=== PATIENT | female | born 1985 | race Hispanic/Latino ===

== ENCOUNTER 2018-07-10 11:08 | Emergency (ER) | payer OTHER, SELFPAY ==
--- OUTSIDE RECORDS SUMMARY | 2018-07-10 11:10 | XMS REPORT | Clinical Summary ---
:1985 Author Organization [facility] Address [address] [place] [address] Care Team Providers Name Role Phone Unavailable Primary Care Provider Unavailable Allergies No Known Allergies Medications Medication Sig Dispensed Refills Start Date End Date Status aspirin 81 MG chewable Take 1 tablet 30 tablet 3 07/25/2016 07/25/2017 tablet (81 mg total) by mouth daily. atorvastatin (LIPITOR) Take 1 tablet 30 tablet 3 07/25/2016 07/25/2017 40 MG tablet (40 mg total) by mouth nightly. ferrous sulfate 325 Take 1 tablet 90 tablet 1 07/25/2016 07/25/2017 (65 FE) MG tablet (325 mg total) by mouth 3 (three) times daily. Active Problems Problem Noted Date Patent foramen ovale 07/25/2016 Received intravenous tissue plasminogen activator (tPA) in emergency 2016 department Essential hypertension 07/21/2016 Acute CVA (cerebrovascular accident) 07/20/2016 Acute right MCA stroke 07/20/2016 Social History Tobacco Use Types Packs/Day Years Used Date Never Smoker Alcohol Use Drinks/Week oz/Week Comments Yes Sex Assigned at Date Recorded Not on file Job Start Date Occupation Industry Not on file Not on file Not on file Travel History Travel Start Travel End No recent travel history available. Last Filed Vital Signs Not on file Plan of Treatment Not on file Results Not on fileafter 07/09/2017 Insurance Payer Benefit Plan / Group Subscriber ID Type Phone Address [place] xxxxxxxxx Medicaid Advance Directives For more information, please contact:[place] [address] [address] [place], [place] [phone] Code Status Date Activated Date Inactivated Comments Full Code 07/24/2016 12:03 PM 07/24/2016 12:51 PM This code status was determined by: Patient Full Code 07/20/2016 11:48 PM 07/24/2016 12:03 PM This code status was determined by: Patient
--- OUTSIDE RECORDS SUMMARY | 2018-07-10 11:10 | XMS REPORT | Clinical Summary ---
:1985 Author Organization [facility] Address [address] [place] [address] Care Team Providers Name Role Phone Bandar Monge MD Primary Care Provider Allergies Not on File Medications Not on file Active Problems Not on file Social History Tobacco Use Types Packs/Day Years Used Date Never Assessed Sex Assigned at Date Recorded Not on file Job Start Date Occupation Industry Not on file Not on file Not on file Travel History Travel Start Travel End No recent travel history available. Last Filed Vital Signs Not on file Plan of Treatment Health Maintenance Due Date Last Done Comments CERVICAL CANCER SCREENING 08/09/2008 INFLUENZA VACCINE 11/21/2017 Results Not on fileafter 07/09/2017 Insurance Payer Benefit Plan / Group Subscriber ID Type Phone Address [employer] [facility] xxxxxxxxx O Advance Directives Patient has advance care planning documents on file. For more information, please contact:[address] [address]
--- OUTSIDE RECORDS SUMMARY | 2018-07-10 11:11 | XMS REPORT ---
:1985 Author Organization [facility] Address [address] [place] [address] [address] [place] [address] Care Team Providers Name Role Phone LANRE NAVARRO Unavailable Unavailable Problems This patient has no known problems. Allergies, Adverse Reactions, Alerts This patient has no known allergies or adverse reactions. Medications This patient has no known medications. Results Test Description Test Time Test Comments Text Results Atomic Results Result Comments [facility]IL[facility] (DRVV) 2016-07-25 15:34:00 Test Item Value Reference Range Comments PROTIME (BEAKER) (test uzwy=682) 13.9 seconds 11.7-14.7 INR (BEAKER) (test xuda=931) 1.1 <=5.9 PARTIAL THROMBOPLASTIN TIME (BEAKER) 56.1 seconds 22.5-36.0 (test dkqt=985) DRVV INTERPRETATION (BEAKER) (test Normal DRVV Results pwpq=8082) ABBA-CDUYWWBZSTC-718 (BEAKER) (test Alvarez Moe MD (electronic bczc=7337) signature) DRVV SCREEN RATIO (BEAKER) (test 0.84 <1.20 ljju=5194) Effective 08/26/2013: Test Method ChangeDRVV Screen Ratio, DRVV 1/1 Screen Ratio, DRVV Confirm Ratio,DRVV Normalized Ratio Reference Range: <1.2Protime Reference Range ChangeNew: 11.7-14.7 Previous: 9.8-12.0PTT Reference Range ChangeNew: 22.5-36.0 Previous: 25.8-34.5CBC W/PLT COUNT & AUTO [id number] 07:26:00 Test Item Value Reference Range Comments WHITE BLOOD CELL COUNT (BEAKER) (test xosc=676) 6.6 K/ L 4.0-10.0 RED BLOOD CELL COUNT (BEAKER) (test abrh=235) 3.31 M/ L 4.00-5.00 HEMOGLOBIN (BEAKER) (test odzn=407) 8.4 GM/DL 12.0-15.0 HEMATOCRIT (BEAKER) (test fuef=693) 26.4 % 36.0-45.0 MEAN CORPUSCULAR VOLUME (BEAKER) (test ukqh=190) 79.8 fL 82.0-99.0 MEAN CORPUSCULAR HEMOGLOBIN (BEAKER) (test 25.4 pg 27.0-33.0 pmzm=221) MEAN CORPUSCULAR HEMOGLOBIN CONC (BEAKER) (test 31.9 GM/DL 32.0-36.0 rnrj=793) RED CELL DISTRIBUTION WIDTH (BEAKER) (test 15.2 % 10.3-14.2 hozh=975) PLATELET COUNT (BEAKER) (test mjyf=623) 254 K/CU MM 150-430 MEAN PLATELET VOLUME (BEAKER) (test rgga=429) 8.1 fL 6.5-10.5 NUCLEATED RED BLOOD CELLS (BEAKER) (test 0 /100 WBC 0-0 rxcx=789) NEUTROPHILS RELATIVE PERCENT (BEAKER) (test 60 % gojr=660) LYMPHOCYTES RELATIVE PERCENT (BEAKER) (test 29 % vgsh=259) MONOCYTES RELATIVE PERCENT (BEAKER) (test 10 % mlzx=530) EOSINOPHILS RELATIVE PERCENT (BEAKER) (test 1 % zjnr=450) BASOPHILS RELATIVE PERCENT (BEAKER) (test 1 % vlvp=352) NEUTROPHILS ABSOLUTE COUNT (BEAKER) (test 3.90 K/ L 1.80-8.00 jlfp=283) LYMPHOCYTES ABSOLUTE COUNT (BEAKER) (test 1.90 K/ L 1.48-4.50 qdnt=364) MONOCYTES ABSOLUTE COUNT (BEAKER) (test 0.65 K/ L 0.00-1.30 ktaz=891) EOSINOPHILS ABSOLUTE COUNT (BEAKER) (test 0.05 K/ L 0.00-0.50 lnmi=381) BASOPHILS ABSOLUTE COUNT (BEAKER) (test 0.05 K/ L 0.00-0.20 htnt=536) 0.00BASIC METABOLIC [id number] 07:05:00 Test Item Value Reference Range Comments SODIUM (BEAKER) (test 135 meq/L 136-145 syjb=670) POTASSIUM (BEAKER) (test 3.7 meq/L 3.5-5.1 ovsy=735) CHLORIDE (BEAKER) (test 107 meq/L 98-107 wbet=374) CO2 (BEAKER) (test 19 meq/L 22-29 ypcg=136) BLOOD UREA NITROGEN 12 mg/dL 7-21 (BEAKER) (test hged=834) CREATININE (BEAKER) (test 0.59 mg/dL 0.57-1.25 ztlx=878) GLUCOSE RANDOM (BEAKER) 93 mg/dL 70-105 (test dajl=688) CALCIUM (BEAKER) (test 8.5 mg/dL 8.4-10.2 pcmh=106) EGFR (BEAKER) (test mL/min/1.73 sq m INSUFFICIENT CLINICAL DATA acru=6894) TO CALCULATE ESTIMATED GFR. CARDIOLIPIN ANTIBODIES, IGG AND [id number] 14:31:00 Test Item Value Reference Range Comments ANTICARDIOLIPIN IGG ANTIBODY (BEAKER) (test jysa=776) < GPL ANTICARDIOLIPIN IGM ANTIBODY (BEAKER) (test lyij=054) < MPL Anticardiolipin IgG Result Interpretation:NEG: <20 GPL; U/mlPOS: >/=20 GPL; U/mlAnticardiolipin IgM Result Interpretation:NEG: <20 MPL; U/mlPOS: >/=20 MPL; U/mlTHROMBIN [id number] 14:25:00 Test Item Value Reference Range Comments THROMBIN TIME (BEAKER) (test tsea=887) 193.3 secs 13.8-20.0 EQUAL MIX, NORMAL [id number] 14:16:00 Test Item Value Reference Range Comments PROTIME (BEAKER) (test 13.9 seconds 11.7-14.7 fuut=831) PARTIAL THROMBOPLASTIN TIME 56.1 seconds 22.5-36.0 (BEAKER) (test lihv=286) PT 1/1 MIX (BEAKER) (test SECS 11.7-14.7 Not applicable. Test not dnmm=7532) performed PTT 1/1 MIX (BEAKER) (test 42.4 SECS 22.5-36.0 objy=0258) ANTI-NUCLEAR ANTIBODY (CALLI)2016-07-24 12:37:00 Test Item Value Reference Range Comments ANTI-NUCLEAR ANTIBODY (CALLI) (BEAKER) (test Negative Negative xemf=791) CBC W/PLT COUNT & AUTO [id number] 08:32:00 Test Item Value Reference Range Comments WHITE BLOOD CELL COUNT (BEAKER) (test jero=094) 15.8 K/ L 4.0-10.0 RED BLOOD CELL COUNT (BEAKER) (test ekyl=239) 3.93 M/ L 4.00-5.00 HEMOGLOBIN (BEAKER) (test nclo=458) 9.3 GM/DL 12.0-15.0 HEMATOCRIT (BEAKER) (test rvgx=451) 30.6 % 36.0-45.0 MEAN CORPUSCULAR VOLUME (BEAKER) (test bjtd=801) 77.7 fL 82.0-99.0 MEAN CORPUSCULAR HEMOGLOBIN (BEAKER) (test 23.6 pg 27.0-33.0 ansk=134) MEAN CORPUSCULAR HEMOGLOBIN CONC (BEAKER) (test 30.4 GM/DL 32.0-36.0 smzo=734) RED CELL DISTRIBUTION WIDTH (BEAKER) (test 14.6 % 10.3-14.2 ybxb=697) PLATELET COUNT (BEAKER) (test ctrd=187) 311 K/CU MM 150-430 MEAN PLATELET VOLUME (BEAKER) (test enol=356) 8.1 fL 6.5-10.5 NUCLEATED RED BLOOD CELLS (BEAKER) (test 0 /100 WBC 0-0 vtab=674) NEUTROPHILS RELATIVE PERCENT (BEAKER) (test 91 % zxth=346) LYMPHOCYTES RELATIVE PERCENT (BEAKER) (test 5 % ahhn=748) MONOCYTES RELATIVE PERCENT (BEAKER) (test 4 % uuur=146) EOSINOPHILS RELATIVE PERCENT (BEAKER) (test 0 % cwpf=010) BASOPHILS RELATIVE PERCENT (BEAKER) (test 0 % qgbr=324) NEUTROPHILS ABSOLUTE COUNT (BEAKER) (test 14.40 K/ L 1.80-8.00 kufo=724) LYMPHOCYTES ABSOLUTE COUNT (BEAKER) (test 0.86 K/ L 1.48-4.50 jnkv=533) MONOCYTES ABSOLUTE COUNT (BEAKER) (test 0.57 K/ L 0.00-1.30 hbti=435) EOSINOPHILS ABSOLUTE COUNT (BEAKER) (test 0.02 K/ L 0.00-0.50 exly=218) BASOPHILS ABSOLUTE COUNT (BEAKER) (test 0.01 K/ L 0.00-0.20 axxr=901) 0.00(MANUAL DIFFERENTIAL)2016-07-24 08:32:00 Test Item Value Reference Range Comments TOTAL COUNTED (BEAKER) (test xpop=8143) BASIC METABOLIC [id number] 06:54:00 Test Item Value Reference Range Comments SODIUM (BEAKER) (test 138 meq/L 136-145 yuad=461) POTASSIUM (BEAKER) (test 4.1 meq/L 3.5-5.1 wtpa=932) CHLORIDE (BEAKER) (test 107 meq/L 98-107 zulv=437) CO2 (BEAKER) (test 21 meq/L 22-29 npok=976) BLOOD UREA NITROGEN 15 mg/dL 7-21 (BEAKER) (test kter=704) CREATININE (BEAKER) (test 0.71 mg/dL 0.57-1.25 mdmu=273) GLUCOSE RANDOM (BEAKER) 104 mg/dL 70-105 (test jswz=293) CALCIUM (BEAKER) (test 9.3 mg/dL 8.4-10.2 kifu=381) EGFR (BEAKER) (test mL/min/1.73 sq m INSUFFICIENT CLINICAL DATA bdoa=6293) TO CALCULATE ESTIMATED GFR. BASIC METABOLIC [id number] 07:19:00 Test Item Value Reference Range Comments SODIUM (BEAKER) (test 140 meq/L 136-145 dcxq=799) POTASSIUM (BEAKER) (test 4.0 meq/L 3.5-5.1 mjfa=604) CHLORIDE (BEAKER) (test 111 meq/L 98-107 rbau=111) CO2 (BEAKER) (test 21 meq/L 22-29 moki=321) BLOOD UREA NITROGEN 10 mg/dL 7-21 (BEAKER) (test ykpn=894) CREATININE (BEAKER) (test 0.69 mg/dL 0.57-1.25 zkib=864) GLUCOSE RANDOM (BEAKER) 90 mg/dL 70-105 (test vowb=531) CALCIUM (BEAKER) (test 8.8 mg/dL 8.4-10.2 wdak=571) EGFR (BEAKER) (test mL/min/1.73 sq m INSUFFICIENT CLINICAL DATA swkv=9475) TO CALCULATE ESTIMATED GFR. CBC W/PLT COUNT & AUTO [id number] 07:07:00 Test Item Value Reference Range Comments WHITE BLOOD CELL COUNT (BEAKER) (test fcay=200) 8.3 K/ L 4.0-10.0 RED BLOOD CELL COUNT (BEAKER) (test rwfv=396) 3.56 M/ L 4.00-5.00 HEMOGLOBIN (BEAKER) (test utnb=750) 9.2 GM/DL 12.0-15.0 HEMATOCRIT (BEAKER) (test cvnq=500) 28.5 % 36.0-45.0 MEAN CORPUSCULAR VOLUME (BEAKER) (test yfqp=770) 80.1 fL 82.0-99.0 MEAN CORPUSCULAR HEMOGLOBIN (BEAKER) (test 25.9 pg 27.0-33.0 cdny=553) MEAN CORPUSCULAR HEMOGLOBIN CONC (BEAKER) (test 32.4 GM/DL 32.0-36.0 monf=399) RED CELL DISTRIBUTION WIDTH (BEAKER) (test 14.3 % 10.3-14.2 pqhj=367) PLATELET COUNT (BEAKER) (test litq=981) 310 K/CU MM 150-430 MEAN PLATELET VOLUME (BEAKER) (test dauc=586) 7.7 fL 6.5-10.5 NUCLEATED RED BLOOD CELLS (BEAKER) (test 0 /100 WBC 0-0 orat=734) NEUTROPHILS RELATIVE PERCENT (BEAKER) (test 66 % obar=530) LYMPHOCYTES RELATIVE PERCENT (BEAKER) (test 23 % aqwc=874) MONOCYTES RELATIVE PERCENT (BEAKER) (test 10 % dxwl=362) EOSINOPHILS RELATIVE PERCENT (BEAKER) (test 1 % pxyt=793) BASOPHILS RELATIVE PERCENT (BEAKER) (test 1 % haoe=948) NEUTROPHILS ABSOLUTE COUNT (BEAKER) (test 5.50 K/ L 1.80-8.00 wgwt=759) LYMPHOCYTES ABSOLUTE COUNT (BEAKER) (test 1.93 K/ L 1.48-4.50 kwvq=906) MONOCYTES ABSOLUTE COUNT (BEAKER) (test 0.79 K/ L 0.00-1.30 nlon=402) EOSINOPHILS ABSOLUTE COUNT (BEAKER) (test 0.06 K/ L 0.00-0.50 kyos=295) BASOPHILS ABSOLUTE COUNT (BEAKER) (test 0.05 K/ L 0.00-0.20 jmjo=514) [id number] 11:08:00 Test Item Value Reference Range Comments POTASSIUM (BEAKER) (test zekr=772) 3.8 meq/L 3.5-5.1 [id number] 11:08:00 Test Item Value Reference Range Comments MAGNESIUM (BEAKER) (test mqmy=299) 2.3 mg/dL 1.6-2.6 BASIC METABOLIC [id number] 05:29:00 Test Item Value Reference Range Comments SODIUM (BEAKER) (test 139 meq/L 136-145 qnys=405) POTASSIUM (BEAKER) (test 3.6 meq/L 3.5-5.1 iuin=196) CHLORIDE (BEAKER) (test 111 meq/L 98-107 ptun=002) CO2 (BEAKER) (test 21 meq/L 22-29 uqmf=756) BLOOD UREA NITROGEN 8 mg/dL 7-21 (BEAKER) (test nrue=083) CREATININE (BEAKER) (test 0.59 mg/dL 0.57-1.25 cysm=550) GLUCOSE RANDOM (BEAKER) 93 mg/dL 70-105 (test kein=664) CALCIUM (BEAKER) (test 7.9 mg/dL 8.4-10.2 vbtx=687) EGFR (BEAKER) (test mL/min/1.73 sq m INSUFFICIENT CLINICAL DATA ossy=6934) TO CALCULATE ESTIMATED GFR. [id number] 05:27:00 Test Item Value Reference Range Comments PHOSPHORUS (BEAKER) (test ecjd=097) 2.7 mg/dL 2.3-4.7 [id number] 05:27:00 Test Item Value Reference Range Comments MAGNESIUM (BEAKER) (test exjv=629) 1.8 mg/dL 1.6-2.6 CBC W/PLT COUNT & AUTO [id number] 05:04:00 Test Item Value Reference Range Comments WHITE BLOOD CELL COUNT (BEAKER) (test sflo=881) 7.6 K/ L 4.0-10.0 RED BLOOD CELL COUNT (BEAKER) (test djke=754) 3.11 M/ L 4.00-5.00 HEMOGLOBIN (BEAKER) (test mtnc=629) 8.0 GM/DL 12.0-15.0 HEMATOCRIT (BEAKER) (test etvp=806) 24.8 % 36.0-45.0 MEAN CORPUSCULAR VOLUME (BEAKER) (test lyiq=703) 79.6 fL 82.0-99.0 MEAN CORPUSCULAR HEMOGLOBIN (BEAKER) (test 25.8 pg 27.0-33.0 qtpp=125) MEAN CORPUSCULAR HEMOGLOBIN CONC (BEAKER) (test 32.4 GM/DL 32.0-36.0 dkul=067) RED CELL DISTRIBUTION WIDTH (BEAKER) (test 14.0 % 10.3-14.2 tkab=083) PLATELET COUNT (BEAKER) (test qhkk=579) 268 K/CU MM 150-430 MEAN PLATELET VOLUME (BEAKER) (test xfij=771) 7.5 fL 6.5-10.5 NUCLEATED RED BLOOD CELLS (BEAKER) (test 0 /100 WBC 0-0 hpmx=888) NEUTROPHILS RELATIVE PERCENT (BEAKER) (test 62 % hqcc=798) LYMPHOCYTES RELATIVE PERCENT (BEAKER) (test 29 % oike=568) MONOCYTES RELATIVE PERCENT (BEAKER) (test 8 % nria=342) EOSINOPHILS RELATIVE PERCENT (BEAKER) (test 0 % rszp=193) BASOPHILS RELATIVE PERCENT (BEAKER) (test 1 % rran=372) NEUTROPHILS ABSOLUTE COUNT (BEAKER) (test 4.72 K/ L 1.80-8.00 makr=204) LYMPHOCYTES ABSOLUTE COUNT (BEAKER) (test 2.20 K/ L 1.48-4.50 lzyu=333) MONOCYTES ABSOLUTE COUNT (BEAKER) (test 0.62 K/ L 0.00-1.30 vwgl=992) EOSINOPHILS ABSOLUTE COUNT (BEAKER) (test 0.03 K/ L 0.00-0.50 zfhw=214) BASOPHILS ABSOLUTE COUNT (BEAKER) (test 0.04 K/ L 0.00-0.20 pznw=604) [id number] 17:27:00 Test Item Value Reference Range Comments FERRITIN (BEAKER) (test mijo=482) 9 ng/mL 5-275 Effective 03/10/2014: Reference Range ChangeNew: Male 5-275 Previous: Male 22-322 Female 5-275 Female 10-291TSH/FREE T4 IF [id number] 17:27:00 Test Item Value Reference Range Comments THYROID STIMULATING HORMONE (BEAKER) (test 1.75 uIU/mL 0.35-4.94 oadh=583) IRON, TIBC, % SAT. (WITHOUT FERRITIN)2016-07-21 17:06:00 Test Item Value Reference Range Comments IRON (BEAKER) (test vkzd=034) 25 ug/dL 40-160 TOTAL IRON BINDING CAPACITY (BEAKER) (test 435 ug/dL 250-450 brke=147) IRON % SATURATION (2) (BEAKER) (test dxxs=2765) 6 % 20-55 BASIC METABOLIC [id number] 15:01:00 Test Item Value Reference Range Comments SODIUM (BEAKER) (test 137 meq/L 136-145 rebz=954) POTASSIUM (BEAKER) (test 3.9 meq/L 3.5-5.1 bdks=028) CHLORIDE (BEAKER) (test 109 meq/L 98-107 mouk=269) CO2 (BEAKER) (test 21 meq/L 22-29 ujpx=885) BLOOD UREA NITROGEN 7 mg/dL 7-21 (BEAKER) (test tjve=239) CREATININE (BEAKER) (test 0.63 mg/dL 0.57-1.25 uvri=793) GLUCOSE RANDOM (BEAKER) 85 mg/dL 70-105 (test qfqf=412) CALCIUM (BEAKER) (test 8.0 mg/dL 8.4-10.2 qetz=989) EGFR (BEAKER) (test mL/min/1.73 sq m INSUFFICIENT CLINICAL DATA lmco=7679) TO CALCULATE ESTIMATED GFR. [id number] 14:50:00 Test Item Value Reference Range Comments PHOSPHORUS (BEAKER) (test mtvr=722) 3.5 mg/dL 2.3-4.7 [id number] 14:50:00 Test Item Value Reference Range Comments MAGNESIUM (BEAKER) (test okdk=139) 1.9 mg/dL 1.6-2.6 LIPID [id number] 14:50:00 Test Item Value Reference Range Comments TRIGLYCERIDES (BEAKER) (test avsa=479) 41 mg/dL CHOLESTEROL (BEAKER) (test plnq=797) 109 mg/dL HDL CHOLESTEROL (BEAKER) (test cxxo=469) 44 mg/dL LDL CHOLESTEROL CALCULATED (BEAKER) (test 57 mg/dL uvkf=924) Triglyceride Reference Range: Low Risk <150 Borderline 150- 199 High Risk 200-499 Very High Risk >=500Cholesterol Reference Range: Low Risk <200 Borderline 200-239 High Risk > 240HDL Cholesterol Reference Range: Low Risk >=60 High Risk <40LDL Cholesterol Reference Range: Optimal <100 Near Optimal 100-129 Borderline 130-159 High 160-189 Very High >=190C-REACTIVE [id number] 14:50:00 Test Item Value Reference Range Comments C-REACTIVE PROTEIN (BEAKER) (test gsym=723) 0.02 mg/dL 0.00-0.50 COMPLEMENT COMPONENT [id number] 14:48:00 Test Item Value Reference Range Comments C4 COMPLEMENT (BEAKER) (test eenv=125) 19 mg/dL 15-57 Effective 03/10/2014: Reference Range ChangeNew: 15-57 Previous: 16- 38COMPLEMENT COMPONENT [id number] 14:48:00 Test Item Value Reference Range Comments C3 COMPLEMENT (BEAKER) (test aeyv=374) 105 mg/dL 82-193 Effective 03/10/2014: Reference Range ChangeNew: 82-193 Previous: 79- 152HEMOGLOBIN [id number] 14:38:00 Test Item Value Reference Range Comments HEMOGLOBIN A1C (BEAKER) (test wvll=004) 5.1 % 4.3-6.1 SEDIMENTATION [id number] 08:29:00 Test Item Value Reference Range Comments SEDIMENTATION RATE, ERYTHROCYTE (BEAKER) (test 10 mm/HR 0-20 dzmz=822) CBC W/PLT COUNT & AUTO [id number] 06:06:00 Test Item Value Reference Range Comments WHITE BLOOD CELL COUNT (BEAKER) (test iwnj=375) 10.2 K/ L 4.0-10.0 RED BLOOD CELL COUNT (BEAKER) (test tjrw=342) 3.44 M/ L 4.00-5.00 HEMOGLOBIN (BEAKER) (test jhzb=291) 8.6 GM/DL 12.0-15.0 HEMATOCRIT (BEAKER) (test xyqa=286) 27.5 % 36.0-45.0 MEAN CORPUSCULAR VOLUME (BEAKER) (test vbnb=836) 79.9 fL 82.0-99.0 MEAN CORPUSCULAR HEMOGLOBIN (BEAKER) (test 25.0 pg 27.0-33.0 xefa=193) MEAN CORPUSCULAR HEMOGLOBIN CONC (BEAKER) (test 31.2 GM/DL 32.0-36.0 zdov=275) RED CELL DISTRIBUTION WIDTH (BEAKER) (test 14.6 % 10.3-14.2 tjae=247) PLATELET COUNT (BEAKER) (test zykt=019) 282 K/CU MM 150-430 MEAN PLATELET VOLUME (BEAKER) (test bwdi=370) 8.0 fL 6.5-10.5 NUCLEATED RED BLOOD CELLS (BEAKER) (test 0 /100 WBC 0-0 lbqd=981) NEUTROPHILS RELATIVE PERCENT (BEAKER) (test 75 % pvoh=617) LYMPHOCYTES RELATIVE PERCENT (BEAKER) (test 20 % ceym=868) MONOCYTES RELATIVE PERCENT (BEAKER) (test 6 % guth=901) EOSINOPHILS RELATIVE PERCENT (BEAKER) (test 0 % evhz=478) BASOPHILS RELATIVE PERCENT (BEAKER) (test 0 % rcay=506) NEUTROPHILS ABSOLUTE COUNT (BEAKER) (test 7.63 K/ L 1.80-8.00 ovxt=274) LYMPHOCYTES ABSOLUTE COUNT (BEAKER) (test 1.99 K/ L 1.48-4.50 xutp=654) MONOCYTES ABSOLUTE COUNT (BEAKER) (test 0.56 K/ L 0.00-1.30 rkmx=478) EOSINOPHILS ABSOLUTE COUNT (BEAKER) (test 0.01 K/ L 0.00-0.50 pdgm=367) BASOPHILS ABSOLUTE COUNT (BEAKER) (test 0.04 K/ L 0.00-0.20 svqr=960) 0.00RAPID DRUG SCREEN, [id number] 01:59:00 Test Item Value Reference Range Comments BARBITURATE URINE (BEAKER) (test bkwh=798) Negative Negative BENZODIAZEPINE SCREEN URINE (BEAKER) (test Negative Negative uwnv=154) COCAINE (METAB.) SCREEN (BEAKER) (test sdsn=5559) Negative Negative METHADONE SCREEN (BEAKER) (test dmww=9093) Negative Negative OPIATE SCREEN URINE (BEAKER) (test ohuc=566) Negative Negative CANNABINOID SCREEN URINE (BEAKER) (test csdu=905) Positive Negative AMPH/METHAMPH SCREEN (BEAKER) (test ziwq=2914) Negative Negative PHENCYCLIDINE SCREEN URINE (BEAKER) (test zwoo=590) Negative Negative OXYCODONE SCREEN URINE (BEAKER) (test ivld=6099) Negative Negative DRUG CUTOFF CONC.Cocaine 300 ng/mL Cannabinoid 50 ng/mL Benzodiazepine 200 ng/mLBarbiturate 200 ng/ mLPhencyclidine 25 ng/mLOpiate 300 ng/mLMethadone 300 ng/mLAmphetamine/ 1000 ng/mL MethamphetamineOxycodone 300 ng/mLPREGNANCY SCREEN, [id number] 01:47:00 Test Item Value Reference Range Comments TEST URINE (BEAKER) (test ajsi=752) Negative URINALYSIS W/ [id number] 01:46:00 Test Item Value Reference Range Comments COLOR (BEAKER) (test muuh=023) Light Yellow CLARITY (BEAKER) (test mdqm=805) Clear SPECIFIC GRAVITY UA (BEAKER) (test hatc=418) > 1.001-1.035 PH UA (BEAKER) (test xwjq=835) 6.5 5.0-8.0 PROTEIN UA (BEAKER) (test vtzk=422) Negative Negative GLUCOSE UA (BEAKER) (test nxer=498) Negative Negative KETONES UA (BEAKER) (test mqcg=631) 40 mg/dL Negative BILIRUBIN UA (BEAKER) (test dkyu=479) Negative Negative BLOOD UA (BEAKER) (test olun=770) Negative Negative NITRITE UA (BEAKER) (test bhxx=982) Negative Negative LEUKOCYTE ESTERASE UA (BEAKER) (test nswb=065) Negative Negative UROBILINOGEN UA (BEAKER) (test iwsw=909) 0.2 mg/dL 0.2-1.0 RBC UA (BEAKER) (test rxfe=959) 0 /HPF WBC UA (BEAKER) (test ciof=788) < /HPF SQUAMOUS EPITHELIAL (BEAKER) (test beqx=290) 1 /HPF SOURCE(BEAKER) (test bcqr=7855) BASIC METABOLIC [id number] 22:37:00 Test Item Value Reference Range Comments SODIUM (BEAKER) (test 140 meq/L 136-145 fbrv=739) POTASSIUM (BEAKER) (test 3.7 meq/L 3.5-5.1 lepk=664) CHLORIDE (BEAKER) (test 108 meq/L 98-107 yrur=574) CO2 (BEAKER) (test 19 meq/L 22-29 kvse=624) BLOOD UREA NITROGEN 7 mg/dL 7-21 (BEAKER) (test mwxt=914) CREATININE (BEAKER) (test 0.61 mg/dL 0.57-1.25 jzye=689) GLUCOSE RANDOM (BEAKER) 99 mg/dL 70-105 (test zprs=929) CALCIUM (BEAKER) (test 9.4 mg/dL 8.4-10.2 quko=213) EGFR (BEAKER) (test mL/min/1.73 sq m INSUFFICIENT CLINICAL DATA jqrj=5561) TO CALCULATE ESTIMATED GFR. CREATINE KINASE (CK), TOTAL AND [id number] 22:33:00 Test Item Value Reference Range Comments CREATINE KINASE TOTAL (BEAKER) (test ufza=447) 119 U/L 29-200 CREATINE KINASE-MB (BEAKER) (test znue=564) 1.5 ng/mL 0.0-6.6 CREATINE KINASE-MB INDEX (BEAKER) (test kztj=190) 1.3 % Effective 03/10/2014: CK-MB Reference Range ChangeNew: 0.0-6.6 Previous: 0.0- 4.9CK-MB Reference Range:<6.7 Normal6.7-10.0 Borderline>10.0 AbnormalTROPONIN [id number] 22:33:00 Test Item Value Reference Range Comments TROPONIN I (BEAKER) (test lukd=085) < ng/mL 0.00-0.03 Effective 03/10/2014: Reference Range ChangeNew: 0.00-0.03 Previous 0.00- 0.15Troponin I (TnI) levels must be interpreted in the context of the presenting symptoms and the clinical findings. Elevated TnI levels indicate myocardial damage, but are not specific for ischemic heart disease. Elevated TnI levels are seen in patients with other cardiac conditions (including myocarditis and congestive heartfailure), and slight TnI elevations occur in patients with other conditions, including sepsis, renalfailure, acidosis, acute neurological disease, and persistent tachyarrhythmia.B-TYPE NATRIURETIC FACTOR ( BNP)2016-07-20 22:33:00 Test Item Value Reference Range Comments B-TYPE NATRIURETIC PEPTIDE (BEAKER) (test sosz=152) 33 pg/mL 0-100 [id number] 22:27:00 Test Item Value Reference Range Comments MAGNESIUM (BEAKER) (test pvia=378) 1.9 mg/dL 1.6-2.6 [id number] 22:10:00 Test Item Value Reference Range Comments PROTIME (BEAKER) (test owxs=314) 13.6 seconds 11.7-14.7 INR (BEAKER) (test xljp=271) 1.1 <=5.9 PARTIAL THROMBOPLASTIN TIME (BEAKER) (test 26.9 seconds 22.5-36.0 xauw=390) RECOMMENDED COUMADIN/WARFARIN INR THERAPY RANGESSTANDARD DOSE: 2.0 - 3.0 Includes: PROPHYLAXIS forvenous thrombosis, systemic embolization; TREATMENT for venous thrombosis and/or pulmonary embolus.HIGH RISK: Target INR is 2.5-3.5 for patients with mechanical heart valves.POCT-GLUCOSE [id number] 22:02:00 Test Item Value Reference Range Comments POC-GLUCOSE METER (BEAKER) 86 mg/dL 70-110 TESTED AT [facility] [address] [facility] (test rrcu=7965) [facility] [address] CBC W/PLT COUNT & AUTO [id number] 22:01:00 Test Item Value Reference Range Comments WHITE BLOOD CELL COUNT (BEAKER) (test cvmp=096) 15.3 K/ L 4.0-10.0 RED BLOOD CELL COUNT (BEAKER) (test ywzl=173) 4.11 M/ L 4.00-5.00 HEMOGLOBIN (BEAKER) (test aafe=559) 10.4 GM/DL 12.0-15.0 HEMATOCRIT (BEAKER) (test mgvp=385) 33.3 % 36.0-45.0 MEAN CORPUSCULAR VOLUME (BEAKER) (test advc=511) 81.0 fL 82.0-99.0 MEAN CORPUSCULAR HEMOGLOBIN (BEAKER) (test 25.3 pg 27.0-33.0 zsvs=082) MEAN CORPUSCULAR HEMOGLOBIN CONC (BEAKER) (test 31.3 GM/DL 32.0-36.0 eumk=894) RED CELL DISTRIBUTION WIDTH (BEAKER) (test 15.3 % 10.3-14.2 szui=027) PLATELET COUNT (BEAKER) (test fgoq=559) 424 K/CU MM 150-430 MEAN PLATELET VOLUME (BEAKER) (test rwlp=158) 7.3 fL 6.5-10.5 NUCLEATED RED BLOOD CELLS (BEAKER) (test 0 /100 WBC 0-0 obog=501) NEUTROPHILS RELATIVE PERCENT (BEAKER) (test 79 % iaox=447) LYMPHOCYTES RELATIVE PERCENT (BEAKER) (test 14 % cbsa=312) MONOCYTES RELATIVE PERCENT (BEAKER) (test 6 % yzzo=232) EOSINOPHILS RELATIVE PERCENT (BEAKER) (test 0 % vnyr=172) BASOPHILS RELATIVE PERCENT (BEAKER) (test 0 % ppeq=925) NEUTROPHILS ABSOLUTE COUNT (BEAKER) (test 12.00 K/ L 1.80-8.00 hchf=512) LYMPHOCYTES ABSOLUTE COUNT (BEAKER) (test 2.14 K/ L 1.48-4.50 pkcl=325) MONOCYTES ABSOLUTE COUNT (BEAKER) (test 0.97 K/ L 0.00-1.30 wpwj=708) EOSINOPHILS ABSOLUTE COUNT (BEAKER) (test 0.03 K/ L 0.00-0.50 qits=803) BASOPHILS ABSOLUTE COUNT (BEAKER) (test 0.07 K/ L 0.00-0.20 ifua=959) 0.00
[2018-07-10 12:04] LABS: Absolute Lymphocytes (CBC) 1.2 K/uL (0.7-4.9); Absolute Monocytes 0.3 K/uL (0.1-1.3); Absolute Neutrophil 3.2 K/uL (1.8-8.0); Basophils % 1.2 % (0-1.3); Eosinophils % 1.9 % (0-4.4); Hematocrit 37.2 % (36.0-45.0); Lymphocytes % 25.5 % (15.3-44.8); MPV 9.4 fL (7.6-11.3); Monocytes % 6.1 % (3.3-12.3); RBC Red Blood Cell Count 4.11 M/uL (3.86-4.86)
[2018-07-10 12:15] LABS: Protime INR 1.04
--- NOTE | 2018-07-10 12:18 | EKG ---
Test Date: 2018-07-10 Test Time: 11:30:55 Plastic Surgery Assistant: SAGAR MEASUREMENT RESULTS: Intervals: Rate: 93 NH: 150 QRSD: 84 QT: 360 QTc: 447 [place]: P: 66 NH: 150 QRS: 38 T: 28 INTERPRETIVE STATEMENTS: Normal sinus rhythm Normal ECG No previous ECG available for comparison Electronically Signed On 07-10-18 12:17:43 CDT by Mumtaz Dick
[2018-07-10 12:21] LABS: ALT/SGPT 27 U/L (12-78); AST/SGOT 15 U/L (15-37); Albumin 3.9 g/dL (3.4-5.0); Alkaline Phosphatase 83 U/L (45-117); BUN Blood Urea Nitrogen 13 mg/dL (7-18); Bicarbonate 29 mmol/L (21-32); Bilirubin Direct < 0.1 mg/dL (0-0.2); Bilirubin Total 0.3 mg/dL (0.2-1.0); Glucose Level 84 mg/dL (74-106); Magnesium 2.2 mg/dL (1.8-2.4); NT PRO-BNP 11 pg/mL (<125); Potassium 4.2 mmol/L (3.5-5.1); Sodium Level 140 mmol/L (136-145); Troponin (Emerg Dept Use Only) < 0.02 ng/mL (0.0-0.045)
--- NOTE | 2018-07-10 12:36 | RAD REPORT ---
EXAM DESCRIPTION: [place] Single View07/10/2018 12:30 pm CLINICAL HISTORY: Chest pain COMPARISON: 2016 FINDINGS: The lungs appear clear of acute infiltrate. The heart is normal size IMPRESSION: No acute abnormalities displayed
--- NOTE | 2018-07-10 13:23 | EDPHYS ---
Physician Documentation [facility] Name: Italia Allen Age: 32 yrs Sex: Female : 1985 Arrival Date: 07/10/2018 Time: 11:19 Bed 14 Private MD: ED Physician Serjio Hitchcock HPI: 07/10 12:05 This 32 yrs old Female presents to ER via EMS with complaints of Chest Pain. pm1 12:05 The patient or guardian reports chest pain that is located primarily in the anterior pm1 aspect of right upper chest. The pain does not radiate. Associated signs and symptoms: Pertinent negatives: abdominal pain, cough, nausea, shortness of breath, vomiting. The chest pain is described as sharp. Duration: The patient or guardian reports multiple episodes. Modifying factors: the symptoms are aggravated by deep breath, palpation of area. The patient has not recently seen a physician. onset 3 months ago. 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 - Social history:: Smoking status: Patient/guardian denies using tobacco. - Ebola Screening: : Patient negative for fever greater than or equal to 101.5 degrees Fahrenheit, and additional compatible Ebola Virus Disease symptoms Patient denies exposure to infectious person Patient denies travel to an Ebola-affected area in the 21 days before illness onset No symptoms or risks identified at this time. ROS: 12:05 Constitutional: Negative for fever, chills, and weight loss, Eyes: Negative for injury, pm1 pain, redness, and discharge, ENT: Negative for injury, pain, and discharge, Neck: Negative for injury, pain, and swelling. 12:05 Respiratory: Negative for shortness of breath, cough, wheezing, and pleuritic chest pain, Abdomen/GI: Negative for abdominal pain, nausea, vomiting, diarrhea, and constipation, Back: Negative for injury and pain, : Negative for injury, bleeding, discharge, and swelling, MS/Extremity: Negative for injury and deformity, Skin: Negative for injury, rash, and discoloration, Neuro: Negative for headache, weakness, numbness, tingling, and seizure. 12:05 Cardiovascular: Positive for chest pain, Negative for edema, palpitations. Exam: 12:05 Constitutional: This is a well developed, well nourished patient who is awake, alert, pm1 and in no acute distress. Head/Face: Normocephalic, atraumatic. Eyes: Pupils equal round and reactive to light, extra-ocular motions intact. Lids and lashes normal. Conjunctiva and sclera are non-icteric and not injected. Cornea within normal limits. Periorbital areas with no swelling, redness, or edema. ENT: Nares patent. No nasal discharge, no septal abnormalities noted. Tympanic membranes are normal and external auditory canals are clear. Oropharynx with no redness, swelling, or masses, exudates, or evidence of obstruction, uvula midline. Mucous membranes moist. Neck: Trachea midline, no thyromegaly or masses palpated, and no cervical lymphadenopathy. Supple, full range of motion without nuchal rigidity, or vertebral point tenderness. No Meningismus. 12:05 Cardiovascular: Regular rate and rhythm with a normal S1 and S2. No gallops, murmurs, or rubs. Normal PMI, no JVD. No pulse deficits. Respiratory: Lungs have equal breath sounds bilaterally, clear to auscultation and percussion. No rales, rhonchi or wheezes noted. No increased work of breathing, no retractions or nasal flaring. Abdomen/GI: Soft, non-tender, with normal bowel sounds. No distension or tympany. No guarding or rebound. No evidence of tenderness throughout. Back: No spinal tenderness. No costovertebral tenderness. Full range of motion. Skin: Warm, dry with normal turgor. Normal color with no rashes, no lesions, and no evidence of cellulitis. MS/ Extremity: Pulses equal, no cyanosis. Neurovascular intact. Full, normal range of motion. 12:05 Chest/axilla: Inspection: normal, Palpation: crepitus, is not appreciated, tenderness, of the anterior aspect of right upper chest, that totally reproduces the patient's complaints. 12:05 Neuro: Orientation: is normal, Motor: is normal, moves all fours. Vital Signs: 11:22 BP 123 / 74; Pulse 85; Resp 20; Temp 98; Pulse Ox 100% ; Weight 58.97 kg; bp 12:37 BP 112 / 77; Pulse 60; Resp 12; Pulse Ox 100% ; bp 13:44 BP 100 / 61; Pulse 68; Resp 15; Pulse Ox 100% on R/A; mh5 MDM: 11:22 Patient medically screened. nils 13:21 Data reviewed: vital signs. Data interpreted: Pulse oximetry: on room air is 100 %. pm1 Interpretation: normal. Counseling: I had a detailed discussion with the patient and/or guardian regarding: the historical points, exam findings, and any diagnostic results supporting the discharge/admit diagnosis, lab results, radiology results, the need for outpatient follow up, to return to the emergency department if symptoms worsen or persist or if there are any questions or concerns that arise at home. 07/10 11:30 Order name: Basic Metabolic Panel; Complete Time: 12:35 pm07/10 11:30 Order name: CBC with Diff; Complete Time: 12:35 pm07/10 11:30 Order name: LFT's; Complete Time: 12:35 pm07/10 11:30 Order name: Magnesium; Complete Time: 12:35 pm07/10 11:30 Order name: NT PRO-BNP; Complete Time: 12:35 pm07/10 11:30 Order name: PT-INR; Complete Time: 12:35 pm07/10 11:30 Order name: Troponin (emerg Dept Use Only); Complete Time: 12:35 pm07/10 11:30 Order name: XRAY Chest (1 view); Complete Time: 12:41 pm07/10 11:30 Order name: EKG; Complete Time: 11:31 pm07/10 11:30 Order name: Cardiac monitoring; Complete Time: 11:50 pm07/10 11:30 Order name: EKG - Nurse/Tech; Complete Time: 11:50 pm07/10 11:30 Order name: D-Dimer; Complete Time: 12:35 pm07/10 12:34 Order name: Urine Dipstick--Ancillary (enter results) 07/10 12:37 Order name: Urine --Ancillary (enter results) 07/10 11:30 Order name: IV Saline Lock; Complete Time: 11:50 pm1 07/10 11:30 Order name: Labs collected and sent; Complete Time: 11:50 pm1 07/10 11:30 Order name: O2 Per Protocol; Complete Time: 11:50 pm1 07/10 11:30 Order name: O2 Sat Monitoring; Complete Time: 11:50 pm1 07/10 11:30 Order name: Urine Dipstick-Ancillary (obtain specimen); Complete Time: 12:32 pm1 07/10 11:30 Order name: Urine Test (obtain specimen); Complete Time: 12:32 pm1 Administered Medications: No medications were administered Disposition: 07/11 08:04 Co-signature as Attending Physician, Serjio Hitchcock MD I agree with the assessment and nils plan of care. Disposition: 07/10/18 13:22 Discharged to Home. Impression: Chest pain, unspecified. - Condition is Stable. - Discharge Instructions: Nonspecific Chest Pain. - Medication Reconciliation Form, Thank You Letter, Antibiotic Education, Prescription Opioid Use, SBAR form form. - Follow up: Emergency Department; When: As needed; Reason: Worsening of condition. Follow up: Private Physician; When: 2 - 3 days; Reason: Recheck today's complaints, Continuance of care, Re-evaluation by your physician. - Problem is new. - Symptoms have improved. Signatures: Dispatcher [employer] EDSerjio Pascal MD MD cha Marinas, Patrick, AIRFRAME AND POWERPLANT MECHANIC AIRFRAME AND POWERPLANT MECHANIC pm1 Kar Cisneros RN RN bp Corrections: (The following items were deleted from the chart) 07/10 14:08 13:22 07/10/2018 13:22 Discharged to Home. Impression: Chest pain, unspecified. bp Condition is Stable. Forms are Medication Reconciliation Form, Thank You Letter, Antibiotic Education, Prescription Opioid Use. Follow up: Emergency Department; When: As needed; Reason: Worsening of condition. Follow up: Private Physician; When: 2 - 3 days; Reason: Recheck today's complaints, Continuance of care, Re-evaluation by your physician. Problem is new. Symptoms have improved. pm1
--- NOTE | 2018-07-10 13:23 | ER ---
Nurse's Notes [facility] Emergency Department Name: Italia Allen Age: 32 yrs Sex: Female : 1985 Arrival Date: 07/10/2018 Time: 11:19 Bed 14 Private MD: Diagnosis: Chest pain, unspecified Presentation: 07/10 11:19 Presenting complaint: EMS states: CHEST PAIN AT [facility] x3 MONTHS. Transition of bp care: patient was not received from another setting of care. Onset of symptoms is unknown. Risk Assessment: Do you want to hurt yourself or someone else? Patient reports no desire to harm self or others. Initial Sepsis Screen: Does the patient meet any 2 criteria? No. Patient's initial sepsis screen is negative. Does the patient have a suspected source of infection? No. Patient's initial sepsis screen is negative. Care prior to arrival: Medication(s) given: ASA, 81 mg, x 4, Nitroglycerin, 0.4 mg SL x 2, zofran 4 mg, FENTANYL 75MCG IV initiated. 20 GA, in the right antecubital area. 11:19 Method Of Arrival: EMS: [facility] bp 11:19 Acuity: BUDDY 2 bp Triage Assessment: 11:22 General: Appears in no apparent distress. comfortable, slender, Behavior is bp cooperative, appropriate for age, anxious. Pain: Complains of pain in chest. EENT: No deficits noted. Neuro: Level of Consciousness is awake, alert, obeys commands, Oriented to person, place, time, situation, Appropriate for age. Cardiovascular: Rhythm is sinus rhythm. Respiratory: Airway is patent Respiratory effort is even, unlabored, Respiratory pattern is regular, symmetrical. GI: No signs and/or symptoms were reported involving the gastrointestinal system. : No signs and/or symptoms were reported regarding the genitourinary system. Derm: No deficits noted. Musculoskeletal: Circulation, motion, and sensation intact. Range of motion: intact in all extremities. 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 - Social history:: Smoking status: Patient/guardian denies using tobacco. - Ebola Screening: : Patient negative for fever greater than or equal to 101.5 degrees Fahrenheit, and additional compatible Ebola Virus Disease symptoms Patient denies exposure to infectious person Patient denies travel to an Ebola-affected area in the 21 days before illness onset No symptoms or risks identified at this time. Screenin:25 Abuse screen: Denies threats or abuse. Denies injuries from another. Nutritional bp screening: No deficits noted. Tuberculosis screening: No symptoms or risk factors identified. Fall Risk None identified. Assessment: 11:26 General: SEE TRIAGE NOTE. bp 11:30 Pain: Pain does not radiate. Pain began 3 MONTHS AGO. bp 12:37 Reassessment: ALL CURRENT ORDERS COMPLETED, DISPO PENDING, VS STABLE ON MONITOR. bp 14:07 Reassessment: PT D/C HOME AMBULATORY WITH FAMILY, DX WITH NONSPECIFIC CHEST PAIN. bp Vital Signs: 11:22 BP 123 / 74; Pulse 85; Resp 20; Temp 98; Pulse Ox 100% ; Weight 58.97 kg; bp 12:37 BP 112 / 77; Pulse 60; Resp 12; Pulse Ox 100% ; bp 13:44 BP 100 / 61; Pulse 68; Resp 15; Pulse Ox 100% on R/A; mh5 ED Course: 11:19 Patient arrived in ED. bp 11:19 Alexis Montoya NP is PHCP. pm1 11:19 Serjio Hitchcock MD is Attending Physician. pm1 11:21 Triage completed. bp 11:22 Arm band placed on. bp 11:25 Patient has correct armband on for positive identification. Placed in gown. Bed in low bp position. Call light in reach. Side rails up X2. radiation monitor on. Pulse ox on. NIBP on. 11:25 Maintain EMS IV. Dressing intact. Good blood return noted. Site clean \T\ dry. Gauge \T\ bp site: 20 GAUGE R AC. Patient maintains SpO2 saturation greater than 95% on room air. 11:38 EKG done, by forest ranger technician. reviewed by Serjio Hitchcock MD. at1 11:42 Kar Cisneros, DIXIE is Primary Nurse. bp 12:29 X-ray completed. Portable x-ray completed in exam room. Patient tolerated procedure jb2 well. 12:31 XRAY Chest (1 view) In Process Unspecified. EDMS 12:31 Urine collected: clean catch specimen, clear. [facility] 12:32 Warm blanket given. [facility] 14:07 No provider procedures requiring assistance completed. IV discontinued, intact, bp bleeding controlled, No redness/swelling at site. Pressure dressing applied. Administered Medications: No medications were administered Outcome: 13:22 Discharge ordered by MD. pm1 14:07 Discharged to home ambulatory. bp 14:07 Condition: stable 14:07 Discharge instructions given to patient, Instructed on discharge instructions, follow up and referral plans. Demonstrated understanding of instructions, follow-up care. 14:08 Patient left the ED. bp Signatures: Dispatcher [employer] EDMS Kang Chirinos jb2 Lucina Hung, senior mechanical project manager EKG Tat1 Alexis Montoya, MANUFACTURING CHIEF ENGINEER MANUFACTURING CHIEF ENGINEER pm1 Radha Rivera 5 Kar Cisneros, RN RN bp
[2018-07-10 14:14] LABS: Urine Blood 2+ (NEG); Urine Glucose NEGATIVE (NEG); Urine Protein NEGATIVE (NEG); Urine pH 5.5 (5.0-7.0)
[2018-07-10 14:22] VITALS: TEMP 98; O2SAT 100
[2018-07-10 14:25] VITALS: BP 100/61
== END 2018-07-10 14:08 | disposition home or self-care (01) ==
LOC: ER 11:08
DX: R07.9 Chest pain, unspecified (principal); Z86.73 Personal history of transient ischemic attack (TIA), and cerebral infarction without residual deficits
CPT/HCPCS: 36415; 71045; 80048; 80076; 81003; 81025; 83735; 83880; 84484; 85025; 85379; 85610; 93005; 99285

== ENCOUNTER 2019-04-16 06:47 | Emergency (ER) | payer SELFPAY ==
--- OUTSIDE RECORDS SUMMARY | 2019-04-16 06:50 | XMS REPORT ---
:1985 [facility] [address] [place] [address] Care Team Providers Name Role Phone LANRE [...] Value Reference Range Comments PROTIME (BEAKER) (test elay=043) 13.9 seconds 11.7-14.7 INR (BEAKER) (test lidw=020) 1.1 <=5.9 PARTIAL THROMBOPLASTIN TIME (BEAKER) 56.1 seconds 22.5-36.0 (test rhjs=852) DRVV INTERPRETATION (BEAKER) (test Normal DRVV Results drlx=8047) SCHE-[id number]-165 (BEAKER) (test Alvarez Moe MD (electronic wwnr=6115) signature) DRVV SCREEN RATIO (BEAKER) (test 0.84 <1.20 mvgp=3463) Effective 08/26/2013: Test Method ChangeDRVV Screen Ratio, DRVV 1/1 Screen Ratio, DRVV Confirm Ratio,DRVV Normalized Ratio Reference Range: <1.2Protime Reference Range ChangeNew: 11.7-14.7 Previous: 9.8-12.0PTT Reference Range ChangeNew: 22.5-36.0 Previous: 25.8-34.5CBC W/PLT COUNT & AUTO [id number] 07:26:00 Test Item Value Reference Range Comments WHITE BLOOD CELL COUNT (BEAKER) (test ptuj=240) 6.6 K/ L 4.0-10.0 RED BLOOD CELL COUNT (BEAKER) (test ngzz=741) 3.31 M/ L 4.00-5.00 HEMOGLOBIN (BEAKER) (test hwhz=436) 8.4 GM/DL 12.0-15.0 HEMATOCRIT (BEAKER) (test trwv=617) 26.4 % 36.0-45.0 MEAN CORPUSCULAR VOLUME (BEAKER) (test hucr=484) 79.8 fL 82.0-99.0 MEAN CORPUSCULAR HEMOGLOBIN (BEAKER) (test 25.4 pg 27.0-33.0 drpe=659) MEAN CORPUSCULAR HEMOGLOBIN CONC (BEAKER) (test 31.9 GM/DL 32.0-36.0 izoc=750) RED CELL DISTRIBUTION WIDTH (BEAKER) (test 15.2 % 10.3-14.2 pjje=779) PLATELET COUNT (BEAKER) (test jdvu=683) 254 K/CU MM 150-430 MEAN PLATELET VOLUME (BEAKER) (test tzzt=907) 8.1 fL 6.5-10.5 NUCLEATED RED BLOOD CELLS (BEAKER) (test 0 /100 WBC 0-0 nsve=783) NEUTROPHILS RELATIVE PERCENT (BEAKER) (test 60 % rkde=439) LYMPHOCYTES RELATIVE PERCENT (BEAKER) (test 29 % szjh=851) MONOCYTES RELATIVE PERCENT (BEAKER) (test 10 % qfiq=139) EOSINOPHILS RELATIVE PERCENT (BEAKER) (test 1 % qezv=674) BASOPHILS RELATIVE PERCENT (BEAKER) (test 1 % rmro=752) NEUTROPHILS ABSOLUTE COUNT (BEAKER) (test 3.90 K/ L 1.80-8.00 yhzu=363) LYMPHOCYTES ABSOLUTE COUNT (BEAKER) (test 1.90 K/ L 1.48-4.50 txyf=071) MONOCYTES ABSOLUTE COUNT (BEAKER) (test 0.65 K/ L 0.00-1.30 adrc=905) EOSINOPHILS ABSOLUTE COUNT (BEAKER) (test 0.05 K/ L 0.00-0.50 tmyo=019) BASOPHILS ABSOLUTE COUNT (BEAKER) (test 0.05 K/ L 0.00-0.20 goua=962) 0.00BASIC METABOLIC [id number] 07:05:00 Test Item Value Reference Range Comments SODIUM (BEAKER) (test 135 meq/L 136-145 pxqy=952) POTASSIUM (BEAKER) (test 3.7 meq/L 3.5-5.1 nbrj=407) CHLORIDE (BEAKER) (test 107 meq/L 98-107 fhjp=458) CO2 (BEAKER) (test 19 meq/L 22-29 tjqv=987) BLOOD UREA NITROGEN 12 mg/dL 7-21 (BEAKER) (test fksc=076) CREATININE (BEAKER) (test 0.59 mg/dL 0.57-1.25 ussl=076) GLUCOSE RANDOM (BEAKER) 93 mg/dL 70-105 (test aoud=110) CALCIUM (BEAKER) (test 8.5 mg/dL 8.4-10.2 bjld=729) EGFR (BEAKER) (test mL/min/1.73 sq m INSUFFICIENT CLINICAL DATA uvoq=8719) TO CALCULATE ESTIMATED GFR. CARDIOLIPIN ANTIBODIES, IGG AND [id number] 14:31:00 Test Item Value Reference Range Comments ANTICARDIOLIPIN IGG ANTIBODY (BEAKER) (test undj=826) < GPL ANTICARDIOLIPIN IGM ANTIBODY (BEAKER) (test nzlq=599) < MPL Anticardiolipin IgG Result Interpretation:NEG: <20 GPL; U/mlPOS: >/=20 GPL; U/mlAnticardiolipin IgM Result Interpretation:NEG: <20 MPL; U/mlPOS: >/=20 MPL; U/mlTHROMBIN [id number] 14:25:00 Test Item Value Reference Range Comments THROMBIN TIME (BEAKER) (test zdqg=118) 193.3 secs 13.8-20.0 EQUAL MIX, NORMAL [id number] 14:16:00 Test Item Value Reference Range Comments PROTIME (BEAKER) (test 13.9 seconds 11.7-14.7 sscs=906) PARTIAL THROMBOPLASTIN TIME 56.1 seconds 22.5-36.0 (BEAKER) (test ojka=334) PT 1/1 MIX (BEAKER) (test SECS 11.7-14.7 Not applicable. Test not mujm=6234) performed PTT 1/1 MIX (BEAKER) (test 42.4 SECS 22.5-36.0 abmc=9619) ANTI-NUCLEAR ANTIBODY (CALLI)2016-07-24 12:37:00 Test Item Value Reference Range Comments ANTI-NUCLEAR ANTIBODY (CALLI) (BEAKER) (test Negative Negative mtja=430) CBC W/PLT COUNT & AUTO [id number] 08:32:00 Test Item Value Reference Range Comments WHITE BLOOD CELL COUNT (BEAKER) (test mdvr=885) 15.8 K/ L 4.0-10.0 RED BLOOD CELL COUNT (BEAKER) (test sryw=616) 3.93 M/ L 4.00-5.00 HEMOGLOBIN (BEAKER) (test rsdv=557) 9.3 GM/DL 12.0-15.0 HEMATOCRIT (BEAKER) (test oasx=233) 30.6 % 36.0-45.0 MEAN CORPUSCULAR VOLUME (BEAKER) (test qupt=578) 77.7 fL 82.0-99.0 MEAN CORPUSCULAR HEMOGLOBIN (BEAKER) (test 23.6 pg 27.0-33.0 ykqm=636) MEAN CORPUSCULAR HEMOGLOBIN CONC (BEAKER) (test 30.4 GM/DL 32.0-36.0 zbxi=949) RED CELL DISTRIBUTION WIDTH (BEAKER) (test 14.6 % 10.3-14.2 lals=092) PLATELET COUNT (BEAKER) (test uspv=382) 311 K/CU MM 150-430 MEAN PLATELET VOLUME (BEAKER) (test antx=161) 8.1 fL 6.5-10.5 NUCLEATED RED BLOOD CELLS (BEAKER) (test 0 /100 WBC 0-0 jpjm=319) NEUTROPHILS RELATIVE PERCENT (BEAKER) (test 91 % ydzs=581) LYMPHOCYTES RELATIVE PERCENT (BEAKER) (test 5 % plpx=085) MONOCYTES RELATIVE PERCENT (BEAKER) (test 4 % ccwu=323) EOSINOPHILS RELATIVE PERCENT (BEAKER) (test 0 % okzi=530) BASOPHILS RELATIVE PERCENT (BEAKER) (test 0 % dkde=639) NEUTROPHILS ABSOLUTE COUNT (BEAKER) (test 14.40 K/ L 1.80-8.00 gmwe=349) LYMPHOCYTES ABSOLUTE COUNT (BEAKER) (test 0.86 K/ L 1.48-4.50 csok=861) MONOCYTES ABSOLUTE COUNT (BEAKER) (test 0.57 K/ L 0.00-1.30 zyor=693) EOSINOPHILS ABSOLUTE COUNT (BEAKER) (test 0.02 K/ L 0.00-0.50 whwp=710) BASOPHILS ABSOLUTE COUNT (BEAKER) (test 0.01 K/ L 0.00-0.20 fagh=920) 0.00(MANUAL DIFFERENTIAL)2016-07-24 08:32:00 Test Item Value Reference Range Comments TOTAL COUNTED (BEAKER) (test xnft=4613) BASIC METABOLIC [id number] 06:54:00 Test Item Value Reference Range Comments SODIUM (BEAKER) (test 138 meq/L 136-145 pvuy=191) POTASSIUM (BEAKER) (test 4.1 meq/L 3.5-5.1 dfkk=453) CHLORIDE (BEAKER) (test 107 meq/L 98-107 dqpb=959) CO2 (BEAKER) (test 21 meq/L 22-29 cubj=567) BLOOD UREA NITROGEN 15 mg/dL 7-21 (BEAKER) (test hzyp=272) CREATININE (BEAKER) (test 0.71 mg/dL 0.57-1.25 zswp=215) GLUCOSE RANDOM (BEAKER) 104 mg/dL 70-105 (test ymjw=773) CALCIUM (BEAKER) (test 9.3 mg/dL 8.4-10.2 pqih=365) EGFR (BEAKER) (test mL/min/1.73 sq m INSUFFICIENT CLINICAL DATA neyv=0841) TO CALCULATE ESTIMATED GFR. BASIC METABOLIC [id number] 07:19:00 Test Item Value Reference Range Comments SODIUM (BEAKER) (test 140 meq/L 136-145 neyl=760) POTASSIUM (BEAKER) (test 4.0 meq/L 3.5-5.1 mjlp=619) CHLORIDE (BEAKER) (test 111 meq/L 98-107 hjlm=813) CO2 (BEAKER) (test 21 meq/L 22-29 iyjc=602) BLOOD UREA NITROGEN 10 mg/dL 7-21 (BEAKER) (test kuet=624) CREATININE (BEAKER) (test 0.69 mg/dL 0.57-1.25 vklb=718) GLUCOSE RANDOM (BEAKER) 90 mg/dL 70-105 (test fiur=415) CALCIUM (BEAKER) (test 8.8 mg/dL 8.4-10.2 cyxm=011) EGFR (BEAKER) (test mL/min/1.73 sq m INSUFFICIENT CLINICAL DATA yrwd=6863) TO CALCULATE ESTIMATED GFR. CBC W/PLT COUNT & AUTO [id number] 07:07:00 Test Item Value Reference Range Comments WHITE BLOOD CELL COUNT (BEAKER) (test xugx=209) 8.3 K/ L 4.0-10.0 RED BLOOD CELL COUNT (BEAKER) (test imvi=028) 3.56 M/ L 4.00-5.00 HEMOGLOBIN (BEAKER) (test ztrn=308) 9.2 GM/DL 12.0-15.0 HEMATOCRIT (BEAKER) (test yady=831) 28.5 % 36.0-45.0 MEAN CORPUSCULAR VOLUME (BEAKER) (test jvzv=303) 80.1 fL 82.0-99.0 MEAN CORPUSCULAR HEMOGLOBIN (BEAKER) (test 25.9 pg 27.0-33.0 hual=563) MEAN CORPUSCULAR HEMOGLOBIN CONC (BEAKER) (test 32.4 GM/DL 32.0-36.0 cipy=846) RED CELL DISTRIBUTION WIDTH (BEAKER) (test 14.3 % 10.3-14.2 wziu=780) PLATELET COUNT (BEAKER) (test mfog=376) 310 K/CU MM 150-430 MEAN PLATELET VOLUME (BEAKER) (test cqej=502) 7.7 fL 6.5-10.5 NUCLEATED RED BLOOD CELLS (BEAKER) (test 0 /100 WBC 0-0 moen=787) NEUTROPHILS RELATIVE PERCENT (BEAKER) (test 66 % pwmr=152) LYMPHOCYTES RELATIVE PERCENT (BEAKER) (test 23 % iybb=582) MONOCYTES RELATIVE PERCENT (BEAKER) (test 10 % ulnz=720) EOSINOPHILS RELATIVE PERCENT (BEAKER) (test 1 % klab=800) BASOPHILS RELATIVE PERCENT (BEAKER) (test 1 % ruak=880) NEUTROPHILS ABSOLUTE COUNT (BEAKER) (test 5.50 K/ L 1.80-8.00 sjng=075) LYMPHOCYTES ABSOLUTE COUNT (BEAKER) (test 1.93 K/ L 1.48-4.50 jdzr=859) MONOCYTES ABSOLUTE COUNT (BEAKER) (test 0.79 K/ L 0.00-1.30 ihfo=242) EOSINOPHILS ABSOLUTE COUNT (BEAKER) (test 0.06 K/ L 0.00-0.50 uojr=804) BASOPHILS ABSOLUTE COUNT (BEAKER) (test 0.05 K/ L 0.00-0.20 qidt=778) [id number] 11:08:00 Test Item Value Reference Range Comments POTASSIUM (BEAKER) (test zqcv=132) 3.8 meq/L 3.5-5.1 [id number] 11:08:00 Test Item Value Reference Range Comments MAGNESIUM (BEAKER) (test epxn=957) 2.3 mg/dL 1.6-2.6 BASIC METABOLIC [id number] 05:29:00 Test Item Value Reference Range Comments SODIUM (BEAKER) (test 139 meq/L 136-145 xdex=829) POTASSIUM (BEAKER) (test 3.6 meq/L 3.5-5.1 lbhy=570) CHLORIDE (BEAKER) (test 111 meq/L 98-107 bbhu=038) CO2 (BEAKER) (test 21 meq/L 22-29 qfaa=307) BLOOD UREA NITROGEN 8 mg/dL 7-21 (BEAKER) (test hkvb=730) CREATININE (BEAKER) (test 0.59 mg/dL 0.57-1.25 wdqu=753) GLUCOSE RANDOM (BEAKER) 93 mg/dL 70-105 (test fldd=332) CALCIUM (BEAKER) (test 7.9 mg/dL 8.4-10.2 hwup=350) EGFR (BEAKER) (test mL/min/1.73 sq m INSUFFICIENT CLINICAL DATA ycip=1681) TO CALCULATE ESTIMATED GFR. [id number] 05:27:00 Test Item Value Reference Range Comments PHOSPHORUS (BEAKER) (test apbs=735) 2.7 mg/dL 2.3-4.7 [id number] 05:27:00 Test Item Value Reference Range Comments MAGNESIUM (BEAKER) (test vpbo=384) 1.8 mg/dL 1.6-2.6 CBC W/PLT COUNT & AUTO [id number] 05:04:00 Test Item Value Reference Range Comments WHITE BLOOD CELL COUNT (BEAKER) (test fbla=043) 7.6 K/ L 4.0-10.0 RED BLOOD CELL COUNT (BEAKER) (test jrnv=416) 3.11 M/ L 4.00-5.00 HEMOGLOBIN (BEAKER) (test ecqs=737) 8.0 GM/DL 12.0-15.0 HEMATOCRIT (BEAKER) (test rxxj=280) 24.8 % 36.0-45.0 MEAN CORPUSCULAR VOLUME (BEAKER) (test ndqr=167) 79.6 fL 82.0-99.0 MEAN CORPUSCULAR HEMOGLOBIN (BEAKER) (test 25.8 pg 27.0-33.0 msyp=208) MEAN CORPUSCULAR HEMOGLOBIN CONC (BEAKER) (test 32.4 GM/DL 32.0-36.0 lkiz=846) RED CELL DISTRIBUTION WIDTH (BEAKER) (test 14.0 % 10.3-14.2 xuqh=766) PLATELET COUNT (BEAKER) (test bnzb=670) 268 K/CU MM 150-430 MEAN PLATELET VOLUME (BEAKER) (test jcgu=889) 7.5 fL 6.5-10.5 NUCLEATED RED BLOOD CELLS (BEAKER) (test 0 /100 WBC 0-0 ageq=680) NEUTROPHILS RELATIVE PERCENT (BEAKER) (test 62 % dkcg=305) LYMPHOCYTES RELATIVE PERCENT (BEAKER) (test 29 % ozxe=694) MONOCYTES RELATIVE PERCENT (BEAKER) (test 8 % jgpv=813) EOSINOPHILS RELATIVE PERCENT (BEAKER) (test 0 % gyna=273) BASOPHILS RELATIVE PERCENT (BEAKER) (test 1 % zfiv=933) NEUTROPHILS ABSOLUTE COUNT (BEAKER) (test 4.72 K/ L 1.80-8.00 sdpg=105) LYMPHOCYTES ABSOLUTE COUNT (BEAKER) (test 2.20 K/ L 1.48-4.50 fygn=926) MONOCYTES ABSOLUTE COUNT (BEAKER) (test 0.62 K/ L 0.00-1.30 ytke=628) EOSINOPHILS ABSOLUTE COUNT (BEAKER) (test 0.03 K/ L 0.00-0.50 qufv=956) BASOPHILS ABSOLUTE COUNT (BEAKER) (test 0.04 K/ L 0.00-0.20 jjgx=974) [id number] 17:27:00 Test Item Value Reference Range Comments FERRITIN (BEAKER) (test tebb=261) 9 ng/mL 5-275 Effective 03/10/2014: Reference Range ChangeNew: Male 5-275 Previous: Male 22-322 Female 5-275 Female 10-291TSH/FREE T4 IF [id number] 17:27:00 Test Item Value Reference Range Comments THYROID STIMULATING HORMONE (BEAKER) (test 1.75 uIU/mL 0.35-4.94 itjm=735) IRON, TIBC, % SAT. (WITHOUT FERRITIN)2016-07-21 17:06:00 Test Item Value Reference Range Comments IRON (BEAKER) (test idpp=355) 25 ug/dL 40-160 TOTAL IRON BINDING CAPACITY (BEAKER) (test 435 ug/dL 250-450 jsfo=292) IRON % SATURATION (2) (BEAKER) (test qrzc=5795) 6 % 20-55 BASIC METABOLIC [id number] 15:01:00 Test Item Value Reference Range Comments SODIUM (BEAKER) (test 137 meq/L 136-145 lrtd=791) POTASSIUM (BEAKER) (test 3.9 meq/L 3.5-5.1 ecgu=362) CHLORIDE (BEAKER) (test 109 meq/L 98-107 slju=558) CO2 (BEAKER) (test 21 meq/L 22-29 avnr=489) BLOOD UREA NITROGEN 7 mg/dL 7-21 (BEAKER) (test dzcr=945) CREATININE (BEAKER) (test 0.63 mg/dL 0.57-1.25 qqvc=791) GLUCOSE RANDOM (BEAKER) 85 mg/dL 70-105 (test dqgc=507) CALCIUM (BEAKER) (test 8.0 mg/dL 8.4-10.2 mwpz=275) EGFR (BEAKER) (test mL/min/1.73 sq m INSUFFICIENT CLINICAL DATA eiup=0417) TO CALCULATE ESTIMATED GFR. [id number] 14:50:00 Test Item Value Reference Range Comments PHOSPHORUS (BEAKER) (test ukgw=295) 3.5 mg/dL 2.3-4.7 [id number] 14:50:00 Test Item Value Reference Range Comments MAGNESIUM (BEAKER) (test gaes=364) 1.9 mg/dL 1.6-2.6 LIPID [id number] 14:50:00 Test Item Value Reference Range Comments TRIGLYCERIDES (BEAKER) (test ajgt=549) 41 mg/dL CHOLESTEROL (BEAKER) (test kgsd=252) 109 mg/dL HDL CHOLESTEROL (BEAKER) (test twwn=371) 44 mg/dL LDL CHOLESTEROL CALCULATED (BEAKER) (test 57 mg/dL albi=799) Triglyceride Reference Range: Low Risk <150 Borderline 150- 199 High Risk 200-499 Very High Risk >=500Cholesterol Reference Range: Low Risk <200 Borderline 200-239 High Risk > 240HDL Cholesterol Reference Range: Low Risk >=60 High Risk <40LDL Cholesterol Reference Range: Optimal <100 Near Optimal 100-129 Borderline 130-159 High 160-189 Very High >=190C-REACTIVE [id number] 14:50:00 Test Item Value Reference Range Comments C-REACTIVE PROTEIN (BEAKER) (test rfui=138) 0.02 mg/dL 0.00-0.50 COMPLEMENT COMPONENT [id number] 14:48:00 Test Item Value Reference Range Comments C4 COMPLEMENT (BEAKER) (test tqja=671) 19 mg/dL 15-57 Effective 03/10/2014: Reference Range ChangeNew: 15-57 Previous: 16- 38COMPLEMENT COMPONENT [id number] 14:48:00 Test Item Value Reference Range Comments C3 COMPLEMENT (BEAKER) (test boyx=115) 105 mg/dL 82-193 Effective 03/10/2014: Reference Range ChangeNew: 82-193 Previous: 79- 152HEMOGLOBIN [id number] 14:38:00 Test Item Value Reference Range Comments HEMOGLOBIN A1C (BEAKER) (test ssvk=520) 5.1 % 4.3-6.1 SEDIMENTATION [id number] 08:29:00 Test Item Value Reference Range Comments SEDIMENTATION RATE, ERYTHROCYTE (BEAKER) (test 10 mm/HR 0-20 eceo=962) CBC W/PLT COUNT & AUTO [id number] 06:06:00 Test Item Value Reference Range Comments WHITE BLOOD CELL COUNT (BEAKER) (test xswk=650) 10.2 K/ L 4.0-10.0 RED BLOOD CELL COUNT (BEAKER) (test srfj=825) 3.44 M/ L 4.00-5.00 HEMOGLOBIN (BEAKER) (test kvcv=867) 8.6 GM/DL 12.0-15.0 HEMATOCRIT (BEAKER) (test hgzp=949) 27.5 % 36.0-45.0 MEAN CORPUSCULAR VOLUME (BEAKER) (test eudl=610) 79.9 fL 82.0-99.0 MEAN CORPUSCULAR HEMOGLOBIN (BEAKER) (test 25.0 pg 27.0-33.0 yvbl=240) MEAN CORPUSCULAR HEMOGLOBIN CONC (BEAKER) (test 31.2 GM/DL 32.0-36.0 gtha=888) RED CELL DISTRIBUTION WIDTH (BEAKER) (test 14.6 % 10.3-14.2 gija=712) PLATELET COUNT (BEAKER) (test yxfw=272) 282 K/CU MM 150-430 MEAN PLATELET VOLUME (BEAKER) (test twzc=886) 8.0 fL 6.5-10.5 NUCLEATED RED BLOOD CELLS (BEAKER) (test 0 /100 WBC 0-0 nzqx=227) NEUTROPHILS RELATIVE PERCENT (BEAKER) (test 75 % pndw=877) LYMPHOCYTES RELATIVE PERCENT (BEAKER) (test 20 % xflb=456) MONOCYTES RELATIVE PERCENT (BEAKER) (test 6 % uxty=820) EOSINOPHILS RELATIVE PERCENT (BEAKER) (test 0 % ugwo=095) BASOPHILS RELATIVE PERCENT (BEAKER) (test 0 % uoin=166) NEUTROPHILS ABSOLUTE COUNT (BEAKER) (test 7.63 K/ L 1.80-8.00 mmvy=494) LYMPHOCYTES ABSOLUTE COUNT (BEAKER) (test 1.99 K/ L 1.48-4.50 zklq=708) MONOCYTES ABSOLUTE COUNT (BEAKER) (test 0.56 K/ L 0.00-1.30 xaxi=056) EOSINOPHILS ABSOLUTE COUNT (BEAKER) (test 0.01 K/ L 0.00-0.50 jrer=851) BASOPHILS ABSOLUTE COUNT (BEAKER) (test 0.04 K/ L 0.00-0.20 olmx=869) 0.00RAPID DRUG SCREEN, [id number] 01:59:00 Test Item Value Reference Range Comments BARBITURATE URINE (BEAKER) (test vnvd=753) Negative Negative BENZODIAZEPINE SCREEN URINE (BEAKER) (test Negative Negative kwrh=381) COCAINE (METAB.) SCREEN (BEAKER) (test myzh=7736) Negative Negative METHADONE SCREEN (BEAKER) (test vill=9035) Negative Negative OPIATE SCREEN URINE (BEAKER) (test ultd=733) Negative Negative CANNABINOID SCREEN URINE (BEAKER) (test jtvh=050) Positive Negative AMPH/METHAMPH SCREEN (BEAKER) (test llsh=5817) Negative Negative PHENCYCLIDINE SCREEN URINE (BEAKER) (test uxxw=172) Negative Negative OXYCODONE SCREEN URINE (BEAKER) (test tchf=1147) Negative Negative DRUG CUTOFF CONC.Cocaine 300 ng/mL Cannabinoid 50 ng/mL Benzodiazepine 200 ng/mLBarbiturate 200 ng/ mLPhencyclidine 25 ng/mLOpiate 300 ng/mLMethadone 300 ng/mLAmphetamine/ 1000 ng/mL MethamphetamineOxycodone 300 ng/mLPREGNANCY SCREEN, [id number] 01:47:00 Test Item Value Reference Range Comments TEST URINE (BEAKER) (test iwut=871) Negative URINALYSIS W/ [id number] 01:46:00 Test Item Value Reference Range Comments COLOR (BEAKER) (test wgac=719) Light Yellow CLARITY (BEAKER) (test cpad=113) Clear SPECIFIC GRAVITY UA (BEAKER) (test bcym=857) > 1.001-1.035 PH UA (BEAKER) (test ypgc=987) 6.5 5.0-8.0 PROTEIN UA (BEAKER) (test ugnt=287) Negative Negative GLUCOSE UA (BEAKER) (test ucpj=599) Negative Negative KETONES UA (BEAKER) (test lstn=218) 40 mg/dL Negative BILIRUBIN UA (BEAKER) (test aezf=286) Negative Negative BLOOD UA (BEAKER) (test cifc=082) Negative Negative NITRITE UA (BEAKER) (test zlir=999) Negative Negative LEUKOCYTE ESTERASE UA (BEAKER) (test frge=101) Negative Negative UROBILINOGEN UA (BEAKER) (test eqqa=874) 0.2 mg/dL 0.2-1.0 RBC UA (BEAKER) (test vrel=603) 0 /HPF WBC UA (BEAKER) (test sbdj=227) < /HPF SQUAMOUS EPITHELIAL (BEAKER) (test ksjv=026) 1 /HPF SOURCE(BEAKER) (test zysr=4719) BASIC METABOLIC [id number] 22:37:00 Test Item Value Reference Range Comments SODIUM (BEAKER) (test 140 meq/L 136-145 qcbw=570) POTASSIUM (BEAKER) (test 3.7 meq/L 3.5-5.1 nvsj=878) CHLORIDE (BEAKER) (test 108 meq/L 98-107 llkx=602) CO2 (BEAKER) (test 19 meq/L 22-29 uqei=186) BLOOD UREA NITROGEN 7 mg/dL 7-21 (BEAKER) (test mcbp=367) CREATININE (BEAKER) (test 0.61 mg/dL 0.57-1.25 rrqe=385) GLUCOSE RANDOM (BEAKER) 99 mg/dL 70-105 (test jrkf=841) CALCIUM (BEAKER) (test 9.4 mg/dL 8.4-10.2 kxfr=661) EGFR (BEAKER) (test mL/min/1.73 sq m INSUFFICIENT CLINICAL DATA gpmg=1780) TO CALCULATE ESTIMATED GFR. CREATINE KINASE (CK), TOTAL AND [id number] 22:33:00 Test Item Value Reference Range Comments CREATINE KINASE TOTAL (BEAKER) (test vmrn=037) 119 U/L 29-200 CREATINE KINASE-MB (BEAKER) (test kqkf=966) 1.5 ng/mL 0.0-6.6 CREATINE KINASE-MB INDEX (BEAKER) (test qtsn=928) 1.3 % Effective 03/10/2014: CK-MB Reference Range ChangeNew: 0.0-6.6 Previous: 0.0- 4.9CK-MB Reference Range:<6.7 Normal6.7-10.0 Borderline>10.0 AbnormalTROPONIN [id number] 22:33:00 Test Item Value Reference Range Comments TROPONIN I (BEAKER) (test okky=139) < ng/mL 0.00-0.03 Effective 03/10/2014: Reference Range [...] Range Comments B-TYPE NATRIURETIC PEPTIDE (BEAKER) (test sxhd=249) 33 pg/mL 0-100 [id number] 22:27:00 Test Item Value Reference Range Comments MAGNESIUM (BEAKER) (test wlli=612) 1.9 mg/dL 1.6-2.6 [id number] 22:10:00 Test Item Value Reference Range Comments PROTIME (BEAKER) (test afpn=038) 13.6 seconds 11.7-14.7 INR (BEAKER) (test ziju=996) 1.1 <=5.9 PARTIAL THROMBOPLASTIN TIME (BEAKER) (test 26.9 seconds 22.5-36.0 qxbq=476) RECOMMENDED COUMADIN/WARFARIN INR THERAPY RANGESSTANDARD DOSE: 2.0 - 3.0 Includes: PROPHYLAXIS forvenous thrombosis, systemic embolization; TREATMENT for venous thrombosis and/or pulmonary embolus.HIGH RISK: Target INR is 2.5-3.5 for patients with mechanical heart valves.POCT-GLUCOSE [id number] 22:02:00 Test Item Value Reference Range Comments POC-GLUCOSE METER (BEAKER) 86 mg/dL 70-110 TESTED AT [facility] [address] [facility] (test txpb=1555) [facility] [id number] CBC W/PLT COUNT & AUTO [id number] 22:01:00 Test Item Value Reference Range Comments WHITE BLOOD CELL COUNT (BEAKER) (test daah=449) 15.3 K/ L 4.0-10.0 RED BLOOD CELL COUNT (BEAKER) (test nylz=032) 4.11 M/ L 4.00-5.00 HEMOGLOBIN (BEAKER) (test lzbb=912) 10.4 GM/DL 12.0-15.0 HEMATOCRIT (BEAKER) (test klcd=354) 33.3 % 36.0-45.0 MEAN CORPUSCULAR VOLUME (BEAKER) (test rjcb=768) 81.0 fL 82.0-99.0 MEAN CORPUSCULAR HEMOGLOBIN (BEAKER) (test 25.3 pg 27.0-33.0 bavb=115) MEAN CORPUSCULAR HEMOGLOBIN CONC (BEAKER) (test 31.3 GM/DL 32.0-36.0 aevi=338) RED CELL DISTRIBUTION WIDTH (BEAKER) (test 15.3 % 10.3-14.2 kysc=602) PLATELET COUNT (BEAKER) (test pmpg=142) 424 K/CU MM 150-430 MEAN PLATELET VOLUME (BEAKER) (test iyna=421) 7.3 fL 6.5-10.5 NUCLEATED RED BLOOD CELLS (BEAKER) (test 0 /100 WBC 0-0 hkyr=132) NEUTROPHILS RELATIVE PERCENT (BEAKER) (test 79 % zgrz=054) LYMPHOCYTES RELATIVE PERCENT (BEAKER) (test 14 % vqwv=205) MONOCYTES RELATIVE PERCENT (BEAKER) (test 6 % fqig=013) EOSINOPHILS RELATIVE PERCENT (BEAKER) (test 0 % mpyh=427) BASOPHILS RELATIVE PERCENT (BEAKER) (test 0 % atva=687) NEUTROPHILS ABSOLUTE COUNT (BEAKER) (test 12.00 K/ L 1.80-8.00 etgy=951) LYMPHOCYTES ABSOLUTE COUNT (BEAKER) (test 2.14 K/ L 1.48-4.50 ggaf=056) MONOCYTES ABSOLUTE COUNT (BEAKER) (test 0.97 K/ L 0.00-1.30 ewin=624) EOSINOPHILS ABSOLUTE COUNT (BEAKER) (test 0.03 K/ L 0.00-0.50 hisg=054) BASOPHILS ABSOLUTE COUNT (BEAKER) (test 0.07 K/ L 0.00-0.20 eskz=365) 0.00
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
[2019-04-16] MEDS ORDERED: IBUPROFEN 400 MG TAB ONE (08:32)
[2019-04-16] MEDS ORDERED: IBUPROFEN 200 MG TAB PO ONE (08:32)
[2019-04-16 08:59] VITALS: TEMP 99.5
[2019-04-16 09:01] VITALS: BP 136/96; O2SAT 96
--- NOTE | 2019-04-16 10:37 | RAD REPORT ---
EXAM DESCRIPTION: RAD - Knee Right 3 View - 04/16/2019 7:47 am CLINICAL HISTORY: PAIN COMPARISON: No comparisons FINDINGS: No fracture, dislocation or joint effusion.
== END 2019-04-16 08:49 | disposition home or self-care (01) ==
LOC: ER 06:47
DX: M25.561 Pain in right knee (principal); Y04.8XXA Assault by other bodily force, initial encounter; Y92.9 Unspecified place or not applicable
CPT/HCPCS: 99284

== ENCOUNTER 2019-07-17 15:29 | Emergency (ER) | payer OTHER, SELFPAY ==
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
--- OUTSIDE RECORDS SUMMARY | 2019-07-17 15:32 | XMS REPORT ---
:1985 [facility] Address [address] [place] [address] [address] [place] [address] Care Team Providers Name Role Phone LANRE [...] Value Reference Range Comments PROTIME (BEAKER) (test tbhg=402) 13.9 seconds 11.7-14.7 INR (BEAKER) (test yhkt=222) 1.1 <=5.9 PARTIAL THROMBOPLASTIN TIME (BEAKER) 56.1 seconds 22.5-36.0 (test dmtv=628) DRVV INTERPRETATION (BEAKER) (test Normal DRVV Results mvil=9641) [id number]-HLBONXIIHJE-111 (BEAKER) (test Alvarez Moe MD (electronic ubhz=6233) signature) DRVV SCREEN RATIO (BEAKER) (test 0.84 <1.20 kymj=8665) Effective 08/26/2013: Test Method ChangeDRVV Screen Ratio, DRVV 1/1 Screen Ratio, DRVV Confirm Ratio,DRVV Normalized Ratio Reference Range: <1.2Protime Reference Range ChangeNew: 11.7-14.7 Previous: 9.8-12.0PTT Reference Range ChangeNew: 22.5-36.0 Previous: 25.8-34.5CBC W/PLT COUNT & AUTO [id number] 07:26:00 Test Item Value Reference Range Comments WHITE BLOOD CELL COUNT (BEAKER) (test zqyn=279) 6.6 K/ L 4.0-10.0 RED BLOOD CELL COUNT (BEAKER) (test aumt=083) 3.31 M/ L 4.00-5.00 HEMOGLOBIN (BEAKER) (test tfps=105) 8.4 GM/DL 12.0-15.0 HEMATOCRIT (BEAKER) (test ejjd=165) 26.4 % 36.0-45.0 MEAN CORPUSCULAR VOLUME (BEAKER) (test didr=118) 79.8 fL 82.0-99.0 MEAN CORPUSCULAR HEMOGLOBIN (BEAKER) (test 25.4 pg 27.0-33.0 zrrn=453) MEAN CORPUSCULAR HEMOGLOBIN CONC (BEAKER) (test 31.9 GM/DL 32.0-36.0 qrtv=629) RED CELL DISTRIBUTION WIDTH (BEAKER) (test 15.2 % 10.3-14.2 xvrr=236) PLATELET COUNT (BEAKER) (test lbsp=897) 254 K/CU MM 150-430 MEAN PLATELET VOLUME (BEAKER) (test cdlr=874) 8.1 fL 6.5-10.5 NUCLEATED RED BLOOD CELLS (BEAKER) (test 0 /100 WBC 0-0 otjp=831) NEUTROPHILS RELATIVE PERCENT (BEAKER) (test 60 % oyqs=349) LYMPHOCYTES RELATIVE PERCENT (BEAKER) (test 29 % oxxi=694) MONOCYTES RELATIVE PERCENT (BEAKER) (test 10 % sxpg=475) EOSINOPHILS RELATIVE PERCENT (BEAKER) (test 1 % xisk=823) BASOPHILS RELATIVE PERCENT (BEAKER) (test 1 % aqtz=971) NEUTROPHILS ABSOLUTE COUNT (BEAKER) (test 3.90 K/ L 1.80-8.00 bpky=735) LYMPHOCYTES ABSOLUTE COUNT (BEAKER) (test 1.90 K/ L 1.48-4.50 pnsy=119) MONOCYTES ABSOLUTE COUNT (BEAKER) (test 0.65 K/ L 0.00-1.30 lhqd=754) EOSINOPHILS ABSOLUTE COUNT (BEAKER) (test 0.05 K/ L 0.00-0.50 ivdn=993) BASOPHILS ABSOLUTE COUNT (BEAKER) (test 0.05 K/ L 0.00-0.20 jwch=442) 0.00BASIC METABOLIC [id number] 07:05:00 Test Item Value Reference Range Comments SODIUM (BEAKER) (test 135 meq/L 136-145 dfhj=364) POTASSIUM (BEAKER) (test 3.7 meq/L 3.5-5.1 myet=122) CHLORIDE (BEAKER) (test 107 meq/L 98-107 jomm=959) CO2 (BEAKER) (test 19 meq/L 22-29 oxqi=943) BLOOD UREA NITROGEN 12 mg/dL 7-21 (BEAKER) (test csta=673) CREATININE (BEAKER) (test 0.59 mg/dL 0.57-1.25 qzlm=907) GLUCOSE RANDOM (BEAKER) 93 mg/dL 70-105 (test xqsu=728) CALCIUM (BEAKER) (test 8.5 mg/dL 8.4-10.2 yxbt=541) EGFR (BEAKER) (test mL/min/1.73 sq m INSUFFICIENT CLINICAL DATA ezyy=7884) TO CALCULATE ESTIMATED GFR. CARDIOLIPIN ANTIBODIES, IGG AND [id number] 14:31:00 Test Item Value Reference Range Comments ANTICARDIOLIPIN IGG ANTIBODY (BEAKER) (test nmmv=722) < GPL ANTICARDIOLIPIN IGM ANTIBODY (BEAKER) (test xitt=144) < MPL Anticardiolipin IgG Result Interpretation:NEG: <20 GPL; U/mlPOS: >/=20 GPL; U/mlAnticardiolipin IgM Result Interpretation:NEG: <20 MPL; U/mlPOS: >/=20 MPL; U/mlTHROMBIN [id number] 14:25:00 Test Item Value Reference Range Comments THROMBIN TIME (BEAKER) (test sosb=493) 193.3 secs 13.8-20.0 EQUAL MIX, NORMAL [id number] 14:16:00 Test Item Value Reference Range Comments PROTIME (BEAKER) (test 13.9 seconds 11.7-14.7 ljbw=598) PARTIAL THROMBOPLASTIN TIME 56.1 seconds 22.5-36.0 (BEAKER) (test nwvt=012) PT 1/1 MIX (BEAKER) (test SECS 11.7-14.7 Not applicable. Test not gnhl=6042) performed PTT 1/1 MIX (BEAKER) (test 42.4 SECS 22.5-36.0 exhh=0536) ANTI-NUCLEAR ANTIBODY (CLALI)2016-07-24 12:37:00 Test Item Value Reference Range Comments ANTI-NUCLEAR ANTIBODY (CALLI) (BEAKER) (test Negative Negative jgzh=267) CBC W/PLT COUNT & AUTO [id number] 08:32:00 Test Item Value Reference Range Comments WHITE BLOOD CELL COUNT (BEAKER) (test tpeq=514) 15.8 K/ L 4.0-10.0 RED BLOOD CELL COUNT (BEAKER) (test xgvk=254) 3.93 M/ L 4.00-5.00 HEMOGLOBIN (BEAKER) (test zaww=925) 9.3 GM/DL 12.0-15.0 HEMATOCRIT (BEAKER) (test awya=453) 30.6 % 36.0-45.0 MEAN CORPUSCULAR VOLUME (BEAKER) (test hgmi=446) 77.7 fL 82.0-99.0 MEAN CORPUSCULAR HEMOGLOBIN (BEAKER) (test 23.6 pg 27.0-33.0 nube=814) MEAN CORPUSCULAR HEMOGLOBIN CONC (BEAKER) (test 30.4 GM/DL 32.0-36.0 mvra=059) RED CELL DISTRIBUTION WIDTH (BEAKER) (test 14.6 % 10.3-14.2 ungm=657) PLATELET COUNT (BEAKER) (test ufbq=665) 311 K/CU MM 150-430 MEAN PLATELET VOLUME (BEAKER) (test ekyl=497) 8.1 fL 6.5-10.5 NUCLEATED RED BLOOD CELLS (BEAKER) (test 0 /100 WBC 0-0 pips=206) NEUTROPHILS RELATIVE PERCENT (BEAKER) (test 91 % oiir=889) LYMPHOCYTES RELATIVE PERCENT (BEAKER) (test 5 % edjf=860) MONOCYTES RELATIVE PERCENT (BEAKER) (test 4 % gvhb=191) EOSINOPHILS RELATIVE PERCENT (BEAKER) (test 0 % fotg=015) BASOPHILS RELATIVE PERCENT (BEAKER) (test 0 % dxcp=757) NEUTROPHILS ABSOLUTE COUNT (BEAKER) (test 14.40 K/ L 1.80-8.00 hnmu=154) LYMPHOCYTES ABSOLUTE COUNT (BEAKER) (test 0.86 K/ L 1.48-4.50 ards=518) MONOCYTES ABSOLUTE COUNT (BEAKER) (test 0.57 K/ L 0.00-1.30 kxme=675) EOSINOPHILS ABSOLUTE COUNT (BEAKER) (test 0.02 K/ L 0.00-0.50 jawm=054) BASOPHILS ABSOLUTE COUNT (BEAKER) (test 0.01 K/ L 0.00-0.20 fqnw=097) 0.00(MANUAL DIFFERENTIAL)2016-07-24 08:32:00 Test Item Value Reference Range Comments TOTAL COUNTED (BEAKER) (test vmjv=9961) BASIC METABOLIC [id number] 06:54:00 Test Item Value Reference Range Comments SODIUM (BEAKER) (test 138 meq/L 136-145 zswy=212) POTASSIUM (BEAKER) (test 4.1 meq/L 3.5-5.1 szuy=907) CHLORIDE (BEAKER) (test 107 meq/L 98-107 qeyt=680) CO2 (BEAKER) (test 21 meq/L 22-29 tpbf=197) BLOOD UREA NITROGEN 15 mg/dL 7-21 (BEAKER) (test ihkw=159) CREATININE (BEAKER) (test 0.71 mg/dL 0.57-1.25 ceml=082) GLUCOSE RANDOM (BEAKER) 104 mg/dL 70-105 (test pvtr=215) CALCIUM (BEAKER) (test 9.3 mg/dL 8.4-10.2 lvgg=893) EGFR (BEAKER) (test mL/min/1.73 sq m INSUFFICIENT CLINICAL DATA oain=4601) TO CALCULATE ESTIMATED GFR. BASIC METABOLIC [id number] 07:19:00 Test Item Value Reference Range Comments SODIUM (BEAKER) (test 140 meq/L 136-145 ifwr=036) POTASSIUM (BEAKER) (test 4.0 meq/L 3.5-5.1 ewbl=841) CHLORIDE (BEAKER) (test 111 meq/L 98-107 pfqn=121) CO2 (BEAKER) (test 21 meq/L 22-29 omwo=061) BLOOD UREA NITROGEN 10 mg/dL 7-21 (BEAKER) (test nfvf=454) CREATININE (BEAKER) (test 0.69 mg/dL 0.57-1.25 xcbd=536) GLUCOSE RANDOM (BEAKER) 90 mg/dL 70-105 (test mrgx=437) CALCIUM (BEAKER) (test 8.8 mg/dL 8.4-10.2 tmht=872) EGFR (BEAKER) (test mL/min/1.73 sq m INSUFFICIENT CLINICAL DATA jcwr=0133) TO CALCULATE ESTIMATED GFR. CBC W/PLT COUNT & AUTO [id number] 07:07:00 Test Item Value Reference Range Comments WHITE BLOOD CELL COUNT (BEAKER) (test hpch=955) 8.3 K/ L 4.0-10.0 RED BLOOD CELL COUNT (BEAKER) (test toat=257) 3.56 M/ L 4.00-5.00 HEMOGLOBIN (BEAKER) (test nnkf=312) 9.2 GM/DL 12.0-15.0 HEMATOCRIT (BEAKER) (test ntup=027) 28.5 % 36.0-45.0 MEAN CORPUSCULAR VOLUME (BEAKER) (test opwa=538) 80.1 fL 82.0-99.0 MEAN CORPUSCULAR HEMOGLOBIN (BEAKER) (test 25.9 pg 27.0-33.0 tduq=977) MEAN CORPUSCULAR HEMOGLOBIN CONC (BEAKER) (test 32.4 GM/DL 32.0-36.0 sxdo=425) RED CELL DISTRIBUTION WIDTH (BEAKER) (test 14.3 % 10.3-14.2 heyy=045) PLATELET COUNT (BEAKER) (test nycs=237) 310 K/CU MM 150-430 MEAN PLATELET VOLUME (BEAKER) (test bytx=138) 7.7 fL 6.5-10.5 NUCLEATED RED BLOOD CELLS (BEAKER) (test 0 /100 WBC 0-0 jpkw=805) NEUTROPHILS RELATIVE PERCENT (BEAKER) (test 66 % rvxk=278) LYMPHOCYTES RELATIVE PERCENT (BEAKER) (test 23 % iwph=488) MONOCYTES RELATIVE PERCENT (BEAKER) (test 10 % zvdm=553) EOSINOPHILS RELATIVE PERCENT (BEAKER) (test 1 % abjg=091) BASOPHILS RELATIVE PERCENT (BEAKER) (test 1 % kltr=187) NEUTROPHILS ABSOLUTE COUNT (BEAKER) (test 5.50 K/ L 1.80-8.00 bcix=697) LYMPHOCYTES ABSOLUTE COUNT (BEAKER) (test 1.93 K/ L 1.48-4.50 zbuw=849) MONOCYTES ABSOLUTE COUNT (BEAKER) (test 0.79 K/ L 0.00-1.30 bfdz=524) EOSINOPHILS ABSOLUTE COUNT (BEAKER) (test 0.06 K/ L 0.00-0.50 yobn=856) BASOPHILS ABSOLUTE COUNT (BEAKER) (test 0.05 K/ L 0.00-0.20 ykvo=268) [id number] 11:08:00 Test Item Value Reference Range Comments POTASSIUM (BEAKER) (test pggm=823) 3.8 meq/L 3.5-5.1 [id number] 11:08:00 Test Item Value Reference Range Comments MAGNESIUM (BEAKER) (test blcp=700) 2.3 mg/dL 1.6-2.6 BASIC METABOLIC [id number] 05:29:00 Test Item Value Reference Range Comments SODIUM (BEAKER) (test 139 meq/L 136-145 jraj=554) POTASSIUM (BEAKER) (test 3.6 meq/L 3.5-5.1 tmcl=748) CHLORIDE (BEAKER) (test 111 meq/L 98-107 iium=829) CO2 (BEAKER) (test 21 meq/L 22-29 ypdg=313) BLOOD UREA NITROGEN 8 mg/dL 7-21 (BEAKER) (test fshu=823) CREATININE (BEAKER) (test 0.59 mg/dL 0.57-1.25 lgdt=307) GLUCOSE RANDOM (BEAKER) 93 mg/dL 70-105 (test mygs=340) CALCIUM (BEAKER) (test 7.9 mg/dL 8.4-10.2 kvjs=984) EGFR (BEAKER) (test mL/min/1.73 sq m INSUFFICIENT CLINICAL DATA xolx=9786) TO CALCULATE ESTIMATED GFR. [id number] 05:27:00 Test Item Value Reference Range Comments PHOSPHORUS (BEAKER) (test uasc=658) 2.7 mg/dL 2.3-4.7 [id number] 05:27:00 Test Item Value Reference Range Comments MAGNESIUM (BEAKER) (test haoc=441) 1.8 mg/dL 1.6-2.6 CBC W/PLT COUNT & AUTO [id number] 05:04:00 Test Item Value Reference Range Comments WHITE BLOOD CELL COUNT (BEAKER) (test prny=450) 7.6 K/ L 4.0-10.0 RED BLOOD CELL COUNT (BEAKER) (test yxak=209) 3.11 M/ L 4.00-5.00 HEMOGLOBIN (BEAKER) (test oiff=776) 8.0 GM/DL 12.0-15.0 HEMATOCRIT (BEAKER) (test laub=802) 24.8 % 36.0-45.0 MEAN CORPUSCULAR VOLUME (BEAKER) (test owvp=237) 79.6 fL 82.0-99.0 MEAN CORPUSCULAR HEMOGLOBIN (BEAKER) (test 25.8 pg 27.0-33.0 jibh=763) MEAN CORPUSCULAR HEMOGLOBIN CONC (BEAKER) (test 32.4 GM/DL 32.0-36.0 stka=335) RED CELL DISTRIBUTION WIDTH (BEAKER) (test 14.0 % 10.3-14.2 irxj=487) PLATELET COUNT (BEAKER) (test xofz=727) 268 K/CU MM 150-430 MEAN PLATELET VOLUME (BEAKER) (test niit=612) 7.5 fL 6.5-10.5 NUCLEATED RED BLOOD CELLS (BEAKER) (test 0 /100 WBC 0-0 azyp=743) NEUTROPHILS RELATIVE PERCENT (BEAKER) (test 62 % xdsb=673) LYMPHOCYTES RELATIVE PERCENT (BEAKER) (test 29 % arns=029) MONOCYTES RELATIVE PERCENT (BEAKER) (test 8 % qcfp=209) EOSINOPHILS RELATIVE PERCENT (BEAKER) (test 0 % toee=415) BASOPHILS RELATIVE PERCENT (BEAKER) (test 1 % tnmb=618) NEUTROPHILS ABSOLUTE COUNT (BEAKER) (test 4.72 K/ L 1.80-8.00 ilaf=486) LYMPHOCYTES ABSOLUTE COUNT (BEAKER) (test 2.20 K/ L 1.48-4.50 ceiq=571) MONOCYTES ABSOLUTE COUNT (BEAKER) (test 0.62 K/ L 0.00-1.30 uuem=042) EOSINOPHILS ABSOLUTE COUNT (BEAKER) (test 0.03 K/ L 0.00-0.50 nqcq=188) BASOPHILS ABSOLUTE COUNT (BEAKER) (test 0.04 K/ L 0.00-0.20 jzbr=531) [id number] 17:27:00 Test Item Value Reference Range Comments FERRITIN (BEAKER) (test glfp=258) 9 ng/mL 5-275 Effective 03/10/2014: Reference Range ChangeNew: Male 5-275 Previous: Male 22-322 Female 5-275 Female 10-291TSH/FREE T4 IF [id number] 17:27:00 Test Item Value Reference Range Comments THYROID STIMULATING HORMONE (BEAKER) (test 1.75 uIU/mL 0.35-4.94 waya=672) IRON, TIBC, % SAT. (WITHOUT FERRITIN)2016-07-21 17:06:00 Test Item Value Reference Range Comments IRON (BEAKER) (test bbxw=513) 25 ug/dL 40-160 TOTAL IRON BINDING CAPACITY (BEAKER) (test 435 ug/dL 250-450 yqpu=701) IRON % SATURATION (2) (BEAKER) (test amij=3050) 6 % 20-55 BASIC METABOLIC [id number] 15:01:00 Test Item Value Reference Range Comments SODIUM (BEAKER) (test 137 meq/L 136-145 eohq=610) POTASSIUM (BEAKER) (test 3.9 meq/L 3.5-5.1 syng=148) CHLORIDE (BEAKER) (test 109 meq/L 98-107 vaim=862) CO2 (BEAKER) (test 21 meq/L 22-29 cscn=423) BLOOD UREA NITROGEN 7 mg/dL 7-21 (BEAKER) (test ltnv=490) CREATININE (BEAKER) (test 0.63 mg/dL 0.57-1.25 iqqi=211) GLUCOSE RANDOM (BEAKER) 85 mg/dL 70-105 (test oqet=363) CALCIUM (BEAKER) (test 8.0 mg/dL 8.4-10.2 hbox=070) EGFR (BEAKER) (test mL/min/1.73 sq m INSUFFICIENT CLINICAL DATA tczb=4636) TO CALCULATE ESTIMATED GFR. [id number] 14:50:00 Test Item Value Reference Range Comments PHOSPHORUS (BEAKER) (test crun=127) 3.5 mg/dL 2.3-4.7 [id number] 14:50:00 Test Item Value Reference Range Comments MAGNESIUM (BEAKER) (test fmin=599) 1.9 mg/dL 1.6-2.6 LIPID [id number] 14:50:00 Test Item Value Reference Range Comments TRIGLYCERIDES (BEAKER) (test wqvb=877) 41 mg/dL CHOLESTEROL (BEAKER) (test lgbs=081) 109 mg/dL HDL CHOLESTEROL (BEAKER) (test vqtf=889) 44 mg/dL LDL CHOLESTEROL CALCULATED (BEAKER) (test 57 mg/dL omal=885) Triglyceride Reference Range: Low Risk <150 Borderline 150- 199 High Risk 200-499 Very High Risk >=500Cholesterol Reference Range: Low Risk <200 Borderline 200-239 High Risk > 240HDL Cholesterol Reference Range: Low Risk >=60 High Risk <40LDL Cholesterol Reference Range: Optimal <100 Near Optimal 100-129 Borderline 130-159 High 160-189 Very High >=190C-REACTIVE [id number] 14:50:00 Test Item Value Reference Range Comments C-REACTIVE PROTEIN (BEAKER) (test ouqo=300) 0.02 mg/dL 0.00-0.50 COMPLEMENT COMPONENT [id number] 14:48:00 Test Item Value Reference Range Comments C4 COMPLEMENT (BEAKER) (test mpzi=056) 19 mg/dL 15-57 Effective 03/10/2014: Reference Range ChangeNew: 15-57 Previous: 16- 38COMPLEMENT COMPONENT [id number] 14:48:00 Test Item Value Reference Range Comments C3 COMPLEMENT (BEAKER) (test qklm=150) 105 mg/dL 82-193 Effective 03/10/2014: Reference Range ChangeNew: 82-193 Previous: 79- 152HEMOGLOBIN [id number] 14:38:00 Test Item Value Reference Range Comments HEMOGLOBIN A1C (BEAKER) (test lpsx=281) 5.1 % 4.3-6.1 SEDIMENTATION [id number] 08:29:00 Test Item Value Reference Range Comments SEDIMENTATION RATE, ERYTHROCYTE (BEAKER) (test 10 mm/HR 0-20 uppb=735) CBC W/PLT COUNT & AUTO [id number] 06:06:00 Test Item Value Reference Range Comments WHITE BLOOD CELL COUNT (BEAKER) (test dppf=964) 10.2 K/ L 4.0-10.0 RED BLOOD CELL COUNT (BEAKER) (test wnja=723) 3.44 M/ L 4.00-5.00 HEMOGLOBIN (BEAKER) (test niyc=156) 8.6 GM/DL 12.0-15.0 HEMATOCRIT (BEAKER) (test hcmf=664) 27.5 % 36.0-45.0 MEAN CORPUSCULAR VOLUME (BEAKER) (test kljc=616) 79.9 fL 82.0-99.0 MEAN CORPUSCULAR HEMOGLOBIN (BEAKER) (test 25.0 pg 27.0-33.0 tmoo=418) MEAN CORPUSCULAR HEMOGLOBIN CONC (BEAKER) (test 31.2 GM/DL 32.0-36.0 ctjy=918) RED CELL DISTRIBUTION WIDTH (BEAKER) (test 14.6 % 10.3-14.2 jkau=493) PLATELET COUNT (BEAKER) (test dagx=148) 282 K/CU MM 150-430 MEAN PLATELET VOLUME (BEAKER) (test hoiy=979) 8.0 fL 6.5-10.5 NUCLEATED RED BLOOD CELLS (BEAKER) (test 0 /100 WBC 0-0 txau=717) NEUTROPHILS RELATIVE PERCENT (BEAKER) (test 75 % tmuy=495) LYMPHOCYTES RELATIVE PERCENT (BEAKER) (test 20 % tuda=232) MONOCYTES RELATIVE PERCENT (BEAKER) (test 6 % eoys=076) EOSINOPHILS RELATIVE PERCENT (BEAKER) (test 0 % zzep=677) BASOPHILS RELATIVE PERCENT (BEAKER) (test 0 % qsqi=836) NEUTROPHILS ABSOLUTE COUNT (BEAKER) (test 7.63 K/ L 1.80-8.00 pcig=173) LYMPHOCYTES ABSOLUTE COUNT (BEAKER) (test 1.99 K/ L 1.48-4.50 oyvo=699) MONOCYTES ABSOLUTE COUNT (BEAKER) (test 0.56 K/ L 0.00-1.30 buyo=577) EOSINOPHILS ABSOLUTE COUNT (BEAKER) (test 0.01 K/ L 0.00-0.50 cvjd=130) BASOPHILS ABSOLUTE COUNT (BEAKER) (test 0.04 K/ L 0.00-0.20 tnid=449) 0.00RAPID DRUG SCREEN, [id number] 01:59:00 Test Item Value Reference Range Comments BARBITURATE URINE (BEAKER) (test zgfa=818) Negative Negative BENZODIAZEPINE SCREEN URINE (BEAKER) (test Negative Negative xgyb=528) COCAINE (METAB.) SCREEN (BEAKER) (test qehi=0379) Negative Negative METHADONE SCREEN (BEAKER) (test lvro=8870) Negative Negative OPIATE SCREEN URINE (BEAKER) (test wjsc=490) Negative Negative CANNABINOID SCREEN URINE (BEAKER) (test lrvs=113) Positive Negative AMPH/METHAMPH SCREEN (BEAKER) (test bllw=7553) Negative Negative PHENCYCLIDINE SCREEN URINE (BEAKER) (test uvqf=143) Negative Negative OXYCODONE SCREEN URINE (BEAKER) (test csns=1875) Negative Negative DRUG CUTOFF CONC.Cocaine 300 ng/mL Cannabinoid 50 ng/mL Benzodiazepine 200 ng/mLBarbiturate 200 ng/ mLPhencyclidine 25 ng/mLOpiate 300 ng/mLMethadone 300 ng/mLAmphetamine/ 1000 ng/mL MethamphetamineOxycodone 300 ng/mLPREGNANCY SCREEN, [id number] 01:47:00 Test Item Value Reference Range Comments TEST URINE (BEAKER) (test qokp=131) Negative URINALYSIS W/ [id number] 01:46:00 Test Item Value Reference Range Comments COLOR (BEAKER) (test djpk=650) Light Yellow CLARITY (BEAKER) (test usai=816) Clear SPECIFIC GRAVITY UA (BEAKER) (test urdq=765) > 1.001-1.035 PH UA (BEAKER) (test wfgj=396) 6.5 5.0-8.0 PROTEIN UA (BEAKER) (test devp=970) Negative Negative GLUCOSE UA (BEAKER) (test blyc=004) Negative Negative KETONES UA (BEAKER) (test uxxr=661) 40 mg/dL Negative BILIRUBIN UA (BEAKER) (test widh=337) Negative Negative BLOOD UA (BEAKER) (test rujn=854) Negative Negative NITRITE UA (BEAKER) (test qatv=848) Negative Negative LEUKOCYTE ESTERASE UA (BEAKER) (test evct=695) Negative Negative UROBILINOGEN UA (BEAKER) (test cyik=722) 0.2 mg/dL 0.2-1.0 RBC UA (BEAKER) (test hzjx=503) 0 /HPF WBC UA (BEAKER) (test nccn=584) < /HPF SQUAMOUS EPITHELIAL (BEAKER) (test ptkm=671) 1 /HPF SOURCE(BEAKER) (test zjng=7026) BASIC METABOLIC [id number] 22:37:00 Test Item Value Reference Range Comments SODIUM (BEAKER) (test 140 meq/L 136-145 uolv=686) POTASSIUM (BEAKER) (test 3.7 meq/L 3.5-5.1 qbih=374) CHLORIDE (BEAKER) (test 108 meq/L 98-107 thhy=135) CO2 (BEAKER) (test 19 meq/L 22-29 jeuv=163) BLOOD UREA NITROGEN 7 mg/dL 7-21 (BEAKER) (test kdzt=124) CREATININE (BEAKER) (test 0.61 mg/dL 0.57-1.25 gvcd=257) GLUCOSE RANDOM (BEAKER) 99 mg/dL 70-105 (test dpqt=323) CALCIUM (BEAKER) (test 9.4 mg/dL 8.4-10.2 lrsd=370) EGFR (BEAKER) (test mL/min/1.73 sq m INSUFFICIENT CLINICAL DATA dtuz=3361) TO CALCULATE ESTIMATED GFR. CREATINE KINASE (CK), TOTAL AND [id number] 22:33:00 Test Item Value Reference Range Comments CREATINE KINASE TOTAL (BEAKER) (test agzs=105) 119 U/L 29-200 CREATINE KINASE-MB (BEAKER) (test hfuo=154) 1.5 ng/mL 0.0-6.6 CREATINE KINASE-MB INDEX (BEAKER) (test vuph=215) 1.3 % Effective 03/10/2014: CK-MB Reference Range ChangeNew: 0.0-6.6 Previous: 0.0- 4.9CK-MB Reference Range:<6.7 Normal6.7-10.0 Borderline>10.0 AbnormalTROPONIN [id number] 22:33:00 Test Item Value Reference Range Comments TROPONIN I (BEAKER) (test bsen=477) < ng/mL 0.00-0.03 Effective 03/10/2014: Reference Range [...] Range Comments B-TYPE NATRIURETIC PEPTIDE (BEAKER) (test hpll=031) 33 pg/mL 0-100 [id number] 22:27:00 Test Item Value Reference Range Comments MAGNESIUM (BEAKER) (test hdsu=061) 1.9 mg/dL 1.6-2.6 [id number] 22:10:00 Test Item Value Reference Range Comments PROTIME (BEAKER) (test ciwk=970) 13.6 seconds 11.7-14.7 INR (BEAKER) (test ujfp=022) 1.1 <=5.9 PARTIAL THROMBOPLASTIN TIME (BEAKER) (test 26.9 seconds 22.5-36.0 nhto=969) RECOMMENDED COUMADIN/WARFARIN INR THERAPY RANGESSTANDARD DOSE: 2.0 - 3.0 Includes: PROPHYLAXIS forvenous thrombosis, systemic embolization; TREATMENT for venous thrombosis and/or pulmonary embolus.HIGH RISK: Target INR is 2.5-3.5 for patients with mechanical heart valves.POCT-GLUCOSE [id number] 22:02:00 Test Item Value Reference Range Comments POC-GLUCOSE METER (BEAKER) 86 mg/dL 70-110 TESTED AT [facility] [address] [facility] (test elui=6088) [facility] [address] CBC W/PLT COUNT & AUTO [id number] 22:01:00 Test Item Value Reference Range Comments WHITE BLOOD CELL COUNT (BEAKER) (test jbqh=011) 15.3 K/ L 4.0-10.0 RED BLOOD CELL COUNT (BEAKER) (test aldh=985) 4.11 M/ L 4.00-5.00 HEMOGLOBIN (BEAKER) (test jgxd=091) 10.4 GM/DL 12.0-15.0 HEMATOCRIT (BEAKER) (test hiyy=562) 33.3 % 36.0-45.0 MEAN CORPUSCULAR VOLUME (BEAKER) (test qqzs=930) 81.0 fL 82.0-99.0 MEAN CORPUSCULAR HEMOGLOBIN (BEAKER) (test 25.3 pg 27.0-33.0 ttvw=394) MEAN CORPUSCULAR HEMOGLOBIN CONC (BEAKER) (test 31.3 GM/DL 32.0-36.0 piis=578) RED CELL DISTRIBUTION WIDTH (BEAKER) (test 15.3 % 10.3-14.2 nqsm=873) PLATELET COUNT (BEAKER) (test fudr=203) 424 K/CU MM 150-430 MEAN PLATELET VOLUME (BEAKER) (test qvqo=378) 7.3 fL 6.5-10.5 NUCLEATED RED BLOOD CELLS (BEAKER) (test 0 /100 WBC 0-0 ajqx=362) NEUTROPHILS RELATIVE PERCENT (BEAKER) (test 79 % zymk=176) LYMPHOCYTES RELATIVE PERCENT (BEAKER) (test 14 % opod=435) MONOCYTES RELATIVE PERCENT (BEAKER) (test 6 % ncnq=866) EOSINOPHILS RELATIVE PERCENT (BEAKER) (test 0 % pzye=697) BASOPHILS RELATIVE PERCENT (BEAKER) (test 0 % lnbx=807) NEUTROPHILS ABSOLUTE COUNT (BEAKER) (test 12.00 K/ L 1.80-8.00 qste=141) LYMPHOCYTES ABSOLUTE COUNT (BEAKER) (test 2.14 K/ L 1.48-4.50 zhgb=852) MONOCYTES ABSOLUTE COUNT (BEAKER) (test 0.97 K/ L 0.00-1.30 uvqa=809) EOSINOPHILS ABSOLUTE COUNT (BEAKER) (test 0.03 K/ L 0.00-0.50 thin=090) BASOPHILS ABSOLUTE COUNT (BEAKER) (test 0.07 K/ L 0.00-0.20 cupa=306) 0.00
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
[2019-07-17] MEDS ORDERED: ONDANSETRON 4 MG/2 ML VIAL ONE (16:05)
[2019-07-17] MEDS ORDERED: ACETAMINOPHEN 325 MG TABLET ONE (16:12)
[2019-07-17 16:26] LABS: Absolute Lymphocytes (CBC) 0.4 K/uL (0.7-4.9); Basophils % 0.4 % (0-1.3); Hematocrit 38.4 % (36.0-45.0); Lymphocytes % 3.4 % (15.3-44.8); MPV 9.4 fL (7.6-11.3); RBC Red Blood Cell Count 4.56 M/uL (3.86-4.86)
[2019-07-17] MEDS ORDERED: MORPHINE 2 MG/ML SYR ONE (16:29)
[2019-07-17 16:31] LABS: Protime INR 0.95
[2019-07-17 16:47] LABS: ALT/SGPT 30 U/L (12-78); AST/SGOT 22 U/L (15-37); Albumin 4.3 g/dL (3.4-5.0); Alkaline Phosphatase 77 U/L (45-117); BUN Blood Urea Nitrogen 11 mg/dL (7-18); Bicarbonate 25 mmol/L (21-32); Bilirubin Direct 0.1 mg/dL (0-0.2); Bilirubin Total 0.6 mg/dL (0.2-1.0); Glucose Level 101 mg/dL (74-106); Lipase 89 U/L (73-393); Potassium 3.7 mmol/L (3.5-5.1); Protein, Total 8.2 g/dL (6.4-8.2); Sodium Level 138 mmol/L (136-145)
[2019-07-17 16:48] LABS: Urine White Blood Cell Casts OK
[2019-07-17 16:49] LABS: Blood Morphology Comment NOT SEEN (NOT SEEN); Platelet Estimate ADEQ
[2019-07-17 16:54] LABS: Urine Blood TRACE (NEG); Urine Glucose NEGATIVE (NEG); Urine Protein NEGATIVE (NEG); Urine Specific Gravity 1.025 (1.005-1.030)
[2019-07-17 17:04] LABS: Urine Amorphous Sediment 1+ /HPF (NONE SEEN); Urine Bacteria 20-50 /HPF (<20); Urine Culture Reflex Order NOT NEEDED; Urine Mucus 4+ /HPF (NONE SEEN); Urine RBC <5 /HPF (NONE SEEN)
--- NOTE | 2019-07-17 17:31 | RAD REPORT ---
EXAM DESCRIPTION: CTAbdomen Pelvis W Contrast - 07/17/2019 5:14 pm CLINICAL HISTORY: Abdominal pain. lower abdomen pain COMPARISON: Abdomen Pelvis W Contrast dated 08/19/2016 TECHNIQUE: Biphasic CT imaging of the abdomen and pelvis was performed with 100 ml non-ionic IV cont rast. All CT scans are performed using dose optimization technique as appropriate and may include automated exposure control or mA/KV adjustment according to patient size. FINDINGS: The lung bases are clear. The liver, spleen, pancreas, adrenal glands and kidneys are within normal limits. No bowel obstruction, free air or abscess. Mild inflammatory thickening of the terminal ileum seen. T he appendix is normal. No evidence of significant lymphadenopathy. No suspicious bony findings. Trace pelvic free fluid. IMPRESSION: Mild inflammation involving the terminal ileum identified, may represent terminal ileiti s or inflammatory bowel disease.
--- NOTE | 2019-07-17 17:34 | RAD REPORT ---
EXAM DESCRIPTION: RAD - Chest Single View - 07/17/2019 5:09 pm CLINICAL HISTORY: Cough;Fever Chest pain. COMPARISON: Chest Single View dated 07/10/2018; Chest Single View dated 01/05/2016 FINDINGS: Portable technique limits examination quality. The lungs are grossly clear. The heart is normal in size. No displaced fractures. IMPRESSION: No acute intrathoracic process suspected.
[2019-07-17] MEDS ORDERED: NA CHLORIDE 0.9% 1,000 ML ONE (18:02)
[2019-07-17] MEDS ORDERED: CIPROFLOXACIN HCL 500 MG TAB ONE (18:48)
[2019-07-17] MEDS ORDERED: METRONIDAZOLE 500mg IVPB 500 MG/100 ML BAG IV ONE (18:48)
[2019-07-17] MEDS ORDERED: CODEINE 30MG/APAP 300MG TAB ONE (18:48)
--- NOTE | 2019-07-17 18:59 | RAD REPORT ---
EXAM DESCRIPTION: US - Transvaginal Study Probe - 07/17/2019 6:47 pm CLINICAL HISTORY: right lower abdomen pain Pelvic pain. COMPARISON: Transvaginal Study Probe dated 08/18/2016 FINDINGS: The uterus is normal in size, shape and echotexture. The uterus measures 9.6 x 6.0 x 4.5 c m. The endometrial stripe measures 5-6 mm. Both ovaries are normal in size, shape and echotexture. The right ovary measures 3.4 x 2.1 x 2.0 cm. The left ovary measures 2.9 x 2.2 x 1.7 cm. No ovarian or parovarian lesions. No adnexal masses. Normal Doppler blood flow was demonstrated to both ovaries. No significant pelvic ascites. IMPRESSION: Unremarkable study.
--- NOTE | 2019-07-17 19:24 | ER ---
Nurse's Notes [facility] Name: Italia Allen Age: 33 yrs Sex: Female : 1985 Arrival Date: 07/17/2019 Time: 15:31 Bed 13 Private MD: Diagnosis: Generalized abdominal pain-inflammatory bowel disease Presentation: 07/16 15:36 Chief complaint: Patient states: RLQ pain since this morning. Reports nausea and ca1 vomiting, diarrhea. Noticed limping while walking on the right side and reports pain on R side of abdomen when walking. Reports cough and congestion x 1 week. 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 Tylenol taken 1hr TAIL EDGER. Coronavirus screen: Surgical mask placed on patient. Patient moved to private room, placed in contact and droplet isolation with eye protection until further assessment. Patient reports a cough. Patient denies shortness of breath or difficulty breathing. Patient reports a measured and/or subjective temperature greater than 100.4F. Patient denies travel on a cruise ship or to a country the [facility] currently lists as an affected area. Patient denies contact with known and/or suspected case of COVID-19. Infection Prevention Nurse has been notified of patient in isolation for probable COVID-19. Ebola Screen: Patient negative for fever greater than or equal to 101.5 degrees Fahrenheit, and additional compatible Ebola Virus Disease symptoms Patient denies exposure to infectious person. Patient denies travel to an Ebola-affected area in the 21 days before illness onset. No symptoms or risks identified at this time. Initial Sepsis Screen: Does the patient meet any 2 criteria? Temp <36.0*C (96.8*F)) or > 38.3*C (100.9*F). HR > 90 bpm. Yes Does the patient have a suspected source of infection? Yes: Acute abdominal pain. Risk Assessment: Do you want to hurt yourself or someone else? Patient reports no desire to harm self or others. Onset of symptoms was July 17, 2019. 15:36 Method Of Arrival: Ambulatory ca1 15:36 Acuity: BUDDY 2 ca1 Triage Assessment: 15:40 General: Appears distressed, uncomfortable, Behavior is anxious, crying, fussy. ls4 15:40 Pain: Complains of pain in suprapubic area and right lower quadrant Pain currently is ls4 10 out of 10 on a pain scale. Respiratory: Reports cough that is non-productive, dry, since 1 week. GI: Abdomen is non-distended, Bowel sounds present X 4 quads. Abd is soft X 4 quads Abdomen is tender to palpation in right lower quadrant. : Reports cramping, in right lower quadrant(s) urinary frequency. Derm: No deficits noted. 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 - Social history:: Smoking status: Patient denies any tobacco usage or history of. Screenin:12 Abuse screen: Denies threats or abuse. Denies injuries from another. Nutritional ls4 screening: No deficits noted. Tuberculosis screening: No symptoms or risk factors identified. Fall Risk None identified. Assessment: 17:00 Reassessment: Patient and/or family updated on plan of care and expected duration. Pain ls4 level reassessed. Patient is alert, oriented x 3, equal unlabored respirations, skin warm/dry/pink. 18:00 Reassessment: Patient and/or family updated on plan of care and expected duration. Pain ls4 level reassessed. Patient is alert, oriented x 3, equal unlabored respirations, skin warm/dry/pink. Patient states symptoms have improved. 19:01 Reassessment: Patient appears in no apparent distress at this time. Patient and/or ls4 family updated on plan of care and expected duration. Pain level reassessed. Patient is alert, oriented x 3, equal unlabored respirations, skin warm/dry/pink. Vital Signs: 15:36 BP 130 / 92; Pulse 124; Resp 20; Temp 100.6(TE); Pulse Ox 98% on R/A; Weight 56.7 kg ca1 (R); Height 5 ft. 2 in. (157.48 cm) (R); Pain 9/10; 17:00 BP 121 / 64; Pulse 92; Resp 16; Pulse Ox 99% on R/A; Pain 10/10; ls4 18:27 BP 101 / 80; Pulse 88; Resp 14; Temp 100.4(O); Pulse Ox 99% on R/A; Pain 6/10; ls4 19:10 BP 114 / 70; Pulse 82; Resp 16; Temp 99.8(O); Pulse Ox 99% on R/A; Pain 3/10; ls4 15:36 Body Mass Index 22.86 (56.70 kg, 157.48 cm) ca1 ED Course: 15:31 Patient arrived in ED. ag5 15:40 Triage completed. ca1 15:40 Arm band placed on right wrist. ca1 15:40 Patient has correct armband on for positive identification. Bed in low position. Call ls4 light in reach. Side rails up X 1. athletic monitor on. Pulse ox on. NIBP on. 15:41 Laverne Heck PA is PHCP. cp 15:41 Chirs Cabrera MD is Attending Physician. cp 15:43 Cha Herring RN is Primary Nurse. ls4 16:30 Inserted saline lock: 18 gauge in right antecubital area, using aseptic technique. ls4 Blood collected. 16:30 Patient maintains SpO2 saturation greater than 95% on room air. ls4 16:40 Assist provider with pelvic exam: Set up pelvic tray. Performed by Laverne DURANT ls4 Specimens sent to lab. Patient tolerated well. 17:09 Chest Single View XRAY In Process Unspecified. EDMS 17:21 CT Abd/Pelvis - IV Contrast Only In Process Unspecified. EDMS 18:23 PHCP role handed off by Laverne Heck PA kb 18:23 Radha Lynn FNP-C is PHCP. kb 18:47 US Transvaginal Study (Probe) In Process Unspecified. EDMS 19:58 IV discontinued, intact, bleeding controlled, No redness/swelling at site. Pressure ls4 dressing applied. 22:14 Basic Metabolic Panel Sent. ls4 22:14 Blood Culture Adult (2) Sent. ls4 22:14 CBC with Diff Sent. ls4 22:14 Lactate Sent. ls4 22:16 Urine Culture Sent. ls4 Administered Medications: 16:30 Drug: Acetaminophen 325 mg {Note: PT TOOK 650 AT HOME. LAVERNE DURANT NOTIFIED. .} ls4 Route: PO; 17:00 Follow up: Response: No adverse reaction ls4 16:30 Drug: NS 0.9% (30 ml/kg) 1700 ml Route: IV; Rate: bolus; Site: right antecubital; ls4 17:56 Follow up: IV Status: Completed infusion; IV Intake: 1700ml ls4 17:10 Drug: morphine 2 mg Route: IVP; Site: right antecubital; ls4 17:31 Drug: morphine 2 mg Route: IVP; Site: right antecubital; ls4 18:00 Follow up: Response: No adverse reaction; Marked relief of symptoms ls4 18:40 Drug: metroNIDAZOLE 500 mg Volume: 100 ml; Route: IVPB; Infused Over: 30 mins; Site: ls4 right antecubital; 19:10 Follow up: Response: No adverse reaction; IV Status: Completed infusion ls4 18:51 Drug: Cipro 500 mg Route: PO; ls4 19:10 Follow up: Response: No adverse reaction ls4 18:51 Drug: Tylenol #3 (300 mg-30 mg) 2 tablet Route: PO; ls4 19:10 Follow up: Response: No adverse reaction; Marked relief of symptoms ls4 Intake: 17:56 IV: 1700ml; Total: 1700ml. ls4 Outcome: 19:22 Discharge ordered by . kb 19:58 Patient left the ED. ls4 19:58 Discharged to home ambulatory. ls4 19:58 Discharged to [facility]. 19:58 Condition: stable 19:58 Discharge instructions given to patient, family, Instructed on discharge instructions, follow up and referral plans. medication usage, safety practices, Demonstrated understanding of instructions, follow-up care, medications, Prescriptions given X 4. Signatures: Dispatcher [employer] EDND Radha Lynn, TUBE MAN-C TUBE MAN-Ckb Laverne Heck PA PA cp Stewart, Lisa RN RN ls4 Opal Gilmore RN RN ca1 Gaskin, Ajare ag5 Li Cardoza RN RN vc Corrections: (The following items were deleted from the chart) 19:03 19:02 Assist provider with pelvic exam: Set up pelvic tray. Performed by Laverne DURANT ls4 Specimens sent to lab. Patient tolerated well. ls4 22:08 20:56 Patient left the ED. vc ls4 07/17 01:08 01:07 IV Intake: 1700ml ls4 ls4
--- NOTE | 2019-07-17 19:25 | EDPHYS ---
Physician Documentation [facility] Name: Italia Allen Age: 33 yrs Sex: Female : 1985 Arrival Date: 07/17/2019 Time: 15:31 Bed 13 Private MD: ED Physician Chris Cabrera HPI: 07/16 16:32 This 33 yrs old Female presents to ER via Ambulatory with complaints of cp Abdominal Pain, Vomiting. 16:32 The patient presents with abdominal pain right lower quadrant. Onset: The cp symptoms/episode began/occurred this morning. The symptoms do not radiate. Associated signs and symptoms: Pertinent positives: diarrhea, fever, headache, nausea, vomiting, cough times 1 week, Pertinent negatives: vaginal discharge, vaginal bleeding. 16:32 Severity of pain: in the emergency department the pain is actually worse markedly. cp 16:32 Modifying factors: the symptoms are aggravated by pressure, walking. 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 - Social history:: Smoking status: Patient denies any tobacco usage or history of. ROS: 16:33 Constitutional: Positive for fever, poor PO intake. cp 16:33 Eyes: Negative for injury, pain, redness, and discharge. cp 16:33 ENT: Negative for drainage from ear(s), ear pain, sore throat, difficulty swallowing, difficulty handling secretions. 16:33 Cardiovascular: Negative for chest pain, palpitations. 16:33 Respiratory: Positive for cough, Negative for shortness of breath, wheezing. 16:33 Abdomen/GI: Positive for abdominal pain, nausea and vomiting, diarrhea, Negative for constipation, black/tarry stool, rectal bleeding. 16:33 Back: Negative for radiated pain. 16:33 : Negative for urinary symptoms, flank pain, vaginal bleeding, vaginal discharge. 16:33 Skin: Negative for cellulitis, rash. 16:33 Neuro: Negative for altered mental status, weakness. 16:33 All other systems are negative. Exam: 16:35 Head/Face: Normocephalic, atraumatic. cp 16:35 Constitutional: The patient appears in no acute distress, alert, awake, well developed, well nourished, obviously ill, in obvious pain, uncomfortable. 16:35 Eyes: Periorbital structures: appear normal, Conjunctiva: normal, no exudate, no injection, Sclera: no appreciated abnormality, Lids and lashes: appear normal, bilaterally. 16:35 ENT: External ear(s): are unremarkable, Nose: is normal, Mouth: Lips: moist, Oral mucosa: pink and intact, moist, Posterior pharynx: is normal, airway is patent, no erythema, no exudate. 16:35 Neck: ROM/movement: is normal, is supple, without pain, no range of motions limitations, no meningismus, no nuchal rigidity. 16:35 Chest/axilla: Inspection: normal, Palpation: is normal, no crepitus, no tenderness. 16:35 Cardiovascular: Rate: tachycardic, Rhythm: regular. 16:35 Respiratory: the patient does not display signs of respiratory distress, Respirations: normal, no use of accessory muscles, no retractions, labored breathing, is not present, Breath sounds: are clear throughout, no decreased breath sounds, no stridor, no wheezing. 16:35 Abdomen/GI: Inspection: abdomen appears normal, Bowel sounds: active, all quadrants, Palpation: soft, in all quadrants, severe abdominal tenderness, in the right adnexal area, voluntary guarding, is elicited in the right adnexal area. 16:35 Back: CVA tenderness, is absent. 16:35 : Pelvic Exam: External exam: is normal, Speculum exam: no bleeding is noted, no cervicitis, os that is closed, no tissue in cervix is seen, no tissue in vagina is seen, bimanual exam reveals no cervical motion tenderness, no uterine tenderness, right adnexal tenderness, no adnexal mass on right, no adnexal mass on left, discharge, white, the nurse was present for the exam, Sexual behavior: the patient is sexually active, method of control is none. Vital Signs: 15:36 BP 130 / 92; Pulse 124; Resp 20; Temp 100.6(TE); Pulse Ox 98% on R/A; Weight 56.7 kg ca1 (R); Height 5 ft. 2 in. (157.48 cm) (R); Pain 9/10; 17:00 BP 121 / 64; Pulse 92; Resp 16; Pulse Ox 99% on R/A; Pain 10/10; ls4 18:27 BP 101 / 80; Pulse 88; Resp 14; Temp 100.4(O); Pulse Ox 99% on R/A; Pain 6/10; ls4 19:10 BP 114 / 70; Pulse 82; Resp 16; Temp 99.8(O); Pulse Ox 99% on R/A; Pain 3/10; ls4 15:36 Body Mass Index 22.86 (56.70 kg, 157.48 cm) ca1 MDM: 15:49 Patient medically screened. cp 16:00 Differential diagnosis: appendicitis, gastritis, Ovarian Torsion, Pelvic Inflammatory cp Disease, Pyelonephritis, Tubal Ovarian Abcess, Ureterolithiasis, urinary tract infection, colitis. 19:21 Data reviewed: vital signs, nurses notes, lab test result(s), radiologic studies. kb Counseling: I had a detailed discussion with the patient and/or guardian regarding: the historical points, exam findings, and any diagnostic results supporting the discharge/admit diagnosis, lab results, radiology results, the need for outpatient follow up, a family practitioner, to return to the emergency department if symptoms worsen or persist or if there are any questions or concerns that arise at home. 07/16 15:48 Order name: Urine Microscopic Only cp 07/16 15:48 Order name: Urine Culture cp 07/16 15:48 Order name: Basic Metabolic Panel cp 07/16 15:48 Order name: Blood Culture Adult (2) cp 07/16 15:48 Order name: CBC with Diff cp 07/16 15:48 Order name: Lactate cp 07/16 15:48 Order name: LFT's; Complete Time: 17:20 cp 07/16 18:03 Interpretation: Normal except: GLOB 3.9. cp 07/16 15:48 Order name: Lipase; Complete Time: 17:20 cp 07/16 15:48 Order name: Procalcitonin; Complete Time: 17:20 cp 07/16 15:48 Order name: Protime (+inr); Complete Time: 16:39 cp 07/16 15:48 Order name: Ptt, Activated; Complete Time: 16:39 07/16 15:49 Order name: Urine Microscopic Only; Complete Time: 17:20 [facility] 07/16 15:49 Order name: Urine Culture [facility] 07/16 15:49 Order name: Basic Metabolic Panel; Complete Time: 17:20 [facility] 07/16 15:48 Order name: Chest Single View XRAY; Complete Time: 17:45 07/16 17:45 Interpretation: Report review. 07/16 15:49 Order name: Blood Culture [facility] 07/16 15:49 Order name: CBC with Automated Diff; Complete Time: 17:20 [facility] 07/16 17:21 Interpretation: Normal except: WBC 11.7; MCV 84.3; RDW 16.0; MAULIK% 92.3; LYM% 3.4; NEUT cp A 10.8; LYMA 0.4. 07/16 15:49 Order name: Lactate; Complete Time: 17:20 [facility] 07/16 16:02 Order name: Urine Dipstick--Ancillary (enter results); Complete Time: 17:20 07/16 18:03 Interpretation: Normal except: UKET 1+; UBLD TRACE. 07/16 16:02 Order name: Urine --Ancillary (enter results); Complete Time: 17:20 07/16 16:19 Order name: CT Abd/Pelvis - IV Contrast Only; Complete Time: 17:45 07/16 18:04 Interpretation: Report reviewed. 07/16 16:29 Order name: Flu; Complete Time: 18:03 07/16 16:29 Order name: Strep; Complete Time: 17:45 07/16 16:49 Order name: CBC Smear Scan; Complete Time: 17:20 [facility] 07/16 17:20 Order name: GC (GONORR/CHLAMYDIA) Probe 07/16 17:20 Order name: Wet Prep; Complete Time: 19:21 07/16 17:35 Order name: Throat Culture [facility] 07/16 17:47 Order name: US Transvaginal Study (Probe); Complete Time: 19:40 07/16 15:48 Order name: Urine Test (obtain specimen); Complete Time: 16:16 07/16 15:48 Order name: Urine Dipstick-Ancillary (obtain specimen); Complete Time: 16:16 cp 07/16 15:48 Order name: Cardiac monitoring; Complete Time: 22:13 cp 07/16 15:48 Order name: EKG - Nurse/Tech; Complete Time: 22:13 cp 07/16 15:48 Order name: IV Saline Lock - Large Bore; Complete Time: 22:13 cp 07/16 15:48 Order name: Labs collected and sent; Complete Time: 22:14 cp 07/16 15:48 Order name: O2 Per Protocol; Complete Time: 22:14 cp 07/16 15:48 Order name: O2 Sat Monitoring; Complete Time: 22:14 cp 07/16 18:11 Order name: Vital Signs: please update to include temp; Complete Time: 18:26 cp 07/16 18:11 Order name: PO challenge; Complete Time: 18:51 cp Administered Medications: 16:30 Drug: Acetaminophen 325 mg {Note: PT TOOK 650 AT HOME. LAVERNE MAC DURANT NOTIFIED. .} ls4 Route: PO; 17:00 Follow up: Response: No adverse reaction ls4 16:30 Drug: NS 0.9% (30 ml/kg) 1700 ml Route: IV; Rate: bolus; Site: right antecubital; ls4 17:56 Follow up: IV Status: Completed infusion; IV Intake: 1700ml ls4 17:10 Drug: morphine 2 mg Route: IVP; Site: right antecubital; ls4 17:31 Drug: morphine 2 mg Route: IVP; Site: right antecubital; ls4 18:00 Follow up: Response: No adverse reaction; Marked relief of symptoms ls4 18:40 Drug: metroNIDAZOLE 500 mg Volume: 100 ml; Route: IVPB; Infused Over: 30 mins; Site: ls4 right antecubital; 19:10 Follow up: Response: No adverse reaction; IV Status: Completed infusion ls4 18:51 Drug: Cipro 500 mg Route: PO; ls4 19:10 Follow up: Response: No adverse reaction ls4 18:51 Drug: Tylenol #3 (300 mg-30 mg) 2 tablet Route: PO; ls4 19:10 Follow up: Response: No adverse reaction; Marked relief of symptoms ls4 Disposition: 07/17 07:10 Co-signature as Attending Physician, Chris Cabrera MD I agree with the assessment and kdr plan of care. Disposition: 07/17/19 19:22 Discharged to Home. Impression: Generalized abdominal pain - inflammatory bowel disease. - Condition is Stable. - Discharge Instructions: Abdominal Pain, Adult, [id number]. - Prescriptions for Cipro 500 mg Oral Tablet - take 1 tablet by ORAL route every 12 hours for 10 days; 20 tablet. Flagyl 500 mg Oral Tablet - take 1 tablet by ORAL route every 8 hours for 10 days; 30 tablet. Zofran 4 mg Oral Tablet - take 1 tablet by ORAL route every 6 hours As needed; 20 tablet. Diclofenac Sodium 75 mg Oral Tablet, Delayed Release (E.C.) - take 1 tablet by ORAL route 2 times per day As needed; 30 tablet. - Medication Reconciliation Form, Thank You Letter, Antibiotic Education, Prescription Opioid Use form. - Follow up: Emergency Department; When: As needed; Reason: Worsening of condition. Follow up: Private Physician; When: 2 - 3 days; Reason: Recheck today's complaints, Continuance of care, Re-evaluation by your physician. Signatures: Dispatcher [employer] EDMS Radha Lynn, SYDNEY ERWIN-Chris Espinosa MD MD kdr Laverne Heck PA PA cp Stewart, Lisa, RN RN ls4 Opal Gilmore RN RN ca1 Li Cardoza RN RN vc Corrections: (The following items were deleted from the chart) 07/16 20:56 19:22 07/17/2019 19:22 Discharged to Home. Impression: Generalized abdominal pain - vc inflammatory bowel disease. Condition is Stable. Forms are Medication Reconciliation Form, Thank You Letter, Antibiotic Education, Prescription Opioid Use. Follow up: Emergency Department; When: As needed; Reason: Worsening of condition. Follow up: Private Physician; When: 2 - 3 days; Reason: Recheck today's complaints, Continuance of care, Re-evaluation by your physician. kb
[2019-07-17 21:08] VITALS: O2SAT 99
[2019-07-17 21:10] VITALS: BP 101/80; TEMP 100.4
--- NOTE | 2019-07-18 11:23 | EKG ---
Test Date: 2019-07-17 Test Time: 16:33:06 Binder Sorter: MEASUREMENT RESULTS: Intervals: Rate: 85 ND: 140 QRSD: 88 QT: 356 QTc: 423 [place]: P: 69 ND: 140 QRS: 43 T: 26 INTERPRETIVE STATEMENTS: Normal sinus rhythm Possible Left atrial enlargement Borderline ECG Compared to ECG 07/10/2018 11:30:55 No significant changes Electronically Signed On 07-18-19 11:20:24 CDT by Chris Egan
[2019-07-20 09:45] LABS: C.trachomatis RNA,TMA Not Detected (Not Detected)
== END 2019-07-17 20:56 | disposition home or self-care (01) ==
LOC: ER 15:29
DX: K63.89 Other specified diseases of intestine (principal)
CPT/HCPCS: 36415; 71045; 74177; 76830; 80048; 80076; 81003; 81015; 81025; 83605; 83690; 84145; 85025; 85610; 85730; 87040; 87070; 87081; 87086; 87088; 87210; 87490; 87590; 87804; 93005; 96365; 96367; 96375; 99285; J2270; J2405; J7030; Q9967

== ENCOUNTER 2019-08-07 20:45 | Emergency (ER) | payer OTHER ==
--- OUTSIDE RECORDS SUMMARY | 2019-08-07 20:48 | XMS REPORT ---
:1985 Author Organization [facility] t Address [address] [place] [address] [address] [place] [address] Care Team Providers Name Role Phone JOANA NAVARRO Unavailable Unavailable Problems This patient has no known problems. Allergies, Adverse Reactions, Alerts This patient has no known allergies or adverse reactions. Medications This patient has no known medications. Results Test Description Test Time Test Comments Text Results Atomic Results Result Comments DILUTE NINI VIPER [facility]ENOM (DRVV) 2016-07-25 15:34:00 Test Item Value Reference Range Comments PROTIME (BEAKER) (test code = 759) 13.9 seconds 11.7-14.7 INR (BEAKER) (test code = 370) 1.1 <=5.9 PARTIAL THROMBOPLASTIN TIME (BEAKER) 56.1 seconds 22.5-36.0 (test code = 760) DRVV INTERPRETATION (BEAKER) (test code Normal DRVV Results = 2406) [id number] (BEAKER) (test code Alvarez Moe MD (electron ic = 2610) signature) DRVV SCREEN RATIO (BEAKER) (test code = 0.84 <1.20 2707) Effective 08/26/2013: Test Method ChangeDRVV Screen Ratio, DRVV 1/1 Screen Ratio, DRVV Confirm Ratio,DRVV Normalized Ratio Reference Range: <1.2Protime Reference Range ChangeNew: 11.7-14.7 Previous: 9.8-12.0PTT Reference Range ChangeNew: 22.5-36.0 Previous: 25.8-34.5CBC W/PLT COUNT & AUTO DIFFERENTIAL 2016-07-25 07:26:00 Test Item Value Reference Range Comments WHITE BLOOD CELL COUNT (BEAKER) (test code = 6.6 K/ L 4.0 -10.0 775) RED BLOOD CELL COUNT (BEAKER) (test code = 761) 3.31 M/ L 4.00-5.00 HEMOGLOBIN (BEAKER) (test code = 410) 8.4 GM/DL 12.0-15.0 HEMATOCRIT (BEAKER) (test code = 411) 26.4 % 36.0-45.0 MEAN CORPUSCULAR VOLUME (BEAKER) (test code = 79.8 fL 82 .0-99.0 753) MEAN CORPUSCULAR HEMOGLOBIN (BEAKER) (test code 25.4 pg 27.0-33.0 = 751) MEAN CORPUSCULAR HEMOGLOBIN CONC (BEAKER) (test 31.9 GM/DL 32.0-36.0 code = 752) RED CELL DISTRIBUTION WIDTH (BEAKER) (test code 15.2 % 10.3-14.2 = 412) PLATELET COUNT (BEAKER) (test code = 756) 254 K/CU MM 150-43 0 MEAN PLATELET VOLUME (BEAKER) (test code = 754) 8.1 fL 6.5-10.5 NUCLEATED RED BLOOD CELLS (BEAKER) (test code = 0 /100 WBC 0-0 413) NEUTROPHILS RELATIVE PERCENT (BEAKER) (test code 60 % = 429) LYMPHOCYTES RELATIVE PERCENT (BEAKER) (test code 29 % = 430) MONOCYTES RELATIVE PERCENT (BEAKER) (test code = 10 % 431) EOSINOPHILS RELATIVE PERCENT (BEAKER) (test code 1 % = 432) BASOPHILS RELATIVE PERCENT (BEAKER) (test code = 1 % 437) NEUTROPHILS ABSOLUTE COUNT (BEAKER) (test code = 3.90 K/ L 1.80-8.00 670) LYMPHOCYTES ABSOLUTE COUNT (BEAKER) (test code = 1.90 K/ L 1.48-4.50 414) MONOCYTES ABSOLUTE COUNT (BEAKER) (test code = 0.65 K/ L 0 .00-1.30 415) EOSINOPHILS ABSOLUTE COUNT (BEAKER) (test code = 0.05 K/ L 0.00-0.50 416) BASOPHILS ABSOLUTE COUNT (BEAKER) (test code = 0.05 K/ L 0 .00-0.20 417) 0.00BASIC METABOLIC [id number] 07:05:00 Test Item Value Reference Range Comments SODIUM (BEAKER) (test 135 meq/L 136-145 code = 381) POTASSIUM (BEAKER) (test 3.7 meq/L 3.5-5.1 code = 379) CHLORIDE (BEAKER) (test 107 meq/L 98-107 code = 382) CO2 (BEAKER) (test code = 19 meq/L 22-29 355) BLOOD UREA NITROGEN 12 mg/dL 7-21 (BEAKER) (test code = 354) CREATININE (BEAKER) (test 0.59 mg/dL 0.57-1.25 code = 358) GLUCOSE RANDOM (BEAKER) 93 mg/dL 70-105 (test code = 652) CALCIUM (BEAKER) (test 8.5 mg/dL 8.4-10.2 code = 697) EGFR (BEAKER) (test code mL/min/1.73 sq m INSUF FICIENT CLINICAL DATA = 1092) TO CALCULATE EST IMATED GFR. CARDIOLIPIN ANTIBODIES, IGG AND [id number] 14:31:00 Test Item Value Reference Range Comments ANTICARDIOLIPIN IGG ANTIBODY (BEAKER) (test code = < GPL 712) ANTICARDIOLIPIN IGM ANTIBODY (BEAKER) (test code = < MPL 713) Anticardiolipin IgG Result Interpretation:NEG: <20 GPL; U/mlPOS: >/=20 GPL; U/mlAnticardiolipin IgM Result Interpretation:NEG: <20 MPL; U/mlPOS: >/=20 MPL; U/mlTHROMBIN [id number] 14:25:00 Test Item Value Reference Range Comments THROMBIN TIME (BEAKER) (test code = 550) 193.3 secs 13.8-20 .0 EQUAL MIX, NORMAL [id number] 14:16:00 Test Item Value Reference Range Comments PROTIME (BEAKER) (test code = 13.9 seconds 11.7-14.7 759) PARTIAL THROMBOPLASTIN TIME 56.1 seconds 22.5-36.0 (BEAKER) (test code = 760) PT 1/1 MIX (BEAKER) (test code SECS 11.7-14.7 N ot applicable. Test not = 1595) performed PTT 1/1 MIX (BEAKER) (test code 42.4 SECS 22.5-36.0 = 1596) ANTI-NUCLEAR ANTIBODY (CALLI)2016-07-24 12:37:00 Test Item Value Reference Range Comments ANTI-NUCLEAR ANTIBODY (CALLI) (BEAKER) (test code = Negative Negative 418) CBC W/PLT COUNT & AUTO [id number] 08:32:00 Test Item Value Reference Range Comments WHITE BLOOD CELL COUNT (BEAKER) (test code = 15.8 K/ L 4.0 -10.0 775) RED BLOOD CELL COUNT (BEAKER) (test code = 761) 3.93 M/ L 4.00-5.00 HEMOGLOBIN (BEAKER) (test code = 410) 9.3 GM/DL 12.0-15.0 HEMATOCRIT (BEAKER) (test code = 411) 30.6 % 36.0-45.0 MEAN CORPUSCULAR VOLUME (BEAKER) (test code = 77.7 fL 82 .0-99.0 753) MEAN CORPUSCULAR HEMOGLOBIN (BEAKER) (test code 23.6 pg 27.0-33.0 = 751) MEAN CORPUSCULAR HEMOGLOBIN CONC (BEAKER) (test 30.4 GM/DL 32.0-36.0 code = 752) RED CELL DISTRIBUTION WIDTH (BEAKER) (test code 14.6 % 10.3-14.2 = 412) PLATELET COUNT (BEAKER) (test code = 756) 311 K/CU MM 150-43 0 MEAN PLATELET VOLUME (BEAKER) (test code = 754) 8.1 fL 6.5-10.5 NUCLEATED RED BLOOD CELLS (BEAKER) (test code = 0 /100 WBC 0-0 413) NEUTROPHILS RELATIVE PERCENT (BEAKER) (test code 91 % = 429) LYMPHOCYTES RELATIVE PERCENT (BEAKER) (test code 5 % = 430) MONOCYTES RELATIVE PERCENT (BEAKER) (test code = 4 % 431) EOSINOPHILS RELATIVE PERCENT (BEAKER) (test code 0 % = 432) BASOPHILS RELATIVE PERCENT (BEAKER) (test code = 0 % 437) NEUTROPHILS ABSOLUTE COUNT (BEAKER) (test code = 14.40 K/ L 1.80-8.00 670) LYMPHOCYTES ABSOLUTE COUNT (BEAKER) (test code = 0.86 K/ L 1.48-4.50 414) MONOCYTES ABSOLUTE COUNT (BEAKER) (test code = 0.57 K/ L 0 .00-1.30 415) EOSINOPHILS ABSOLUTE COUNT (BEAKER) (test code = 0.02 K/ L 0.00-0.50 416) BASOPHILS ABSOLUTE COUNT (BEAKER) (test code = 0.01 K/ L 0 .00-0.20 417) 0.00(MANUAL DIFFERENTIAL)2016-07-24 08:32:00 Test Item Value Reference Range Comments TOTAL COUNTED (BEAKER) (test code = 1351) BASIC METABOLIC [id number] 06:54:00 Test Item Value Reference Range Comments SODIUM (BEAKER) (test 138 meq/L 136-145 code = 381) POTASSIUM (BEAKER) (test 4.1 meq/L 3.5-5.1 code = 379) CHLORIDE (BEAKER) (test 107 meq/L 98-107 code = 382) CO2 (BEAKER) (test code = 21 meq/L 22-29 355) BLOOD UREA NITROGEN 15 mg/dL 7-21 (BEAKER) (test code = 354) CREATININE (BEAKER) (test 0.71 mg/dL 0.57-1.25 code = 358) GLUCOSE RANDOM (BEAKER) 104 mg/dL 70-105 (test code = 652) CALCIUM (BEAKER) (test 9.3 mg/dL 8.4-10.2 code = 697) EGFR (BEAKER) (test code mL/min/1.73 sq m INSUF FICIENT CLINICAL DATA = 1092) TO CALCULATE EST IMATED GFR. BASIC METABOLIC [id number] 07:19:00 Test Item Value Reference Range Comments SODIUM (BEAKER) (test 140 meq/L 136-145 code = 381) POTASSIUM (BEAKER) (test 4.0 meq/L 3.5-5.1 code = 379) CHLORIDE (BEAKER) (test 111 meq/L 98-107 code = 382) CO2 (BEAKER) (test code = 21 meq/L 22-29 355) BLOOD UREA NITROGEN 10 mg/dL 7-21 (BEAKER) (test code = 354) CREATININE (BEAKER) (test 0.69 mg/dL 0.57-1.25 code = 358) GLUCOSE RANDOM (BEAKER) 90 mg/dL 70-105 (test code = 652) CALCIUM (BEAKER) (test 8.8 mg/dL 8.4-10.2 code = 697) EGFR (BEAKER) (test code mL/min/1.73 sq m INSUF FICIENT CLINICAL DATA = 1092) TO CALCULATE EST IMATED GFR. CBC W/PLT COUNT & AUTO [id number] 07:07:00 Test Item Value Reference Range Comments WHITE BLOOD CELL COUNT (BEAKER) (test code = 8.3 K/ L 4.0 -10.0 775) RED BLOOD CELL COUNT (BEAKER) (test code = 761) 3.56 M/ L 4.00-5.00 HEMOGLOBIN (BEAKER) (test code = 410) 9.2 GM/DL 12.0-15.0 HEMATOCRIT (BEAKER) (test code = 411) 28.5 % 36.0-45.0 MEAN CORPUSCULAR VOLUME (BEAKER) (test code = 80.1 fL 82 .0-99.0 753) MEAN CORPUSCULAR HEMOGLOBIN (BEAKER) (test code 25.9 pg 27.0-33.0 = 751) MEAN CORPUSCULAR HEMOGLOBIN CONC (BEAKER) (test 32.4 GM/DL 32.0-36.0 code = 752) RED CELL DISTRIBUTION WIDTH (BEAKER) (test code 14.3 % 10.3-14.2 = 412) PLATELET COUNT (BEAKER) (test code = 756) 310 K/CU MM 150-43 0 MEAN PLATELET VOLUME (BEAKER) (test code = 754) 7.7 fL 6.5-10.5 NUCLEATED RED BLOOD CELLS (BEAKER) (test code = 0 /100 WBC 0-0 413) NEUTROPHILS RELATIVE PERCENT (BEAKER) (test code 66 % = 429) LYMPHOCYTES RELATIVE PERCENT (BEAKER) (test code 23 % = 430) MONOCYTES RELATIVE PERCENT (BEAKER) (test code = 10 % 431) EOSINOPHILS RELATIVE PERCENT (BEAKER) (test code 1 % = 432) BASOPHILS RELATIVE PERCENT (BEAKER) (test code = 1 % 437) NEUTROPHILS ABSOLUTE COUNT (BEAKER) (test code = 5.50 K/ L 1.80-8.00 670) LYMPHOCYTES ABSOLUTE COUNT (BEAKER) (test code = 1.93 K/ L 1.48-4.50 414) MONOCYTES ABSOLUTE COUNT (BEAKER) (test code = 0.79 K/ L 0 .00-1.30 415) EOSINOPHILS ABSOLUTE COUNT (BEAKER) (test code = 0.06 K/ L 0.00-0.50 416) BASOPHILS ABSOLUTE COUNT (BEAKER) (test code = 0.05 K/ L 0 .00-0.20 417) [id number] 11:08:00 Test Item Value Reference Range Comments POTASSIUM (BEAKER) (test code = 379) 3.8 meq/L 3.5-5.1 [id number] 11:08:00 Test Item Value Reference Range Comments MAGNESIUM (BEAKER) (test code = 627) 2.3 mg/dL 1.6-2.6 BASIC METABOLIC [id number] 05:29:00 Test Item Value Reference Range Comments SODIUM (BEAKER) (test 139 meq/L 136-145 code = 381) POTASSIUM (BEAKER) (test 3.6 meq/L 3.5-5.1 code = 379) CHLORIDE (BEAKER) (test 111 meq/L 98-107 code = 382) CO2 (BEAKER) (test code = 21 meq/L 22-29 355) BLOOD UREA NITROGEN 8 mg/dL 7-21 (BEAKER) (test code = 354) CREATININE (BEAKER) (test 0.59 mg/dL 0.57-1.25 code = 358) GLUCOSE RANDOM (BEAKER) 93 mg/dL 70-105 (test code = 652) CALCIUM (BEAKER) (test 7.9 mg/dL 8.4-10.2 code = 697) EGFR (BEAKER) (test code mL/min/1.73 sq m INSUF FICIENT CLINICAL DATA = 1092) TO CALCULATE EST IMATED GFR. [id number] 05:27:00 Test Item Value Reference Range Comments PHOSPHORUS (BEAKER) (test code = 604) 2.7 mg/dL 2.3-4.7 [id number] 05:27:00 Test Item Value Reference Range Comments MAGNESIUM (BEAKER) (test code = 627) 1.8 mg/dL 1.6-2.6 CBC W/PLT COUNT & AUTO [id number] 05:04:00 Test Item Value Reference Range Comments WHITE BLOOD CELL COUNT (BEAKER) (test code = 7.6 K/ L 4.0 -10.0 775) RED BLOOD CELL COUNT (BEAKER) (test code = 761) 3.11 M/ L 4.00-5.00 HEMOGLOBIN (BEAKER) (test code = 410) 8.0 GM/DL 12.0-15.0 HEMATOCRIT (BEAKER) (test code = 411) 24.8 % 36.0-45.0 MEAN CORPUSCULAR VOLUME (BEAKER) (test code = 79.6 fL 82 .0-99.0 753) MEAN CORPUSCULAR HEMOGLOBIN (BEAKER) (test code 25.8 pg 27.0-33.0 = 751) MEAN CORPUSCULAR HEMOGLOBIN CONC (BEAKER) (test 32.4 GM/DL 32.0-36.0 code = 752) RED CELL DISTRIBUTION WIDTH (BEAKER) (test code 14.0 % 10.3-14.2 = 412) PLATELET COUNT (BEAKER) (test code = 756) 268 K/CU MM 150-43 0 MEAN PLATELET VOLUME (BEAKER) (test code = 754) 7.5 fL 6.5-10.5 NUCLEATED RED BLOOD CELLS (BEAKER) (test code = 0 /100 WBC 0-0 413) NEUTROPHILS RELATIVE PERCENT (BEAKER) (test code 62 % = 429) LYMPHOCYTES RELATIVE PERCENT (BEAKER) (test code 29 % = 430) MONOCYTES RELATIVE PERCENT (BEAKER) (test code = 8 % 431) EOSINOPHILS RELATIVE PERCENT (BEAKER) (test code 0 % = 432) BASOPHILS RELATIVE PERCENT (BEAKER) (test code = 1 % 437) NEUTROPHILS ABSOLUTE COUNT (BEAKER) (test code = 4.72 K/ L 1.80-8.00 670) LYMPHOCYTES ABSOLUTE COUNT (BEAKER) (test code = 2.20 K/ L 1.48-4.50 414) MONOCYTES ABSOLUTE COUNT (BEAKER) (test code = 0.62 K/ L 0 .00-1.30 415) EOSINOPHILS ABSOLUTE COUNT (BEAKER) (test code = 0.03 K/ L 0.00-0.50 416) BASOPHILS ABSOLUTE COUNT (BEAKER) (test code = 0.04 K/ L 0 .00-0.20 417) [id number] 17:27:00 Test Item Value Reference Range Comments FERRITIN (BEAKER) (test code = 361) 9 ng/mL 5-275 Effective 03/10/2014: Reference Range ChangeNew: Male 5-275 Previous: Male 22-322 Female 5-275 Female 10-291TSH/FREE T4 IF INDICATED 2016-07-21 17:27:00 Test Item Value Reference Range Comments THYROID STIMULATING HORMONE (BEAKER) (test code 1.75 uIU/mL 0.35-4.94 = 772) IRON, TIBC, % SAT. (WITHOUT FERRITIN)2016-07-21 17:06:00 Test Item Value Reference Range Comments IRON (BEAKER) (test code = 547) 25 ug/dL 40-160 TOTAL IRON BINDING CAPACITY (BEAKER) (test code = 435 ug/dL 250-450 769) IRON % SATURATION (2) (BEAKER) (test code = 2590) 6 % 20-55 BASIC METABOLIC [id number] 15:01:00 Test Item Value Reference Range Comments SODIUM (BEAKER) (test 137 meq/L 136-145 code = 381) POTASSIUM (BEAKER) (test 3.9 meq/L 3.5-5.1 code = 379) CHLORIDE (BEAKER) (test 109 meq/L 98-107 code = 382) CO2 (BEAKER) (test code = 21 meq/L 22-29 355) BLOOD UREA NITROGEN 7 mg/dL 7-21 (BEAKER) (test code = 354) CREATININE (BEAKER) (test 0.63 mg/dL 0.57-1.25 code = 358) GLUCOSE RANDOM (BEAKER) 85 mg/dL 70-105 (test code = 652) CALCIUM (BEAKER) (test 8.0 mg/dL 8.4-10.2 code = 697) EGFR (BEAKER) (test code mL/min/1.73 sq m INSUF FICIENT CLINICAL DATA = 1092) TO CALCULATE EST IMATED GFR. [id number] 14:50:00 Test Item Value Reference Range Comments PHOSPHORUS (BEAKER) (test code = 604) 3.5 mg/dL 2.3-4.7 [id number] 14:50:00 Test Item Value Reference Range Comments MAGNESIUM (BEAKER) (test code = 627) 1.9 mg/dL 1.6-2.6 LIPID [id number] 14:50:00 Test Item Value Reference Range Comments TRIGLYCERIDES (BEAKER) (test code = 540) 41 mg/dL CHOLESTEROL (BEAKER) (test code = 631) 109 mg/dL HDL CHOLESTEROL (BEAKER) (test code = 976) 44 mg/dL LDL CHOLESTEROL CALCULATED (BEAKER) (test code = 57 mg/dL 633) Triglyceride Reference Range: Low Risk <150 Borderline 150-199 High Risk 200-499 Very High Risk >=500Cholesterol Reference Range: Low Risk <200 Borderline 200-239 High Risk >240HDL Cholesterol Reference Range: Low Risk >=60 High Risk <40LDL Cholesterol Reference Range: Optimal <100 Near Optimal 100-129 Borderline 130-159 High 160-189 Very High >=190C-REACTIVE [id number] 14:50:00 Test Item Value Reference Range Comments C-REACTIVE PROTEIN (BEAKER) (test code = 676) 0.02 mg/dL 0. 00-0.50 COMPLEMENT COMPONENT [id number] 14:48:00 Test Item Value Reference Range Comments C4 COMPLEMENT (BEAKER) (test code = 394) 19 mg/dL 15-57 Effective 03/10/2014: Reference Range ChangeNew: 15-57 Previous: 16-38 COMPLEMENT COMPONENT [id number] 14:48:00 Test Item Value Reference Range Comments C3 COMPLEMENT (BEAKER) (test code = 393) 105 mg/dL 82-193 Effective 03/10/2014: Reference Range ChangeNew: 82-193 Previous: 79-152 HEMOGLOBIN [id number] 14:38:00 Test Item Value Reference Range Comments HEMOGLOBIN A1C (BEAKER) (test code = 368) 5.1 % 4.3-6. 1 SEDIMENTATION [id number] 08:29:00 Test Item Value Reference Range Comments SEDIMENTATION RATE, ERYTHROCYTE (BEAKER) (test code 10 mm/HR 0-20 = 766) CBC W/PLT COUNT & AUTO [id number] 06:06:00 Test Item Value Reference Range Comments WHITE BLOOD CELL COUNT (BEAKER) (test code = 10.2 K/ L 4.0 -10.0 775) RED BLOOD CELL COUNT (BEAKER) (test code = 761) 3.44 M/ L 4.00-5.00 HEMOGLOBIN (BEAKER) (test code = 410) 8.6 GM/DL 12.0-15.0 HEMATOCRIT (BEAKER) (test code = 411) 27.5 % 36.0-45.0 MEAN CORPUSCULAR VOLUME (BEAKER) (test code = 79.9 fL 82 .0-99.0 753) MEAN CORPUSCULAR HEMOGLOBIN (BEAKER) (test code 25.0 pg 27.0-33.0 = 751) MEAN CORPUSCULAR HEMOGLOBIN CONC (BEAKER) (test 31.2 GM/DL 32.0-36.0 code = 752) RED CELL DISTRIBUTION WIDTH (BEAKER) (test code 14.6 % 10.3-14.2 = 412) PLATELET COUNT (BEAKER) (test code = 756) 282 K/CU MM 150-43 0 MEAN PLATELET VOLUME (BEAKER) (test code = 754) 8.0 fL 6.5-10.5 NUCLEATED RED BLOOD CELLS (BEAKER) (test code = 0 /100 WBC 0-0 413) NEUTROPHILS RELATIVE PERCENT (BEAKER) (test code 75 % = 429) LYMPHOCYTES RELATIVE PERCENT (BEAKER) (test code 20 % = 430) MONOCYTES RELATIVE PERCENT (BEAKER) (test code = 6 % 431) EOSINOPHILS RELATIVE PERCENT (BEAKER) (test code 0 % = 432) BASOPHILS RELATIVE PERCENT (BEAKER) (test code = 0 % 437) NEUTROPHILS ABSOLUTE COUNT (BEAKER) (test code = 7.63 K/ L 1.80-8.00 670) LYMPHOCYTES ABSOLUTE COUNT (BEAKER) (test code = 1.99 K/ L 1.48-4.50 414) MONOCYTES ABSOLUTE COUNT (BEAKER) (test code = 0.56 K/ L 0 .00-1.30 415) EOSINOPHILS ABSOLUTE COUNT (BEAKER) (test code = 0.01 K/ L 0.00-0.50 416) BASOPHILS ABSOLUTE COUNT (BEAKER) (test code = 0.04 K/ L 0 .00-0.20 417) 0.00RAPID DRUG SCREEN, [id number] 01:59:00 Test Item Value Reference Range Comments BARBITURATE URINE (BEAKER) (test code = 725) Negative Neg ative BENZODIAZEPINE SCREEN URINE (BEAKER) (test code = Negative Negative 726) COCAINE (METAB.) SCREEN (BEAKER) (test code = 1164) Negative Negative METHADONE SCREEN (BEAKER) (test code = 1436) Negative Neg ative OPIATE SCREEN URINE (BEAKER) (test code = 734) Negative N egative CANNABINOID SCREEN URINE (BEAKER) (test code = 727) Positive Negative AMPH/METHAMPH SCREEN (BEAKER) (test code = 1438) Negative Negative PHENCYCLIDINE SCREEN URINE (BEAKER) (test code = Negative Negative 608) OXYCODONE SCREEN URINE (BEAKER) (test code = 2761) Negative Negative DRUG CUTOFF CONC.Cocaine 300 ng/mL Cannabinoid 50 ng/mL Benzodiazepine 200 ng/mLBarbiturate 200 ng/mLPhencyclidine 25 ng/mLOpiate 300 ng/mLMethadone 300 ng/mLAmphetamine/ 1000 ng/mL MethamphetamineOxycodone 300 ng/mLPREGNANCY SCREEN, [id number] 01:47:00 Test Item Value Reference Range Comments TEST URINE (BEAKER) (test code = 583) Negative URINALYSIS W/ [id number] 01:46:00 Test Item Value Reference Range Comments COLOR (BEAKER) (test code = 470) Light Yellow CLARITY (BEAKER) (test code = 469) Clear SPECIFIC GRAVITY UA (BEAKER) (test code = 468) > 1 .001-1.035 PH UA (BEAKER) (test code = 467) 6.5 5.0-8.0 PROTEIN UA (BEAKER) (test code = 464) Negative Negative GLUCOSE UA (BEAKER) (test code = 365) Negative Negative KETONES UA (BEAKER) (test code = 371) 40 mg/dL Negative BILIRUBIN UA (BEAKER) (test code = 462) Negative Negative BLOOD UA (BEAKER) (test code = 461) Negative Negative NITRITE UA (BEAKER) (test code = 465) Negative Negative LEUKOCYTE ESTERASE UA (BEAKER) (test code = Negative Nega tive 466) UROBILINOGEN UA (BEAKER) (test code = 463) 0.2 mg/dL 0.2-1 .0 RBC UA (BEAKER) (test code = 519) 0 /HPF WBC UA (BEAKER) (test code = 520) < /HPF SQUAMOUS EPITHELIAL (BEAKER) (test code = 516) 1 /HPF SOURCE(BEAKER) (test code = 2795) BASIC METABOLIC [id number] 22:37:00 Test Item Value Reference Range Comments SODIUM (BEAKER) (test 140 meq/L 136-145 code = 381) POTASSIUM (BEAKER) (test 3.7 meq/L 3.5-5.1 code = 379) CHLORIDE (BEAKER) (test 108 meq/L 98-107 code = 382) CO2 (BEAKER) (test code = 19 meq/L 22-29 355) BLOOD UREA NITROGEN 7 mg/dL 7-21 (BEAKER) (test code = 354) CREATININE (BEAKER) (test 0.61 mg/dL 0.57-1.25 code = 358) GLUCOSE RANDOM (BEAKER) 99 mg/dL 70-105 (test code = 652) CALCIUM (BEAKER) (test 9.4 mg/dL 8.4-10.2 code = 697) EGFR (BEAKER) (test code mL/min/1.73 sq m INSUF FICIENT CLINICAL DATA = 1092) TO CALCULATE EST IMATED GFR. CREATINE KINASE (CK), TOTAL AND [id number] 22:33:00 Test Item Value Reference Range Comments CREATINE KINASE TOTAL (BEAKER) (test code = 380) 119 U/L 29-200 CREATINE KINASE-MB (BEAKER) (test code = 750) 1.5 ng/mL 0. 0-6.6 CREATINE KINASE-MB INDEX (BEAKER) (test code = 1.3 % 395) Effective 03/10/2014: CK-MB Reference Range ChangeNew: 0.0-6.6 Previous: 0.0-4.9CK-MB Reference Range:<6.7 Normal6.7-10.0 Borderline>10.0 AbnormalTROPONIN [id number] 22:33:00 Test Item Value Reference Range Comments TROPONIN I (BEAKER) (test code = 397) < ng/mL 0.00-0.03 Effective 03/10/2014: Reference Range [...] neurological disease, and persistent tachyarrhythmia.B-TYPE NATRIURETIC FACTOR (BNP) 2016-07-20 22:33:00 Test Item Value Reference Range Comments B-TYPE NATRIURETIC PEPTIDE (BEAKER) (test code = 33 pg/mL 0-100 700) [id number] 22:27:00 Test Item Value Reference Range Comments MAGNESIUM (BEAKER) (test code = 627) 1.9 mg/dL 1.6-2.6 [id number] 22:10:00 Test Item Value Reference Range Comments PROTIME (BEAKER) (test code = 759) 13.6 seconds 11.7-14.7 INR (BEAKER) (test code = 370) 1.1 <=5.9 PARTIAL THROMBOPLASTIN TIME (BEAKER) (test code 26.9 seconds 22.5-36.0 = 760) RECOMMENDED COUMADIN/WARFARIN INR THERAPY RANGESSTANDARD DOSE: 2.0 - 3.0 Includes: PROPHYLAXIS forvenous thrombosis, systemic embolization; TREATMENT for venous thrombosis and/or pulmonary embolus.HIGH RISK: Target INR is 2.5-3.5 for patients with mechanical heart valves.POCT-GLUCOSE [id number] 22:02:00 Test Item Value Reference Range Comments POC-GLUCOSE METER (BEAKER) 86 mg/dL 70-110 TESTE D AT [facility] [address] (test code = 1538) [place] [address] CBC W/PLT COUNT & AUTO [id number] 22:01:00 Test Item Value Reference Range Comments WHITE BLOOD CELL COUNT (BEAKER) (test code = 15.3 K/ L 4.0 -10.0 775) RED BLOOD CELL COUNT (BEAKER) (test code = 761) 4.11 M/ L 4.00-5.00 HEMOGLOBIN (BEAKER) (test code = 410) 10.4 GM/DL 12.0-15.0 HEMATOCRIT (BEAKER) (test code = 411) 33.3 % 36.0-45.0 MEAN CORPUSCULAR VOLUME (BEAKER) (test code = 81.0 fL 82 .0-99.0 753) MEAN CORPUSCULAR HEMOGLOBIN (BEAKER) (test code 25.3 pg 27.0-33.0 = 751) MEAN CORPUSCULAR HEMOGLOBIN CONC (BEAKER) (test 31.3 GM/DL 32.0-36.0 code = 752) RED CELL DISTRIBUTION WIDTH (BEAKER) (test code 15.3 % 10.3-14.2 = 412) PLATELET COUNT (BEAKER) (test code = 756) 424 K/CU MM 150-43 0 MEAN PLATELET VOLUME (BEAKER) (test code = 754) 7.3 fL 6.5-10.5 NUCLEATED RED BLOOD CELLS (BEAKER) (test code = 0 /100 WBC 0-0 413) NEUTROPHILS RELATIVE PERCENT (BEAKER) (test code 79 % = 429) LYMPHOCYTES RELATIVE PERCENT (BEAKER) (test code 14 % = 430) MONOCYTES RELATIVE PERCENT (BEAKER) (test code = 6 % 431) EOSINOPHILS RELATIVE PERCENT (BEAKER) (test code 0 % = 432) BASOPHILS RELATIVE PERCENT (BEAKER) (test code = 0 % 437) NEUTROPHILS ABSOLUTE COUNT (BEAKER) (test code = 12.00 K/ L 1.80-8.00 670) LYMPHOCYTES ABSOLUTE COUNT (BEAKER) (test code = 2.14 K/ L 1.48-4.50 414) MONOCYTES ABSOLUTE COUNT (BEAKER) (test code = 0.97 K/ L 0 .00-1.30 415) EOSINOPHILS ABSOLUTE COUNT (BEAKER) (test code = 0.03 K/ L 0.00-0.50 416) BASOPHILS ABSOLUTE COUNT (BEAKER) (test code = 0.07 K/ L 0 .00-0.20 417) 0.00
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
--- OUTSIDE RECORDS SUMMARY | 2019-08-07 20:49 | XMS REPORT | Summary of Care ---
:1985 Author Organization [facility] Address [address] [place] [address] Care Team Providers Name Role Phone Diaz Primary Care Provider Reason for Visit Reason Comments Assessment Outbreak Rx Concern/Question Encounter Details Date Type Department Care Team Description 07/22/2019 Telephone [facility]- Whit Navarrete Ass sail[place] (Outbreak); [place] , [facility] Rx Concern/Question [address] [facility] [address] [facility] [phone] [place], [place] [id number] Allergies No Known Allergiesdocumented as of this [...] months Sina Escalante MD, FACC, FACP, ARMIDAE Tailor Apprentice, Division of Card[facility] [...] filedocumented in this encounter Plan of Treatment Date Type Specialty Care Team Description 07/23/2019 Telemedicine Visit [facility] Angel Navarrete, WHCNP [address], [place] [address] [phone] Health Maintenance Due Date Last Done Comments PNEUMOCOCCAL 0-64 YEARS COMBINED SERIES (1 08/09/1993 of 1 - PPSV23) PAP SMEAR 02/16/2018 02/16/2015 INFLUENZA VACCINE (#1) 2018 DTaP,Tdap,and Td Vaccines (2 - Td) 04/30/2027 04/30/2017, 0 12/22/2013 documented as of this encounter Results Not on filedocumented in this encounter Advance Directives Name Relationship Healthcare Agent Communication Relationship Waylon Brennan Other Primary healthcare agent [email or web address]
[2019-08-07] MEDS ORDERED: MORPHINE 2 MG/ML SYR ONE (21:17)
[2019-08-07] MEDS ORDERED: NA CHLORIDE 0.9% 1,000 ML ONE (21:18)
[2019-08-07] MEDS ORDERED: ONDANSETRON 4 MG/2 ML VIAL ONE ×2 (21:18→23:12)
[2019-08-07 21:19] LABS: Absolute Lymphocytes (CBC) 2.3 K/uL (0.7-4.9); Basophils % 1.2 % (0-1.3); Hematocrit 32.3 % (36.0-45.0)
[2019-08-07 22:07] LABS: Urine Bacteria <20 /HPF (<20)
[2019-08-07 22:08] LABS: Urine Culture Reflex Order NOT NEEDED; Urine Mucus 1+ /HPF (NONE SEEN)
[2019-08-07 22:13] LABS: ALT/SGPT 37 U/L (12-78); AST/SGOT 20 U/L (15-37); Albumin 3.7 g/dL (3.4-5.0); Alkaline Phosphatase 79 U/L (45-117); BUN Blood Urea Nitrogen 11 mg/dL (7-18); Bicarbonate 27 mmol/L (21-32); Bilirubin Direct < 0.1 mg/dL (0-0.2); Bilirubin Total 0.1 mg/dL (0.2-1.0); Glucose Level 77 mg/dL (74-106); Lipase 123 U/L (73-393); Potassium 3.7 mmol/L (3.5-5.1); Protein, Total 7.2 g/dL (6.4-8.2); Sodium Level 141 mmol/L (136-145)
[2019-08-07 22:16] LABS: Urine Blood TRACE (NEG); Urine Glucose NEGATIVE (NEG); Urine Protein NEGATIVE (NEG); Urine Specific Gravity >1.030 (1.005-1.030); Urine pH 6.5 (5.0-7.0)
[2019-08-08] MEDS ORDERED: PROMETHAZINE INJ 25 MG/ML AMP ONE (00:30)
--- NOTE | 2019-08-08 01:15 | ER ---
Nurse's Notes [facility] Name: Italia Allen Age: 33 yrs Sex: Female : 1985 Arrival Date: 08/07/2019 Time: 20:48 Bed 8 Private MD: Diagnosis: Nausea and vomiting;Unspecified abdominal pain-possible choledocholithiasis Presentation: 08/06 20:55 Chief complaint: Patient states: Lower abdominal pain continues from her visit here 3 ll1 weeks ago. States she has missed a few doses of her antibiotics. Coronavirus screen: Proceed with normal triage. Patient denies a cough. Patient denies shortness of breath or difficulty breathing. Patient denies measured and/or subjective temperature greater than 100.4F prior to today's visit. Patient denies travel on a cruise ship or to a country the [facility] currently lists as an affected area. Patient denies contact with known and/or suspected case of COVID-19. Ebola Screen: Patient denies travel to an Ebola-affected area in the 21 days before illness onset. Initial Sepsis Screen: Does the patient meet any 2 criteria? No. Patient's initial sepsis screen is negative. Risk Assessment: Do you want to hurt yourself or someone else? Patient reports no desire to harm self or others. Onset of symptoms was July 16, 2019. 20:55 Method Of Arrival: Ambulatory ll1 20:55 Acuity: BUDDY 3 ll1 20:55 Initial Sepsis Screen: Does the patient have a suspected source of infection? No. ea Patient's initial sepsis screen is negative. Historical: - Allergies: 20:57 No Known Drug Allergies; ll1 - PMHx: 20:57 CVA - july 20 no deficits; ectopic ; High Cholesterol; Anxiety; ll1 - PSHx: 20:57 Heart Surgery; ll1 - Immunization history:: Adult Immunizations up to date. - Social history:: Smoking status: Patient denies any tobacco usage or history of. Patient uses alcohol, only on a social basis. Patient/guardian denies using street drugs, tobacco products. Screenin:12 Abuse screen: Denies threats or abuse. Nutritional screening: No deficits noted. ea Tuberculosis screening: No symptoms or risk factors identified. Fall Risk IV access (20 points). Assessment: 21:13 General: Appears in no apparent distress. Behavior is appropriate for age. Pain: ea Complains of pain in posterior aspect of right lateral abdomen, posterior aspect of left lateral abdomen, right lower quadrant and left lower quadrant. Neuro: Level of Consciousness is awake, alert, obeys commands, Oriented to person, place, time, situation. Respiratory: Airway is patent Respiratory effort is even, unlabored, Respiratory pattern is regular, symmetrical. GI: Bowel sounds present X 4 quads. Abd is soft and non tender X 4 quads. GI: Reports diarrhea. Derm: Skin is pink, warm \T\ dry. 22:56 Reassessment: Patient and/or family updated on plan of care and expected duration. Pain ea level reassessed. Patient is alert, oriented x 3, equal unlabored respirations, skin warm/dry/pink. Awaiting on CT results. 23:11 Reassessment: Patient and/or family updated on plan of care and expected duration. Pain ea level reassessed. Patient is alert, oriented x 3, equal unlabored respirations, skin warm/dry/pink. Reports nausea, provider notified, medication administered, pt tolerating well. 23:35 Reassessment: Provider at bedside updating pt on plan of care. ea 08/07 00:05 Reassessment: pt vomiting at this time, requesting water to drink. pt given a sg washcloth, no water at this time until medication has taken affect at this time. 01:04 Reassessment: Patient and/or family updated on plan of care and expected duration. Pain ea level reassessed. Patient is alert, oriented x 3, equal unlabored respirations, skin warm/dry/pink. 01:58 Reassessment: Report called to Maryellen COLIN at [facility]. ea 02:32 Reassessment: Patient and/or family updated on plan of care and expected duration. Pain ea level reassessed. Patient is alert, oriented x 3, equal unlabored respirations, skin warm/dry/pink. [facility] at facility for transfer, report given to EMS. Pt left ED via stretcher per EMS, pt tolerating well. Vital Signs: 08/06 20:55 BP 129 / 94; Pulse 75; Resp 18; Temp 97.2; Pulse Ox 97% ; Pain 8/10; ll1 21:40 BP 113 / 67; Pulse 61; Resp 16; Pulse Ox 98% on R/A; lp1 22:56 BP 115 / 71; Pulse 68; Resp 18; Pulse Ox 98% ; ea 08/07 00:30 BP 110 / 68; Pulse 70; Resp 18; Pulse Ox 98% on R/A; ea 01:30 BP 108 / 70; Pulse 68; Resp 16; Pulse Ox 99% ; ea 02:00 BP 118 / 60; Pulse 70; Resp 18; Temp 97.6; Pulse Ox 98% ; ea ED Course: 08/06 20:48 Patient arrived in ED. cl3 20:56 Triage completed. ll1 20:57 Serjio Heck PA is PHCP. cp 20:57 Serjio Hitchcock MD is Attending Physician. cp 20:57 Arm band placed on Patient placed in an exam room, on a stretcher. ll1 21:09 Lois Arreguin, RN is Primary Nurse. ea 21:13 Patient has correct armband on for positive identification. Bed in low position. Call ea light in reach. Side rails up X2. 21:13 Inserted saline lock: 20 gauge in right antecubital area, using aseptic technique. ea Blood collected. 22:38 CT Abd/Pelvis - IV Contrast Only In Process Unspecified. EDMS 08/07 02:32 No provider procedures requiring assistance completed. Patient transferred, IV remains ea in place. Administered Medications: 08/06 21:15 Drug: NS 0.9% 1000 ml Route: IV; Rate: 1 bolus; Site: right antecubital; lp1 22:15 Follow up: Response: No adverse reaction; IV Status: Completed infusion; IV Intake: ea 1000ml 21:15 Drug: Zofran (Ondansetron) 4 mg Route: IVP; Site: right antecubital; lp1 22:50 Follow up: Response: No adverse reaction ea 21:17 Drug: morphine 2 mg {Note: RASS 0.} Route: IVP; Site: right antecubital; lp1 22:50 Follow up: Response: No adverse reaction ea 23:10 Drug: Zofran (Ondansetron) 4 mg Route: IVP; Site: right antecubital; ea 08/07 00:30 Follow up: Response: Nausea unchanged ea 00:30 Drug: Phenergan 12.5 mg Route: IVP; Site: right antecubital; ea Intake: 04/16 22:15 IV: 1000ml; Total: 1000ml. ea Outcome: 08/07 01:14 ER care complete, transfer ordered by . cp 01:30 Instructed on the need for transfer, Demonstrated understanding of instructions. ea 02:33 Transferred by ground EMS to [facility], [facility], Transfer form completed. ea 02:33 Condition: stable 02:34 Patient left the ED. ea Signatures: Dispatcher [employer] EDMS Contreras Snow, RN RN Jocelin Workman, RN RN lp1 Serjio Heck PA PA Lois Bowers RN RN ea Lewis, Charde cl3 Rachelle Moreira RN RN ll1
--- NOTE | 2019-08-08 01:15 | EDPHYS ---
Physician Documentation [facility] Name: Italia Allen Age: 33 yrs Sex: Female : 1985 Arrival Date: 08/07/2019 Time: 20:48 Bed 8 Private MD: ED Physician Serjio Hitchcock HPI: 08/06 21:11 This 33 yrs old Female presents to ER via Ambulatory with complaints of cp Abdominal Pain. 21:11 The patient presents with abdominal pain in the lower abdomen. cp 21:11 Onset: The symptoms/episode began/occurred last month. cp 21:11 The symptoms radiate to right back. Associated signs and symptoms: Pertinent positives: cp diarrhea, Pertinent negatives: blood in stools, constipation, dysuria, fever, headache, vomiting. 21:11 The patient has been recently seen at the [facility] Emergency cp Department, a couple of weeks ago, for similar complaints labs were performed, CT scan was performed, was given a prescription for antibiotics. Historical: - Allergies: 20:57 No Known Drug Allergies; ll1 - PMHx: 20:57 CVA - july 20 no deficits; ectopic ; High Cholesterol; Anxiety; ll1 - PSHx: 20:57 Heart Surgery; ll1 - Immunization history:: Adult Immunizations up to date. - Social history:: Smoking status: Patient denies any tobacco usage or history of. Patient uses alcohol, only on a social basis. Patient/guardian denies using street drugs, tobacco products. ROS: 21:15 Constitutional: Negative for body aches, chills, fever, poor PO intake. cp 21:15 Eyes: Negative for injury, pain, redness, and discharge. cp 21:15 Abdomen/GI: Positive for abdominal pain, nausea, vomiting, diarrhea, Negative for cp black/tarry stool, rectal bleeding. 21:15 Cardiovascular: Negative for chest pain. cp 21:15 Respiratory: Negative for cough, shortness of breath, wheezing. 21:15 Skin: Negative for rash. 21:15 Neuro: Negative for headache, weakness. 21:15 All other systems are negative. Exam: 21:20 Constitutional: The patient appears in no acute distress, alert, awake, non-toxic, well cp developed, well nourished, uncomfortable. 21:20 Head/Face: Normocephalic, atraumatic. cp 21:20 Eyes: Periorbital structures: appear normal, Conjunctiva: normal, no exudate, no injection, Sclera: no appreciated abnormality, Lids and lashes: appear normal, bilaterally. 21:20 ENT: External ear(s): are unremarkable, Nose: is normal, Mouth: Lips: moist, Oral mucosa: pink and intact, moist, Posterior pharynx: is normal, airway is patent, no erythema, no exudate. 21:20 Chest/axilla: Inspection: normal, Palpation: is normal, no crepitus, no tenderness. 21:20 Cardiovascular: Rate: normal, Rhythm: regular. 21:20 Respiratory: the patient does not display signs of respiratory distress, Respirations: normal, no use of accessory muscles, no retractions, labored breathing, is not present, Breath sounds: are clear throughout, no decreased breath sounds, no stridor, no wheezing. 21:20 Abdomen/GI: Inspection: abdomen appears normal, Bowel sounds: active, all quadrants, Palpation: soft, in all quadrants, moderate abdominal tenderness, in the right upper quadrant and right lower quadrant, rebound tenderness, is not appreciated, involuntary guarding, is elicited in the right upper quadrant and right lower quadrant. 21:20 Back: pain, that is moderate, of the right low back, ROM is normal. Vital Signs: 20:55 BP 129 / 94; Pulse 75; Resp 18; Temp 97.2; Pulse Ox 97% ; Pain 8/10; ll1 21:40 BP 113 / 67; Pulse 61; Resp 16; Pulse Ox 98% on R/A; lp1 22:56 BP 115 / 71; Pulse 68; Resp 18; Pulse Ox 98% ; ea 08/07 00:30 BP 110 / 68; Pulse 70; Resp 18; Pulse Ox 98% on R/A; ea 01:30 BP 108 / 70; Pulse 68; Resp 16; Pulse Ox 99% ; ea 02:00 BP 118 / 60; Pulse 70; Resp 18; Temp 97.6; Pulse Ox 98% ; ea MDM: 08/06 20:58 Patient medically screened. nils 21:00 Differential diagnosis: appendicitis, cholecystitis, Cholelithiasis, gastritis, Ovarian cp Torsion, Ureterolithiasis, urinary tract infection, colitis. 23:45 Data reviewed: vital signs, nurses notes, lab test result(s), radiologic studies, CT cp scan, I have discussed the patient's presentation/case with the attending Emergency Department Physician;. 23:46 Physician consultation: Juanpablo Ron MD was called at 23:46, was contacted at 23:46, cp regarding patient's condition, after a discussion of the case, a recommendation for transfer for higher level of care is made, recommends ERCP. 08/07 00:43 Physician consultation: was contacted at 00:35, regarding consult, patient's condition, cp DR Santillan, GI \T\[facility], recommends transfer to hospital services and will consult on patient. 01:15 Physician consultation: was contacted at 01:13, regarding regarding transfer, to [facility]. patient's condition, DR Cote, hospitalist, will accept patient for continued care. 08/06 20:56 Order name: Basic Metabolic Panel; Complete Time: 22:31 08/06 22:32 Interpretation: Normal except: CL 108; GFR 73; CA 8.4. 08/06 20:56 Order name: CBC with Diff; Complete Time: 22:31 08/06 22:32 Interpretation: Normal except: RBC 3.80; HGB 10.7; HCT 32.3; RDW 16.2. 08/06 20:56 Order name: Creatinine for Radiology; Complete Time: 22:31 08/06 20:56 Order name: Hepatic Function; Complete Time: 22:31 08/06 22:32 Interpretation: Normal except: BILIT 0.1. 08/06 20:56 Order name: Lipase; Complete Time: 22:31 ea 08/06 21:08 Order name: Urine Microscopic Only 08/06 21:08 Order name: Urine Microscopic Only; Complete Time: 22:31 EDMS 08/06 21:12 Order name: CT Abd/Pelvis - IV Contrast Only 08/06 21:13 Order name: Urine Dipstick--Ancillary (enter results); Complete Time: 22:31 2 08/06 21:13 Order name: Urine --Ancillary (enter results); Complete Time: 22:31 [facility] 08/06 20:56 Order name: IV Saline Lock; Complete Time: 21:12 08/06 20:56 Order name: Labs collected and sent; Complete Time: 21:12 ea 08/06 20:56 Order name: Urine Dipstick-Ancillary (obtain specimen); Complete Time: 21:12 ea 08/06 21:08 Order name: Urine Test (obtain specimen); Complete Time: 21:12 cp Administered Medications: 08/06 21:15 Drug: NS 0.9% 1000 ml Route: IV; Rate: 1 bolus; Site: right antecubital; lp1 22:15 Follow up: Response: No adverse reaction; IV Status: Completed infusion; IV Intake: ea 1000ml 21:15 Drug: Zofran (Ondansetron) 4 mg Route: IVP; Site: right antecubital; lp1 22:50 Follow up: Response: No adverse reaction ea 21:17 Drug: morphine 2 mg {Note: RASS 0.} Route: IVP; Site: right antecubital; lp1 22:50 Follow up: Response: No adverse reaction ea 23:10 Drug: Zofran (Ondansetron) 4 mg Route: IVP; Site: right antecubital; ea 08/07 00:30 Follow up: Response: Nausea unchanged ea 00:30 Drug: Phenergan 12.5 mg Route: IVP; Site: right antecubital; ea Disposition: 11:12 Co-signature as Attending Physician, Serjio Hitchcock MD I agree with the assessment and nils plan of care. Disposition: 08/08/19 01:14 Transfer ordered to [facility]. Diagnosis are Nausea and vomiting, Unspecified abdominal pain - possible choledocholithiasis. - Reason for transfer: Higher level of care. - Accepting physician is DR Cote. - Condition is Stable. - Problem is new. - Symptoms have improved. Signatures: Dispatcher [employer] EDDE Serjio Hitchcock MD MD cha Pena, Laura RN RN lp1 Serjio Heck PA PA cp Lois Arreguin RN RN ea Lewis, Lynsay, RN RN ll1 Corrections: (The following items were deleted from the chart) 08/06 22:32 22:32 Normal except: CL 108; GFR 73. cp cp 08/07 01:34 01:14 08/08/2019 01:14 Transfer ordered to [facility]. cp Diagnosis is Nausea and vomiting; Unspecified abdominal pain - possible choledocholithiasis. Reason for transfer: Higher level of care. Accepting physician is Doctor. Condition is Stable. Problem is new. Symptoms have improved. cp 02:34 01:34 08/08/2019 01:14 Transfer ordered to [facility]. ea Diagnosis is Nausea and vomiting; Unspecified abdominal pain - possible choledocholithiasis. Reason for transfer: Higher level of care. Accepting physician is DR Cote. Condition is Stable. Problem is new. Symptoms have improved. cp
[2019-08-08 02:49] VITALS: BP 118/60; TEMP 97.6; O2SAT 98
--- NOTE | 2019-08-08 09:17 | RAD REPORT ---
EXAM DESCRIPTION: CT Abdomen and Pelvis With Intravenous Contrast CLINICAL HISTORY: The patient is 33 years old and is Female; ABD PAIN TECHNIQUE: Axial computed tomography images of the abdomen and pelvis with intravenous contrast. S agittal and coronal reformatted images were created and reviewed. This CT exam was performed using one or more of the following dose reduction techniques: automated exposure control, adjustment of t he mA and/or kV according to patient size, and/or use of iterative reconstruction technique. COMPARISON: CT abdomen and pelvis with contrast dated July 17, 2019. FINDINGS: LUNG BASES: Lung bases are clear. ABDOMEN: LIVER: Visualized liver is normal. GALLBLADDER AND BILE DUCTS: Contracted gallbladder with minimal amount of pericholecystic fluid. D iffuse intrahepatic biliary ductal dilatation. PANCREAS: Unremarkable. No mass. No ductal dilation. SPLEEN: Unremarkable. No splenomegaly. ADRENALS: Unremarkable. No mass. KIDNEYS AND URETERS: Unremarkable. No solid mass. No hydronephrosis. STOMACH AND BOWEL: Moderate stool burden. No obstruction. No mucosal thickening. PELVIS: APPENDIX: No findings to suggest acute appendicitis. BLADDER: Bladder is decompressed. REPRODUCTIVE: New left ovarian cyst measuring up to 4.7 cm. Small amount of endometrial fluid. ABDOMEN and PELVIS: INTRAPERITONEAL SPACE: Small amount of free pelvic fluid. No free air. BONES/JOINTS: No acute fracture. No dislocation. SOFT TISSUES: Unremarkable. VASCULATURE: Unremarkable. No abdominal aortic aneurysm. LYMPH NODES: Unremarkable. No enlarged lymph nodes. IMPRESSION: 1. Small amount of pericholecystic fluid and intrahepatic ductal dilatation. No radiopaque gallstone s. Right upper quadrant ultrasound is recommended. 2. Physiologic pelvic changes with new left ovarian cyst measuring up to 4.7 cm. No follow-up imagi ng is recommended. Reference: US recommendations based on Radiology 2010 Dec;256(3):943-54; CT/MR rec ommendations based on J Am Emma Radiol 2013;10:675-681. Electronically signed by: Matt Nice DO 08/07/2019 11:19 PM CDT Due to temporary technical issues with the PACS/Fluency reporting system, reports are being signed by the in house radiologist as a courtesy to ensure prompt reporting. The interpreting radiologist is f ully responsible for the content of the report.
== END 2019-08-08 02:34 | disposition short-term general hospital (02) ==
LOC: ER 20:45
DX: R10.30 Lower abdominal pain, unspecified (principal)
CPT/HCPCS: 96361; 85025; 80048; 36415; 81025; 80076; 83690; 74177; 96375; 96374; 99285; Q9967; J2550; J2270; J7030; J2405 ×2; 81003; 81015

== ENCOUNTER 2019-10-03 16:18 | Emergency (ER) | payer OTHER ==
--- OUTSIDE RECORDS SUMMARY | 2019-10-03 16:20 | XMS REPORT | Clinical Summary ---
:1985 Author Organization [facility] Address [address] [place] [id number] Care Team Providers Name Role Phone MD [place] Primary Care Provider Allergies No Known Allergies Medications Medication Sig Dispensed Refills Start Date End Date Status acetaminophen Take 500 mg by 0 A ctive (TYLENOL) 500 MG mouth every 6 tablet (six) hours as needed for mild pain. acetaminophen-codeine Take 1 tablet by 20 tablet 0 04/21/2019 04/26/2019 (TYLENOL WITH CODEINE mouth every 4 #4) 300-60 mg per (four) hours as tabletIndications: needed for acute pain moderate pain for up to 5 days .acute pain. keTOROlac (TORadol) Take 1 tablet 20 tablet 0 04/21/201904/26 10 mg tablet (10 mg total) by mouth every 6 (six) hours as needed for moderate pain for up to 5 days. Active Problems Not on file Encounters Date Type Specialty Care Team Description 04/21/2019 Emergency Emergency Medicine Edwardo Hernandez Comp lete tear of right Kevin, DO ACL, initial en counter (Primary Dx) after 10/02/2018 Social History Tobacco Use Types Packs/Day Years Used Date Former Smoker 0.5 Alcohol Use Drinks/Week oz/Week Comments Yes Sex Assigned at Date Recorded Not on file Job Start Date Occupation Industry Not on file Not on file Not on file Travel History Travel Start Travel End No recent travel history available. Last Filed Vital Signs Vital Sign Reading Time Taken Comments Blood Pressure 117/74 04/21/2019 8:15 AM [employer] Pulse 64 04/21/2019 8:15 AM [employer] Temperature 36.6 C (97.9 F) 04/21/2019 8:15 AM [employer] Respiratory Rate 12 04/21/2019 8:15 AM [employer] Oxygen Saturation 98% 04/21/2019 8:15 AM [employer] Inhaled Oxygen Concentration - - Weight - - Height - - Body Mass Index - - Plan of Treatment Health Maintenance Due Date Last Done Comments CERVICAL CANCER SCREENING 08/09/2008 INFLUENZA VACCINE 11/22/2019 Procedures Procedure Name Priority Date/Time Associated Comments Diagnosis MRI KNEE WO CONTRAST STAT 04/21/2019 5:40 AM Results for this RIGHT [employer] procedure are i n the results section. POC , URINE STAT 04/21/2019 4:02 AM Results for this [employer] procedure are i n the results section. HCG QUALITATIVE, STAT 04/21/2019 3:44 AM Resu lts for this URINE SCREEN [employer] procedure are i n the results section. URINALYSIS SCREEN STAT 04/21/2019 3:44 AM Res ults for this AND MICROSCOPY, WITH [employer] procedu re are in REFLEX TO CULTURE the result s section. URINE CULTURE STAT 04/21/2019 3:44 AM Results for this [employer] procedure are i n the results section. XR KNEE 1 OR 2 VW STAT 04/21/2019 2:10 AM Res ults for this RIGHT [employer] procedure are i n the results section. after 10/02/2018 Results MRI Knee Right Wo Contrast (04/21/2019 5:40 AM [employer]) Specimen Narrative Performed At This result has an attachment that is no t available. EXAMINATION: MRI KNEE WO CONTRAST RIGHT [facility] CLINICAL HISTORY: Knee pain neg xray or effusion o nly TECHNIQUE: Multiplanar multisequence M R imaging of the knee was performed without contrast. COMPARISON: Knee radiographs dated 04/21/2019 FINDINGS: 1. Cruciate ligaments: Grade 3 complete tear of the mid substance of the anterior cruciate ligament. The posterior cruciate ligament is intact. 2. Collateral ligaments: Medial collater al ligament, lateral collateral ligament, and biceps femoris tendon are intact. There is evidence of a low-grade posterolateral corner injury with a low-grade pos terolateral capsular sprain and a small amount of edema along the arcuate ligament. No def inite tear of the popliteal fibular ligament or the meniscal fascicles. No evidence of high-grade posteromedial corner injury. 3. Medial Meniscus: Medial meniscus intact. 4. Medial Compartment Cartilage: Osseous contusion of the anteromedial and posteromedial tibial plateau without evidence of chondral shear. Cartilage of the medial femoral condyle appears intact. 5. Lateral Meniscus: No evidence of a tear of the late ral meniscus. 6. Lateral Compartment Cartilage: Osseou s contusion of the posterolateral tibial plateau without evidence of chondral shear. 7. Patellofemoral Compartment:Articular cartilage inta ct. 8. Extensor mechanism: Quadriceps and pa tellar tendons are intact. Minimal focal edema in the superolateral aspect Hoffa's fat pad which can be seen with maltracking and fat pad impingement. No lateralization of the tibial tubercle. 9. Effusion: Small to moderate knee joint effusion. 10. Bone marrow: Osseous contusions as a jesenia. No fracture. Patchy red marrow in the distal femur. 11. Soft tissues: Neurovascular bundle appears unremar kable. IMPRESSION: 1.Grade 3 complete tear of the anterior cruciate ligam ent. 2.Low-grade posterolateral corner injury. 3.Osseous contusion of the medial and la teral tibial plateau without evidence of chondral shear. 4.Intact posterior cruciate ligament, collateral ligam ents, and menisci. 5.Additional findings and details as above. [facility]-[id number] Procedure Note Interface, Radiology Results Incoming - 04/21/2019 6:35 AM [employer] EXAMINATION: MRI KNEE WO CONTRAST RIGHT CLINICAL HISTORY: Knee pain neg xray o r effusion only TECHNIQUE: Multiplanar multisequence MR imaging of the knee was performed without contrast. COMPARISON: Knee radiographs dated 03/25 FINDINGS: 1. Cruciate ligaments: Grade 3 complete tear of the mid substance of the anterior cruciate ligament. The posterior cruciate ligament is intact. 2. Collateral ligaments: Medial collater al ligament, lateral collateral ligament, and biceps femoris tendon are intact. There is evidence of a low-grade posterolateral corner injury with a low-grade posterolateral capsular sprain and a small amount of edema along the arcuate ligament. No def inite tear of the popliteal fibular ligament or the meniscal fascicles. No evidence of high-grade posteromedial corner injury. 3. Medial Meniscus: Medial meniscus inta ct. 4. Medial Compartment Cartilage: Osseous contusion of the anteromedial and posteromedial tibial plateau without evidence of chondral shear. Cartilage of the medial femoral condyle appears intact. 5. Lateral Meniscus: No evidence of a te ar of the lateral meniscus. 6. Lateral Compartment Cartilage: Osseou s contusion of the posterolateral tibial plateau without evidence of chondral shear. 7. Patellofemoral Compartment:Articular cartilage intact. 8. Extensor mechanism: Quadriceps and pa tellar tendons are intact. Minimal focal edema in the superolateral aspect Hoffa's fat pad which can be seen with maltracking and fat pad impingement. No lateralization of the tibial tubercle. 9. Effusion: Small to moderate knee join t effusion. 10. Bone marrow: Osseous contusions as a jesenia. No fracture. Patchy red marrow in the distal femur. 11. Soft tissues: Neurovascular bundle a ppears unremarkable. IMPRESSION: 1.Grade 3 complete tear of the anterior cruciate ligament. 2.Low-grade posterolateral corner injury . 3.Osseous contusion of the medial and la teral tibial plateau without evidence of chondral shear. 4.Intact posterior cruciate ligament, co llateral ligaments, and menisci. 5.Additional findings and details as abo ve. [id number] Performing Organization Address City/State/[facility] Phone Number [employer] [address] [place] [address] POC , urine (04/21/2019 4:02 AM [employer]) Pathologist Sig nature test urine, POC Negative QC done Yes Specimen Urine Urinalysis screen and microscopy, with reflex to culture (04/21/2019 3:44 AM [employer]) Specimen site Clean catch [facility] Color, UA Yellow [facility] Appearance, UA Cloudy [facility] Specific gravity, UA 1.014 1.001 - 1.035 [facility] pH, UA 7.0 5.0 - 8.5 [facility] Protein, UA Negative Negative [facility] Glucose, UA Negative Negative [facility] Ketones, UA Negative Negative [facility] Bilirubin, UA Negative Negative [facility] Blood, UA Negative Negative [facility] Nitrite, UA Negative Negative [facility] Urobilinogen, UA 2.0 (A) <2.0 [facility] Leukocyte esterase, Negative Negative [facility] Epithelial cells, UA 1 /HPF [facility] WBC, UA 2 0 - 4 /HPF [facility] RBC, UA 5 0 - 5 /HPF [facility] Bacteria, UA Few None seen [facility] Yeast, UA None seen [facility] Yeast with None seen [facility] pseudohyphae, HOSPITAL Specimen Urine Performing Organization Address City/State/Zipcode Phone Number [facility] DEPARTMENT OF PATHOLOGY AND [address] [place] [phone] [facility] [address] [place] [address] hCG qualitative, urine screen (04/21/2019 3:44 AM [employer]RE[employer]) hCG qualitative, NegativeComment: [facility] urine Sensitivity of [facility] test: 25 mIU/mL Specimen Urine Performing Organization Address City/[facility]/Zipcode Phone Number [facility] DEPARTMENT OF PATHOLOGY AND [address] [place] [phone] [facility] [address] [place] [phone] Urine culture (04/21/2019 3:44 AM [employer]RE[employer]) Pathologist Sig nature Urine culture SEE COMMENTComment: [facility] Bacteriuria screen HOSPITAL negative. Specimen Performing Organization Address City/[facility] Phone Number [facility] DEPARTMENT OF PATHOLOGY AND [address] [place] [phone] [facility] [address] [place] [phone] XR Knee 1 Or 2 Vw Right (04/21/2019 2:10 AM [employer]) Specimen Narrative Performed At EXAMINATION: XR KNEE 1 OR 2 VW RIGHT [facility] CLINICAL HISTORY: Knee pain initial exam COMPARISON: None. IMPRESSION: There is no evidence of right knee fracture, dislocati on, or joint effusion. [facility]-[id number] Procedure Note Hm Interface, Radiology Results Incoming - 04/21/2019 2:19 AM [employer] EXAMINATION: XR KNEE 1 OR 2 VW RIGHT CLINICAL HISTORY: Knee pain initial ex am COMPARISON: None. IMPRESSION: There is no evidence of right knee fract ure, dislocation, or joint effusion. [facility]-[id number] Performing Organization Address City/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
--- OUTSIDE RECORDS SUMMARY | 2019-10-03 16:21 | XMS REPORT | Clinical Summary ---
:1985 Author Organization [facility] Address [address] [place] [address] Care Team Providers Name Role Phone Unavailable Primary Care Provider Unavailable Allergies No Known Allergies Medications Medication Sig Dispensed Refills Start Date End Date Status aspirin 81 MG EC Take 81 mg by 0 Active tablet mouth daily. dicyclomine (BENTYL) Take 1 capsule 30 capsule 0 08/11/2019 Active 10 MG capsule (10 mg total) by mouth 3 (three) times daily before meals For abdominal pain/cramping. methocarbamoL Take 1 tablet 30 tablet 0 08/11/2019 08/21/2019 (ROBAXIN) 500 MG (500 mg total) tablet by mouth 3 (three) times daily as needed for up to 10 days. Active Problems Problem Noted Date Right upper quadrant pain 2019 Pancreatitis 08/09/2019 Severe protein-calorie malnutrition 08/09/2019 Choledocholithiasis 08/08/2019 Right lower quadrant abdominal pain 08/08/2019 H/O: CVA (cerebrovascular accident) 08/08/2019 H/O: substance abuse 02/24/2017 Generalized anxiety disorder 11/23/2016 Patent foramen ovale 07/25/2016 Received intravenous tissue plasminogen activator (tPA ) in emergency 07/21/2016 department Essential hypertension 07/21/2016 Resolved Problems Problem Noted Date Resolved Date Acute CVA (cerebrovascular accident) 07/20/2016 Acute right MCA stroke 07/20/2016 08/08/2019 Encounters Date Type Specialty Care Team Description 08/15/2019 Video - Cardiology Cheryl Curry, Right lower qu adrant Telemedicine [facility] RO[facility] abdominal pain (Primary Dx) 08/14/2019 Telephone Cardiology Kathy Nava, Appointment RN 08/08/2019 Hospital Encounter General Internal Reena Cote docholithiasis (Primary Dx); - Medicine MD Rupa H/O: CVA (cerebrovascular accident); 08/11/2019 Don, Right lower quadrant abdominal pain; MD Shane Right upper quadrant pain; Beverley Hardinjmudin Essential hy pertension; MD Melissa RUQ pain; Faustino, Nausea and vomi ting, intractability of vomiting not specified, unspecified vomiting type; Renae Acute pancreati tis, unspecified complication status, unspecified pancreatitis type; MD Leticia Patent foramen ovale 08/08/2019 Hospital Encounter after 10/02/2018 Social History Tobacco Use Types Packs/Day Years Used Date Never Smoker Smokeless Tobacco: Never Used Tobacco Cessation: Counseling Given: Yes Alcohol Use Drinks/Week oz/Week Comments Yes Sex Assigned at Date Recorded Not on file Job Start Date Occupation Industry Not on file Not on file Not on file Travel History Travel Start Travel End No recent travel history available. Last Filed Vital Signs Vital Sign Reading Time Taken Blood Pressure 132/82 08/11/2019 12:10 PM CDT Pulse 76 08/11/2019 12:10 PM CDT Temperature 36.8 C (98.3 F) 08/11/2019 12:10 PM CDT Respiratory Rate 17 08/11/2019 12:10 PM CDT Oxygen Saturation 99% 08/11/2019 12:10 PM CDT Inhaled Oxygen Concentration - - Weight - - Height 157.5 cm (5' 2") 08/08/2019 5:06 AM CDT Body Mass Index - - Plan of Treatment Health Maintenance Due Date Last Done Comments CERVICAL CANCER SCREENING PAP ONLY (Age 21-65) 08/09/2008 INFLUENZA VACCINE (Season Ended) 2019 Procedures Procedure Name Priority Date/Time Associated Comments Diagnosis XR ABDOMEN / KUB 1 RAVEN 08/11/2019 7:15 Resul ts for this VIEW AM CDT procedure are i n the results section. XR CHEST 1 VIEW Routine 08/11/2019 5:18 Results for this PORTABLE/BEDSIDE AM CDT procedure a re in the results section. HEPATIC FUNCTION PANEL Routine 08/11/2019 4:04 R esults for this AM CDT procedure are i n the results section. MAGNESIUM Routine 08/11/2019 4:04 Results for this AM CDT procedure are i n the results section. PHOSPHORUS Routine 08/11/2019 4:04 Results for this AM CDT procedure are i n the results section. BASIC METABOLIC PANEL Routine 08/11/2019 4:04 Re sults for this (7) AM CDT procedure are i n the results section. CBC (HEMOGRAM ONLY) Routine 08/11/2019 4:04 Resu lts for this AM CDT procedure are i n the results section. NM HEPATOBILIARY Routine 2019 4:44 Results for this (HIDA) SCAN WITH PM CDT procedure a re in EJECTION FRACTION the result s section. XR ABDOMEN / KUB 1 STAT 2019 4:29 Resul ts for this VIEW PM CDT procedure are i n the results section. TRIGLYCERIDES Routine 2019 5:19 Results fo r this AM CDT procedure are i n the results section. IGG SUBCLASS-4 ONLY Routine 2019 5:19 Resu lts for this AM CDT procedure are i n the results section. C-REACTIVE PROTEIN Routine 2019 5:19 Resul ts for this AM CDT procedure are i n the results section. BASIC METABOLIC PANEL Routine 2019 5:19 Re sults for this (7) AM CDT procedure are i n the results section. HEPATIC FUNCTION PANEL Routine 2019 5:19 R esults for this AM CDT procedure are i n the results section. CBC W/PLT COUNT & AUTO Routine 2019 5:18 R esults for this DIFFERENTIAL AM CDT procedure are i n the results section. CBC W/PLT COUNT & AUTO Routine 2019 5:18 R esults for this DIFFERENTIAL AM CDT procedure are i n the results section. BASIC METABOLIC PANEL Routine 08/09/2019 4:59 Re sults for this (7) AM CDT procedure are i n the results section. HEPATIC FUNCTION PANEL Routine 08/09/2019 4:59 R esults for this AM CDT procedure are i n the results section. US ABDOMEN LIMITED RAVEN 08/08/2019 1:40 Resul ts for this PM CDT procedure are i n the results section. MR ABDOMEN WO CONTRAST RAVEN 08/08/2019 7:16 R esults for this MRCP AM CDT procedure are i n the results section. CBC W/PLT COUNT & AUTO Routine 08/08/2019 5:00 R esults for this DIFFERENTIAL AM CDT procedure are i n the results section. LIPASE Routine 08/08/2019 5:00 Results for this AM CDT procedure are i n the results section. MAGNESIUM Routine 08/08/2019 5:00 Results for this AM CDT procedure are i n the results section. PT/APTT Routine 08/08/2019 5:00 Results for this AM CDT procedure are i n the results section. BASIC METABOLIC PANEL Routine 08/08/2019 5:00 Re sults for this (7) AM CDT procedure are i n the results section. HEPATIC FUNCTION PANEL Routine 08/08/2019 5:00 R esults for this AM CDT procedure are i n the results section. CBC W/PLT COUNT & AUTO Routine 08/08/2019 5:00 R esults for this DIFFERENTIAL AM CDT procedure are i n the results section. after 10/02/2018 Results XR abdomen / KUB 1 view (08/11/2019 7:15 AM CDT)Only the most recent of2 resultswithin the time period is included. Specimen Narrative Performed At FINAL REPORT GE [facility] CLINICAL HISTORY: eval position of repor tedly swallowed tongue ring TECHNIQUE: Supine abdomen COMPARISON: 2019 IMPRESSION: The tongue ring has moved and now projec ts in the right lower quadrant. The navel ring is unchanged in the expected midline location. The bowel gas pattern is nonspecific wit h moderate stool in the colon. Free air and air-fluid levels are not definitively seen, but also cannot be excluded on the supine vi ew. Signed: Jarrett Tavares MD Report Verified Date/Time:08/11/2019 07:30:51 Reading Location: [facility] Reading Room Procedure Note Interface, External Ris In - 08/11/2019 7:34 AM CDT FINAL REPORT CLINICAL HISTORY: eval position of repor tedly swallowed tongue ring TECHNIQUE: Supine abdomen COMPARISON: 2019 IMPRESSION: The tongue ring has moved and now projec ts in the right lower quadrant. The navel ring is unchanged in the expected midline location. The bowel gas pattern is nonspecific wit h moderate stool in the colon. Free air and air-fluid levels are not definitively seen, but also cannot be excluded on the supine vi ew. Signed: Jarrett Tavares MD Report Verified Date/Time: 08/11/2019 0 7:30:51 Reading Location: [facility] Reading Room Performing Organization Address City/[facility] Phone Number GE [facility]IS XR chest 1 view portable / bedside (08/11/2019 5:18 AM CDT) Specimen Narrative Performed At FINAL REPORT GE RIS RAD, CHEST, 1 VIEW, NON DEPT INDICATION: nausea, eval for aspiration COMPARISON: Radiograph the chest dated . FINDINGS: Portable frontal view of the c hest. IMPRESSION: Lungs and pleura: Lungs are clear. No pl eural effusion. No pneumothorax. No pneumothorax. Heart and mediastinum: Stable contours. Metallic device over the right heart may possibly external to the patient however may represent PFO closure device, correlate clinically. Additional findings: Osseous structures are unremarkable. Signed: Renae Luna MD Report Verified Date/Time:08/11/2019 05:29:24 Procedure Note Interface, External Ris In - 08/11/2019 5:31 AM CDT FINAL REPORT RAD, CHEST, 1 VIEW, NON DEPT INDICATION: nausea, eval for aspiration COMPARISON: Radiograph the chest dated . FINDINGS: Portable frontal view of the c hest. IMPRESSION: Lungs and pleura: Lungs are clear. No pl eural effusion. No pneumothorax. No pneumothorax. Heart and mediastinum: Stable contours. Metallic device over the right heart may possibly external to the patient however may represent PFO closure device, correlate clinically. Additional findings: Osseous structures are unremarkable. Signed: Renae Luna MD Report Verified Date/Time: 08/11/2019 0 5:29:24 Performing Organization Address City/State/[employer] Phone Number GE RIS CBC (Hemogram only) (08/11/2019 4:04 AM CDT) WBC 4.1 3.5 - 10.5 K/L [facility] RBC 3.89 (L) 3.93 - 5.22 M/L [facility] Hemoglobin 10.9 (L) 11.2 - 15.7 GM/DL [facility] Hematocrit 33.4 (L) 34.1 - 44.9 % [facility] MCV 85.9 79.4 - 94.8 fL [facility] ALTH [facility] MCH 28.0 25.6 - 32.2 pg [facility] MCHC 32.6 32.2 - 35.5 GM/DL [facility] RDW 15.0 (H) 11.7 - 14.4 % [facility] Platelets 194 150 - 450 K/CU MM [facility] MPV 10.2 9.4 - 12.3 fL [facility] nRBC 0 0 - 0 /100 WBC [facility] Specimen Blood Performing Organization Address City/State/Zipcode Phone Number [facility] [address] [place] [address] CENTER Phosphorus (08/11/2019 4:04 AM CDT) Phosphorus 3.4 2.3 - 4.7 mg/dL [facility] Specimen Blood Narrative Performed At Knitter Operator ID - JENNIFER L [facility] Performing Organization Address City/State/Zipcode Phone Number [facility] [address] [place] [address] CENTER Magnesium (08/11/2019 4:04 AM CDT)Only the most recent of2 resultswithin the time period is included. Magnesium 1.7 1.6 - 2.6 mg/dL [facility] Specimen Blood Narrative Performed At Knitter Operator GERALD Sethi [facility] Performing Organization Address City/[facility]/Zipcode Phone Number [facility] [address] [place] [address] CENTER Hepatic function panel (08/11/2019 4:04 AM CDT)Only the most recent of4 results within the time period is included. Protein, Total 6.4 6.0 - 8.3 gm/dL [facility] Albumin 3.9 3.5 - 5.0 g/dL [facility] Total Bilirubin 0.4 0.2 - 1.2 mg/dL [facility] Bilirubin, Direct 0.2 0.1 - 0.5 mg/dL [facility] Alkaline Phosphatase 56 40 - 150 U/L [facility] AST 26 5 - 34 U/L [facility] ALT 38 6 - 55 U/L [facility] Specimen Blood Narrative Performed At Knitter Operator ID - JENNIFER Sethi [facility] Performing Organization Address City/[facility]/Zipcode Phone Number [facility] [address] [place] [address] CENTER Basic Metabolic Panel (08/11/2019 4:04 AM CDT)Only the most recent of4 results within the time period is included. Sodium 138 136 - 145 meq/L [facility] Potassium 3.6 3.5 - 5.1 meq/L [facility] Chloride 108 (H) 98 - 107 meq/L [facility] CO2 27 22 - 29 meq/L [facility] BUN 6 (L) 7 - 21 mg/dL [facility] Creatinine 0.63 0.57 - 1.25 mg/dL [facility] Glucose 92 70 - 105 mg/dL [facility] HE ALTH [facility] Calcium 8.4 8.4 - 10.2 mg/dL [facility] EGFR Comment: INSUFFICIENT CLINICAL C HI [facility] DATA TO CALCULATE ESTIMATED [facility] GFR. Specimen Blood Narrative Performed At Knitter Operator ID - PIAYA L [facility] Performing Organization Address City/State/Zipcode Phone Number [facility] [address] [place] [address] CENTER NM hepatobiliary (HIDA) scan with ejection fraction (2019 4:44 PM CDT) Specimen Narrative Performed At FINAL REPORT [facility] PROCEDURE: HEPATOBILIARY SCAN CPT CODE: 89969 INDICATION: abdominal pain PROTOCOL: 5.22 mCi of Tc-99m mebrofenin was injected intravenously. Images of the upper abdom en were obtained for approximately 30 minutes after tracer in jection. FINDINGS:Initial tra cer uptake into the liver is physiological. Subsequent tracer clearan ce from the liver proceeds normally. There is good visualization of the extrahepatic biliary duct and the tracer appears appropriatel y in the small bowel. IMPRESSION:The exam was term inated early by the ordering physician. The gallbladder was not seen, but the PPV for acute cholecystitis is low. Signed: Alexis Nieto MD Report Verified Date/Time:2019 18:40:53 Procedure Note Interface, External Ris In - 2019 6:43 PM CDT FINAL REPORT PROCEDURE: HEPATOBILIARY SCAN CPT CODE: 06312 INDICATION: abdominal pain PROTOCOL: 5.22 mCi of Tc-99m mebro fenin was injected intravenously. Images of the upper abdom en were obtained for approximately 30 minutes after tracer in jection. FINDINGS: Initial tracer uptake into the liver is physiological. Subsequent tracer clearan ce from the liver proceeds normally. There is good visualization of the extrahepatic biliary duct and the tracer appears appropriatel y in the small bowel. IMPRESSION: The exam was terminated early by the ordering physician. The gallbladder was not seen, but the PPV for acute cholecystitis is low. Signed: Alexis Nieto MD Report Verified Date/Time: 2019 1 8:40:53 Performing Organization Address City/State/[facility] Cent[facility]ode Phone Number GE RIS IGG SUBCLASS-4 ONLY (2019 5:19 AM CDT) Igg 4 8.7 4 - 86 mg/dL [facility] Specimen Blood Narrative Performed At Performing Lab [facility] [place] [address] [place] [address] Jass Michael MD, PhD, MYCHAL Performing Organization Address City/[facility] Centercode Phone Number [facility] [place] [phone] [facility] [address] [facility] C-Reactive Protein (2019 5:19 AM CDT) CRP 0.08 0.00 - 0.50 mg/dL [facility] Specimen Blood Narrative Performed At Knitter Operator ID - JENNIFER L [facility] Performing Organization Address [facility] Centerconm Phone Number [address] [phone] CENTER Triglycerides (2019 5:19 AM CDT) Triglycerides 54 mg/dL [facility] Specimen Blood Narrative Performed At TRIGLYCERIDE REFERENCE RANGE [facility] Low Risk<150 Borderline Risk 150-199 High [id number] Very High Risk >=500 Knitter Operator ID - JENNIFER L Performing Organization Address [facility]/Zipcode Phone Number [place] [phone] [place] [address] CENTER CBC with platelet count + automated diff (2019 5:18 AM CDT)Only the most recent of2 resultswithin the time period is included. WBC 4.0 3.5 - 10.5 K/L [facility] RBC 3.82 (L) 3.93 - 5.22 M/L [facility] Hemoglobin 10.7 (L) 11.2 - 15.7 GM/DL [facility] Hematocrit 33.1 (L) 34.1 - 44.9 % [facility] MCV 86.6 79.4 - 94.[address] [facility] MCH 28.0 25.6 - 32.2 pg [facility] MCHC 32.3 32.2 - 35.5 GM/DL [facility] RDW 15.2 (H) 11.7 - 14.4 % [facility] Platelets 192 150 - 450 K/CU MM [facility] MPV 10.7 9.4 - 12.3 fL [facility] nRBC 0 0 - 0 /100 WBC [facility] % Neutros 48 % [facility] % Lymphs 35 % [facility] % Monos 13 % [facility] % Eos 3 % [facility] % Baso 1 % [facility] # Neutros 1.92 1.56 - 6.13 K/L [facility] # Lymphs 1.38 1.18 - 3.74 K/L [facility] # Monos 0.52 (H) 0.24 - 0.36 K/L [facility] # Eos 0.10 0.04 - 0.36 K/L [facility] # Baso 0.04 0.01 - 0.08 K/L [facility] Immature Granulocytes-Relative 0 0 - 1 % C HI [facility] Specimen Blood Performing Organization Address City/State/Zipcode Phone Number [facility] [address] [place] [phone] CENTER US abdomen limited (08/08/2019 1:40 PM CDT) Specimen Narrative Performed At FINAL REPORT [facility] HISTORY : Right upper quadrant pain COMPARISON: MRCP from earlier 08/08/2019 COMMENT : Limited ultrasound examination of the ab domen was performed with attention to the right upper quadrant. The visualized pancreas appears unremark able. The liver is at the upper limits of norm al for size measuring 16.6 cm in length. Hepatic echogenicity is withi n normal limits. No focal hepatic abnormality is identified. The m ain portal vein is patent with antegrade flow and diameter of 1.2 cm. A 4 mm non-shadowing echogenic focus is identified along the gallbladder wall. There is no evidence f or shadowing stones, gallbladder wall thickening, or perichol ecystic fluid. There is no intra or extra hepatic biliary ductal di latation. The common bile duct measures 4 mm. The right kidney is normal in size with normal cortical thickness and echogenicity. There is no evidence for s olid renal mass, hydronephrosis, or shadowing calcified w ithin the right kidney. The visualized portions the IVC and aort a are within normal limits. There is no ascites or sludge within the right upper quadrant. IMPRESSION : 4 mm echogenic focus identified along th e gallbladder wall which may represent a small adherent stone versus subcentimeter polyp. No evidence for shadowing stones identified . No sonographic evidence for acute cholecystitis. Signed: Dale Wiggins MD Report Verified Date/Time:08/08/2019 14:33:42 Reading Location: [address] Procedure Note Interface, External Ris In - 08/08/2019 2:35 PM CDT FINAL REPORT HISTORY : Right upper quadrant pain COMPARISON: MRCP from earlier 08/08/2019 COMMENT : Limited ultrasound examination of the ab domen was performed with attention to the right upper quadrant. The visualized pancreas appears unremark able. The liver is at the upper limits of norm al for size measuring 16.6 cm in length. Hepatic echogenicity is withi n normal limits. No focal hepatic abnormality is identified. The m ain portal vein is patent with antegrade flow and diameter of 1.2 cm. A 4 mm non-shadowing echogenic focus is identified along the gallbladder wall. There is no evidence f or shadowing stones, gallbladder wall thickening, or perichol ecystic fluid. There is no intra or extra hepatic biliary ductal di latation. The common bile duct measures 4 mm. The right kidney is normal in size with normal cortical thickness and echogenicity. There is no evidence for s olid renal mass, hydronephrosis, or shadowing calcified w ithin the right kidney. The visualized portions the IVC and aort a are within normal limits. There is no ascites or sludge within the right upper quadrant. IMPRESSION : 4 mm echogenic focus identified along th e gallbladder wall which may represent a small adherent stone versus subcentimeter polyp. No evidence for shadowing stones identified . No sonographic evidence for acute cholecystitis. Signed: Dale Wiggins MD Report Verified Date/Time: 08/08/2019 1 4:33:42 Reading Location: [address] Performing Organization Address City/State/Zipcode Phone Number [facility] abdomen without IV contrast MRCP (08/08/2019 7:16 AM CDT) Specimen Narrative Performed At FINAL REPORT [facility] Abdomen dated 08/08/2019 Comment: Multiplanar T1 and T2-weighted images, respiratory triggered and breath-hold MRCP sequences were obta ined.3-D reconstruction of the abdomen was performed for better eliane luation of the biliary tree. Gallbladder is contracted. No gallstone, gallbladder wall thickening, or pericholecystic fluid collection is s een. MRCP demonstrates normal caliber intra a nd extra hepatic biliary ducts. No filling defect is seen in the biliary ducts to suggest choledocholithiasis. Common bile duct me asures approximately 3 mm in size. Pancreatic duct is normal in calib er. Liver is enlarged measuring 17 cm in the right midclavicular line. No focal lesions in the liver. Liver is sub optimally evaluated on the MRCP sequences. Spleen is normal in size . Pancreas and adrenals are unremarkable. Both kidneys are normal in size. Impression: 1. Hepatomegaly. 2. No cholelithiasis, choledocholithiasi s, or biliary dilatation. Signed: Caro Warner MD Report Verified Date/Time:08/08/2019 12:09:11 Reading Location: [facility] B1 C013Y CT Body R eading Room Procedure Note Interface, External Ris In - 08/08/2019 12:11 PM CDT FINAL REPORT MR Abdomen dated 08/08/2019 Comment: Multiplanar T1 and T2-weighted images, respiratory triggered and breath-hold MRCP sequences were obta ined. 3-D reconstruction of the abdomen was performed for better eliane luation of the biliary tree. Gallbladder is contracted. No gallstone, gallbladder wall thickening, or pericholecystic fluid collection is s een. MRCP demonstrates normal caliber intra a nd extra hepatic biliary ducts. No filling defect is seen in the biliary ducts to suggest choledocholithiasis. Common bile duct me asures approximately 3 mm in size. Pancreatic duct is normal in calib er. Liver is enlarged measuring 17 cm in the right midclavicular line. No focal lesions in the liver. Liver is sub optimally evaluated on the MRCP sequences. Spleen is normal in size . Pancreas and adrenals are unremarkable. Both kidneys are normal in size. Impression: 1. Hepatomegaly. 2. No cholelithiasis, choledocholithiasi s, or biliary dilatation. Signed: Caro Warner MD Report Verified Date/Time: 08/08/2019 1 2:09:11 Reading Location: [facility] B1 C013Y CT Body R eading Room Performing Organization Address City/State/Zipcode Phone Number RIS PT/aPTT (08/08/2019 5:00 AM CDT) Protime 13.6 11.9 - 14.[address] [facility] INR 1.1 <=5.9 [facility] PTT 33.1 22.5 - 36.[address] [facility] Specimen Blood Narrative Performed At Effective 09/18/2018: PT Reference Range [facility] Change New: 11.9-14.2Previous: 11.7-14.7 RECOMMENDED COUMADIN/WARFARIN INR THERAPY RANGES STANDARD DOSE: 2.0-3.0Includes: PROPHYLAXIS for venous thrombosis, systemic embolization; TREATMENT for venous thrombosis and/or pulmonary embolus. HIGH RISK: Target INR is 2.5-3.5 for patients wiht mechanical heart valves. Performing Organization Address City/State/Zipcode Phone Number [address] [address] CENTER Lipase (08/08/2019 5:00 AM CDT) Lipase 323 (H) 8 - 78 U/L [facility] Specimen Blood Narrative Performed At Knitter Operator ID - NTP [facility] MED [facility] Performing Organization Address City/State/Zipcode Phone Number [address] [address] CENTER after 10/02/2018 Insurance Payer Benefit Plan / Group Subscriber ID Type Phone A [facility] MEDICAID MEDICAID OF [place] xxxxxxxxx Medicaid Advance Directives For more information, please contact:[address] [phone] Code Status Date Activated Date Inactivated Comments Full Code 08/08/2019 4:37 AM 08/11/2019 4:04 PM This code status was determined by: Patient Full Code 07/24/2016 12:03 PM 07/24/2016 12:51 PM This code status was determined by: Patient Full Code 07/20/2016 11:48 PM 07/24/2016 12:03 PM This code status was determined by: Patient
--- OUTSIDE RECORDS SUMMARY | 2019-10-03 16:23 | XMS REPORT | Continuity of Care Document ---
:1985 Author Organization [facility] t Address [address] [place] [address] Care Team Providers Name Role Phone Mariposa LANDON Primary Care Physician Akinsipe WHCNP, C Attending Clinician Trevor LANDON, L Attending Clinician Patricio MARIE Attending Clinician Brandy COLIN Attending Clinician Unavailable Rocael LANDON Attending Clinician Don LANDON Attending Clinician Melissa Ernst MD Attending Clinician Leticia Harmon MD Attending Clinician ROCAEL Attending Clinician Unavailable Kevin Hernandez DO Attending Clinician JOANA NAVARRO Attending Clinician Unavailable MELISSA ERNST Admitting Clinician Unavailable JENNIFER HANKS Admitting Clinician Unavailable Payers Payer Name Policy Policy Effective Expiration Source Type Number Date Date MEDICAIDMEDICAID OF xxxxxxxxx DAVI Martinez TENNESSEExxxxxxxxxMedicaid - [facility] xxxxxxxxx 2016 [place] [facility] CH[facility]/STAR 00:00:00 [place] MCDxxxxxxxxx2016-Prese ntHMO Problems Condition Condition Condition Status Onset Resolution Last Treating Co mments Source Name Details Category Date Date Treatment Clinician Date Right Right Disease Active [facility] quadrant quadrant 00:00: Medica l pain pain 00 Center Pancreatit Pancreatit Disease Active [facility] is is 4-18 [facility] - 00:00: Medical 00 [place] 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 4-18 Madelyn kes - ashely ashely 00:00: Medical malnutriti malnutriti 00 Ce nter on on [place] Disease Active [facility] lithiasis lithiasis 4-17 [facility] - 00:00: Medical 00 [place] Right Right Disease Active [facility] lower lower 4-17 [facility] - quadrant quadrant 00:00: Medica l abdominal abdominal 00 Cent er pain pain H/O: CVA H/O: CVA Disease Active [facility] (cerebrova (cerebrova 4-17 Madelyn kes - scular scular 00:00: Medical accident) accident) 00 Cent er H/O: H/O: Disease Active 2016-[address] [facility] [address] substance substance 1-04 [facility] - abuse abuse 00:00: Medical 00 Center Generalize Generalize Disease Active [facility] d anxiety d anxiety 8-03 [facility] - disorder disorder 00:00: Medica l 00 Center 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 Social History Social Habit Start Date Stop Date Quantity Comments Source Sex Assigned At [facility] Cigarettes smoked 2019-04-21 2019-04-21 [place] current (pack per 00:00:00 00:00:00 day) - Reported Alcohol intake 2019-04-21 2019-04-21 Current drinker [place] 00:00:00 00:00:00 of alcohol (finding) Smoking Status Start Date Stop Date Source [facility] Former smoker 2019-04-21 00:00:00 2019-04-21 00:00:00 Armen Hawley Medications Ordered Filled Start Stop Current Ordering Indication Dosage Frequency Signature Comments Components Source Medication Medication Date Date Medication? Clinician (SIG) Name Name dicyclomine 2020- Yes 10mg Take [address] [facility] [address] (BENTYL) 10 4-20 -20 capsule [facility] - MG capsule 00:00: 23:59 (10 mg Medi cortney 00 :00 total) by Center mouth 3 (three) times daily before meals For abdominal pain/cramp ing. methocarbam 2019- No 500mg Take [address] oL -20 -30 tablet [facility] - (ROBAXIN) 00:00: 23:59 (500 mg Medi cortney 500 MG 00 :00 total) by Center tablet mouth 3 (three) times daily as needed for up to 10 days. aspirin 81 Yes 81mg QD Take [address] MG EC 4-19 by mouth [facility] - tablet 14:21: daily. [address] acetaminoph 2018-04 Yes 500mg Q6H Take 500 [place] en 2-30 mg by Methodi (TYLENOL) 05:33: mouth st 500 MG 25 every 6 tablet (six) hours as needed for mild pain. acetaminoph 2018-04- No acute pain 1{tbl} Q4H Take 1 [place] en-codeine -04-26 tablet by Met hodi (TYLENOL 00:00: 23:[address] WITH 00 :00 every 4 CODEINE #4) (four) 300-60 mg hours as per tablet needed for moderate pain for up to 5 days .acute pain. keTOROlac 2018-04- No 10mg Q6H Take 1 [place] (TORadol) 04-26 tablet (10 Met hodi 10 mg 00:00: 23:59 mg total) st tablet 00 :00 by mouth every 6 (six) hours as needed for moderate pain for up to 5 days. Vital Signs Vital Name Observation Time Observation Value Comments Source Systolic blood 2019-08-11 12:10:00 132 mm[Hg] [facility] Diastolic blood 2019-08-11 12:10:00 82 mm[Hg] [facility] Heart rate 2019-08-11 12:10:00 76 /min [facility] Body temperature 2019-08-11 12:10:00 36.83 Simona [facility] Respiratory rate 2019-08-11 12:10:00 17 /min [facility] Oxygen saturation in 2019-08-11 12:10:00 99 /min [facility] Arterial blood by Medical Ce nter Pulse oximetry Body height 2019-08-08 05:06:00 157.5 cm [facility] Systolic blood 2019-04-21 08:15:00 117 mm[Hg] [place] [facility] pressure Diastolic blood 2019-04-21 08:15:00 74 mm[Hg] [place] pressure Heart rate 2019-04-21 08:15:00 64 /min [place] [facility] Body temperature 2019-04-21 08:15:00 36.61 [place] Respiratory rate 2019-04-21 08:15:00 12 /min [place] [facility] Oxygen saturation in 2019-04-21 08:15:00 98 /min [place] [facility] Arterial blood by Pulse oximetry Procedures Procedure Date / Time Performing Clinician Source Performed XR ABDOMEN / KUB 1 VIEW 2019-08-11 07:15:00 Renae Harmon CH, I [facility] XR CHEST 1 VIEW 2019-08-11 05:18:00 Andrew Morales [facility] PORTABLE/BEDSIDE [facility] CBC (HEMOGRAM ONLY) 2019-08-11 04:04:00 Renae Harmon [facility] BASIC METABOLIC PANEL 2019-08-11 04:04:00 FaustinoRenae [facility] (7) [facility] PHOSPHORUS 2019-08-11 04:04:00 Renae Harmon [facility] MAGNESIUM 2019-08-11 04:04:00 Potter [facility] HEPATIC FUNCTION PANEL 2019-08-11 04:04:00 Renae Harmon [facility] NM HEPATOBILIARY (HIDA) 2019 16:44:00 Kar Hadley [facility] SCAN WITH EJECTION Medical Cente r FRACTION XR ABDOMEN / KUB 1 VIEW 2019 16:29:00 Kar Hadley [facility] HEPATIC FUNCTION PANEL 2019 05:19:00 Don [facility] BASIC METABOLIC PANEL 2019 05:19:00 Don [facility] (7) [facility] C-REACTIVE PROTEIN 2019 05:19:00 [facility]-4 ONLY 2019 05:19:00 [facility]IG[facility]ES 2019 05:19:00 [facility] W/PLT COUNT & AUTO 2019 05:18:00 Kar Hadley [facility] HEPATIC FUNCTION PANEL 2019-08-09 04:59:00 [facility] BASIC METABOLIC PANEL 2019-08-09 04:59:00 Don [facility] (7) [facility] US ABDOMEN LIMITED 2019-08-08 13:40:[address] [facility] MR ABDOMEN WO CONTRAST 2019-08-08 07:16:00 Don [facility] HEPATIC FUNCTION PANEL 2019-08-08 05:00:00 Don [facility] BASIC METABOLIC PANEL 2019-08-08 05:00:00 Don [facility] (7) [facility] PT/APTT 2019-08-08 05:00:[address] [facility] MAGNESIUM 2019-08-08 05:00:00 MurrDAVI Bui [facility] LIPASE 2019-08-08 05:00:00 Klever Ernst [facility] CBC W/PLT COUNT & AUTO 2019-08-08 05:00:00 DAVI Ochoa S t [facility] MRI KNEE WO CONTRAST 2019-04-21 05:40:00 Edwardo Hernandez POC , URINE 2019-04-21 04:02:00 Edwardo Hernandez on Marleen Brown URINE CULTURE 2019-04-21 03:44:00 Edwardo Hernandez [facility] Kevin URINALYSIS SCREEN AND 2019-04-21 03:44:00 Edwardo Hernandez MICROSCOPY, WITH REFLEX Kevin TO CULTURE HCG QUALITATIVE, URINE 2019-04-21 03:44:00 Edwardo Hernandez SCREEN Kevin XR KNEE 1 OR 2 VW RIGHT 2019-04-21 02:10:37 Edwardo Hernandez Plan of Care Planned Activity Planned Date Details Comments Source Future Scheduled 2019-12-[address] [facility] - Test 00:00:00 (Season Ended) Medical Brandy clifford [code = INFLUENZA VACCINE (Season Ended)] Future Scheduled 2019-11-22 INFLUENZA VACCINE [place] [facility] Test 00:00:00 [code = INFLUENZA VACCINE] Future Scheduled 2008-08-09 Screening for [place] [facility] Test 00:00:00 malignant neoplasm of cervix (procedure) [code = 631396770] Future Scheduled 2008-08-09 Screening for DAVI Hdez [place] - Test 00:00:00 malignant neoplasm Medical C enter of cervix (procedure) [code = 906309820] Encounters Start End Encounter Admission Attending Care Care Encounter Source Date/Time Date/Time Type Type Clinicians Facility Department ID 2019-10-02 2019-10-02 Telephone ROSE Navarrete [id number] 00:00:00 00:00:00 Whit Jean [facility] SH[facility]TER [id number] [facility] [id number] MATERNAL [id number] & CHILD [address] [place] [address] 2019-09-18 2019-09-18 Telephone ROSE Murray [id number] 00:00:00 00:00:00 Stefano Sethi Appetise [id number] Surgical [id number] Specialti [id number] [address] [place] 2019-09-11 2019-09-11 Office ROSE Murray [id number] 15:33:34 16:03:01 Visit Stefano Sethi [facility]et[facility] [id number] Surgical [id number] Specialti [id number] [address] [place] Results Test Description Test Time Test Comments Results Result Comments Source IGG SUBCLASS-4 ONLY 2019-08-13 20:18:00 Test Item Value Reference Range Interpretation Comme nts Igg 4 (test code = 6687715) 8.7 mg/dL RASHARD (test code = RASHARD) Performing Lab EZ [facility] [address] [place] [address] Jass Michael MD, PhD, MYCHAL [facility]KUB, 1 VIEW [id number] 07:30:00 Reason for exam:->eval position of reportedly swallowed tongue ringFINAL REPORT CLINICAL HISTORY: eval position of reportedly swallowed tongue ring TECHNIQUE: Supine abdomen COMPARISON: 2019 IMPRESSION: The tongue ring has moved and now projects in the right lower quadrant. The navel ring is unchanged in the expected midline location. The bowel gas pattern is nonspecific with moderate stool in the colon. Free air and air-fluid levels arenot definitively seen, but also cannot be excluded on the supine view. Signed: Jarrett Tavares MDReport Verified Date/Time: 08/11/2019 07:30:51 Reading Location: [facility] Radiology Reading Room XR abdomen / KUB 1 view 2019-08-11 07:30:00Interface, External Ris In - 08/11/2019 7:34 AM CDTFINAL REPORT CLINICAL HISTORY: eval position of reportedly swallowed tongue ring TECHNIQUE: Supine abdomen COMPARISON: 2019 IMPRESSION: The tongue ring has moved and now projects in the right lower quadrant. The navel ringis unchanged in the expected midline location. The bowel gas pattern is nonspecific with moderate stool in the colon. Free air and air-fluid levels are not definitively seen, but also cannot be excluded on the supine view. Signed: Jarrett Tavares Verified Date/Time: 08/11/2019 07:30:51 Reading Location: [facility], NON [id number] 05:29:00Reason for exam:->nausea, eval for aspirationShould this be performed at the bedside?->YesFINAL REPORT RAD, CHEST, 1 VIEW, NON DEPT INDICATION: nausea, eval for aspiration COMPARISON: Radiograph the chest dated 07/21/2016. FINDINGS: Portable frontal view of the chest. IMPRESSION: Lungs and pleura: Lungs are clear. No pleural effusion. No pneumothorax. No pneumothora x.Heart and mediastinum: Stable contours. Metallic device over the right heart may possibly externalto the patient however may represent PFO closure device, correlate clinically.Additional findings: Osseous structures are unremarkable. Signed: Renae Luna Verified Date/Time: 08/11/2019 05:29:24 XR chest 1 view portable / [id number] 05:29:00Interface, External Ris In - 08/11/2019 5:31 AM CDTFINAL REPORT RAD, CHEST, 1 VIEW, NON DEPT INDICATION: nausea, eval for aspiration COMPARISON: Radiograph the chest dated 07/21/2016. FINDINGS: Portable frontal view of the chest. IMPRESSION: Lungs and pleura: Lungs are clear.No pleural effusion. No pneumothorax. No pneumothorax.Heart and mediastinum: Stable contours. Metallic device over the right heart may possibly external to the patient however may represent PFO closuredevice, correlate clinically.Additional findings: Osseous structures are unremarkable. Signed: Renae Luna Verified Date/Time: 08/11/2019 05:29:24 [facility] Metabolic [id number] 04:56:00 Test Item Value Reference Range Interpretation Comments Sodium (test code = 138 meq/L 564-999 6692-2) Potassium (test code 3.6 meq/L 3.5-5.1 = 2823-3) Chloride (test code = 108 meq/L 98-107 H 2075-0) CO2 (test code = 27 meq/L 22-29 2028-9) BUN (test code = 6 mg/dL 7-21 L 3094-0) Creatinine (test code 0.63 mg/dL 0.57-1.25 = 2160-0) Glucose (test code = 92 mg/dL 70-105 2345-7) Calcium (test code = 8.4 mg/dL 8.4-10.2 16630-2) EGFR (test code = [place] [address]-6) CLINICAL DATA T O CALCULATE ESTIMATED GFR. RASHARD (test code = RASHARD) Email Marketing Processor ID - PIAYA L Lab Interpretation Abnormal (test code = 75551-1) [facility] METABOLIC [id number] 04:56:00 Test Item Value Reference Range Interpretation Comments SODIUM (BEAKER) (test 138 meq/L 136-145 code = 381) POTASSIUM (BEAKER) 3.6 meq/L 3.5-5.1 (test code = 379) CHLORIDE (BEAKER) 108 meq/L 98-107 H (test code = 382) CO2 (BEAKER) (test 27 meq/L 22-29 code = 355) BLOOD UREA NITROGEN 6 mg/dL 7-21 L (BEAKER) (test code = 354) CREATININE (BEAKER) 0.63 mg/dL 0.57-1.25 (test code = 358) GLUCOSE RANDOM 92 mg/dL 70-105 (BEAKER) (test code = 652) CALCIUM (BEAKER) 8.4 mg/dL 8.4-10.2 (test code = 697) EGFR (BEAKER) (test INSUFFIC IENT CLINICAL code = 1092) DATA TO CALCULA TE ESTIMATED GFR. Email Marketing Processor ID - PIJAYSHREE LHepatic function [id number] 04:49:00 Test Item Value Reference Range Interpretation Comments Protein, Total (test code 6.4 6.0- 8.3 gm/dL = 2885-2) Albumin (test code = 3.9 g/dL 3.5-5 90432-7) Total Bilirubin (test code 0.4 mg/dL 0.2-1.2 = 1975-2) Bilirubin, Direct (test 0.2 mg/dL 0.1-0.5 code = 1968-7) Alkaline Phosphatase (test 56 U/L 40-150 code = 6768-6) AST (test code = 1920-8) 26 U/L 5-34 ALT (test code = 1742-6) 38 U/L 6-55 RASHARD (test code = RASHARD) Email Marketing Processor ID - JENNIFER L Lab Interpretation (test Normal code = 25981-7) [facility] Center[facility]esium2020-04-20 04:49:00 Test Item Value Reference Range Interpretation Comments Magnesium (test code = 1.7 mg/dL 1.6-2.6 74558-8) RASHARD (test code = RASHARD) Email Marketing Processor ID - JENNIFER L Lab Interpretation (test Normal code = 94409-4) [facility] CenterPhosphorus2020-04-20 04:49:00 Test Item Value Reference Range Interpretation Comments Phosphorus (test code = 3.4 mg/dL 2.3-4.7 2777-1) RASHARD (test code = RASHARD) Email Marketing Processor ID - JENNIFER L Lab Interpretation (test Normal code = 63291-1) [facility] CenterPHOSPHORUS2020-04-20 04:49:00 Test Item Value Reference Range Interpretation Comments PHOSPHORUS (BEAKER) (test code = 3.4 mg/dL 2.3-4.7 604) Email Marketing Processor ID - JENNIFER [id number] 04:49:00 Test Item Value Reference Range Interpretation Comments MAGNESIUM (BEAKER) (test code = 1.7 mg/dL 1.6-2.6 627) Email Marketing Processor ID - VICENTAJAYSHREE LHEPATIC FUNCTION [id number] 04:49:00 Test Item Value Reference Range Interpretation Comments TOTAL PROTEIN (BEAKER) (test code = 6.4 gm/dL 6.0-8.3 770) ALBUMIN (BEAKER) (test code = 1145) 3.9 g/dL 3.5-5.0 BILIRUBIN TOTAL (BEAKER) (test code 0.4 mg/dL 0.2-1.2 = 377) BILIRUBIN DIRECT (BEAKER) (test 0.2 mg/dL 0.1-0.5 code = 706) ALKALINE PHOSPHATASE (BEAKER) (test 56 U/L 40-150 code = 346) AST (SGOT) (BEAKER) (test code = 26 U/L 5-34 353) ALT (SGPT) (BEAKER) (test code = 38 U/L 6-55 347) Email Marketing Processor GERALD RODRIGUEZ [facility] (Hemogram only)2019-08-11 04:15:00 Test Item Value Reference Range Interpretation Comments WBC (test code = 6690-2) 4.1 3.5- 10.5 K/L RBC (test code = 789-8) 3.89 3.93- 5.22 M/L L MCHC (test code = 786-4) 32.6 32.2- 35.5 GM/DL L Hematocrit (test code = 4544-3) 33.4 % 34.1-44.9 L MCV (test code = 787-2) 85.9 fL 79.4-94.8 MCH (test code = 785-6) 28.0 pg 25.6-32.2 RDW (test code = 788-0) 15.0 % 11.7-14.4 H Platelets (test code = 777-3) 194 150- 450 K/CU MM MPV (test code = 21105-1) 10.2 fL 9.4-12.3 nRBC (test code = 413) 0 0- 0 /100 WBC Lab Interpretation (test code = Abnormal 43247-1) [facility] (HEMOGRAM ONLY)2019-08-11 04:15:00 Test Item Value Reference Range Interpretation Comments WHITE BLOOD CELL COUNT (BEAKER) 4.1 K/ L 3.5-10.5 (test code = 775) RED BLOOD CELL COUNT (BEAKER) 3.89 M/ L 3.93-5.22 L (test code = 761) HEMOGLOBIN (BEAKER) (test code = 10.9 GM/DL 11.2-15.7 L 410) HEMATOCRIT (BEAKER) (test code = 33.4 % 34.1-44.9 L 411) MEAN CORPUSCULAR VOLUME (BEAKER) 85.9 fL 79.4-94.8 (test code = 753) MEAN CORPUSCULAR HEMOGLOBIN 28.0 pg 25.6-32.2 (BEAKER) (test code = 751) MEAN CORPUSCULAR HEMOGLOBIN CONC 32.6 GM/DL 32.2-35.5 (BEAKER) (test code = 752) RED CELL DISTRIBUTION WIDTH 15.0 % 11.7-14.4 H (BEAKER) (test code = 412) PLATELET COUNT (BEAKER) (test 194 K/CU MM 150-450 code = 756) MEAN PLATELET VOLUME (BEAKER) 10.2 fL 9.4-12.3 (test code = 754) NUCLEATED RED BLOOD CELLS 0 /100 WBC 0-0 (BEAKER) (test code = 413) HEPATOBILIARY IMAGING W/ [id number] 18:40:00Scheduled 08/09 but swallowed tongue ringHolding off until f/u KUB and cleared by radiologistReason for exam:- >See aboveFINAL REPORT PROCEDURE: HEPATOBILIARY SCAN CPT CODE: 61799 INDICATION: abdominal pain PROTOCOL: 5.22 mCi of Tc-99m mebrofenin was injected intravenously.Images of the upper abdomen were obtained for approximately 30 minutes after tracer injection. FINDINGS: Initial tracer uptake into the liver is physiological. Subsequent tracer clearance fromthe liver proceeds normally. There is good visualization of the extrahepatic biliary duct and the tracer appears appropriately in the small bowel. IMPRESSION: The exam was terminated early by theordering physician. The gallbladder was not seen, but the PPV for acute cholecystitis is low. Signed: Alexis Nieto MDReport Verified Date/Time: 2019 18:40:53 NM hepatobiliary (HIDA) scan with ejection [id number] 18:40:00Interface, External Ris In - 2019 6:43 PM CDTFINAL REPORT PROCEDURE: HEPATOBILIARY SCAN CPT CODE: 35465 INDICATION: abdominal pain PROTOCOL: 5.22 mCi of Tc-99m mebrofenin was injected intravenously. Images of the upper abdomen were obtained for tuan roximately 30 minutes after tracer injection. FINDINGS: Initial tracer uptake into the liver is physiological. Subsequent tracer clearance from the liver proceeds normally. There is good visualization of the extrahepatic biliary duct and the tracer appears appropriately in the small bowel. IMPRESSION: The exam was terminated early by the ordering physician. The gallbladder was not seen, but the PPV for acute cholecystitis is low. Signed: Alexis Nietoort Verified Date/Time: 2019 18:40:53 [place] [facility] 1 VIEW [id number] 16:48:00Reason for exam:->swallowed tongue ring; planned MRCP todayFINAL REPORT TECHNIQUE: Single View of the Abdomen. INDICATION: swallowed tongue ring; planned MRCP today. COMPARISON: KUB from 07/24/2016. FINDINGS/IMPRESSION: A navel ring overlies the expected location. The tongue ring likely overlies the gastric body. Alternatively, this could be in the colon. The bowel gas pattern is normal. There appears to be an atrial septal device over the cardiac shadow. Signed: Elijah Aguilera Verified Date/Time: 2019 16:48:26 Reading Location: [facility] B1 C013Y CT Body Reading Room BASIC METABOLIC [id number] 06:31:00 Test Item Value Reference Range Interpretation Comments SODIUM (BEAKER) (test 136 meq/L 136-145 code = 381) POTASSIUM (BEAKER) 4.1 meq/L 3.5-5.1 (test code = 379) CHLORIDE (BEAKER) 111 meq/L 98-107 H (test code = 382) CO2 (BEAKER) (test 20 meq/L 22-29 L code = 355) BLOOD UREA NITROGEN 8 mg/dL 7-21 (BEAKER) (test code = 354) CREATININE (BEAKER) 0.63 mg/dL 0.57-1.25 (test code = 358) GLUCOSE RANDOM 78 mg/dL 70-105 (BEAKER) (test code = 652) CALCIUM (BEAKER) 8.5 mg/dL 8.4-10.2 (test code = 697) EGFR (BEAKER) (test INSUFFIC IENT CLINICAL code = 1092) DATA TO CALCULA TE ESTIMATED GFR. Email Marketing Processor ID Lorne RODRIGUEZ [id number] 06:27:00 Test Item Value Reference Range Interpretation Comments Triglycerides (test 54 mg/dL code = 2571-8) RASHARD (test code = RASHARD) TRIGLYCERIDE REFERENCE RANGELow Risk <150Borderline Risk 150-199High Risk 200-499Very High Risk >=500Operator ID - JENNIFER Sethi [facility] CenterC-Reactive [id number] 06:27:00 Test Item Value Reference Range Interpretation Comments CRP (test code = 676) 0.08 mg/dL 0-0.5 RASHARD (test code = RASHARD) Email Marketing Processor ID Lorne Sethi Lab Interpretation (test Normal code = 53925-2) [facility] CenterTRIGLY[facility]ERIDES2020-04-19 06:27:00 Test Item Value Reference Range Interpretation Comments TRIGLYCERIDES (BEAKER) (test code = 54 mg/dL 540) TRIGLYCERIDE REFERENCE RANGELow Risk <150Borderline Risk 150-199High Risk 200-499Very High Risk>=500Operator ID Lorne RODRIGUEZ EPATIC FUNCTION PANEL 2019 06:27:00 Test Item Value Reference Range Interpretation Comments TOTAL PROTEIN (BEAKER) (test code = 6.4 gm/dL 6.0-8.3 770) ALBUMIN (BEAKER) (test code = 1145) 3.8 g/dL 3.5-5.0 BILIRUBIN TOTAL (BEAKER) (test code 0.4 mg/dL 0.2-1.2 = 377) BILIRUBIN DIRECT (BEAKER) (test 0.2 mg/dL 0.1-0.5 code = 706) ALKALINE PHOSPHATASE (BEAKER) (test 55 U/L 40-150 code = 346) AST (SGOT) (BEAKER) (test code = 27 U/L 5-34 353) ALT (SGPT) (BEAKER) (test code = 35 U/L 6-55 347) Email Marketing Processor ID - JENNIFER LC-REACTIVE [id number] 06:27:00 Test Item Value Reference Range Interpretation Comments C-REACTIVE PROTEIN (BEAKER) (test 0.08 mg/dL 0.00-0.50 code = 676) Email Marketing Processor ID - JENNIFER LCBC with platelet count + automated [id number] 05:45:00 Test Item Value Reference Range Interpretation Comments WBC (test code = 6690-2) 4.0 3.5- 10.5 K/L RBC (test code = 789-8) 3.82 3.93- 5.22 M/L L MCHC (test code = 786-4) 32.3 32.2- 35.5 GM/DL L Hematocrit (test code = 4544-3) 33.1 % 34.1-44.9 L MCV (test code = 787-2) 86.6 fL 79.4-94.8 MCH (test code = 785-6) 28.0 pg 25.6-32.2 RDW (test code = 788-0) 15.2 % 11.7-14.4 H Platelets (test code = 777-3) 192 150- 450 K/CU MM MPV (test code = 77926-2) 10.7 fL 9.4-12.3 nRBC (test code = 413) 0 0- 0 /100 WBC % Neutros (test code = 429) 48 % % Lymphs (test code = 430) 35 % % Monos (test code = 431) 13 % % Eos (test code = 432) 3 % % Baso (test code = 437) 1 % # Neutros (test code = 670) 1.92 1.56- 6.13 K/L # Lymphs (test code = 414) 1.38 1.18- 3.74 K/L # Monos (test code = 415) 0.52 0.24- 0.36 K/L H # Eos (test code = 416) 0.10 0.04- 0.36 K/L # Baso (test code = 417) 0.04 0.01- 0.08 K/L Immature Granulocytes-Relative 0 % 0-1 (test code = 2801) Lab Interpretation (test code = Abnormal 88296-2) [facility] CenterCBC W/PLT COUNT & AUTO [id number] 05:45:00 Test Item Value Reference Range Interpretation Comments WHITE BLOOD CELL COUNT (BEAKER) 4.0 K/ L 3.5-10.5 (test code = 775) RED BLOOD CELL COUNT (BEAKER) 3.82 M/ L 3.93-5.22 L (test code = 761) HEMOGLOBIN (BEAKER) (test code = 10.7 GM/DL 11.2-15.7 L 410) HEMATOCRIT (BEAKER) (test code = 33.1 % 34.1-44.9 L 411) MEAN CORPUSCULAR VOLUME (BEAKER) 86.6 fL 79.4-94.8 (test code = 753) MEAN CORPUSCULAR HEMOGLOBIN 28.0 pg 25.6-32.2 (BEAKER) (test code = 751) MEAN CORPUSCULAR HEMOGLOBIN CONC 32.3 GM/DL 32.2-35.5 (BEAKER) (test code = 752) RED CELL DISTRIBUTION WIDTH 15.2 % 11.7-14.4 H (BEAKER) (test code = 412) PLATELET COUNT (BEAKER) (test 192 K/CU MM 150-450 code = 756) MEAN PLATELET VOLUME (BEAKER) 10.7 fL 9.4-12.3 (test code = 754) NUCLEATED RED BLOOD CELLS 0 /100 WBC 0-0 (BEAKER) (test code = 413) NEUTROPHILS RELATIVE PERCENT 48 % (BEAKER) (test code = 429) LYMPHOCYTES RELATIVE PERCENT 35 % (BEAKER) (test code = 430) MONOCYTES RELATIVE PERCENT 13 % (BEAKER) (test code = 431) EOSINOPHILS RELATIVE PERCENT 3 % (BEAKER) (test code = 432) BASOPHILS RELATIVE PERCENT 1 % (BEAKER) (test code = 437) NEUTROPHILS ABSOLUTE COUNT 1.92 K/ L 1.56-6.13 (BEAKER) (test code = 670) LYMPHOCYTES ABSOLUTE COUNT 1.38 K/ L 1.18-3.74 (BEAKER) (test code = 414) MONOCYTES ABSOLUTE COUNT (BEAKER) 0.52 K/ L 0.24-0.36 H (test code = 415) EOSINOPHILS ABSOLUTE COUNT 0.10 K/ L 0.04-0.36 (BEAKER) (test code = 416) BASOPHILS ABSOLUTE COUNT (BEAKER) 0.04 K/ L 0.01-0.08 (test code = 417) IMMATURE GRANULOCYTES-RELATIVE 0 % 0-1 PERCENT (BEAKER) (test code = 2801) BASIC METABOLIC [id number] 08:22:00 Test Item Value Reference Range Interpretation Comments SODIUM (BEAKER) (test 135 meq/L 136-145 L code = 381) POTASSIUM (BEAKER) 4.0 meq/L 3.5-5.1 (test code = 379) CHLORIDE (BEAKER) 110 meq/L 98-107 H (test code = 382) CO2 (BEAKER) (test 23 meq/L 22-29 code = 355) BLOOD UREA NITROGEN 6 mg/dL 7-21 L (BEAKER) (test code = 354) CREATININE (BEAKER) 0.60 mg/dL 0.57-1.25 (test code = 358) GLUCOSE RANDOM 76 mg/dL 70-105 (BEAKER) (test code = 652) CALCIUM (BEAKER) 8.0 mg/dL 8.4-10.2 L (test code = 697) EGFR (BEAKER) (test INSUFFIC IENT CLINICAL code = 1092) DATA TO CALCULA TE ESTIMATED GFR. Email Marketing Processor ID - LMHEPATIC FUNCTION [id number] 08:01:00 Test Item Value Reference Range Interpretation Comments TOTAL PROTEIN (BEAKER) (test code = 6.2 gm/dL 6.0-8.3 770) ALBUMIN (BEAKER) (test code = 1145) 3.7 g/dL 3.5-5.0 BILIRUBIN TOTAL (BEAKER) (test code 0.4 mg/dL 0.2-1.2 = 377) BILIRUBIN DIRECT (BEAKER) (test 0.2 mg/dL 0.1-0.5 code = 706) ALKALINE PHOSPHATASE (BEAKER) (test 56 U/L 40-150 code = 346) AST (SGOT) (BEAKER) (test code = 27 U/L 5-34 353) ALT (SGPT) (BEAKER) (test code = 39 U/L 6-55 347) Email Marketing Processor ID - [id number] 15:09:00 Test Item Value Reference Range Interpretation Comments Lipase (test code = 3040-3) 323 U/L 8-78 H RASHARD (test code = RASHARD) Email Marketing Processor ID - NTP Lab Interpretation (test Abnormal code = 73337-6) [facility] 15:09[facility]00 Test Item Value Reference Range Interpretation Comments LIPASE (ALVARADO) (test code = 749) 323 U/L 8-78 H Email Marketing Processor ID - NTPU/S, ABDOMINAL, [id number] 14:33:00Abdomen limited area? Add comment if clarification is needed.->Gall BladderReason for exam:->RUQ pain.FINAL REPORT HISTORY : Right upper quadrant pain COMPARISON: MRCP from earlier 08/08/2019 COMMENT : Limited ultrasound examination of the abdomen was performed with attention to the right upper quadrant. The visualized pancreas appears unremarkable. The liver is at the upper limits of normal for size measuring 16.6 cm in length. Hepatic echogenicity is within normal limits. Nofocal hepatic abnormality is identified. The main portal vein is patent with antegrade flow and diameter of 1.2 cm. A 4 mm non-shadowing echogenic focus is identified along the gallbladder wall. There is no evidence for shadowing stones, gallbladder wall thickening, or pericholecystic fluid. There is no intra or extra hepatic biliary ductal dilatation. The common bile duct measures 4 mm. The right kidney is normal in size with normal cortical thickness and echogenicity. There is no evidence for solid renal mass, hydronephrosis, or shadowing calcified within the right kidney. The visualized portions the IVC and aorta are within normal limits. There is no ascites or sludge within the right upper quadrant. IMPRESSION : 4 mm echogenic focus identified along the gallbladder wall which may represent a small adherent stone versus subcentimeter polyp. No evidence for shadowing stones identified. No son ographic evidence for acute cholecystitis. Signed: Dale Wiggins MDReport Verified Date/Time: 08/08/2019 14:33:42 Reading Location: [facility] C0W Consult Reading Room US abdomen [id number] 14:33:00Interface, External Ris In - 08/08/2019 2:35 PM CDTFINAL REPORT HISTORY : Right upper quadrant pain COMPARISON: MRCP from earlier 08/08/2019 COMMENT : Limited ultrasound examination of the abdomen was performed with attention to the right upper quadrant. The visualized pancreas appears unremarkable. The liver is at the upper limits of normal for size measuring 16.6 cm in length. Hepatic echogenicity is within normal limits. No focal hepatic abnormality is identified. The main portal vein is patent with antegrade flow and diameter of 1.2 cm. A 4 mm non-shadowing echogenic focus is identified along the gallbladder wall. There is no evidence for shadowing stones, gallbladder wall thickening, or pericholecystic fluid. There is no intra or extra hepatic biliary ductal dilatation. The common bile duct measures 4 mm. The right kidney is normal in size with normal cortical thickness and echogenicity. There is no evidence for solid renal mass, hydronephrosis, or shadowing calcified within the right kidney. The visualized portions the IVC and aorta are within normal limits. Ther e is no ascites or sludge within the right upper quadrant. IMPRESSION : 4 mm echogenic focus identified along the gallbladder wall which may represent a small adherent stone versus subcentimeter polyp. No evidence for shadowing stones identified. No sonographic evidence for acute cholecystitis. Signed: Dale Wiggins MDReport Verified Date/Time: 08/08/2019 14:33:42 Reading Location: [facility] B1 C013W Consult [place] [facility], [facility]BDOMEN, [id number] 12:09:00FINAL REPORT MR Abdomen dated 08/08/2019 Comment: Multiplanar T1 and T2-weighted images, respiratory triggered and breath-hold MRCP sequences were obtained. 3-D reconstruction ofthe abdomen was performed for better evaluation of the biliary tree. Gallbladder is contracted. No gallstone, gallbladder wall thickening, or pericholecystic fluid collection is seen. MRCP demonstratesnormal caliber intra and extra hepatic biliary ducts. No filling defect is seen in the biliary ductsto suggest choledocholithiasis. Common bile duct measures approximately 3 mm in size. Pancreatic duct is normal in caliber. Liver is enlarged measuring 17 cm in the right midclavicular line. No focal lesions in the liver. Liver is suboptimally evaluated on the MRCP sequences. Spleen is normal in size.Pancreas and adrenals are unremarkable. Both kidneys are normal in size. Impression:1. Hepatomegaly.2. No cholelithiasis, choledocholithiasis, or biliary dilatation. Signed: Caro Warner MDReport Verified Date/Time: 08/08/2019 12:09:11 Reading Location: [facility] C013Y CT Body Reading Room MR abdomen without IV contrast [id number] 12:09:00 Interface, External Ris In - 08/08/2019 12:11 PM CDTFINAL REPORT MR Abdomen dated 08/08/2019 Comment: Multiplanar T1 and T2-weighted images, respiratory triggered and breath-hold MRCP sequences were obtained. 3-D reconstruction of the abdomen was performed for better evaluation of the biliary tree. Gallbladder is contracted. No gallstone, gallbladder wall thickening, or pericholecystic fluid collection is seen. MRCP demonstrates normal caliber intra and extra hepatic biliary ducts. No filling defect is seen in the biliary ducts to suggest choledocholithiasis. Common bile ductmeasures approximately 3 mm in size. Pancreatic duct is normal in caliber. Liver is enlarged measuring 17 cm in the right midclavicular line. No focal lesions in the liver. Liver is suboptimally evaluated on the MRCP sequences. Spleen is normal in size. Pancreas and adrenals are unremarkable. Both kidneys are normal in size. Impression:1. Hepatomegaly.2. No cholelithiasis, choledocholithiasis, or biliary dilatation. Signed: Caro Warner MDReport Verified Date/Time: 08/08/2019 12:09:11 Reading Location: [facility] C013Y CT Body Reading Room 12:09 [place] [facility] METABOLIC [id number] 06:41:00 Test Item Value Reference Range Interpretation Comments SODIUM (BEAKER) (test 139 meq/L 136-145 code = 381) POTASSIUM (BEAKER) 4.0 meq/L 3.5-5.1 (test code = 379) CHLORIDE (BEAKER) 110 meq/L 98-107 H (test code = 382) CO2 (BEAKER) (test 27 meq/L 22-29 code = 355) BLOOD UREA NITROGEN 11 mg/dL 7-21 (BEAKER) (test code = 354) CREATININE (BEAKER) 0.72 mg/dL 0.57-1.25 (test code = 358) GLUCOSE RANDOM 83 mg/dL 70-105 (BEAKER) (test code = 652) CALCIUM (BEAKER) 8.2 mg/dL 8.4-10.2 L (test code = 697) EGFR (BEAKER) (test INSUFFIC IENT CLINICAL code = 1092) DATA TO CALCULA TE ESTIMATED GFR. Email Marketing Processor ID Lorne CORREA [id number] 06:40:00 Test Item Value Reference Range Interpretation Comments MAGNESIUM (BEAKER) (test code = 1.8 mg/dL 1.6-2.6 627) Email Marketing Processor ID Lorne CORREA WHEPATIC FUNCTION [id number] 06:40:00 Test Item Value Reference Range Interpretation Comments TOTAL PROTEIN (BEAKER) (test code = 6.1 gm/dL 6.0-8.3 770) ALBUMIN (BEAKER) (test code = 1145) 3.7 g/dL 3.5-5.0 BILIRUBIN TOTAL (BEAKER) (test code 0.3 mg/dL 0.2-1.2 = 377) BILIRUBIN DIRECT (BEAKER) (test 0.2 mg/dL 0.1-0.5 code = 706) ALKALINE PHOSPHATASE (BEAKER) (test 65 U/L 40-150 code = 346) AST (SGOT) (BEAKER) (test code = 45 U/L 5-34 H 353) ALT (SGPT) (BEAKER) (test code = 53 U/L 6-55 347) Email Marketing Processor GERALD CORREA WPT/[id number] 05:43:00 Test Item Value Reference Range Interpretation Comments Protime (test code = 13.6 11.9- 14.2 5902-2) seconds INR (test code = 1.1 <=5.9 6301-6) PTT (test code = 33.1 22.5- 36.0 11436-8) seconds RASHARD (test code = RASHARD) Effective 09/18/2018: PT Reference Range ChangeNew: 11.9-14.2 Previous: 11.7-14.7 RECOMMENDED COUMADIN/WARFARIN INR THERAPY RANGESSTANDARD DOSE: 2.0-3.0 Includes: PROPHYLAXIS for venous thrombosis, systemic embolization; TREATMENT for venous thrombosis and/or pulmonary embolus.HIGH RISK: Target INR is 2.5-3.5 for patients wiht mechanical heart valves. Lab Interpretation Normal (test code = 52400-7) [facility] CenterPT/[id number] 05:43:00 Test Item Value Reference Range Interpretation Comments PROTIME (BEAKER) (test code = 13.6 seconds 11.9-14.2 759) INR (BEAKER) (test code = 370) 1.1 <=5.9 PARTIAL THROMBOPLASTIN TIME 33.1 seconds 22.5-36.0 (BEAKER) (test code = 760) Effective 09/18/2018: PT Reference Range ChangeNew: 11.9-14.2 Previous: 11.7- 14.7RECOMMENDED COUMADIN/WARFARIN INR THERAPY RANGESSTANDARD DOSE: 2.0-3.0 Includes: PROPHYLAXIS for venous thrombosis, systemic embolization; TREATMENT for venous thrombosis and/or pulmonary embolus.HIGH RISK: Target INR is2.5-3.5 for patients wiht mechanical heart valves.CBC W/PLT COUNT & AUTO [id number] 05:36:00 Test Item Value Reference Range Interpretation Comments WHITE BLOOD CELL COUNT (BEAKER) 5.0 K/ L 3.5-10.5 (test code = 775) RED BLOOD CELL COUNT (BEAKER) 3.66 M/ L 3.93-5.22 L (test code = 761) HEMOGLOBIN (BEAKER) (test code = 9.9 GM/DL 11.2-15.7 L 410) HEMATOCRIT (BEAKER) (test code = 31.9 % 34.1-44.9 L 411) MEAN CORPUSCULAR VOLUME (BEAKER) 87.2 fL 79.4-94.8 (test code = 753) MEAN CORPUSCULAR HEMOGLOBIN 27.0 pg 25.6-32.2 (BEAKER) (test code = 751) MEAN CORPUSCULAR HEMOGLOBIN CONC 31.0 GM/DL 32.2-35.5 L (BEAKER) (test code = 752) RED CELL DISTRIBUTION WIDTH 15.7 % 11.7-14.4 H (BEAKER) (test code = 412) PLATELET COUNT (BEAKER) (test 204 K/CU MM 150-450 code = 756) MEAN PLATELET VOLUME (BEAKER) 10.6 fL 9.4-12.3 (test code = 754) NUCLEATED RED BLOOD CELLS 0 /100 WBC 0-0 (BEAKER) (test code = 413) NEUTROPHILS RELATIVE PERCENT 48 % (BEAKER) (test code = 429) LYMPHOCYTES RELATIVE PERCENT 38 % (BEAKER) (test code = 430) MONOCYTES RELATIVE PERCENT 10 % (BEAKER) (test code = 431) EOSINOPHILS RELATIVE PERCENT 3 % (BEAKER) (test code = 432) BASOPHILS RELATIVE PERCENT 1 % (BEAKER) (test code = 437) NEUTROPHILS ABSOLUTE COUNT 2.41 K/ L 1.56-6.13 (BEAKER) (test code = 670) LYMPHOCYTES ABSOLUTE COUNT 1.88 K/ L 1.18-3.74 (BEAKER) (test code = 414) MONOCYTES ABSOLUTE COUNT (BEAKER) 0.49 K/ L 0.24-0.36 H (test code = 415) EOSINOPHILS ABSOLUTE COUNT 0.17 K/ L 0.04-0.36 (BEAKER) (test code = 416) BASOPHILS ABSOLUTE COUNT (BEAKER) 0.03 K/ L 0.01-0.08 (test code = 417) IMMATURE GRANULOCYTES-RELATIVE 0 % 0-1 PERCENT (BEAKER) (test code = 2801) MRI Knee Right Wo [id number] 06:32:38Hm Interface, Radiology Results - 04/21/2019 6:35 AM CSTEXAMINATION: MRI KNEE WO CONTRAST RIGHTCLINICAL HISTORY: Knee pain neg xray or effusion onlyTECHNIQUE: Multiplanar multisequence MRimaging of the knee was performed without contrast.COMPARISON: Knee radiographs dated 04/21/2019FINDINGS:1. Cruciate ligaments: Grade 3 complete tear of the mid substance of the anterior cruciate ligament. The posterior cruciate ligament is intact.2. Collateral ligaments: Medial collateral ligament, lateral collateral ligament, and biceps femoris tendon are intact. There is evidence of a low-grade posterolateral corner injury with a low-grade posterolateral capsular sprain and a small amount of edema along the arcuate ligament. No definite tear of the popliteal fibular ligament or the meniscal fascicles. No evidence of high-grade posteromedial corner injury.3. Medial Meniscus: Medial meniscus intact.4. Medial Compartment Cartilage: Osseous contusion of the anteromedial and posteromedial tibial pl ateau without evidence of chondral shear. Cartilage of the medial femoral condyle appears intact.5. Lateral Meniscus: No evidence of a tear of the lateral meniscus.6. Lateral Compartment Cartilage: Osseous contusion of the posterolateral tibial plateau without evidence of chondral shear.7. Patellofemor al Compartment:Articular cartilage intact. 8. Extensor mechanism: Quadriceps and patellar tendons are intact. Minimal focal edema in the superolateral aspect Hoffa's fat pad which can be seen with maltracking and fat pad impingement. No lateralization of the tibial tubercle.9. Effusion: Small to moderate knee joint effusion.10. Bone marrow: Osseous contusions as above. No fracture. Patchy red marrow in the distal femur.11. Soft tissues: Neurovascular bundle appears unremarkable.IMPRESSION:1.Grade 3 complete tear of the anterior cruciate ligament.2.Low-grade posterolateral corner injury.3.Osseous contusion of the medial and lateral tibial plateau without evidence of chondral shear.4.Intact posterior cruciate ligament, collateral ligaments, and menisci.5.Additional findings and details as above.[facility]-[id number] [facility] [place] , [id number] 04:02:00 Test Item Value Reference Range Interpretation Comments test urine, POC (test code Negative = 4788295) QC done (test code = 298) Yes [facility], urine [id number] 04:01:27 Test Item Value Reference Range Interpretation Comments hCG qualitative, Negative Sensitivity of HCG test: urine (test code = 25 mIU/mL 6-3) [facility]Urinalysis screen and microscopy, with reflex to culture 2019-04-21 04:00:45 Test Item Value Reference Range Interpretation Comments Specimen site (test code = Clean catch 6054682) Color, UA (test code = 5778-6) Yellow Appearance, UA (test code = Cloudy 5767-9) Specific gravity, UA (test code = 1.014 1.001-1.035 5811-5) pH, UA (test code = 5803-2) 7.0 5.0-8.5 Protein, UA (test code = 27281-0) Negative Negative Glucose, UA (test code = 62834-5) Negative Negative Ketones, UA (test code = 2514-8) Negative Negative Bilirubin, UA (test code = Negative Negative 5770-3) Blood, UA (test code = 5794-3) Negative Negative Nitrite, UA (test code = 5802-4) Negative Negative Urobilinogen, UA (test code = 2.0 <2.0 A 19420-8) Leukocyte esterase, UA (test code Negative Negative = 5799-2) Epithelial cells, UA (test code = 1 /HPF 5787-7) WBC, UA (test code = 5821-4) 2 0- 4 /HPF RBC, UA (test code = 85070-0) 5 0- 5 /HPF Bacteria, UA (test code = Few None seen 35217-3) Yeast, UA (test code = 95408-5) None seen Yeast with pseudohyphae, UA (test None seen code = 60857-2) Lab Interpretation (test code = Abnormal 32050-8) Armen GayleistUrine [id number] 04:00:30 Test Item Value Reference Range Interpretation Comments Urine culture (test SEE COMMENT Bacteriu marcelo screen code = 8985897) negative. [facility]XR K[facility] 1 Or 2 Vw [id number] 02:16:45Hm Interface, Radiology Results - 04/21/2019 2:19 AM CSTEXAMINATION: XR KNEE 1 OR 2 VW RIGHTCLINICAL HISTORY: Knee pain initial examCOMPARISON: None.IMPRESSION:There is no evidence of right knee fracture, dislocation, or joint effusion. [facility]-IN08YOBKQjbcszv MethodistDILUTE NINI VIPER VENOM (DRVV) 2016-07-25 15:34:00 Test Item Value Reference Range Interpretation Comments PROTIME (BEAKER) (test 13.9 seconds 11.7-14.7 code = 759) INR (BEAKER) (test code = 1.1 <=5.9 370) PARTIAL THROMBOPLASTIN 56.1 seconds 22.5-36.0 H TIME (BEAKER) (test code = 760) DRVV INTERPRETATION Normal DRVV Results (BEAKER) (test code = 2406) [id number] Alvarez Moe MD (BEAKER) (test code = (electronic 2610) signature) DRVV SCREEN RATIO (BEAKER) 0.84 <1.20 (test code = 2707) Effective 08/26/2013: Test Method ChangeDRVV Screen Ratio, DRVV 1/1 Screen Ratio, DRVV Confirm Ratio,DRVV Normalized Ratio Reference Range: <1.2Protime Reference Range ChangeNew: 11.7-14.7 Previous: 9.8-12.0PTT Reference Range ChangeNew: 22.5-36.0 Previous: 25.8-34.5CBC W/PLT COUNT & AUTO DIFFERENTIAL 2016-07-25 07:26:00 Test Item Value Reference Range Interpretation Comments WHITE BLOOD CELL COUNT (BEAKER) 6.6 K/ L 4.0-10.0 (test code = 775) RED BLOOD CELL COUNT (BEAKER) 3.31 M/ L 4.00-5.00 L (test code = 761) HEMOGLOBIN (BEAKER) (test code = 8.4 GM/DL 12.0-15.0 L 410) HEMATOCRIT (BEAKER) (test code = 26.4 % 36.0-45.0 L 411) MEAN CORPUSCULAR VOLUME (BEAKER) 79.8 fL 82.0-99.0 L (test code = 753) MEAN CORPUSCULAR HEMOGLOBIN 25.4 pg 27.0-33.0 L (BEAKER) (test code = 751) MEAN CORPUSCULAR HEMOGLOBIN CONC 31.9 GM/DL 32.0-36.0 L (BEAKER) (test code = 752) RED CELL DISTRIBUTION WIDTH 15.2 % 10.3-14.2 H (BEAKER) (test code = 412) PLATELET COUNT (BEAKER) (test 254 K/CU MM 150-430 code = 756) MEAN PLATELET VOLUME (BEAKER) 8.1 fL 6.5-10.5 (test code = 754) NUCLEATED RED BLOOD CELLS 0 /100 WBC 0-0 (BEAKER) (test code = 413) NEUTROPHILS RELATIVE PERCENT 60 % (BEAKER) (test code = 429) LYMPHOCYTES RELATIVE PERCENT 29 % (BEAKER) (test code = 430) MONOCYTES RELATIVE PERCENT 10 % (BEAKER) (test code = 431) EOSINOPHILS RELATIVE PERCENT 1 % (BEAKER) (test code = 432) BASOPHILS RELATIVE PERCENT 1 % (BEAKER) (test code = 437) NEUTROPHILS ABSOLUTE COUNT 3.90 K/ L 1.80-8.00 (BEAKER) (test code = 670) LYMPHOCYTES ABSOLUTE COUNT 1.90 K/ L 1.48-4.50 (BEAKER) (test code = 414) MONOCYTES ABSOLUTE COUNT (BEAKER) 0.65 K/ L 0.00-1.30 (test code = 415) EOSINOPHILS ABSOLUTE COUNT 0.05 K/ L 0.00-0.50 (BEAKER) (test code = 416) BASOPHILS ABSOLUTE COUNT (BEAKER) 0.05 K/ L 0.00-0.20 (test code = 417) 0.00BASIC METABOLIC [id number] 07:05:00 Test Item Value Reference Range Interpretation Comments SODIUM (BEAKER) 135 meq/L 136-145 L (test code = 381) POTASSIUM (BEAKER) 3.7 meq/L 3.5-5.1 (test code = 379) CHLORIDE (BEAKER) 107 meq/L 98-107 (test code = 382) CO2 (BEAKER) (test 19 meq/L 22-29 L code = 355) BLOOD UREA NITROGEN 12 mg/dL 7-21 (BEAKER) (test code = 354) CREATININE (BEAKER) 0.59 mg/dL 0.57-1.25 (test code = 358) GLUCOSE RANDOM 93 mg/dL 70-105 (BEAKER) (test code = 652) CALCIUM (BEAKER) 8.5 mg/dL 8.4-10.2 (test code = 697) EGFR (BEAKER) (test mL/min/1.73 INSUFFIC IENT CLINICAL code = 1092) sq m DATA TO CALCULA TE ESTIMATED GFR. CARDIOLIPIN ANTIBODIES, IGG AND [id number] 14:31:00 Test Item Value Reference Range Interpretation Comments ANTICARDIOLIPIN IGG ANTIBODY (BEAKER) < GPL (test code = 712) ANTICARDIOLIPIN IGM ANTIBODY (BEAKER) < MPL (test code = 713) Anticardiolipin IgG Result Interpretation:NEG: <20 GPL; U/mlPOS: >/=20 GPL; U/mlAnticardiolipin IgM Result Interpretation:NEG: <20 MPL; U/mlPOS: >/=20 MPL; U/mlTHROMBIN [id number] 14:25:00 Test Item Value Reference Range Interpretation Comments THROMBIN TIME (BEAKER) (test code 193.3 secs 13.8-20.0 H = 550) EQUAL MIX, NORMAL [id number] 14:16:00 Test Item Value Reference Range Interpretation Comments PROTIME (BEAKER) (test 13.9 seconds 11.7-14.7 code = 759) PARTIAL THROMBOPLASTIN 56.1 seconds 22.5-36.0 H TIME (BEAKER) (test code = 760) PT 1/1 MIX (BEAKER) SECS 11.7-14.7 Not appl icable. (test code = 1595) Test not performed PTT 1/1 MIX (BEAKER) 42.4 SECS 22.5-36.0 H (test code = 1596) ANTI-NUCLEAR ANTIBODY (CALLI)2016-07-24 12:37:00 Test Item Value Reference Range Interpretation Comments ANTI-NUCLEAR ANTIBODY (CALLI) (BEAKER) Negative Negative (test code = 418) CBC W/PLT COUNT & AUTO [id number] 08:32:00 Test Item Value Reference Range Interpretation Comments WHITE BLOOD CELL COUNT (BEAKER) 15.8 K/ L 4.0-10.0 H (test code = 775) RED BLOOD CELL COUNT (BEAKER) 3.93 M/ L 4.00-5.00 L (test code = 761) HEMOGLOBIN (BEAKER) (test code = 9.3 GM/DL 12.0-15.0 L 410) HEMATOCRIT (BEAKER) (test code = 30.6 % 36.0-45.0 L 411) MEAN CORPUSCULAR VOLUME (BEAKER) 77.7 fL 82.0-99.0 L (test code = 753) MEAN CORPUSCULAR HEMOGLOBIN 23.6 pg 27.0-33.0 L (BEAKER) (test code = 751) MEAN CORPUSCULAR HEMOGLOBIN CONC 30.4 GM/DL 32.0-36.0 L (BEAKER) (test code = 752) RED CELL DISTRIBUTION WIDTH 14.6 % 10.3-14.2 H (BEAKER) (test code = 412) PLATELET COUNT (BEAKER) (test 311 K/CU MM 150-430 code = 756) MEAN PLATELET VOLUME (BEAKER) 8.1 fL 6.5-10.5 (test code = 754) NUCLEATED RED BLOOD CELLS 0 /100 WBC 0-0 (BEAKER) (test code = 413) NEUTROPHILS RELATIVE PERCENT 91 % (BEAKER) (test code = 429) LYMPHOCYTES RELATIVE PERCENT 5 % (BEAKER) (test code = 430) MONOCYTES RELATIVE PERCENT 4 % (BEAKER) (test code = 431) EOSINOPHILS RELATIVE PERCENT 0 % (BEAKER) (test code = 432) BASOPHILS RELATIVE PERCENT 0 % (BEAKER) (test code = 437) NEUTROPHILS ABSOLUTE COUNT 14.40 K/ L 1.80-8.00 H (BEAKER) (test code = 670) LYMPHOCYTES ABSOLUTE COUNT 0.86 K/ L 1.48-4.50 L (BEAKER) (test code = 414) MONOCYTES ABSOLUTE COUNT (BEAKER) 0.57 K/ L 0.00-1.30 (test code = 415) EOSINOPHILS ABSOLUTE COUNT 0.02 K/ L 0.00-0.50 (BEAKER) (test code = 416) BASOPHILS ABSOLUTE COUNT (BEAKER) 0.01 K/ L 0.00-0.20 (test code = 417) 0.00(MANUAL DIFFERENTIAL)2016-07-24 08:32:00 Test Item Value Reference Range Interpretation Comments TOTAL COUNTED (BEAKER) (test code = 1351) BASIC METABOLIC [id number] 06:54:00 Test Item Value Reference Range Interpretation Comments SODIUM (BEAKER) 138 meq/L 136-145 (test code = 381) POTASSIUM (BEAKER) 4.1 meq/L 3.5-5.1 (test code = 379) CHLORIDE (BEAKER) 107 meq/L 98-107 (test code = 382) CO2 (BEAKER) (test 21 meq/L 22-29 L code = 355) BLOOD UREA NITROGEN 15 mg/dL 7-21 (BEAKER) (test code = 354) CREATININE (BEAKER) 0.71 mg/dL 0.57-1.25 (test code = 358) GLUCOSE RANDOM 104 mg/dL 70-105 (BEAKER) (test code = 652) CALCIUM (BEAKER) 9.3 mg/dL 8.4-10.2 (test code = 697) EGFR (BEAKER) (test mL/min/1.73 INSUFFIC IENT CLINICAL code = 1092) sq m DATA TO CALCULA TE ESTIMATED GFR. BASIC METABOLIC [id number] 07:19:00 Test Item Value Reference Range Interpretation Comments SODIUM (BEAKER) 140 meq/L 136-145 (test code = 381) POTASSIUM (BEAKER) 4.0 meq/L 3.5-5.1 (test code = 379) CHLORIDE (BEAKER) 111 meq/L 98-107 H (test code = 382) CO2 (BEAKER) (test 21 meq/L 22-29 L code = 355) BLOOD UREA NITROGEN 10 mg/dL 7-21 (BEAKER) (test code = 354) CREATININE (BEAKER) 0.69 mg/dL 0.57-1.25 (test code = 358) GLUCOSE RANDOM 90 mg/dL 70-105 (BEAKER) (test code = 652) CALCIUM (BEAKER) 8.8 mg/dL 8.4-10.2 (test code = 697) EGFR (BEAKER) (test mL/min/1.73 INSUFFIC IENT CLINICAL code = 1092) sq m DATA TO CALCULA TE ESTIMATED GFR. CBC W/PLT COUNT & AUTO [id number] 07:07:00 Test Item Value Reference Range Interpretation Comments WHITE BLOOD CELL COUNT (BEAKER) 8.3 K/ L 4.0-10.0 (test code = 775) RED BLOOD CELL COUNT (BEAKER) 3.56 M/ L 4.00-5.00 L (test code = 761) HEMOGLOBIN (BEAKER) (test code = 9.2 GM/DL 12.0-15.0 L 410) HEMATOCRIT (BEAKER) (test code = 28.5 % 36.0-45.0 L 411) MEAN CORPUSCULAR VOLUME (BEAKER) 80.1 fL 82.0-99.0 L (test code = 753) MEAN CORPUSCULAR HEMOGLOBIN 25.9 pg 27.0-33.0 L (BEAKER) (test code = 751) MEAN CORPUSCULAR HEMOGLOBIN CONC 32.4 GM/DL 32.0-36.0 (BEAKER) (test code = 752) RED CELL DISTRIBUTION WIDTH 14.3 % 10.3-14.2 H (BEAKER) (test code = 412) PLATELET COUNT (BEAKER) (test 310 K/CU MM 150-430 code = 756) MEAN PLATELET VOLUME (BEAKER) 7.7 fL 6.5-10.5 (test code = 754) NUCLEATED RED BLOOD CELLS 0 /100 WBC 0-0 (BEAKER) (test code = 413) NEUTROPHILS RELATIVE PERCENT 66 % (BEAKER) (test code = 429) LYMPHOCYTES RELATIVE PERCENT 23 % (BEAKER) (test code = 430) MONOCYTES RELATIVE PERCENT 10 % (BEAKER) (test code = 431) EOSINOPHILS RELATIVE PERCENT 1 % (BEAKER) (test code = 432) BASOPHILS RELATIVE PERCENT 1 % (BEAKER) (test code = 437) NEUTROPHILS ABSOLUTE COUNT 5.50 K/ L 1.80-8.00 (BEAKER) (test code = 670) LYMPHOCYTES ABSOLUTE COUNT 1.93 K/ L 1.48-4.50 (BEAKER) (test code = 414) MONOCYTES ABSOLUTE COUNT (BEAKER) 0.79 K/ L 0.00-1.30 (test code = 415) EOSINOPHILS ABSOLUTE COUNT 0.06 K/ L 0.00-0.50 (BEAKER) (test code = 416) BASOPHILS ABSOLUTE COUNT (BEAKER) 0.05 K/ L 0.00-0.20 (test code = 417) [id number] 11:08:00 Test Item Value Reference Range Interpretation Comments POTASSIUM (BEAKER) (test code = 3.8 meq/L 3.5-5.1 379) [id number] 11:08:00 Test Item Value Reference Range Interpretation Comments MAGNESIUM (BEAKER) (test code = 2.3 mg/dL 1.6-2.6 627) BASIC METABOLIC [id number] 05:29:00 Test Item Value Reference Range Interpretation Comments SODIUM (BEAKER) 139 meq/L 136-145 (test code = 381) POTASSIUM (BEAKER) 3.6 meq/L 3.5-5.1 (test code = 379) CHLORIDE (BEAKER) 111 meq/L 98-107 H (test code = 382) CO2 (BEAKER) (test 21 meq/L 22-29 L code = 355) BLOOD UREA NITROGEN 8 mg/dL 7-21 (BEAKER) (test code = 354) CREATININE (BEAKER) 0.59 mg/dL 0.57-1.25 (test code = 358) GLUCOSE RANDOM 93 mg/dL 70-105 (BEAKER) (test code = 652) CALCIUM (BEAKER) 7.9 mg/dL 8.4-10.2 L (test code = 697) EGFR (BEAKER) (test mL/min/1.73 INSUFFIC IENT CLINICAL code = 1092) sq m DATA TO CALCULA TE ESTIMATED GFR. [id number] 05:27:00 Test Item Value Reference Range Interpretation Comments PHOSPHORUS (BEAKER) (test code = 2.7 mg/dL 2.3-4.7 604) [id number] 05:27:00 Test Item Value Reference Range Interpretation Comments MAGNESIUM (BEAKER) (test code = 1.8 mg/dL 1.6-2.6 627) CBC W/PLT COUNT & AUTO [id number] 05:04:00 Test Item Value Reference Range Interpretation Comments WHITE BLOOD CELL COUNT (BEAKER) 7.6 K/ L 4.0-10.0 (test code = 775) RED BLOOD CELL COUNT (BEAKER) 3.11 M/ L 4.00-5.00 L (test code = 761) HEMOGLOBIN (BEAKER) (test code = 8.0 GM/DL 12.0-15.0 L 410) HEMATOCRIT (BEAKER) (test code = 24.8 % 36.0-45.0 L 411) MEAN CORPUSCULAR VOLUME (BEAKER) 79.6 fL 82.0-99.0 L (test code = 753) MEAN CORPUSCULAR HEMOGLOBIN 25.8 pg 27.0-33.0 L (BEAKER) (test code = 751) MEAN CORPUSCULAR HEMOGLOBIN CONC 32.4 GM/DL 32.0-36.0 (BEAKER) (test code = 752) RED CELL DISTRIBUTION WIDTH 14.0 % 10.3-14.2 (BEAKER) (test code = 412) PLATELET COUNT (BEAKER) (test 268 K/CU MM 150-430 code = 756) MEAN PLATELET VOLUME (BEAKER) 7.5 fL 6.5-10.5 (test code = 754) NUCLEATED RED BLOOD CELLS 0 /100 WBC 0-0 (BEAKER) (test code = 413) NEUTROPHILS RELATIVE PERCENT 62 % (BEAKER) (test code = 429) LYMPHOCYTES RELATIVE PERCENT 29 % (BEAKER) (test code = 430) MONOCYTES RELATIVE PERCENT 8 % (BEAKER) (test code = 431) EOSINOPHILS RELATIVE PERCENT 0 % (BEAKER) (test code = 432) BASOPHILS RELATIVE PERCENT 1 % (BEAKER) (test code = 437) NEUTROPHILS ABSOLUTE COUNT 4.72 K/ L 1.80-8.00 (BEAKER) (test code = 670) LYMPHOCYTES ABSOLUTE COUNT 2.20 K/ L 1.48-4.50 (BEAKER) (test code = 414) MONOCYTES ABSOLUTE COUNT (BEAKER) 0.62 K/ L 0.00-1.30 (test code = 415) EOSINOPHILS ABSOLUTE COUNT 0.03 K/ L 0.00-0.50 (BEAKER) (test code = 416) BASOPHILS ABSOLUTE COUNT (BEAKER) 0.04 K/ L 0.00-0.20 (test code = 417) [id number] 17:27:00 Test Item Value Reference Range Interpretation Comments FERRITIN (BEAKER) (test code = 361) 9 ng/mL 5-275 Effective 03/10/2014: Reference Range ChangeNew: Male 5-275 Previous: Male 22-322 Female 5-275 Female 10-291TSH/FREE T4 IF INDICATED 2016-07-21 17:27:00 Test Item Value Reference Range Interpretation Comments THYROID STIMULATING HORMONE 1.75 uIU/mL 0.35-4.94 (BEAKER) (test code = 772) IRON, TIBC, % SAT. (WITHOUT FERRITIN)2016-07-21 17:06:00 Test Item Value Reference Range Interpretation Comments IRON (BEAKER) (test code = 547) 25 ug/dL 40-160 L TOTAL IRON BINDING CAPACITY 435 ug/dL 250-450 (BEAKER) (test code = 769) IRON % SATURATION (2) (BEAKER) 6 % 20-55 L (test code = 2590) BASIC METABOLIC [id number] 15:01:00 Test Item Value Reference Range Interpretation Comments SODIUM (BEAKER) 137 meq/L 136-145 (test code = 381) POTASSIUM (BEAKER) 3.9 meq/L 3.5-5.1 (test code = 379) CHLORIDE (BEAKER) 109 meq/L 98-107 H (test code = 382) CO2 (BEAKER) (test 21 meq/L 22-29 L code = 355) BLOOD UREA NITROGEN 7 mg/dL 7-21 (BEAKER) (test code = 354) CREATININE (BEAKER) 0.63 mg/dL 0.57-1.25 (test code = 358) GLUCOSE RANDOM 85 mg/dL 70-105 (BEAKER) (test code = 652) CALCIUM (BEAKER) 8.0 mg/dL 8.4-10.2 L (test code = 697) EGFR (BEAKER) (test mL/min/1.73 INSUFFIC IENT CLINICAL code = 1092) sq m DATA TO CALCULA TE ESTIMATED GFR. [id number] 14:50:00 Test Item Value Reference Range Interpretation Comments PHOSPHORUS (BEAKER) (test code = 3.5 mg/dL 2.3-4.7 604) [id number] 14:50:00 Test Item Value Reference Range Interpretation Comments MAGNESIUM (BEAKER) (test code = 1.9 mg/dL 1.6-2.6 627) LIPID [id number] 14:50:00 Test Item Value Reference Range Interpretation Comments TRIGLYCERIDES (BEAKER) (test code = 41 mg/dL 540) CHOLESTEROL (BEAKER) (test code = 109 mg/dL 631) HDL CHOLESTEROL (BEAKER) (test code 44 mg/dL = 976) LDL CHOLESTEROL CALCULATED (BEAKER) 57 mg/dL (test code = 633) Triglyceride Reference Range: Low Risk <150 Borderline 150-199 High Risk 200-499 Very High Risk >=500Cholesterol Reference Range: Low Risk <200 Borderline 200-239 High Risk >240HDL Cholesterol Reference Range: Low Risk >=60 High Risk <40LDL Cholesterol Reference Range: Optimal <100 Near Optimal 100-129 Borderline 130-159 High 160-189 Very High >=190C-REACTIVE [id number] 14:50:00 Test Item Value Reference Range Interpretation Comments C-REACTIVE PROTEIN (BEAKER) (test 0.02 mg/dL 0.00-0.50 code = 676) COMPLEMENT COMPONENT [id number] 14:48:00 Test Item Value Reference Range Interpretation Comments C4 COMPLEMENT (BEAKER) (test code = 19 mg/dL 15-57 394) Effective 03/10/2014: Reference Range ChangeNew: 15-57 Previous: 16-38 COMPLEMENT COMPONENT [id number] 14:48:00 Test Item Value Reference Range Interpretation Comments C3 COMPLEMENT (BEAKER) (test code = 105 mg/dL 82-193 393) Effective 03/10/2014: Reference Range ChangeNew: 82-193 Previous: 79-152 HEMOGLOBIN [id number] 14:38:00 Test Item Value Reference Range Interpretation Comments HEMOGLOBIN A1C (BEAKER) (test code = 5.1 % 4.3-6.1 368) SEDIMENTATION [id number] 08:29:00 Test Item Value Reference Range Interpretation Comments SEDIMENTATION RATE, ERYTHROCYTE 10 mm/HR 0-20 (BEAKER) (test code = 766) CBC W/PLT COUNT & AUTO [id number] 06:06:00 Test Item Value Reference Range Interpretation Comments WHITE BLOOD CELL COUNT (BEAKER) 10.2 K/ L 4.0-10.0 H (test code = 775) RED BLOOD CELL COUNT (BEAKER) 3.44 M/ L 4.00-5.00 L (test code = 761) HEMOGLOBIN (BEAKER) (test code = 8.6 GM/DL 12.0-15.0 L 410) HEMATOCRIT (BEAKER) (test code = 27.5 % 36.0-45.0 L 411) MEAN CORPUSCULAR VOLUME (BEAKER) 79.9 fL 82.0-99.0 L (test code = 753) MEAN CORPUSCULAR HEMOGLOBIN 25.0 pg 27.0-33.0 L (BEAKER) (test code = 751) MEAN CORPUSCULAR HEMOGLOBIN CONC 31.2 GM/DL 32.0-36.0 L (BEAKER) (test code = 752) RED CELL DISTRIBUTION WIDTH 14.6 % 10.3-14.2 H (BEAKER) (test code = 412) PLATELET COUNT (BEAKER) (test 282 K/CU MM 150-430 code = 756) MEAN PLATELET VOLUME (BEAKER) 8.0 fL 6.5-10.5 (test code = 754) NUCLEATED RED BLOOD CELLS 0 /100 WBC 0-0 (BEAKER) (test code = 413) NEUTROPHILS RELATIVE PERCENT 75 % (BEAKER) (test code = 429) LYMPHOCYTES RELATIVE PERCENT 20 % (BEAKER) (test code = 430) MONOCYTES RELATIVE PERCENT 6 % (BEAKER) (test code = 431) EOSINOPHILS RELATIVE PERCENT 0 % (BEAKER) (test code = 432) BASOPHILS RELATIVE PERCENT 0 % (BEAKER) (test code = 437) NEUTROPHILS ABSOLUTE COUNT 7.63 K/ L 1.80-8.00 (BEAKER) (test code = 670) LYMPHOCYTES ABSOLUTE COUNT 1.99 K/ L 1.48-4.50 (BEAKER) (test code = 414) MONOCYTES ABSOLUTE COUNT (BEAKER) 0.56 K/ L 0.00-1.30 (test code = 415) EOSINOPHILS ABSOLUTE COUNT 0.01 K/ L 0.00-0.50 (BEAKER) (test code = 416) BASOPHILS ABSOLUTE COUNT (BEAKER) 0.04 K/ L 0.00-0.20 (test code = 417) 0.00RAPID DRUG SCREEN, [id number] 01:59:00 Test Item Value Reference Range Interpretation Comments BARBITURATE URINE (BEAKER) (test Negative Negative code = 725) BENZODIAZEPINE SCREEN URINE (BEAKER) Negative Negative (test code = 726) COCAINE (METAB.) SCREEN (BEAKER) Negative Negative (test code = 1164) METHADONE SCREEN (BEAKER) (test code Negative Negative = 1436) OPIATE SCREEN URINE (BEAKER) (test Negative Negative code = 734) CANNABINOID SCREEN URINE (BEAKER) Positive Negative A (test code = 727) AMPH/METHAMPH SCREEN (BEAKER) (test Negative Negative code = 1438) PHENCYCLIDINE SCREEN URINE (BEAKER) Negative Negative (test code = 608) OXYCODONE SCREEN URINE (BEAKER) Negative Negative (test code = 2761) DRUG CUTOFF CONC.Cocaine 300 ng/mL Cannabinoid 50 ng/mL Benzodiazepine 200 ng/mLBarbiturate 200 ng/mLPhencyclidine 25 ng/mLOpiate 300 ng/mLMethadone 300 ng/mLAmphetamine/ 1000 ng/mL MethamphetamineOxycodone 300 ng/mLPREGNANCY SCREEN, [id number] 01:47:00 Test Item Value Reference Range Interpretation Comments TEST URINE (BEAKER) (test Negative code = 583) URINALYSIS W/ [id number] 01:46:00 Test Item Value Reference Range Interpretation Comments COLOR (BEAKER) (test code = 470) Light Yellow CLARITY (BEAKER) (test code = Clear 469) SPECIFIC GRAVITY UA (BEAKER) > 1.001-1.035 H (test code = 468) PH UA (BEAKER) (test code = 467) 6.5 5.0-8.0 PROTEIN UA (BEAKER) (test code = Negative Negative 464) GLUCOSE UA (BEAKER) (test code = Negative Negative 365) KETONES UA (BEAKER) (test code = 40 mg/dL Negative A 371) BILIRUBIN UA (BEAKER) (test code Negative Negative = 462) BLOOD UA (BEAKER) (test code = Negative Negative 461) NITRITE UA (BEAKER) (test code = Negative Negative 465) LEUKOCYTE ESTERASE UA (BEAKER) Negative Negative (test code = 466) UROBILINOGEN UA (BEAKER) (test 0.2 mg/dL 0.2-1.0 code = 463) RBC UA (BEAKER) (test code = 0 /HPF 519) WBC UA (BEAKER) (test code = < /HPF 520) SQUAMOUS EPITHELIAL (BEAKER) 1 /HPF (test code = 516) SOURCE(BEAKER) (test code = 2795) BASIC METABOLIC [id number] 22:37:00 Test Item Value Reference Range Interpretation Comments SODIUM (BEAKER) 140 meq/L 136-145 (test code = 381) POTASSIUM (BEAKER) 3.7 meq/L 3.5-5.1 (test code = 379) CHLORIDE (BEAKER) 108 meq/L 98-107 H (test code = 382) CO2 (BEAKER) (test 19 meq/L 22-29 L code = 355) BLOOD UREA NITROGEN 7 mg/dL 7-21 (BEAKER) (test code = 354) CREATININE (BEAKER) 0.61 mg/dL 0.57-1.25 (test code = 358) GLUCOSE RANDOM 99 mg/dL 70-105 (BEAKER) (test code = 652) CALCIUM (BEAKER) 9.4 mg/dL 8.4-10.2 (test code = 697) EGFR (BEAKER) (test mL/min/1.73 INSUFFIC IENT CLINICAL code = 1092) sq m DATA TO CALCULA TE ESTIMATED GFR. CREATINE KINASE (CK), TOTAL AND [id number] 22:33:00 Test Item Value Reference Range Interpretation Comments CREATINE KINASE TOTAL (BEAKER) 119 U/L 29-200 (test code = 380) CREATINE KINASE-MB (BEAKER) (test 1.5 ng/mL 0.0-6.6 code = 750) CREATINE KINASE-MB INDEX (BEAKER) 1.3 % (test code = 395) Effective 03/10/2014: CK-MB Reference Range ChangeNew: 0.0-6.6 Previous: 0.0-4.9CK-MB Reference Range:<6.7 Normal6.7-10.0 Borderline>10.0 AbnormalTROPONIN [id number] 22:33:00 Test Item Value Reference Range Interpretation Comments TROPONIN I (BEAKER) (test code = [...] 2016-07-20 22:33:00 Test Item Value Reference Range Interpretation Comments B-TYPE NATRIURETIC PEPTIDE (BEAKER) 33 pg/mL 0-100 (test code = 700) [id number] 22:27:00 Test Item Value Reference Range Interpretation Comments MAGNESIUM (BEAKER) (test code = 1.9 mg/dL 1.6-2.6 627) [id number] 22:10:00 Test Item Value Reference Range Interpretation Comments PROTIME (BEAKER) (test code = 13.6 seconds 11.7-14.7 759) INR (BEAKER) (test code = 370) 1.1 <=5.9 PARTIAL THROMBOPLASTIN TIME 26.9 seconds 22.5-36.0 (BEAKER) (test code = 760) RECOMMENDED COUMADIN/WARFARIN INR THERAPY RANGESSTANDARD DOSE: 2.0 - 3.0 Includes: PROPHYLAXIS forvenous thrombosis, systemic embolization; TREATMENT for venous thrombosis and/or pulmonary embolus.HIGH RISK: Target INR is 2.5-3.5 for patients with mechanical heart valves.POCT-GLUCOSE [id number] 22:02:00 Test Item Value Reference Range Interpretation Comments POC-GLUCOSE METER 86 mg/dL 70-[address] [facility] 67[address] (BEAKER) (test code = [place] [address] 1538) CBC W/PLT COUNT & AUTO [id number] 22:01:00 Test Item Value Reference Range Interpretation Comments WHITE BLOOD CELL COUNT (BEAKER) 15.3 K/ L 4.0-10.0 H (test code = 775) RED BLOOD CELL COUNT (BEAKER) 4.11 M/ L 4.00-5.00 (test code = 761) HEMOGLOBIN (BEAKER) (test code = 10.4 GM/DL 12.0-15.0 L 410) HEMATOCRIT (BEAKER) (test code = 33.3 % 36.0-45.0 L 411) MEAN CORPUSCULAR VOLUME (BEAKER) 81.0 fL 82.0-99.0 L (test code = 753) MEAN CORPUSCULAR HEMOGLOBIN 25.3 pg 27.0-33.0 L (BEAKER) (test code = 751) MEAN CORPUSCULAR HEMOGLOBIN CONC 31.3 GM/DL 32.0-36.0 L (BEAKER) (test code = 752) RED CELL DISTRIBUTION WIDTH 15.3 % 10.3-14.2 H (BEAKER) (test code = 412) PLATELET COUNT (BEAKER) (test 424 K/CU MM 150-430 code = 756) MEAN PLATELET VOLUME (BEAKER) 7.3 fL 6.5-10.5 (test code = 754) NUCLEATED RED BLOOD CELLS 0 /100 WBC 0-0 (BEAKER) (test code = 413) NEUTROPHILS RELATIVE PERCENT 79 % (BEAKER) (test code = 429) LYMPHOCYTES RELATIVE PERCENT 14 % (BEAKER) (test code = 430) MONOCYTES RELATIVE PERCENT 6 % (BEAKER) (test code = 431) EOSINOPHILS RELATIVE PERCENT 0 % (BEAKER) (test code = 432) BASOPHILS RELATIVE PERCENT 0 % (BEAKER) (test code = 437) NEUTROPHILS ABSOLUTE COUNT 12.00 K/ L 1.80-8.00 H (BEAKER) (test code = 670) LYMPHOCYTES ABSOLUTE COUNT 2.14 K/ L 1.48-4.50 (BEAKER) (test code = 414) MONOCYTES ABSOLUTE COUNT (BEAKER) 0.97 K/ L 0.00-1.30 (test code = 415) EOSINOPHILS ABSOLUTE COUNT 0.03 K/ L 0.00-0.50 (BEAKER) (test code = 416) BASOPHILS ABSOLUTE COUNT (BEAKER) 0.07 K/ L 0.00-0.20 (test code = 417) 0.00
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
--- OUTSIDE RECORDS SUMMARY | 2019-10-03 16:25 | XMS REPORT | Summary of Care ---
:1985 Author Organization [facility] Address [address] [place] [address] Care Team Providers Name Role Phone Diaz Primary Care Provider Encounter Details Date Type Department Care Team Description 08/18/2019 Prep For Surgery [facility] Stefano Murray Rupture of anterior Orthopaedic Surgery- MD Jossie cruciate ligament of [place] [address] right knee, initial [address], [address] encounter (Primary [address] [place], [place] Dx) [place] [address] [phone] Allergies No Known Allergiesdocumented as of this [...] Genital herpes simplex, times daily. unspecified site Hospital, Clinic, or Other Ordered Dose Route Frequency Start Date End Date Status Facility Administered Medication ceFAZolin in dextrose 2 g IVPB ONCE NOW 08/18/2019 020 Active (iso-os) (ANCEF) 2 gram/100 mL Piggyback 2 g oxyCODONE-acetaminophen 2 tablet Oral ONCE 08/18/201908/17 Active (PERCOCET) 5-325 mg per tablet 2 tablet documented as of this encounter (statuses as [...] months Sina Escalante MD, FACC, FACP, ARMIDAE Sprayer Operator, Division of Cardiol [facility] Essential hypertension 07/21/2016 History of [...] Sign Reading Time Taken Comments Blood Pressure - - Pulse - - Temperature - - Respiratory Rate - - Oxygen Saturation - - Inhaled Oxygen Concentration - - Weight 54.4 kg (120 lb) 08/15/2019 9:06 AM CDT Height - - Body Mass Index 21.95 08/15/2019 8:38 AM CDT documented in this encounter Plan of Treatment Date Type Specialty Care Team Description 09/24/2019 Office Visit OB Meis Tristen Navarrete, CNP [address] [place], [place] [address] [phone] Name Type Priority Associated Diagnoses Order S chedule aPTT LAB Routine Rupture of anterior Expected : 08/15/2019, cruciate ligament of Expires : 08/14/2020 right knee, initial encounter PT / INR LAB Routine Rupture of anterior Expected : 08/15/2019, cruciate ligament of Expires : 08/14/2020 right knee, initial encounter COMP. METABOLIC PANEL LAB Routine Rupture of anterior Expected: 08/15/2019, (53557) cruciate ligament of Expires : 08/14/2020 right knee, initial encounter BASIC METABOLIC PANEL LAB Routine Rupture of anterior Expected: 08/15/2019, (NA, K, CL, CO2, cruciate ligament of Exp ires: 08/14/2020 GLUCOSE, BUN, right knee, initial CREATININE, CA) encounter URINALYSIS LAB Routine Rupture of anterior Expected : 08/15/2019, cruciate ligament of Expires : 08/14/2020 right knee, initial encounter XR CHEST 1 VW IMAGING Routine Rupture of anterior Expecte d: 08/15/2019, cruciate ligament of Expires : 10/15/2019 right knee, initial encounter EKG-12 LEAD ROUTINE HEART STATION Routine Rupture of anterior 1 Occurrences cruciate ligament of startin g 08/15/2019 right knee, initial until encounter Health Maintenance Due Date Last Done [...] Effective Dates Phone Addre ss Type Group [facility] MEDICAID OF xxxxxxxxx 2019-Present [phone] [address] [place] [id number] [place] [address] documented as of this encounter Advance Directives Name Relationship Healthcare Agent Communication Relationship Waylon Brennan Other Primary healthcare agent [email or web address]
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
--- OUTSIDE RECORDS SUMMARY | 2019-10-03 16:26 | XMS REPORT | Summary of Care ---
:1985 Author Organization [facility] Address [address] [place] [address] Care Team Providers Name Role Phone Diaz Primary Care Provider Reason for Visit Reason Comments NURSE VISIT COVID PREOP TESTING Auth/Cert Status Reason Specialty Diagnoses / Procedures Referred By Ted mancia Referred To Contact Phlebotomy Diagnoses pre op testing [facility] Pob Lab Draw Procedures CBC/DIFFERENTIAL (NO PLATELET)- Professional Office Building [address] [place] [address] , [address] [place] [address] Phone: Fax: Encounter Details Date Type Department Care Team Description 08/15/2019 Nurse Visit [facility] Surgical Ted Murray MD [facility] [place] [address] COVID-19 (Primary Dx) Specialties - [place] on Nurse, [facility] General Surgery [address] [place] [address], [address] [place] [address] Allergies No Known Allergiesdocumented as [...] Added automatically from request for rehan buenrostro [id number] History of cerebrovascular accident (CVA) with residua [...] months Sina Escalante MD, FACC, FACP, FASE Basket Bottom Machine Operator, Division of Cardiol ogy [facility] Essential hypertension 07/21/2016 History of [...] swab. Information in link below was given. Https://www.cdc.gov/coronavirus/2019-ncov/downloads/dvqpdierc-zjm-hoacoobb-2019- nCoV.pdf Italia Allen is a 34 year old female comes to clinic independent in ambulation for covid preop testing. Pt comes alone . Pt in NAD w/ pain reported 0/10. Pt preferred language is Cuban. Pt. denies fall in last 12 months. Allergies and medications reviewed and updated. documented in this encounter Plan of Treatment Date Type Specialty Care Team Description 08/18/2019 Prep For Surgery Orthopedic Surgery Stefano Murray Ru pture of anterior MD Jossie cruciate ligament of [address] right knee, initial [address] encounter ([place]) [phone] 08/18/2019 Hospital Encounter Surgery Stefano Murray Ruptur e of anterior L, cruciate ligament of [address] right knee, [place] [address] 08/18/2019 Anesthesia Event Surgery Kar Pearson[address] [phone] 08/18/2019 Surgery Surgery Stefano Murray ANTERIOR CRU MACARIO Sethi MD LIGAMENT [address] [place] [address] [place] [address] 09/24/2019 Office Visit OB Satellites Whit Navarrete, CN P [address] [place] [address] [phone] Health Maintenance Due Date Last Done Comments PNEUMOCOCCAL 0-64 YEARS COMBINED SERIES (1 08/09/1993 of 1 - PPSV23) PAP SMEAR 02/16/2018 02/16/2015 INFLUENZA VACCINE (#1) 2018 DTaP,Tdap,and Td Vaccines (2 - Td) 04/30/2027 04/30/2017, 0 12/22/2013 documented as of this encounter Procedures Procedure Name Priority Date/Time Associated Comments Diagnosis CORONAVIRUS COVID-19 Routine 08/15/2019 12:15 COVID-19 Res ults for this TESTING PM CDT procedure are i n the results section. documented in this encounter Results CORONAVIRUS COVID-19 TESTING (08/15/2019 12:15 PM CDT) Pathologist Sig nature SARS-CoV-2 Not Detected Not Detected [facility] Specimen Swab - NASOPHARYNGEAL SWAB Narrative Performed At [facility] COVID-19 Assay is an isothermal nucleic [facility] acid amplification test intended for the qualitative detection of nucleic acid from SARS-CoV-2 viral RNA in nasopharyngeal (PLANTING MACHINE OPERATOR) specimens. It is used under Emergency Use Authorization (EUA) by FDA. The limit of detection (LOD) of the assay is 125 Genome Equivalents/mL. A positive result is indicative of the presence of SARS-CoV-2 RNA. Clinical correlation with patient history and other diagnostic information is necessary to determine patient infection status. A negative (Not Detected) result does not preclude SARS-CoV-2 infection. Clinical correlation with patient history and other diagnostic information should be used in patient management decisions. Invalid: Please collect a new specimen for repeat patient testing if clinically indicated. Performing Organization Address City/State/Zipcode Phone Number [facility] CLIA: [id number], [address] [place], [place] [address] documented in this encounter Visit Diagnoses Diagnosis COVID-19 - Primary documented in this encounter Insurance Payer Benefit Plan / Subscriber ID Effective Dates Phone Addre ss Type Group [facility] MEDICAID OF xxxxxxxxx 2019-Present [phone] [address] Medicaid [place] [address] [place] [address] (Work) [id number] documented as of this encounter Advance Directives Name Relationship Healthcare Agent Communication Relationship Waylon Brennan Other Primary healthcare agent [email or web address]
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
--- OUTSIDE RECORDS SUMMARY | 2019-10-03 16:27 | XMS REPORT | Summary of Care ---
:1985 Author Organization [facility] Address [address] [place] [address] Care Team Providers Name Role Phone Diaz Primary Care Provider Encounter Details Date Type Department Care Team Description 08/20/2019 Letter (Out) [facility] Orthopaedic Stefano Murray MD Surgery- [place] [address] [facility] [address] [facility], [address] [place] [address] [address] [place], [place] [phone] [address] [phone] Allergies No Known Allergiesdocumented as of this [...] Overview: Added automatically from request for rehan porter [id number] History of cerebrovascular accident (CVA) with residua [...] months Sina Escalante MD, FACC, FACP, ARMIDAE Education Diagnostician, Division of Cardiol [facility] Essential hypertension 07/21/2016 History of [...] 09/24/2019 Office Visit [facility] Satellites [facility] Nav[facility]rete, [facility] [address] [address] [phone] Health Maintenance Due Date Last Done Comments PNEUMOCOCCAL 0-64 YEARS COMBINED SERIES (1 08/09/1993 of 1 - PPSV23) PAP SMEAR 02/16/2018 02/16/2015 INFLUENZA VACCINE (#1) 2018 DTaP,Tdap,and Td Vaccines (2 - Td) 04/30/2027 04/30/2017, 0 12/22/2013 documented as of this encounter Implants Implanted Type Area Keller Machine Operator Device Shelf Model / Identifier Expiration Serial / Date Lot Screw, Fast Thread Biocomposite Interference, 7x20mm SCREW Right : [employer] 05/23/2023 AR-4020C-07 / Implanted: Qty: 1 on 08/18/2019 by Stefano De La Torre MD at [facility] Knee N /A / [id number] Tightrope Ar[employer]rex Acl Rt #[id number] - Sn/A TightRope Right: [employer] 07/22/2023 [id number] / Implanted: Qty: 1 on 08/18/2019 by Stefano De La Torre MD at [facility] Knee N /A / [id number] documented as of this encounter Results Not on filedocumented in this encounter Insurance Payer Benefit Plan / Subscriber ID Effective Dates Phone Addre ss Type Group [facility] MEDICAID OF xxxxxxxxx 2019-Present [phone] [address] Medicaid [place] [address] [place] [address] documented as of this encounter Advance Directives Name Relationship Healthcare Agent Communication Relationship Waylon Brennan Other Primary healthcare agent [email or web address]
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
--- OUTSIDE RECORDS SUMMARY | 2019-10-03 16:27 | XMS REPORT | Summary of Care ---
:1985 Author Organization [facility] Address [address] [place] [address] Care Team Providers Name Role Phone Diaz Primary Care Provider Reason for Visit Reason Comments Pain Auth/Cert Status Reason Specialty Diagnoses / Referred By Referred To Procedures Contact Contact Emergency Medicine Diagnoses pain [facility] Emergency Dept [address] [facility] [address] Fax: Encounter Details Date Type Department Care Team Description 08/19/2019 Emergency ADC-Emergency Anival Bal MD Post-op pain (Primary Department [address] [place] [address]) [address] [facility] [address] [place] [address] [place], [place] [id number] Allergies No Known Allergiesdocumented as of this encounter (statuses as of 08/19/2019) Medications Medication Sig Dispensed Refills Start Date End Date Status acetaminophen-codei Take 1 tablet 28 tablet 0 08/18/2019 Active ne 300-30 mg tablet by mouth every 4 (four) hours as needed for Pain (scale 4-6). aspirin 81 mg Take 1 tablet 30 tablet 3 02/15/2017 08/19/2019 Discontinued chewable by mouth tabletIndications: daily. Supervision of high risk , antepartum, second trimester, H/O: stroke, Generalized anxiety disorder, Marijuana use, Nausea and vomiting during clopidogrel 75 mg Take 1 tablet 30 tablet 5 10/21/2017 020 Discontinued tablet by mouth daily. traMADOL 50 mg Take 1 tablet 20 tablet 0 02/09/2018 08/19/2019 Discontinued tablet by mouth every 6 (six) hours as needed for Pain (scale 4-6). acyclovir 400 mg Take 1 tablet 60 tablet 2 07/23/2019 08/19/19 20 Discontinued tabletIndications: by mouth 2 Genital herpes (two) times simplex, daily. unspecified site documented as of this [...] Added automatically from request for rehan buenrostro [id number] History of cerebrovascular accident (CVA) with residua [...] months Sina Escalante MD, FACC, FACP, ARMIDAE Pipeline Operator, Division of Cardiol [facility] Essential hypertension 07/21/2016 History of [...] Sign Reading Time Taken Comments Blood Pressure 149/101 08/19/2019 2:02 AM CDT Pulse 69 08/19/2019 2:02 AM CDT Temperature 37.9 C (100.2 F) 08/19/2019 2:02 AM CDT Respiratory Rate 20 08/19/2019 2:02 AM CDT Oxygen Saturation 99% 08/19/2019 2:02 AM CDT Inhaled Oxygen Concentration - - Weight 54.4 kg (120 lb) 08/19/2019 2:02 AM CDT Height 157.5 cm (5' 2") 08/19/2019 2:02 AM CDT Body Mass Index 21.95 08/19/2019 2:02 AM CDT documented in this encounter Discharge Instructions InstructionsAnival Bal MD - 08/19/2019 RETURN FOR ANY QUESTIONS OR CONCERNS Today you were seen by Anival Bal Jr., MD You were seen today for Chief Complaint Patient presents with Pain Your ER diagnosis was ICD-10-CM ICD-9-CM 1. Post-op pain G89.18 338.18 NO LIFE-THREATENING FINDINGS ON TODAY'S EXAM. YOUR PRESCRIPTIONS : Check out [employer] for medication discounts Medication List ASK your doctor about these medications acetaminophen-codeine 300-30 mg tablet Commonly known as: TYLENOL #3 Take 1 tablet by mouth every 4 (four) hours as needed for Pain (scale 4-6). ER precautions and follow up : 1. Return to ER if your symptoms should worsen or fail to improve within 72 hours. 2. The care provided in the emergency room was for acute problems only. 3. You should follow up with your primary care provider within 72 hours. 4. Fill and take all your medications as prescribed. 5. Make sure you are staying adequately hydrated. Busque attencion immediatamente si usted tiene los sitomas sigue, vuelve peor o si hay sitomas nuevas o para cualquiera preoccupacion incluyendo dolor del pecho, falta aire, se siente debile, mas fievre, mas dolor, nausea, vomitando, sangrando que no es normal, confusion, baja or pierdas conciencia. MAY FOLLOW-UP WITH A PROVIDER OF YOUR CHOICE, SUCH : 1. A PHYSICIAN OF YOUR CHOICE 2. [facility], . LOCATIONS IN [facility] 3. [facility], [address], [place]; [phone] OR, IF YOU WISH TO FOLLOW-UP WITHIN THE [facility], MAY TRY THESE OPTIONS (CLINIC APPOINTMENTS AVAILABLE ON DFIE-MA-WRSA BASIS): 1. SCHEDULE AN APPOINTMENT ONLINE AT [email or web address] 2. OR CALL THE [facility] AT OR 3. OR CALL YOUR [facility] PHYSICIAN'S OFFICE DIRECTLY IF YOU ARE ALREADY AN ESTABLISHED [facility] PATIENT. [facility] RETURN TO WORK / SCHOOL EXCUSE Italia Allen WAS SEEN IN THE ER AND DISCHARGED 08/19/2019 TODAY, 2:52 AM & May return to Work / School / Incarceration on X with activity as tolerated indicated below. ___The following limitations apply until pt is seen by Physician and cleared to return to normal activity. _X_ Off for two days and return to activity as tolerated at work or school ___ No Sports ___ No work ___ Do not return until fever free for 24 hours. ___ No school ANIVAL BAL Jr., MD [facility] [address] [place] [address] [place] [address] ### The patient may have been given Narcotic pain medications during their stay in the ED that may show up on a Drug Screen. The hospital discharge paper work will identify these medications. AttachmentsThe following attachments cannot be sent through Care Everywhere. Managing Post-Op Pain at Home (Palestinian)documented in this encounter Plan of Treatment Date Type Specialty Care Team Description 09/24/2019 Office Visit OB Satellites Tristen Navarrete, [facility] [address], [place] [address] [phone] Health Maintenance Due Date Last Done Comments PNEUMOCOCCAL 0-64 YEARS COMBINED SERIES (1 08/09/1993 of 1 - PPSV23) PAP SMEAR 02/16/2018 02/16/2015 INFLUENZA VACCINE (#1) 2018 DTaP,Tdap,and Td Vaccines (2 - Td) 04/30/2027 04/30/2017, 0 12/22/2013 documented as of this encounter Implants Implanted Type Area Safety Director Device Shelf Model / Identifier Expiration Serial / Date Lot Screw, Fast Thread Biocomposite Interference, 7x20mm SCREW Right : [employer] 05/23/2023 AR-4020C-07 / Implanted: Qty: 1 on 08/18/2019 by Stefano De La Torre MD at [facility] Knee N /A / [id number] Tightrope Arthrex Acl Rt #[id number] - Sn/A TightRope Right: [employer] 07/22/2023 [id number] / Implanted: Qty: 1 on 08/18/2019 by Stefano De La Torre MD at [facility] Knee N /A / [id number] documented as of this encounter Results Not on filedocumented in this encounter Visit Diagnoses Diagnosis Post-op pain - Primary Other acute postoperative pain documented in this encounter Administered Medications Medication Order MAR Action Action Date Dose Rate Site FENTanyl PF (SUBLIMAZE Given 08/19/2019 2:18 AM 75 mcg Left (PF)) injection 75 mcg CDT Ventrogluteal-I M 75 mcg, Intramuscular, ONCE, 1 dose, 08/19/19 at 0315, STAT documented in this encounter Insurance Payer Benefit Plan / Subscriber ID Effective Dates Phone Addre ss Type Group [facility] MEDICAID OF xxxxxxxxx 2019-Present [phone] [address] Medicaid [place] [id number] [place] [phone] (Work) [id number] documented as of this encounter Advance Directives Name Relationship Healthcare Agent Communication Relationship Waylon Brennan Other Primary healthcare agent [email or web address]
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
--- OUTSIDE RECORDS SUMMARY | 2019-10-03 16:28 | XMS REPORT | Summary of Care ---
:1985 Author Organization [facility] Address [address] [place] [address] Care Team Providers Name Role Phone Diaz Primary Care Provider Reason for Visit Reason Comments POST-OP 1 week post op ACL reconstru ction right knee, in severe pain DOI:08/18/2019 Refill Request Med refill Encounter Details Date Type Department Care Team Description 08/25/2019 Office Visit [facility] Bo Lepe, Status post Orthopaedic Surgery- PAC reconstruction of [place] [address] cruc[address], Himanshu C ligament (Primary Dx) [place] [address] [phone] Allergies No Known Allergiesdocumented as of this [...] Active Problems Patient Care Coordination Note Per [facility] consensus: Aspirin 81mg daily. Plan to start [...] Added automatically from request for rehan buenrostro [id number] History of cerebrovascular accident (CVA) with residua [...] months Sina Escalante MD, FACC, FACP, FASE Landscape Laborer, Division of Cardiol [facility] Essential hypertension 07/21/2016 History of [...] kg (120 lb) Height: 62" (157.5 cm) [facility]/pharmacy #[id number] - [place] [address] All Vitals taken, allergies and all medications [...] Right 08/18/2019 Surgeon: Stefano Murray MD; Location: [place] Location LAPAROSCOPIC OVARIAN CYSTECTOMY Right 09/25/2017 Surgeon: Karen Argueta MD; Location[place] [facility] [place] right tube due to ectopic Social History Socioeconomic History Marital status: Spouse name: Not on file Number of children: 3 Years of education: 12 Highest education level: Not on file Occupational History 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 Social Needs Financial resource strain: Not on [...] file Gets together: Not on file Attends pentecostalism service: Not on file Active member of [...] Office Visit Orthopedic Surgery Bo Lepe PAC [address] [place] [phone] 09/24/2019 Office Visit OB Satellites Tristen Navarrete, CNP [address] [facility] [place] [place] [address] [phone] Health Maintenance Due Date Last Done Comments PNEUMOCOCCAL 0-64 YEARS COMBINED SERIES (1 08/09/1993 of 1 - PPSV23) PAP SMEAR 02/16/2018 02/16/2015 INFLUENZA VACCINE (Season Ended) 2019 DTaP,Tdap,and Td Vaccines (2 - Td) 04/30/2027 04/30/2017, 0 12/22/2013 documented as of this encounter Implants Implanted Type Area Warp Hanger Device Shelf Model / Identifier Expiration Serial / Date Lot Screw, Fast Thread Biocomposite Interference, 7x20mm SCREW Right : [employer] 05/23/2023 AR-4020C-07 / Implanted: Qty: 1 on 08/18/2019 by Stefano De La Torre MD at [facility] Knee N /A / [id number] Tightrope Arthrex Acl Rt #[id number] - Sn/A TightRope Right: [employer] 07/22/2023 [id number] / Implanted: Qty: 1 on 08/18/2019 by Stefano De La Torre MD at [facility] Knee N /A / [id number] documented as of this encounter Results Not on filedocumented in this encounter Visit Diagnoses Diagnosis Status post reconstruction of anterior c ruciate ligament - Primary Other postprocedural status documented in this encounter Insurance Payer Benefit Plan / Subscriber ID Effective Phone Address T ype Group Dates [employer] xxxxxxxxx 2019-Prese [address] Medicaid [facility] [address] [place] [address] (Work) [phone] documented as of this encounter Advance Directives Name Relationship Healthcare Agent Communication Relationship Waylon Brennan Other Primary healthcare agent [email or web address]
--- OUTSIDE RECORDS SUMMARY | 2019-10-03 16:28 | XMS REPORT | Summary of Care ---
:1985 Author Organization [facility] Address [address] [place] [address] Care Team Providers Name Role Phone Diaz Primary Care Provider Reason for Visit Reason Comments Follow-up Knee Pain ACL reconstruction right kne e DOS 08/18/19 Encounter Details Date Type Department Care Team Description 08/21/2019 Office Visit [facility] Bo Lepe S, Status post Orthopaedic Surgery- PAC reconstruction of [place] [address] cruc[address], Himanshu C ligament (Primary Dx) [place] [address] [phone] Allergies No Known Allergiesdocumented as of this [...] Added automatically from request for rehan buenrostro [id number] History of cerebrovascular accident (CVA) with residua [...] months Sina Escalante MD, FACC, FACP, ARMIDAE Journalists And Other Writers, Division of Cardiol [facility] Essential hypertension 07/21/2016 History of [...] Right 08/18/2019 Surgeon: Stefano Murray MD; Location: [facility] OR [facility] LAPAROSCOPIC OVARIAN CYSTECTOMY Right 09/25/2017 Surgeon: Karen Argueta MD; Location: [facility] OR 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 Social Needs Financial resource strain: Not on [...] file Gets together: Not on file Attends episcopalian service: Not on file Active member of [...] Office Visit Orthopedic Surgery Bo Lepe PAC [address] [place] [phone] 09/24/2019 Office Visit [facility] Satell[facility] [address] [place] [address] [phone] Health Maintenance Due Date Last Done Comments PNEUMOCOCCAL 0-64 YEARS COMBINED SERIES (1 08/09/1993 of 1 - PPSV23) PAP SMEAR 02/16/2018 02/16/2015 INFLUENZA VACCINE (#1) 2018 DTaP,Tdap,and Td Vaccines (2 - Td) 04/30/2027 04/30/2017, 0 12/22/2013 documented as of this encounter Implants Implanted Type Area Manager Leadership Development Device Shelf Model / Identifier Expiration Serial / Date Lot Screw, Fast Thread Biocomposite Interference, 7x20mm SCREW Right : [employer] 05/23/2023 AR-4020C-07 / Implanted: Qty: 1 on 08/18/2019 by Stefano De La Torre MD at [facility] Knee N /A / [id number] Tightrope Arthrex Acl Rt #[id number] - Sn/A TightRope Right: [employer] 07/22/2023 [id number]-[id number] / Implanted: Qty: 1 on 08/18/2019 by Stefano De La Torre MD at [facility] Knee N /A / [id number] documented as of this encounter Results Not on filedocumented in this encounter Visit Diagnoses Diagnosis Status post reconstruction of anterior c ruciate ligament - Primary Other postprocedural status documented in this encounter Insurance Payer Benefit Plan / Subscriber ID Effective Dates Phone Addre ss Type Group [facility] MEDICAID OF xxxxxxxxx 2019-Present [phone] [address] Medicaid [place] [id number] [place] [phone] (Work) [id number] documented as of this encounter Advance Directives Name Relationship Healthcare Agent Communication Relationship Waylon Brennan Other Primary healthcare agent [email or web address]
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
--- OUTSIDE RECORDS SUMMARY | 2019-10-03 16:31 | XMS REPORT | Summary of Care ---
:1985 Author Organization [facility] Address [address] [place] [address] Care Team Providers Name Role Phone Diaz Primary Care Provider Reason for Visit Reason Comments Follow-up ACL check (injured again verito t was caught under door) Encounter Details Date Type Department Care Team Description 09/11/2019 Office Visit [facility] Stefano Murray Status post Orthopaedic Surgery- MD Jossie reconstruction of [place] [address] anterior cruciate [address] [facility], [address] ligament (Primary Dx) [place] [phone] Allergies No Known Allergiesdocumented as of this [...] Active Problems Patient Care Coordination Note Per [facility] consensus: Aspirin 81mg daily. Plan to [...] Added automatically from request for rehan buenrostro [id number] History of cerebrovascular accident (CVA) with residua [...] months Sina Escalante MD, FACC, FACP, ARMIDAE Ambulance Driver, Division of Cardiol [facility] Essential hypertension 07/21/2016 History of [...] Right 08/18/2019 Surgeon: Stefano Murray MD; Location: [facility] OR [facility] LAPAROSCOPIC OVARIAN CYSTECTOMY Right 09/25/2017 Surgeon: Karen Argueta MD; Location: [facility] OR [facility] SALPINGECTOMY 2016 right tube due to ectopic Social History Socioeconomic History Marital status: Spouse name: Not on file Number of children: 3 Years of education: 12 Highest education level: Not on file 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 Social Needs Financial resource strain: Not on [...] file Gets together: Not on file Attends evangelical service: Not on file Active member of [...] 09/24/2019 Office Visit [facility], [facility] [address] [address] [phone] Health Maintenance Due Date Last Done Comments [...] of this encounter Implants Implanted Type Area Admission Nurse Device Shelf Model / Identifier Expiration Serial / Date Lot Screw, Fast Thread Biocomposite Interference, 7x20mm SCREW Right : [employer] 05/23/2023 AR-4020C-07 / Implanted: Qty: 1 on 08/18/2019 by Stefano De La Torre MD at [facility] Knee N /A / [id number] Tightrope [employer] Acl Rt #[id number] - Sn/A TightRope Right: [employer] 07/22/2023 [id number] / Implanted: Qty: 1 on 08/18/2019 by Stefano De La Torre MD at [facility] Knee N /A / [id number] documented as of this encounter Results Not on filedocumented in this encounter Visit Diagnoses Diagnosis Status post reconstruction of anterior c ruciate ligament - Primary Other postprocedural status documented in this encounter Insurance Payer Benefit Plan / Subscriber ID Effective Phone Address T ype Group Dates [employer] xxxxxxxxx 2019-[address] [place] [address] [place] [address] (Work) [id number] documented as of this encounter Advance Directives Name Relationship Healthcare Agent Communication Relationship Waylon Brennan Other Primary healthcare agent [email or web address]
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
[2019-10-03] MEDS ORDERED: MAGNES/ALUMIN/SIMET 30ML UCUP ONE (16:46)
[2019-10-03] MEDS ORDERED: LIDOCAINE VISCOUS 2% SOLN 15 ML UDC ONE (16:46)
--- NOTE | 2019-10-03 17:34 | EDPHYS ---
Physician Documentation [facility] Name: Italia Allen Age: 34 yrs Sex: Female : 1985 Arrival Date: 10/03/2019 Time: 16:20 Bed 17 Private MD: ED Physician Chelsea Mtz HPI: 10/02 17:25 This 34 yrs old Female presents to ER via Ambulatory with complaints of cp Swollen Glands, Sore Throat. 17:25 The patient presents with sore throat, dysphagia. Onset: The symptoms/episode cp began/occurred 2 day(s) ago. Associated signs and symptoms: Pertinent positives: dysphagia, earache, Pertinent negatives cough, diarrhea, fever, vomiting. 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 - Social history:: Smoking status: Patient denies any tobacco usage or history of. ROS: 17:27 Eyes: Negative for injury, pain, redness, and discharge. cp 17:27 Constitutional: Negative for body aches, chills, fever, poor PO intake. 17:27 ENT: Positive for difficulty swallowing, ear pain, sore throat, Negative for drainage from ear(s), difficulty handling secretions. 17:27 Cardiovascular: Negative for chest pain. 17:27 Respiratory: Negative for cough, shortness of breath, wheezing. 17:27 Abdomen/GI: Negative for nausea, vomiting, and diarrhea. 17:27 All other systems are negative. Exam: 17:28 Head/Face: Normocephalic, atraumatic. cp 17:28 Constitutional: The patient appears in no acute distress, alert, awake, non-toxic, well developed, well nourished, uncomfortable. 17:28 Eyes: Periorbital structures: appear normal, Conjunctiva: normal, no exudate, no injection, Lids and lashes: appear normal, bilaterally. 17:28 ENT: External ear(s): are unremarkable, Ear canal(s): are normal, clear, TM's: erythema, that is moderate, bilaterally, Nose: is normal, Mouth: Lips: moist, Oral mucosa: moist, Posterior pharynx: Airway: no evidence of obstruction, patent, Uvula: midline, swelling, that is mild, erythema, that is marked, exudate, is not appreciated. 17:28 Neck: Lymph nodes: lymphadenopathy is appreciated, anterior cervical nodes. 17:28 Chest/axilla: Inspection: normal, Palpation: is normal, no crepitus, no tenderness. 17:28 Cardiovascular: Rate: normal, Rhythm: regular. 17:28 Respiratory: the patient does not display signs of respiratory distress, Respirations: normal, no use of accessory muscles, no retractions, labored breathing, is not present, Breath sounds: are clear throughout, no decreased breath sounds. Vital Signs: 16:29 BP 137 / 114; Pulse 97; Resp 15 S; Temp 99(TE); Pulse Ox 99% on R/A; Weight 54.43 kg ca1 (R); Height 5 ft. 2 in. (157.48 cm) (R); Pain 10/10; 17:57 BP 125 / 85; Pulse 87; Resp 17; Temp 98.9; Pulse Ox 99% ; bp 16:29 Body Mass Index 21.95 (54.43 kg, 157.48 cm) ca1 MDM: 17:05 Patient medically screened. dixon 17:30 Differential diagnosis: apthous ulcer, epiglottitis, bulmaro-smith virus, group A strep cp tonsillitis, peritonsillar abscess pharyngitis, retropharyngeal abcess tonsillitis, uvulitis. 17:34 Data reviewed: vital signs, nurses notes, lab test result(s), and as a result, I will cp discharge patient. 17:34 Counseling: I had a detailed discussion with the patient and/or guardian regarding: the cp historical points, exam findings, and any diagnostic results supporting the discharge/admit diagnosis, lab results, to return to the emergency department if symptoms worsen or persist or if there are any questions or concerns that arise at home. Response to treatment: the patient's symptoms have mildly improved after treatment, and as a result, I will discharge patient. 10/02 16:21 Order name: Strep kb 10/02 17:34 Order name: Throat Culture EDTX 10/02 17:47 Order name: Urine Dipstick--Ancillary (enter results) 10/02 17:47 Order name: Urine --Ancillary (enter results) 10/02 17:25 Order name: Urine Dipstick-Ancillary (obtain specimen); Complete Time: 17:54 cp 10/02 17:25 Order name: Urine Test (obtain specimen); Complete Time: 17:54 cp Administered Medications: 16:35 Drug: GI Cocktail without - (Maalox Suspension 30 ml, Lidocaine Liquid 2 % 15 ca1 ml) Route: PO; 17:54 Follow up: Response: No adverse reaction bp 17:20 Drug: Lortab Liquid 10 ml Route: PO; bp 17:54 Follow up: Response: Pain is decreased bp 17:32 Drug: Ibuprofen 600 mg Route: PO; bp 17:54 Follow up: Response: Pain is decreased bp 17:32 Drug: Augmentin 875 mg Route: PO; bp 17:54 Follow up: Response: Pain is decreased bp Disposition: 18:46 Co-signature as Attending Physician, Chelsea Mtz MD. ma2 Disposition: 10/03/19 17:34 Discharged to Home. Impression: Otitis media, unspecified, bilateral, Acute pharyngitis. - Condition is Stable. - Discharge Instructions: Otitis Media, Adult, Pharyngitis. - Prescriptions for Augmentin 875- 125 mg Oral Tablet - take 1 tablet by ORAL route every 12 hours for 10 days; 20 tablet. Tylenol- Codeine #3 300-30 mg Oral Tablet - take 2 tablets by ORAL route every 8 hours As needed; 15 tablet. - Medication Reconciliation Form, Thank You Letter, Antibiotic Education, Prescription Opioid Use form. - Follow up: Private Physician; When: 2 - 3 days; Reason: Worsening of condition. - Problem is new. - Symptoms have improved. Signatures: Dispatcher [employer] EDTX Radha Lynn FNP-C UNDERGROUND REPAIRER-Serjio Chambers PA PA cp Peltier, Brian, RN RN Chelsea Clayton MD MD ma2 Opal Gilmore RN RN ca1 Corrections: (The following items were deleted from the chart) 17:58 17:34 10/03/2019 17:34 Discharged to Home. Impression: Otitis media, unspecified, bp bilateral; Acute pharyngitis. Condition is Stable. Forms are Medication Reconciliation Form, Thank You Letter, Antibiotic Education, Prescription Opioid Use. Follow up: Private Physician; When: 2 - 3 days; Reason: Worsening of condition. Problem is new. Symptoms have improved. cp
--- NOTE | 2019-10-03 17:34 | ER ---
Nurse's Notes [facility] Name: Italia Allen Age: 34 yrs Sex: Female : 1985 Arrival Date: 10/03/2019 Time: 16:20 Bed 17 Private MD: Diagnosis: Otitis media, unspecified, bilateral;Acute pharyngitis Presentation: 10/02 16:29 Chief complaint: Patient states: Throat swollen since 2 days ago. Can't talk and can't ca1 swallow anything. Reports pain on ears and headache. Denies fever. Coronavirus screen: Proceed with normal triage. Patient denies a cough. Patient denies shortness of breath or difficulty breathing. Patient denies measured and/or subjective temperature greater than 100.4F prior to today's visit. Patient denies travel on a cruise ship or to a country the [facility] currently lists as an affected area. Patient denies contact with known and/or suspected case of COVID-19. Ebola Screen: Patient negative for fever greater than or equal to 101.5 degrees Fahrenheit, and additional compatible Ebola Virus Disease symptoms Patient denies exposure to infectious person. Patient denies travel to an Ebola-affected area in the 21 days before illness onset. No symptoms or risks identified at this time. Initial Sepsis Screen: Does the patient meet any 2 criteria? No. Patient's initial sepsis screen is negative. Does the patient have a suspected source of infection? No. Patient's initial sepsis screen is negative. Risk Assessment: Do you want to hurt yourself or someone else? Patient reports no desire to harm self or others. Onset of symptoms was October 03, 2019. 16:29 Method Of Arrival: Ambulatory ca1 16:29 Acuity: BUDDY 3 ca1 Triage Assessment: 16:35 General: Appears in no apparent distress. uncomfortable, Behavior is cooperative, bp appropriate for age, anxious. Pain: Complains of pain in right ear, left ear and neck. EENT: Tympanic membrane reddened on right ear and left ear Throat is reddened. Neuro: No deficits noted. Cardiovascular: No deficits noted. Respiratory: No deficits noted. GI: No signs and/or symptoms were reported involving the gastrointestinal system. : No signs and/or symptoms were reported regarding the genitourinary system. Derm: No deficits noted. Musculoskeletal: No deficits noted. 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 - Social history:: Smoking status: Patient denies any tobacco usage or history of. Screenin:35 Abuse screen: Denies threats or abuse. Denies injuries from another. Nutritional bp screening: No deficits noted. Tuberculosis screening: No symptoms or risk factors identified. Fall Risk None identified. Assessment: 16:35 General: SEE TRIAGE NOTE. Respiratory: Airway is patent Respiratory effort is even, bp unlabored, Breath sounds are clear bilaterally. 17:57 Reassessment: PT D/C HOME AMBULATORY, DX WITH BILATERAL OTITIS MEDIA AND ACUTE bp PHARYNGITIS. Vital Signs: 16:29 BP 137 / 114; Pulse 97; Resp 15 S; Temp 99(TE); Pulse Ox 99% on R/A; Weight 54.43 kg ca1 (R); Height 5 ft. 2 in. (157.48 cm) (R); Pain 10/10; 17:57 BP 125 / 85; Pulse 87; Resp 17; Temp 98.9; Pulse Ox 99% ; bp 16:29 Body Mass Index 21.95 (54.43 kg, 157.48 cm) ca1 ED Course: 16:20 Patient arrived in ED. as 16:32 Triage completed. ca1 16:32 Arm band placed on right wrist. ca1 16:35 Patient has correct armband on for positive identification. Bed in low position. Call bp light in reach. Side rails up X2. 17:02 Strep Sent. ca1 17:13 Serjio Heck PA is PHCP. cp 17:13 Chelsea Mtz MD is Attending Physician. cp 17:31 Kar Cisneros, DIXIE is Primary Nurse. bp 17:58 No provider procedures requiring assistance completed. Patient did not have IV access bp during this emergency room visit. Administered Medications: 16:35 Drug: GI Cocktail without - (Maalox Suspension 30 ml, Lidocaine Liquid 2 % 15 ca1 ml) Route: PO; 17:54 Follow up: Response: No adverse reaction bp 17:20 Drug: Lortab Liquid 10 ml Route: PO; bp 17:54 Follow up: Response: Pain is decreased bp 17:32 Drug: Ibuprofen 600 mg Route: PO; bp 17:54 Follow up: Response: Pain is decreased bp 17:32 Drug: Augmentin 875 mg Route: PO; bp 17:54 Follow up: Response: Pain is decreased bp Outcome: 17:34 Discharge ordered by . cp 17:58 Discharged to home ambulatory. bp 17:58 Condition: stable 17:58 Discharge instructions given to patient, Instructed on discharge instructions, follow up and referral plans. medication usage, Demonstrated understanding of instructions, follow-up care, medications, Prescriptions given X 2. 17:58 Patient left the ED. bp Signatures: Yanet Rivera Corey, PA PA cp Peltier, Brian, RN RN bp Opal Gilmore RN RN ca1 Corrections: (The following items were deleted from the chart) 16:34 16:32 LMP 08/2019 ca1 ca1 16:40 16:29 Acuity: BUDDY 4 ca1 ca1 16:40 16:29 Pulse 97bpm; Resp 15bpm; Spontaneous; Pulse Ox 99% RA; Temp 99F Temporal; 54.43 ca1 kg Reported; Height 5 ft. 2 in. Reported; BMI: 21.9; Pain 10/10; ca1
[2019-10-03] MEDS ORDERED: AMOX/K CLAV 875 MG TAB ONE (17:42)
[2019-10-03] MEDS ORDERED: IBUPROFEN 400 MG TAB ONE (17:42)
[2019-10-03] MEDS ORDERED: HYDROCOD 2.5mg-ACETAMIN 108mg/5mL Soln ONE (17:42)
[2019-10-03 18:06] VITALS: O2SAT 99
[2019-10-03 18:07] VITALS: BP 125/85; TEMP 98.9
[2019-10-03 18:50] LABS: Urine Blood TRACE (NEG); Urine Glucose NEGATIVE (NEG); Urine Protein NEGATIVE (NEG)
== END 2019-10-03 17:58 | disposition home or self-care (01) ==
LOC: ER 16:18
DX: H66.93 Otitis media, unspecified, bilateral (principal); J02.9 Acute pharyngitis, unspecified
CPT/HCPCS: 81003; 81025; 87070; 87081; 99283

== ENCOUNTER 2020-08-31 18:34 | Emergency (ER) | payer OTHER ==
--- OUTSIDE RECORDS SUMMARY | 2020-08-31 18:38 | XMS REPORT | Continuity of Care Document ---
:1985 Author Organization [facility] t Address [address] [place] [address] Care Team Providers Name Role Phone Mora Wilcox Attending Clinician Jossie Murray MD Attending Clinician Doctor Unassigned, Name Attending Clinician Unavailable TARA Attending Clinician Unavailable JOANA NAVARRO Attending Clinician Unavailable MARY ERNST Admitting Clinician Unavailable JENNIFER HANKS Admitting Clinician Unavailable Problems Condition Condition Condition Status Onset Resolution Last Treating Co mments Source Name Details Category Date Date Treatment Clinician Date Right Right Disease Active [facility]-19 [facility] quadrant quadrant 00:00: Medica l pain pain 00 Center Pancreatit Pancreatit Disease Active [facility]18 [facility] - [facility] Medical 00 Center Severe Severe Disease Active 2020-[address] [facility] protein-ca protein-ca 4-18 Madelyn kes - ashely lund 00:00: Medical malnutriti malnutriti 00 Ce nter on on [place] Disease Active 2020-[address] lithiasis lithiasis 4-17 [facility] - 00:[facility]: Medical 00 Center Right Right Disease Active [facility] lower [...] [facility] - ovale ovale 00:00: Medical 00 Center Received Received Disease Active [facility] t intravenou intravenou 3 Madelyn kes - s tissue s tissue 00:00: Medica l plasminoge plasminoge 00 Ce nter n n activator activator (tPA) in (tPA) in emergency emergency department department Essential Essential Disease Active [facility] hypertensi hypertensi 07-21 Madelyn kes - on on 00:00: Medical 00 Center Allergies, Adverse Reactions, Alerts This patient has no known allergies or adverse reactions. Social History Social Habit Start Date Stop Date Quantity Comments Source Sex Assigned At [facility] Tobacco use and 2019-08-15 2019-08-15 Never used [facility] - exposure 00:00:00 00:00:00 [facility] Alcohol intake 2019-08-15 2019-08-15 Current drinker [facility]I S t [facility] - 00:00:00 00:00:00 of alcohol [facility] (finding) Smoking Status Start Date Stop Date Source Never smoker [facility] edical [place] Medications Ordered Filled Start Stop Current Ordering Indication Dosage Frequency Signature Comments Components Source Medication Medication Date Date Medication? Clinician (SIG) Name Name aspirin 81 Yes 81mg QD Take [address] MG EC 4-24 by mouth [facility] - tablet 14:44: daily. [address] dicyclomine 2020- No 10mg Take [address] (BENTYL) 10 4-20 04-20 capsule [facility] - MG capsule 00:00: 23:59 (10 mg Medi cortney 00 :00 total) by Center mouth 3 (three) times daily before meals For abdominal pain/cramp ing. Procedures This patient has no known procedures. Plan of Care Planned Activity Planned Date Details Comments Source Future Scheduled 2019-12-[address] [facility] - Test 00:00:00 (#1) [code = [facility] INFLUENZA VACCINE (#1)] Future Scheduled 2019-07-[address] - Test 00:00:00 (procedure) [code = [facility] [id number]] Future Scheduled 2008-08-[address] [facility] - Test 00:00:00 malignant neoplasm Medical C enter of cervix (procedure) [code = 606256765] Encounters Start End Encounter Admission Attending Care Care Encounter Source Date/Time Date/Time Type Type Clinicians Facility Department ID 2020-04-06 2020-04-06 [place] Roberth [facility] [id number] 00:00:00 00:00:00 [facility] [id number] [facility] 4.2.7.2.686 Professio [phone] formerly [facility] [address] [facility] 2020-02-02 2020-02-02 [facility] [id number] 00:00:00 00:00:00 Surgery [facility] [id number] Surgical 4.2.7.2.686 Specialti [id number] es [address] 2020-02-01 2020-02-01 [facility] [id number] 00:00:00 00:00:00 [facility] [id number] Surgical 4.2.7.2.686 Specialti [id number] es [address] 2020-01-26 2020-01-26 [facility] [id number] 13:42:13 14:09:11 Visit [facility] [id number] Surgical 4.2.7.2.686 Specialti [id number] es [address] 2020-01-26 2020-01-26 Orders Doctor GO [id number] 00:00:00 00:00:00 Only Unassigned, [place] 350.1.13.10 [place] [facility] 4.2.7.2.686 [id number] 009 2020-01-12 2020-01-12 Orders Doctor ABBI [id number] 00:00:00 00:00:00 Only Unassigned, DOMINGO [id number] [facility] 4.2.7.2.686 [id number] Results Test Description Test Time Test Comments Results Result Sourc e Comments RAD, 2019-07-24 Reason for FINAL REPORT ABDOMEN/KUB, 1 0 exam:->eval position PATIENT ID: VIEW AP 07:30:00 of reportedly [id number] CLINICAL swallowed tongue ring HISTORY: eval position of reportedly swallowed tongue [...] Tavares Verified Date/Time: 08/11/2019 07:30:51 Reading Location: [facility] Radiology Reading Room , CHEST, 1 2019-07-24 Reason for FINAL REPORT VIEW, NON DEPT 0 exam:->nausea, eval PATIENT ID: 05:29:00 for aspirationShould [id number] RAD, this be performed at CHEST, 1 VIEW, NON the bedside?->Yes DEPT INDICATION: nausea, eval for aspiration COMPARISON: Radiograph the chest dated 07/21/2016. FINDINGS: Portable frontal view of the chest. IMPRESSION: Lungs and pleura: Lungs are clear. No pleural effusion. No pneumothorax. No pneumothorax.Heart and mediastinum: Stable contours. Metallic device over the right heart may possibly external to the patient however may represent PFO closure device, correlate clinically.Addition al findings: Osseous structures are unremarkable. Signed: Renae Luna Verified Date/Time: 08/11/2019 05:29:24 C METABOLIC PANEL 2019-08-11 04:56:00 Test Item Value Reference Range Interpretation Comme nts SODIUM (BEAKER) (test code = 138 meq/L 136-145 381) POTASSIUM (BEAKER) (test code 3.6 meq/L 3.5-5.1 = 379) CHLORIDE (BEAKER) (test code = 108 meq/L 98-107 H 382) CO2 (BEAKER) (test code = 355) 27 meq/L 22-29 BLOOD UREA NITROGEN (BEAKER) 6 mg/dL 7-21 L (test code = 354) CREATININE (BEAKER) (test code 0.63 mg/dL 0.57-1.25 = 358) GLUCOSE RANDOM (BEAKER) (test 92 mg/dL 70-105 code = 652) CALCIUM (BEAKER) (test code = 8.4 mg/dL 8.4-10.2 697) EGFR (BEAKER) (test code = I NSUFFICIENT CLINICAL DATA TO 1092) CALCULATE ESTIM ATED GFR. 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 [employer] ID - VICENTAJAYSHREE [id number] 04:49:00 Test Item Value Reference Range Interpretation Comments PHOSPHORUS (BEAKER) (test code = 3.4 mg/dL 2.3-4.7 604) 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 ID - VICENTAJAYSHREE [id number] 04:49:00 Test Item Value Reference Range Interpretation Comments MAGNESIUM (BEAKER) (test code = 1.7 mg/dL 1.6-2.6 627) 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 ID - JENNIFER LHEPATIC FUNCTION [id number] 04:49:00 Test Item Value Reference Range Interpretation [...] (test code = 38 U/L 6-55 347) 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 ID - VICENTAJAYSHREE LCBC (HEMOGRAM ONLY)2019-08-11 04:15:00 Test Item Value Reference [...] (test code = 413) HEPATOBILIARY IMAGING W/ [id number] 18:40:00Scheduled 08/09 but swallowed tongue ringHolding off until f/u KUB and cleared by radiologistReason for exam:- >See aboveFINAL REPORT PROCEDURE: HEPATOBILIARY SCAN CPT CODE: 17215 INDICATION: abdominal pain PROTOCOL: 5.22 mCi of [...] Alexis Nieto MDReport Verified Date/Time: 2019 18:40:53 RAD, ABDOMEN/KUB, 1 VIEW [id number] 16:48:00Reason for exam:->swallowed tongue ring; planned MRCP [...] over the cardiac shadow. Signed: Elijah Aguilera MDReport Verified Date/Time: 2019 16:48:26 Reading Location: [facility] C013Y CT Body Reading Room BASIC METABOLIC [id number] 06:31:00 Test Item Value Reference Range Interpretation [...] 1092) DATA TO CALCULA TE ESTIMATED GFR. 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 ID - PIAYA [id number] 06:27:00 Test Item Value Reference Range Interpretation Comments TRIGLYCERIDES (BEAKER) (test code = 54 mg/dL 540) TRIGLYCERIDE REFERENCE RANGELow Risk <150Borderline Risk 150-199High Risk 200-499Very High Risk>=500Operator ID - PIAYA LHEPATIC FUNCTION PANEL 2019 06:27:00 Test Item Value [...] (test code = 35 U/L 6-55 347) 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 ID - PIAYA LC-REACTIVE [id number] 06:27:00 Test Item Value Reference Range Interpretation Comments C-REACTIVE PROTEIN (BEAKER) (test 0.08 mg/dL 0.00-0.50 code = 676) 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 ID - PIAYA LCBC W/PLT COUNT & AUTO [id number] 05:45:00 Test Item Value Reference Range Interpretation [...] (BEAKER) (test code = 2801) BASIC METABOLIC [id number] 08:22:00 Test Item Value Reference Range Interpretation [...] 1092) DATA TO CALCULA TE ESTIMATED GFR. 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 ID - LMHEPATIC FUNCTION [id number] 08:01:00 Test Item Value Reference Range Interpretation [...] (test code = 39 U/L 6-55 347) 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 ID - [id number] 15:09:00 Test Item Value Reference Range Interpretation Comments LIPASE (BEAKER) (test code = 749) 323 U/L 8-78 H 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 ID - NTPU/S, ABDOMINAL, [id number] 14:33:00Abdomen limited area? Add comment if clarification [...] MDReport Verified Date/Time: 08/08/2019 14:33:42 Reading Location: [place] [id number] Consult Reading Room MR, ABDOMEN, [id number] 12:09:00FINAL REPORT MR Abdomen dated 08/08/2019 Comment: [...] ducts to suggest choledocholithiasis. Common bile duct measures approximately [...] MDReport Verified Date/Time: 08/08/2019 12:09:11 Reading Location: [facility] C013Y CT Body Reading Room BASIC METABOLIC [id number] 06:41:00 Test Item Value Reference Range Interpretation [...] 1092) DATA TO CALCULA TE ESTIMATED GFR. 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 ID - MADELINE [id number] 06:40:00 Test Item Value Reference Range Interpretation Comments MAGNESIUM (BEAKER) (test code = 1.8 mg/dL 1.6-2.6 627) 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 ID - MADELINE WHEPATIC FUNCTION [id number] 06:40:00 Test Item Value Reference Range Interpretation [...] (test code = 53 U/L 6-55 347) 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 ID - MADELINE [id number] 05:43:00 Test Item Value Reference Range Interpretation [...] mechanical heart valves.CBC W/PLT COUNT & AUTO [id number] 05:36:00 Test Item Value Reference Range Interpretation [...] 0-1 PERCENT (BEAKER) (test code = 2801) DILUTE NINI VIPER VENOM (DRVV)2016-07-25 15:34:00 Test Item Value Reference Range Interpretation Comments PROTIME (BEAKER) (test 13.9 seconds 11.7-14.7 code = 759) INR (BEAKER) (test code = 1.1 <=5.9 370) PARTIAL THROMBOPLASTIN 56.1 seconds 22.5-36.0 H TIME (BEAKER) (test code = 760) DRVV INTERPRETATION Normal DRVV Results (BEAKER) (test code = 2406) [id number] Alvarez Moe MD (BEAKER) (test code = [...] 0.00-0.20 (test code = 417) 0.00BASIC METABOLIC [id number] 07:05:00 Test Item Value Reference Range Interpretation [...] TE ESTIMATED GFR. CARDIOLIPIN ANTIBODIES, IGG AND [id number] 14:31:00 Test Item Value Reference Range Interpretation Comments ANTICARDIOLIPIN IGG ANTIBODY (BEAKER) < GPL (test code = 712) ANTICARDIOLIPIN IGM ANTIBODY (BEAKER) < MPL (test code = 713) Anticardiolipin IgG Result Interpretation:NEG: <20 GPL; U/mlPOS: >/=20 GPL; U/mlAnticardiolipin IgM Result Interpretation:NEG: <20 MPL; U/mlPOS: >/=20 MPL; U/mlTHROMBIN [id number] 14:25:00 Test Item Value Reference Range Interpretation Comments THROMBIN TIME (BEAKER) (test code 193.3 secs 13.8-20.0 H = 550) EQUAL MIX, NORMAL [id number] 14:16:00 Test Item Value Reference Range Interpretation [...] = 418) CBC W/PLT COUNT & AUTO [id number] 08:32:00 Test Item Value Reference Range Interpretation [...] (BEAKER) (test code = 1351) BASIC METABOLIC [id number] 06:54:00 Test Item Value Reference Range Interpretation [...] TO CALCULA TE ESTIMATED GFR. BASIC METABOLIC [id number] 07:19:00 Test Item Value Reference Range Interpretation [...] ESTIMATED GFR. CBC W/PLT COUNT & AUTO [id number] 07:07:00 Test Item Value Reference Range Interpretation [...] K/ L 0.00-0.20 (test code = 417) [id number] 11:08:00 Test Item Value Reference Range Interpretation Comments POTASSIUM (BEAKER) (test code = 3.8 meq/L 3.5-5.1 379) [id number] 11:08:00 Test Item Value Reference Range Interpretation Comments MAGNESIUM (BEAKER) (test code = 2.3 mg/dL 1.6-2.6 627) BASIC METABOLIC [id number] 05:29:00 Test Item Value Reference Range Interpretation [...] m DATA TO CALCULA TE ESTIMATED GFR. [id number] 05:27:00 Test Item Value Reference Range Interpretation Comments PHOSPHORUS (BEAKER) (test code = 2.7 mg/dL 2.3-4.7 604) [id number] 05:27:00 Test Item Value Reference Range Interpretation Comments MAGNESIUM (BEAKER) (test code = 1.8 mg/dL 1.6-2.6 627) CBC W/PLT COUNT & AUTO [id number] 05:04:00 Test Item Value Reference Range Interpretation [...] K/ L 0.00-0.20 (test code = 417) [id number] 17:27:00 Test Item Value Reference Range Interpretation [...] L (test code = 2590) BASIC METABOLIC [id number] 15:01:00 Test Item Value Reference Range Interpretation [...] m DATA TO CALCULA TE ESTIMATED GFR. [id number] 14:50:00 Test Item Value Reference Range Interpretation Comments PHOSPHORUS (BEAKER) (test code = 3.5 mg/dL 2.3-4.7 604) [id number] 14:50:00 Test Item Value Reference Range Interpretation Comments MAGNESIUM (BEAKER) (test code = 1.9 mg/dL 1.6-2.6 627) LIPID [id number] 14:50:00 Test Item Value Reference Range Interpretation [...] Borderline 130-159 High 160-189 Very High >=190C-REACTIVE [id number] 14:50:00 Test Item Value Reference Range Interpretation Comments C-REACTIVE PROTEIN (BEAKER) (test 0.02 mg/dL 0.00-0.50 code = 676) COMPLEMENT COMPONENT [id number] 14:48:00 Test Item Value Reference Range Interpretation Comments C4 COMPLEMENT (BEAKER) (test code = 19 mg/dL 15-57 394) Effective 03/10/2014: Reference Range ChangeNew: 15-57 Previous: 16-38 COMPLEMENT COMPONENT [id number] 14:48:00 Test Item Value Reference Range Interpretation Comments C3 COMPLEMENT (BEAKER) (test code = 105 mg/dL 82-193 393) Effective 03/10/2014: Reference Range ChangeNew: 82-193 Previous: 79-152 HEMOGLOBIN [id number] 14:38:00 Test Item Value Reference Range Interpretation Comments HEMOGLOBIN A1C (BEAKER) (test code = 5.1 % 4.3-6.1 368) SEDIMENTATION [id number] 08:29:00 Test Item Value Reference Range Interpretation Comments SEDIMENTATION RATE, ERYTHROCYTE 10 mm/HR 0-20 (BEAKER) (test code = 766) CBC W/PLT COUNT & AUTO [id number] 06:06:00 Test Item Value Reference Range Interpretation [...] (test code = 417) 0.00RAPID DRUG SCREEN, [id number] 01:59:00 Test Item Value Reference Range Interpretation [...] ng/mLAmphetamine/ 1000 ng/mL MethamphetamineOxycodone 300 ng/mLPREGNANCY SCREEN, [id number] 01:47:00 Test Item Value Reference Range Interpretation Comments TEST URINE (BEAKER) (test Negative code = 583) URINALYSIS W/ [id number] 01:46:00 Test Item Value Reference Range Interpretation [...] code = 516) SOURCE(BEAKER) (test code = 1264) BASIC METABOLIC [id number] 22:37:00 Test Item Value Reference Range Interpretation [...] ESTIMATED GFR. CREATINE KINASE (CK), TOTAL AND [id number] 22:33:00 Test Item Value Reference Range Interpretation Comments CREATINE KINASE TOTAL (BEAKER) 119 U/L 29-200 (test code = 380) CREATINE KINASE-MB (BEAKER) (test 1.5 ng/mL 0.0-6.6 code = 750) CREATINE KINASE-MB INDEX (BEAKER) 1.3 % (test code = 395) Effective 03/10/2014: CK-MB Reference Range ChangeNew: 0.0-6.6 Previous: 0.0-4.9CK-MB Reference Range:<6.7 Normal6.7-10.0 Borderline>10.0 AbnormalTROPONIN [id number] 22:33:00 Test Item Value Reference Range Interpretation [...] 33 pg/mL 0-100 (test code = 700) [id number] 22:27:00 Test Item Value Reference Range Interpretation Comments MAGNESIUM (BEAKER) (test code = 1.9 mg/dL 1.6-2.6 627) [id number] 22:10:00 Test Item Value Reference Range Interpretation [...] 2.5-3.5 for patients with mechanical heart valves.POCT-GLUCOSE [id number] 22:02:00 Test Item Value Reference Range Interpretation Comments POC-GLUCOSE METER 86 mg/dL 70-110 TESTED AT [facility] ([facility]) (test code = MAIDA Estes [facility] [address] 1538) CBC W/PLT COUNT & AUTO [id number] 22:01:00 Test Item Value Reference Range Interpretation [...]
[2020-08-31 19:28] LABS: Urine Specific Gravity/Preg >1.030 (1.005-1.030)
[2020-08-31 19:56] LABS: Calcium Oxalate Crystals- Ur PRESENT (NONE SEEN); Urine Bacteria 20-50 /HPF (<20); Urine Mucus 4+ /HPF (NONE SEEN); Urine RBC <5 /HPF (NONE SEEN)
[2020-08-31] MEDS ORDERED: KETOROLAC 30 MG/ML INJ ONE (20:34)
[2020-08-31] MEDS ORDERED: NA CHLORIDE 0.9% 1,000 ML ONE (20:34)
[2020-08-31] MEDS ORDERED: CEFTRIAXONE/SWI 1gm 1 GM/10 ML SYR ONE (20:34)
[2020-08-31 20:42] LABS: Absolute Lymphocytes (CBC) 1.8 K/uL (0.7-4.9); Basophils % 0.7 % (0-1.3); Hematocrit 37.1 % (36.0-45.0); Lymphocytes % 24.2 % (15.3-44.8); MPV 8.9 fL (7.6-11.3); RBC Red Blood Cell Count 4.12 M/uL (3.86-4.86)
[2020-08-31 20:52] LABS: ALT/SGPT 31 U/L (12-78); AST/SGOT 17 U/L (15-37); Albumin 4.1 g/dL (3.4-5.0); Alkaline Phosphatase 66 U/L (45-117); BUN Blood Urea Nitrogen 10 mg/dL (7-18); Bicarbonate 26 mmol/L (21-32); Bilirubin Direct 0.2 mg/dL (0-0.2); Bilirubin Total 0.8 mg/dL (0.2-1.0); Glucose Level 99 mg/dL (74-106); Lipase 82 U/L (73-393); Potassium 3.8 mmol/L (3.5-5.1); Protein, Total 7.4 g/dL (6.4-8.2); Sodium Level 139 mmol/L (136-145)
--- NOTE | 2020-08-31 20:57 | RAD REPORT ---
EXAM DESCRIPTION: CT - Stone Protocol - 08/31/2020 8:31 pm CLINICAL HISTORY: FLANK PAIN, right-sided flank and abdomen pain, dysuria COMPARISON: Abdomen Pelvis W Contrast dated 08/07/2019 TECHNIQUE: Axial 5 mm thick images were obtained without oral or IV contrast. The myqde-hj-nkig span s the entirety of the system including uppermost abdomen and lung bases. All CT scans are performed using dose optimization technique as appropriate and may include automated exposure control or mA/KV adjustment according to patient size. FINDINGS: No hydronephrosis is present and no obstructing ureteral calculi. No suspicious renal mass es. Isodense masses and pyelonephritis are not excluded on a stone protocol CT scan. No significant a drenal finding. Urinary bladder is contracted limiting assessment. Phleboliths are present. Cystitis is possible. Uterus and ovaries show no suspicious findings. Imaged portions of the liver, spleen and pancreas show no suspicious findings on non-contrast imaging . No gallbladder or biliary tree abnormality identified. No suspicious bowel findings. Appendix is unremarkable. No hernia, mass or bulky lymphadenopathy noted. No free air, free fluid or inflammatory stranding. No significant bony abnormality. IMPRESSION: No hydronephrosis, obstructing calculus or acute finding. Isodense masses and pyelonephritis are not excluded on stone protocol technique. Urinary bladder is too contracted to allow all accurate assessment. Cystitis cannot be excluded based on imaging.
--- NOTE | 2020-08-31 21:04 | ER ---
Nurse's Notes [facility] Name: Italia Allen Age: 35 yrs Sex: Female : 1985 Arrival Date: 08/31/2020 Time: 18:37 Bed 25 Private MD: Diagnosis: PYELONEPHRTITIS Presentation: 08/31 18:42 Chief complaint: Patient states: yesterday i just started throwing up constantly, then tw2 towards the end of the day i had sharp pains on my lower back. its on the RIGHT side and sharp pains into my side, burning with urination and my urine is dark and brown looking. Coronavirus screen: fever, nausea, Client presents with at least one sign or symptom that may indicate coronavirus-19. Standard/surgical mask placed on the client. Provider contacted for isolation considerations. Ebola Screen: Patient denies travel to an Ebola-affected area in the 21 days before illness onset. Initial Sepsis Screen: Does the patient meet any 2 criteria? HR > 90 bpm. Does the patient have a suspected source of infection? No. Patient's initial sepsis screen is negative. Risk Assessment: Do you want to hurt yourself or someone else? Patient reports no desire to harm self or others. Onset of symptoms was August 31, 2020. 18:42 Method Of Arrival: Ambulatory tw2 18:42 Acuity: BUDDY 3 tw2 Triage Assessment: 18:44 General: Appears ill, slender, Behavior is calm, cooperative, appropriate for age. tw2 Pain: Complains of pain in abdomen. Neuro: Reports headache. GI: Reports lower abdominal pain, upper abdominal pain, nausea. 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 - Social history:: Smoking status: . Screenin:50 Abuse screen: Denies threats or abuse. Nutritional screening: No deficits noted. tw2 Tuberculosis screening: No symptoms or risk factors identified. Fall Risk None identified. Assessment: 18:45 Reassessment: pt given urine specimen cup at this time for sample collection. pt tw2 ambulates independently to the restroom at this time. 18:55 General: Appears in no apparent distress. comfortable, Behavior is calm, cooperative, ca1 appropriate for age. Pain: Complains of pain in posterior aspect of right lateral abdomen and anterior aspect of right lateral abdomen Pain currently is 8 out of 10 on a pain scale. Pain began 1 day ago. Neuro: Level of Consciousness is awake, alert, obeys commands, Oriented to person, place, time, situation. Cardiovascular: Heart tones S1 S2 present Capillary refill < 3 seconds Patient's skin is warm and dry. Respiratory: Airway is patent Respiratory effort is even, unlabored, Respiratory pattern is regular, symmetrical, Breath sounds are clear bilaterally. GI: Abdomen is flat, non-distended, Bowel sounds present X 4 quads. Abd is soft and non tender X 4 quads. GI: Reports nausea, vomiting. : Urine is clear, Reports burning with urination, urgency, urinary frequency. EENT: No signs and/or symptoms were reported regarding the EENT system. Derm: Skin is intact, is healthy with good turgor, Skin is pink, warm \T\ dry. Musculoskeletal: Circulation, motion, and sensation intact. Capillary refill < 3 seconds. 19:55 Reassessment: Patient appears in no apparent distress at this time. Patient and/or ca1 family updated on plan of care and expected duration. Pain level reassessed. Patient is alert, oriented x 3, equal unlabored respirations, skin warm/dry/pink. 20:55 Reassessment: Patient appears in no apparent distress at this time. Patient and/or ca1 family updated on plan of care and expected duration. Pain level reassessed. Patient is alert, oriented x 3, equal unlabored respirations, skin warm/dry/pink. Vital Signs: 18:42 BP 131 / 71; Pulse 97; Resp 17; Temp 98.8(TE); Pulse Ox 100% on R/A; Weight 50.8 kg (R);tw2 19:55 BP 101 / 75; Pulse 63; Resp 16 S; Pulse Ox 100% on R/A; ca1 20:55 BP 118 / 76; Pulse 65; Resp 16 S; Pulse Ox 100% on R/A; ca1 ED Course: 18:37 Patient arrived in ED. ds1 18:44 Triage completed. tw2 18:45 Arm band placed on. tw2 18:46 Opal Gilmore, DIXIE is Primary Nurse. ca1 18:55 Patient has correct armband on for positive identification. Bed in low position. Call ca1 light in reach. Side rails up X 1. Pulse ox on. NIBP on. Warm blanket given. 19:13 Omer Gutierrez MD is Attending Physician. tw4 19:18 Urine Microscopic Only Sent. ca1 20:13 No provider procedures requiring assistance completed. Initial lab(s) drawn, by me, ca1 sent to lab. Inserted saline lock: 20 gauge in left forearm, using aseptic technique. Blood collected. 20:31 CT Stone Protocol In Process Unspecified. EDMS 21:38 IV discontinued, intact, bleeding controlled, No redness/swelling at site. Pressure ca1 dressing applied. Administered Medications: 20:14 Drug: NS 0.9% 1000 ml Route: IV; Rate: 1 bolus; Site: left forearm; ca1 21:18 Follow up: Response: No adverse reaction; IV Status: Completed infusion; IV Intake: ca1 1000ml 20:15 Drug: TORadol (ketorolac) 30 mg Route: IVP; Site: left forearm; ca1 21:19 Follow up: Response: No adverse reaction; Pain is unchanged, physician notified ca1 20:17 Drug: Rocephin (cefTRIAXone) 1 grams Route: IV; Rate: bolus; Site: left forearm; ca1 21:18 Follow up: Response: No adverse reaction; IV Status: Completed infusion ca1 21:15 Drug: Zofran (Ondansetron) 4 mg Route: IVP; Site: left forearm; ca1 21:39 Follow up: Response: No adverse reaction; Nausea is decreased; Vomiting decreased ca1 21:19 Drug: morphine 4 mg {Note: rass 0.} Route: IVP; Site: left forearm; ca1 21:39 Follow up: Response: No adverse reaction; Pain is decreased; RASS: Alert and Calm (0) ca1 Intake: 21:18 IV: 1000ml; Total: 1000ml. ca1 Outcome: 21:04 Discharge ordered by . tw4 21:38 Discharged to home ambulatory, with significant other. ca1 21:38 Condition: stable 21:38 Discharge instructions given to patient, Instructed on discharge instructions, follow up and referral plans. medication usage, Demonstrated understanding of instructions, follow-up care, medications, Prescriptions given X 2. 21:39 Patient left the ED. ca1 Signatures: Dispatcher [employer] EDPR Nery Flores ds1 Jacqui Liz RN RN tw2 Omer Gutierrez MD MD tw4 Opal Gilmore RN RN ca1
--- NOTE | 2020-08-31 21:04 | EDPHYS ---
Physician Documentation [facility] Name: Italia Allen Age: 35 yrs Sex: Female : 1985 Arrival Date: 08/31/2020 Time: 18:37 Bed 25 Private MD: ED Physician Omer Gutierrez HPI: 08/31 23:48 This 35 yrs old Female presents to ER via Ambulatory with complaints of Kidney tw4 Pain. 23:48 The patient complains of pain in the right low back. The pain does not radiate. Onset: tw4 The symptoms/episode began/occurred yesterday. Modifying factors: The symptoms are alleviated by nothing. the symptoms are aggravated by nothing. Associated signs and symptoms: The patient has no apparent associated signs or symptoms. Severity of pain: At its worst the pain was moderate. The patient has not experienced similar symptoms in the past. 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 - Social history:: Smoking status: . ROS: 23:48 Constitutional: Negative for fever, chills, and weight loss, Eyes: Negative for injury, tw4 pain, redness, and discharge, Cardiovascular: Negative for chest pain, palpitations, and edema, Respiratory: Negative for shortness of breath, cough, wheezing, and pleuritic chest pain, Abdomen/GI: Negative for abdominal pain, nausea, vomiting, diarrhea, and constipation, MS/Extremity: Negative for injury and deformity, Skin: Negative for injury, rash, and discoloration, Neuro: Negative for headache, weakness, numbness, tingling, and seizure. 23:48 Back: Positive for flank pain. Exam: 23:48 Constitutional: This is a well developed, well nourished patient who is awake, alert, tw4 and in no acute distress. Head/Face: Normocephalic, atraumatic. Chest/axilla: Normal chest wall appearance and motion. Nontender with no deformity. No lesions are appreciated. Cardiovascular: Regular rate and rhythm with a normal S1 and S2. No gallops, murmurs, or rubs. Normal PMI, no JVD. No pulse deficits. Respiratory: Lungs have equal breath sounds bilaterally, clear to auscultation and percussion. No rales, rhonchi or wheezes noted. No increased work of breathing, no retractions or nasal flaring. Abdomen/GI: Soft, non-tender, with normal bowel sounds. No distension or tympany. No guarding or rebound. No evidence of tenderness throughout. Skin: Warm, dry with normal turgor. Normal color with no rashes, no lesions, and no evidence of cellulitis. MS/ Extremity: Pulses equal, no cyanosis. Neurovascular intact. Full, normal range of motion. Neuro: Awake and alert, GCS 15, oriented to person, place, time, and situation. Cranial nerves II-XII grossly intact. Motor strength 5/5 in all extremities. Sensory grossly intact. Cerebellar exam normal. Normal gait. 23:48 Back: pain, that is mild, ROM is CVA tenderness, is noted on the right. Vital Signs: 18:42 BP 131 / 71; Pulse 97; Resp 17; Temp 98.8(TE); Pulse Ox 100% on R/A; Weight 50.8 kg (R);tw2 19:55 BP 101 / 75; Pulse 63; Resp 16 S; Pulse Ox 100% on R/A; ca1 20:55 BP 118 / 76; Pulse 65; Resp 16 S; Pulse Ox 100% on R/A; ca1 MDM: 20:31 Patient medically screened. 4 08/31 18:53 Order name: Urine Microscopic Only; Complete Time: 20:01 08/31 19:16 Order name: Urine --Ancillary (enter results) tt3 08/31 19:16 Order name: Urine --Ancillary; Complete Time: 19:53 EDW[place] 08/31 19:53 Interpretation: Normal except: USPGRP >1.030. tw4 08/31 19:58 Order name: Urine Culture [facility] 08/31 20:02 Order name: Basic Metabolic Panel; Complete Time: 21:00 [facility] 08/31 21:01 Interpretation: Within normal limits. [facility] 08/31 20:02 Order name: CBC with Diff; Complete Time: 21:00 08/31 21:00 Interpretation: Normal except: MCV 89.9; MCH 31.2. 08/31 20:02 Order name: Hepatic Function; Complete Time: 21:00 08/31 21:01 Interpretation: Within normal limits. 08/31 20:02 Order name: Lipase; Complete Time: 21:00 08/31 21:01 Interpretation: Within normal limits: LIP 82. 08/31 20:03 Order name: CT Stone Protocol; Complete Time: 21:00 08/31 21:01 Interpretation: No acute disease. 08/31 18:53 Order name: Urine Test (obtain specimen); Complete Time: 19:15 kb 08/31 18:53 Order name: Urine Dipstick-Ancillary (obtain specimen); Complete Time: 19:15 kb 08/31 20:02 Order name: IV Saline Lock; Complete Time: 20:13 08/31 20:02 Order name: Labs collected and sent; Complete Time: 20:13 Administered Medications: 20:14 Drug: NS 0.9% 1000 ml Route: IV; Rate: 1 bolus; Site: left forearm; ca1 21:18 Follow up: Response: No adverse reaction; IV Status: Completed infusion; IV Intake: ca1 1000ml 20:15 Drug: TORadol (ketorolac) 30 mg Route: IVP; Site: left forearm; ca1 21:19 Follow up: Response: No adverse reaction; Pain is unchanged, physician notified ca1 20:17 Drug: Rocephin (cefTRIAXone) 1 grams Route: IV; Rate: bolus; Site: left forearm; ca1 21:18 Follow up: Response: No adverse reaction; IV Status: Completed infusion ca1 21:15 Drug: Zofran (Ondansetron) 4 mg Route: IVP; Site: left forearm; ca1 21:39 Follow up: Response: No adverse reaction; Nausea is decreased; Vomiting decreased ca1 21:19 Drug: morphine 4 mg {Note: rass 0.} Route: IVP; Site: left forearm; ca1 21:39 Follow up: Response: No adverse reaction; Pain is decreased; RASS: Alert and Calm (0) ca1 Disposition: 08/31/20 21:04 Discharged to Home. Impression: PYELONEPHRTITIS . - Condition is Stable. - Discharge Instructions: Pyelonephritis, Adult. - Prescriptions for Ibuprofen 800 mg Oral Tablet - take 1 tablet by ORAL route every 12 hours As needed take with food; 20 tablet. Macrobid 100 mg Oral Capsule - take 1 capsule by ORAL route every 12 hours for 14 days; 28 capsule. - Medication Reconciliation Form, Thank You Letter, Antibiotic Education, Prescription Opioid Use, Work release form form. - Follow up: Private Physician; When: Upon discharge from the Emergency Department; Reason: Recheck today's complaints, Continuance of care, Re-evaluation by your physician. - Problem is new. - Symptoms have improved. Signatures: Dispatcher [employer] EDMS Radha Lynn, UNIVERSITY RELATIONS VICE PRESIDENT-C UNIVERSITY RELATIONS VICE PRESIDENT-Jacqui Alonso RN RN tw2 Omer Gutierrez MD MD tw4 Opal Gilmore RN RN ca1 Corrections: (The following items were deleted from the chart) 21:39 21:04 08/31/2020 21:04 Discharged to Home. Impression: PYELONEPHRTITIS . Condition is ca1 Stable. Forms are Medication Reconciliation Form, Thank You Letter, Antibiotic Education, Prescription Opioid Use. Follow up: Private Physician; When: Upon discharge from the Emergency Department; Reason: Recheck today's complaints, Continuance of care, Re-evaluation by your physician. Problem is new. Symptoms have improved. tw4
[2020-08-31] MEDS ORDERED: MORPHINE 4 MG/ML SYR ONE (21:33)
[2020-08-31] MEDS ORDERED: ONDANSETRON 4 MG/2 ML VIAL ONE (21:33)
[2020-08-31 21:47] VITALS: TEMP 98.8; O2SAT 100
[2020-08-31 21:50] VITALS: BP 118/76
== END 2020-08-31 21:39 | disposition home or self-care (01) ==
LOC: ER 18:34
DX: N12 Tubulo-interstitial nephritis, not specified as acute or chronic (principal)
CPT/HCPCS: 87088; 85025; 87086; 80048; 36415; 81025; 80076; 81015; 83690; 76377; 74176; J0696; J7030; J2405; 96365; 96375; 99284

== ENCOUNTER 2020-09-20 13:34 | Emergency (ER) | payer OTHER ==
--- OUTSIDE RECORDS SUMMARY | 2020-09-20 13:38 | XMS REPORT | Continuity of Care Document ---
:1985 Author Organization [facility] t Address [address] [place] [address] Care Team Providers Name Role Phone Mariposa العراقي MD Primary Care Physician Akinsipe CARLOS ALBERTOP, C Attending Clinician Roberth WANG S Attending Clinician Jossie Murray MD Attending Clinician [...] [facility] Center 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 4-18 Madelyn kes - ashely liuie 00:00: Medical malnutriti malnutriti 00 Ce nter [...] Date Quantity Comments Source Sex Assigned At [facility] Tobacco use and 2019-08-15 2019-08-15 Never used [facility] - exposure 00:00:00 00:00:00 [facility] Alcohol intake 2019-08-15 2019-08-15 Current drinker [facility] - 00:00:00 00:00:00 of alcohol [facility] (finding) Cigarettes smoked 2019-04-21 2019-04-21 Armen Hawley current (pack per 00:00:00 00:00:00 day) - Reported Smoking Status Start Date Stop Date Source Never smoker [facility] Former smoker 2019-04-21 00:00:00 2019-04-21 00:00:00 Armen Hawley Medications Ordered Filled Start Stop Current Ordering Indication Dosage Frequency Signature Comments Components Source Medication Medication Date Date Medication? Clinician (SIG) Name Name aspirin 81 Yes 81mg QD Take [address] [facility] EC 4-24 by mouth [facility] - tablet 14:44: daily. [address] dicyclomine 10mg Take [address] (BENTYL) 10 4-20 04-20 capsule Luke s - MG capsule 00:00: 23:59 (10 mg Medi cortney 00 :00 total) by Center mouth 3 (three) times daily before meals For abdominal pain/cramp ing. acetaminoph 2018-04 Yes 500mg Q6H Take 500 [address] [place] en 2-30 mg by [facility] (TYLENOL) 05:33: mouth st 500 MG 25 every 6 tablet (six) hours as needed for mild pain. Procedures This patient has no known procedures. Plan of Care Planned Activity Planned Date Details Comments Source Future Scheduled 2020-11-21 INFLUENZA VACCINE [place] [facility] 00:00:00 [code = INFLUENZA VACCINE] Future Scheduled 2019-12-[address] [facility] - Test 00:00:00 (#1) [code = [facility] INFLUENZA VACCINE (#1)] Future Scheduled 2019-07-[address] [facility] - Test 00:00:00 (procedure) [code = [facility] 09118566] Future Scheduled 2008-08-[address] [facility] [address] [facility] - Test 00:00:00 malignant neoplasm Medical C enter of cervix (procedure) [code = 672217399] Future Scheduled 2008-08-09 Screening for [facility]ist Test 00:00:00 malignant neoplasm of cervix (procedure) [code = 002427935] Future Scheduled 2005-08-09 Hepatitis C [facility]odist Test 00:00:00 screening (procedure) [code = 983382948] Future Scheduled 1999 COVID-19 VACCINE [place] [facility] 00:00:00 (1) [code = COVID-19 VACCINE (1)] Encounters Start End Encounter Admission Attending Care Care Encounter Source Date/Time Date/Time Type Type Clinicians Facility Department ID 2020-09-13 2020-09-13 Refill Landon, [facility] [id number] 00:00:00 00:00:00 Whit Jean [facility] [id number] [facility] 4.2.7.2.686 MATERNAL [id number] & CHILD [facility] 2020-04-06 2020-04-06 Telephone Roberth [facility] [id number] 00:00:00 00:00:00 Bo Vit[place] [id number] [place] 4.2.7.2.686 Professio [id number] nal 198 [facility] 2020-02-02 2020-02-02 Prep For Trevor [facility] [id number] 00:00:00 00:00:00 Surgery Stefano L [facility] [id number] Surgical 4.2.7.2.686 Specialti [id number] es [address] [place] 2020-02-01 2020-02-01 Refill Trevor [facility] [id number] 00:00:00 00:00:00 Stefano Sethi [facility] [id number] Surgical 4.2.7.2.686 Specialti [phone] es [address] [place] 2020-01-26 2020-01-26 Office Trevor [facility] [id number] 13:42:13 14:09:11 Visit Stefano Sethi [facility] [id number] Surgical 4.2.7.2.686 Specialti [id number] es [address] [place] 2020-01-26 2020-01-26 Orders Doctor ABBI [id number] 00:00:00 00:00:00 Only Unassigned, [place] 350.1.13.10 [facility] 4.2.7.2.686 [id number] [id number] 2020-01-12 2020-01-12 Orders Doctor ABBI [id number] 00:00:00 00:00:00 Only Unassigned, [place] 350.1.13.10 [facility] 4.2.7.2.686 [id number] [id number] Results Test Description Test Time Test Comments Results Result [facility] e Comments RAD, 2019-07-24 Reason for FINAL REPORT ABDOMEN/KUB, 1 0 exam:->eval position PATIENT ID: VIEW AP 07:30:00 of reportedly [id number] CLINICAL swallowed tongue ring HISTORY: eval position [...] Tavares Verified Date/Time: 08/11/2019 07:30:51 Reading Location: [facility] Radiology Reading Room , CHEST, 1 2019-07-24 Reason for FINAL REPORT VIEW, NON DEPT 0 exam:->nausea, eval PATIENT ID: 05:29:00 for aspirationShould [id number] RAD, this be performed at CHEST, 1 [...] DATA TO 1092) CALCULATE ESTIM ATED GFR. 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 [employer] ID Lorne RODRIGUEZ [id number] 04:49:00 Test Item Value Reference Range Interpretation Comments MAGNESIUM (BEAKER) (test code = 1.7 mg/dL 1.6-2.6 627) 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 [employer] ID Lorne RODRIGUEZ LHEPATIC FUNCTION [id number] 04:49:00 Test Item Value Reference Range Interpretation [...] (test code = 38 U/L 6-55 347) 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 [employer] Field GERALD RODRIGUEZ LCBC (HEMOGRAM ONLY)2019-08-11 04:15:00 Test Item Value [...] (test code = 413) HEPATOBILIARY IMAGING W/ [id number] 18:40:00Scheduled 08/09 but swallowed tongue ringHolding off until f/u KUB and cleared by radiologistReason for exam:- >See aboveFINAL REPORT PROCEDURE: HEPATOBILIARY SCAN CPT CODE: 23610 INDICATION: abdominal pain PROTOCOL: 5.22 mCi of [...] acute cholecystitis is low. Signed: Alexis Nieto [facility] Verified Date/Time: 2019 18:40:53 RAD, ABDOMEN/KUB, 1 VIEW [id number] 16:48:00Reason for exam:->swallowed tongue ring; planned MRCP [...] MDReport Verified Date/Time: 2019 16:48:26 Reading Location: [facility] B1 C013Y CT Body Reading Room BASIC METABOLIC [id number] 06:31:00 Test Item Value Reference Range Interpretation [...] 1092) DATA TO CALCULA TE ESTIMATED GFR. 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 Add comment if clarification [...] MDReport Verified Date/Time: 08/08/2019 14:33:42 [facility] Consult Reading Room MR, ABDOMEN, [id number] 12:09:00FINAL REPORT MR Abdomen dated 08/08/2019 Comment: [...] MDReport Verified Date/Time: 08/08/2019 12:09:11 Reading Location: [address] Body Reading Room BASI METABOLIC [id number] 06:41:00 Test Item Value Reference Range Interpretation [...] 1092) DATA TO CALCULA TE ESTIMATED GFR. 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..] DRVV Results (BEAKER) (test code = 2406) [id number] Alvarez Moe MD (BEAKER) (test code = [...] 0.00-0.20 (test code = 417) 0.00BASIC METABOLIC [id number] 07:05:00 Test Item Value Reference Range Interpretation [...] TE ESTIMATED GFR. CARDIOLIPIN ANTIBODIES, IGG AND [id number] 14:31:00 Test Item Value Reference Range Interpretation Comments ANTICARDIOLIPIN IGG ANTIBODY (BEAKER) < GPL (test code = 712) ANTICARDIOLIPIN IGM ANTIBODY (BEAKER) < MPL (test code = 713) Anticardiolipin IgG Result Interpretation:NEG: <20 GPL; U/mlPOS: >/=20 GPL; U/mlAnticardiolipin IgM Result Interpretation:NEG: <20 MPL; U/mlPOS: >/=20 MPL; U/mlTHROMBIN [id number] 14:25:00 Test Item Value Reference Range Interpretation Comments THROMBIN TIME (BEAKER) (test code 193.3 secs 13.8-20.0 H = 550) EQUAL MIX, NORMAL [id number] 14:16:00 Test Item Value Reference Range Interpretation [...] = 418) CBC W/PLT COUNT & AUTO [id number] 08:32:00 Test Item Value Reference Range Interpretation [...] (BEAKER) (test code = 1351) BASIC METABOLIC [id number] 06:54:00 Test Item Value Reference Range Interpretation [...] TO CALCULA TE ESTIMATED GFR. BASIC METABOLIC [id number] 07:19:00 Test Item Value Reference Range Interpretation [...] ESTIMATED GFR. CBC W/PLT COUNT & AUTO [id number] 07:07:00 Test Item Value Reference Range Interpretation [...] K/ L 0.00-0.20 (test code = 417) [id number] 11:08:00 Test Item Value Reference Range Interpretation Comments POTASSIUM (BEAKER) (test code = 3.8 meq/L 3.5-5.1 379) [id number] 11:08:00 Test Item Value Reference Range Interpretation Comments MAGNESIUM (BEAKER) (test code = 2.3 mg/dL 1.6-2.6 627) BASIC METABOLIC [id number] 05:29:00 Test Item Value Reference Range Interpretation [...] m DATA TO CALCULA TE ESTIMATED GFR. [id number] 05:27:00 Test Item Value Reference Range Interpretation Comments PHOSPHORUS (BEAKER) (test code = 2.7 mg/dL 2.3-4.7 604) [id number] 05:27:00 Test Item Value Reference Range Interpretation Comments MAGNESIUM (BEAKER) (test code = 1.8 mg/dL 1.6-2.6 627) CBC W/PLT COUNT & AUTO [id number] 05:04:00 Test Item Value Reference Range Interpretation [...] K/ L 0.00-0.20 (test code = 417) [id number] 17:27:00 Test Item Value Reference Range Interpretation [...] L (test code = 2590) BASIC METABOLIC [id number] 15:01:00 Test Item Value Reference Range Interpretation [...] m DATA TO CALCULA TE ESTIMATED GFR. [id number] 14:50:00 Test Item Value Reference Range Interpretation Comments PHOSPHORUS (BEAKER) (test code = 3.5 mg/dL 2.3-4.7 604) [id number] 14:50:00 Test Item Value Reference Range Interpretation Comments MAGNESIUM (BEAKER) (test code = 1.9 mg/dL 1.6-2.6 627) LIPID [id number] 14:50:00 Test Item Value Reference Range Interpretation [...] Borderline 130-159 High 160-189 Very High >=190C-REACTIVE [id number] 14:50:00 Test Item Value Reference Range Interpretation Comments C-REACTIVE PROTEIN (BEAKER) (test 0.02 mg/dL 0.00-0.50 code = 676) COMPLEMENT COMPONENT [id number] 14:48:00 Test Item Value Reference Range Interpretation Comments C4 COMPLEMENT (BEAKER) (test code = 19 mg/dL 15-57 394) Effective 03/10/2014: Reference Range ChangeNew: 15-57 Previous: 16-38 COMPLEMENT COMPONENT [id number] 14:48:00 Test Item Value Reference Range Interpretation Comments C3 COMPLEMENT (BEAKER) (test code = 105 mg/dL 82-193 393) Effective 03/10/2014: Reference Range ChangeNew: 82-193 Previous: 79-152 HEMOGLOBIN [id number] 14:38:00 Test Item Value Reference Range Interpretation Comments HEMOGLOBIN A1C (BEAKER) (test code = 5.1 % 4.3-6.1 368) SEDIMENTATION [id number] 08:29:00 Test Item Value Reference Range Interpretation Comments SEDIMENTATION RATE, ERYTHROCYTE 10 mm/HR 0-20 (BEAKER) (test code = 766) CBC W/PLT COUNT & AUTO [id number] 06:06:00 Test Item Value Reference Range Interpretation [...] (test code = 417) 0.00RAPID DRUG SCREEN, [id number] 01:59:00 Test Item Value Reference Range Interpretation [...] ng/mLAmphetamine/ 1000 ng/mL MethamphetamineOxycodone 300 ng/mLPREGNANCY SCREEN, [id number] 01:47:00 Test Item Value Reference Range Interpretation Comments TEST URINE (BEAKER) (test Negative code = 583) URINALYSIS W/ [id number] 01:46:00 Test Item Value Reference Range Interpretation [...] SOURCE(BEAKER) (test code = 2795) BASIC METABOLIC [id number] 22:37:00 Test Item Value Reference Range Interpretation [...] ESTIMATED GFR. CREATINE KINASE (CK), TOTAL AND [id number] 22:33:00 Test Item Value Reference Range Interpretation Comments CREATINE KINASE TOTAL (BEAKER) 119 U/L 29-200 (test code = 380) CREATINE KINASE-MB (BEAKER) (test 1.5 ng/mL 0.0-6.6 code = 750) CREATINE KINASE-MB INDEX (BEAKER) 1.3 % (test code = 395) Effective 03/10/2014: CK-MB Reference Range ChangeNew: 0.0-6.6 Previous: 0.0-4.9CK-MB Reference Range:<6.7 Normal6.7-10.0 Borderline>10.0 AbnormalTROPONIN [id number] 22:33:00 Test Item Value Reference Range Interpretation [...] 33 pg/mL 0-100 (test code = 700) [id number] 22:27:00 Test Item Value Reference Range Interpretation Comments MAGNESIUM (BEAKER) (test code = 1.9 mg/dL 1.6-2.6 627) [id number] 22:10:00 Test Item Value Reference Range Interpretation [...] 2.5-3.5 for patients with mechanical heart valves.POCT-GLUCOSE [id number] 22:02:00 Test Item Value Reference Range Interpretation Comments POC-GLUCOSE METER 86 mg/dL 70-110 TESTED AT [facility] 6720 (AKER) (test code = MAIDA Estes [facility] [address] 1538) CBC W/PLT COUNT & AUTO [id number] 22:01:00 Test Item Value Reference Range Interpretation [...]
[2020-09-20] MEDS ORDERED: TETANUS & DIPHTHERIA TOX,ADULT 0.5 ML VIAL ONE (14:07)
[2020-09-20] MEDS ORDERED: CEFAZOLIN/SWI 1gm 1 GM/10 ML SYR ONE (14:08)
[2020-09-20] MEDS ORDERED: LIDOCAINE 1% 20 ML MDV ONE (14:13)
[2020-09-20] MEDS ORDERED: BUPIVACAINE 0.5% PF 10 ML VIAL ONE (14:13)
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
[2020-09-20 15:49] VITALS: BP 110/96; O2SAT 100
== END 2020-09-20 15:33 | disposition home or self-care (01) ==
LOC: ER 13:34
PROC: 0JQG0ZZ Repair Right Lower Arm Subcutaneous Tissue and Fascia, Open Approach (ICD-10-PCS; principal; 2020-09-20)
DX: S51.811A Laceration without foreign body of right forearm, initial encounter (principal); X99.8XXA Assault by other sharp object, initial encounter; Y92.89 Other specified places as the place of occurrence of the external cause; Z23 Encounter for immunization
CPT/HCPCS: 96365; 73090; 90471; 90714; 99284; 12004; J0690

== ENCOUNTER 2020-10-06 14:01 | Emergency (ER) | payer OTHER ==
--- OUTSIDE RECORDS SUMMARY | 2020-10-06 14:06 | XMS REPORT | Continuity of Care Document ---
:1985 Author Organization [facility] t Address [address] [place] [address] Care Team Providers Name Role Phone Mariposa [...] nter on on Choledocho Choledocho Disease Active 2019-[address] lithiasis lithiasis 4-17 Luke [...] Date Quantity Comments Source Sex Assigned At [facility] Tobacco use and 2019-08-15 2019-08-15 Never used [facility] - exposure 00:00:00 00:00:00 [facility] Alcohol intake 2019-08-15 2019-08-15 Current [facility]er [facility] - 00:[facility]:00 00:00:00 of alcohol [facility] (finding) Cigarettes smoked 2019-04-21 2019-04-21 Armen Hawley current (pack per 00:00:00 00:00:00 day) - Reported Smoking Status Start Date Stop Date Source Never smoker [facility] Former smoker 2019-04-21 00:00:00 2019-04-21 00:00:00 Armen Hawley Medications Ordered Filled Start Stop Current Ordering Indication Dosage Frequency Signature Comments Components Source Medication Medication Date Date Medication? Clinician (SIG) Name Name aspirin 81 Yes 81mg QD Take [address] MG EC 4-24 by mouth [facility] - tablet 14:44: daily. [address] dicyclomine 10mg Take [address] [...] Future Scheduled 2020-11-21 INFLUENZA VACCINE [place] [facility] Test 00:00:00 [code = INFLUENZA VACCINE] Future Scheduled 2019-12-[address] [facility] - Test 00:00:00 (#1) [code = [facility] INFLUENZA VACCINE (#1)] Future Scheduled 2019-07-[address] [facility] - Test 00:00:00 (procedure) [code = [facility] [id number]] Future Scheduled 2008-08-09 Screening for [facility] Test 00:00:00 malignant neoplasm of cervix (procedure) [code = 703634330] Future Scheduled 2008-08-[address] [facility] - Test 00:00:00 malignant neoplasm Medical C enter of cervix (procedure) [code = 411402542] Future Scheduled 2005-08-09 Hepatitis C [facility]odist Test 00:00:00 screening (procedure) [code = 041433118] Future Scheduled 1999 COVID-19 VACCINE [facility] Test 00:00:00 (1) [code = COVID-19 VACCINE (1)] Encounters Start End Encounter Admission Attending Care Care Encounter Source Date/Time Date/Time Type Type Clinicians Facility Department ID 2020-09-13 2020-09-13 Refill Landon, [facility] [id number] 00:00:00 00:00:00 Whit Jean [facility]ER LIAISON [id number] [facility] 4.2.7.2.686 MATERNAL [id number] & [facility] 2020-04-06 2020-04-06 Telephone Roberth [facility] [id number] 00:00:00 00:00:00 Bo Vitale [id number] [place] 4.2.7.2.686 Professio [id number] nal 198 [facility] 2020-02-02 2020-02-02 Prep For Trveor [facility] [id number] 00:00:00 00:00:00 Surgery Stefano L [facility] [id number] Surgical 4.2.7.2.686 Specialti [id number] es [address] [place] 2020-02-01 2020-02-01 Refill Trevor [facility] [id number] 00:00:00 00:00:00 Stefano Sethi [facility] [id number] Surgical 4.2.7.2.686 Specialti [id number] es [address] [place] 2020-01-26 2020-01-26 Office Trevor [facility] [id number] 13:42:13 14:09:11 Visit Stefano Sethi [facility] [id number] Surgical 4.2.7.2.686 Specialti [id number] es [address] [place] 2020-01-26 2020-01-26 Orders Doctor ABBI [id number] 00:00:00 00:00:00 Only Unassigned, [place] 350.1.13.10 [place] [facility] 4.2.7.2.686 [id number] 2020-01-12 2020-01-12 Orders Doctor ABBI [id number] 00:00:00 00:00:00 Only Unassigned, DOMINGO 350.1.13.10 [place] [facility] 4.2.7.2.686 [id number] [id number] Results Test Description Test Time Test Comments Results Result [facility] e Comments RAD, 2019-07-24 Reason for FINAL REPORT ABDOMEN/KUB, 1 0 exam:->eval position PATIENT ID: VIEW AP 07:30:00 of reportedly [id number] CLINICAL swallowed tongue ring HISTORY: eval position [...] Tavares Verified Date/Time: 08/11/2019 07:30:51 Reading Location: [facility] Radiology Reading Room , CHEST, 1 2019-07-24 Reason for FINAL REPORT VIEW, NON DEPT 0 exam:->nausea, eval PATIENT ID: 05:29:00 for aspirationShould [id number] RAD, this be performed at CHEST, 1 [...] TO 1092) CALCULATE ESTIM ATED GFR. 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'S Helper ID Lorne RODRIGUEZ [id number] 04:49:00 Test Item Value Reference Range Interpretation Comments PHOSPHORUS (BEAKER) (test code = 3.4 mg/dL 2.3-4.7 604) 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'S Helper ID Lorne RODRIGUEZ [id number] 04:49:00 Test Item Value Reference Range Interpretation Comments MAGNESIUM (BEAKER) (test code = 1.7 mg/dL 1.6-2.6 627) 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'S Helper ID Lorne RODRIGUEZ LHEPATIC FUNCTION [id number] 04:49:00 Test Item Value Reference Range Interpretation [...] code = 38 U/L 6-55 347) 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'S Helper GERALD RODRIGUEZ LCBC (HEMOGRAM ONLY)2019-08-11 04:15:00 Test [...] (test code = 413) HEPATOBILIARY IMAGING W/ [id number] 18:40:00Scheduled 08/09 but swallowed tongue ringHolding off until f/u KUB and cleared by radiologistReason for exam:- >See aboveFINAL REPORT PROCEDURE: HEPATOBILIARY SCAN CPT CODE: 41487 INDICATION: abdominal pain PROTOCOL: 5.22 mCi of [...] acute cholecystitis is low. Signed: Alexis Nieto [facility] Verified Date/Time: 2019 18:40:53 RAD, ABDOMEN/KUB, 1 VIEW [id number] 16:48:00Reason for exam:->swallowed tongue ring; planned MRCP [...] MDReport Verified Date/Time: 2019 16:48:26 Reading Location: [facility] B1 C013Y CT Body Reading Room BASIC METABOLIC [id number] 06:31:00 Test Item Value Reference Range Interpretation [...] DATA TO CALCULA TE ESTIMATED GFR. 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'S Helper ID - PIAYA [id number] 06:27:00 Test Item Value Reference Range Interpretation [...] code = 35 U/L 6-55 347) 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'S Helper ID Lorne RODRIGUEZ LC-REACTIVE [id number] 06:27:00 Test Item Value Reference Range Interpretation Comments C-REACTIVE PROTEIN (BEAKER) (test 0.08 mg/dL 0.00-0.50 code = 676) 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'S Helper ID - JENNIFER LCBC W/PLT COUNT & AUTO [id number] 05:45:00 Test Item Value Reference Range Interpretation [...] (BEAKER) (test code = 2801) BASIC METABOLIC [id number] 08:22:00 Test Item Value Reference Range Interpretation [...] DATA TO CALCULA TE ESTIMATED GFR. 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'S Helper ID - LMHEPATIC FUNCTION [id number] 08:01:00 Test Item Value Reference Range Interpretation [...] code = 39 U/L 6-55 347) 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'S Helper ID - [id number] 15:09:00 Test Item Value Reference Range Interpretation Comments LIPASE (BEAKER) (test code = 749) 323 U/L 8-78 H 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'S Helper ID - NTPU/S, ABDOMINAL, [id number] 14:33:00Abdomen limited area? Add comment if clarification [...] MDReport Verified Date/Time: 08/08/2019 14:33:42 Reading Location: [facility] Consult Reading Room MR, ABDOMEN, [id number] 12:09:00FINAL REPORT MR Abdomen dated 08/08/2019 Comment: [...] MDReport Verified Date/Time: 08/08/2019 12:09:11 Reading Location: [address] Body Reading Room BASI METABOLIC [id number] 06:41:00 Test Item Value Reference Range Interpretation [...] DATA TO CALCULA TE ESTIMATED GFR. 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'S Helper ID - MADELINE [id number] 06:40:00 Test Item Value Reference Range Interpretation Comments MAGNESIUM (BEAKER) (test code = 1.8 mg/dL 1.6-2.6 627) 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'S Helper ID - MADELINE WHEPATIC FUNCTION [id number] 06:40:00 Test Item Value Reference Range Interpretation [...] code = 53 U/L 6-55 347) 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'S Helper ID - MADELINE [id number] 05:43:00 Test Item Value Reference Range Interpretation [...] mechanical heart valves.CBC W/PLT COUNT & AUTO [id number] 05:36:00 Test Item Value Reference Range Interpretation [...] DRVV Results (BEAKER) (test code = 2406) [id number] Alvarez Moe MD (BEAKER) (test code = [...] 0.00-0.20 (test code = 417) 0.00BASIC METABOLIC [id number] 07:05:00 Test Item Value Reference Range Interpretation [...] TE ESTIMATED GFR. CARDIOLIPIN ANTIBODIES, IGG AND [id number] 14:31:00 Test Item Value Reference Range Interpretation Comments ANTICARDIOLIPIN IGG ANTIBODY (BEAKER) < GPL (test code = 712) ANTICARDIOLIPIN IGM ANTIBODY (BEAKER) < MPL (test code = 713) Anticardiolipin IgG Result Interpretation:NEG: <20 GPL; U/mlPOS: >/=20 GPL; U/mlAnticardiolipin IgM Result Interpretation:NEG: <20 MPL; U/mlPOS: >/=20 MPL; U/mlTHROMBIN [id number] 14:25:00 Test Item Value Reference Range Interpretation Comments THROMBIN TIME (BEAKER) (test code 193.3 secs 13.8-20.0 H = 550) EQUAL MIX, NORMAL [id number] 14:16:00 Test Item Value Reference Range Interpretation [...] = 418) CBC W/PLT COUNT & AUTO [id number] 08:32:00 Test Item Value Reference Range Interpretation [...] (BEAKER) (test code = 1351) BASIC METABOLIC [id number] 06:54:00 Test Item Value Reference Range Interpretation [...] TO CALCULA TE ESTIMATED GFR. BASIC METABOLIC [id number] 07:19:00 Test Item Value Reference Range Interpretation [...] ESTIMATED GFR. CBC W/PLT COUNT & AUTO [id number] 07:07:00 Test Item Value Reference Range Interpretation [...] K/ L 0.00-0.20 (test code = 417) [id number] 11:08:00 Test Item Value Reference Range Interpretation Comments POTASSIUM (BEAKER) (test code = 3.8 meq/L 3.5-5.1 379) [id number] 11:08:00 Test Item Value Reference Range Interpretation Comments MAGNESIUM (BEAKER) (test code = 2.3 mg/dL 1.6-2.6 627) BASIC METABOLIC [id number] 05:29:00 Test Item Value Reference Range Interpretation [...] m DATA TO CALCULA TE ESTIMATED GFR. [id number] 05:27:00 Test Item Value Reference Range Interpretation Comments PHOSPHORUS (BEAKER) (test code = 2.7 mg/dL 2.3-4.7 604) [id number] 05:27:00 Test Item Value Reference Range Interpretation Comments MAGNESIUM (BEAKER) (test code = 1.8 mg/dL 1.6-2.6 627) CBC W/PLT COUNT & AUTO [id number] 05:04:00 Test Item Value Reference Range Interpretation [...] K/ L 0.00-0.20 (test code = 417) [id number] 17:27:00 Test Item Value Reference Range Interpretation [...] L (test code = 2590) BASIC METABOLIC [id number] 15:01:00 Test Item Value Reference Range Interpretation [...] m DATA TO CALCULA TE ESTIMATED GFR. [id number] 14:50:00 Test Item Value Reference Range Interpretation Comments PHOSPHORUS (BEAKER) (test code = 3.5 mg/dL 2.3-4.7 604) [id number] 14:50:00 Test Item Value Reference Range Interpretation Comments MAGNESIUM (BEAKER) (test code = 1.9 mg/dL 1.6-2.6 627) LIPID [id number] 14:50:00 Test Item Value Reference Range Interpretation [...] Borderline 130-159 High 160-189 Very High >=190C-REACTIVE [id number] 14:50:00 Test Item Value Reference Range Interpretation Comments C-REACTIVE PROTEIN (BEAKER) (test 0.02 mg/dL 0.00-0.50 code = 676) COMPLEMENT COMPONENT [id number] 14:48:00 Test Item Value Reference Range Interpretation Comments C4 COMPLEMENT (BEAKER) (test code = 19 mg/dL 15-57 394) Effective 03/10/2014: Reference Range ChangeNew: 15-57 Previous: 16-38 COMPLEMENT COMPONENT [id number] 14:48:00 Test Item Value Reference Range Interpretation Comments C3 COMPLEMENT (BEAKER) (test code = 105 mg/dL 82-193 393) Effective 03/10/2014: Reference Range ChangeNew: 82-193 Previous: 79-152 HEMOGLOBIN [id number] 14:38:00 Test Item Value Reference Range Interpretation Comments HEMOGLOBIN A1C (BEAKER) (test code = 5.1 % 4.3-6.1 368) SEDIMENTATION [id number] 08:29:00 Test Item Value Reference Range Interpretation Comments SEDIMENTATION RATE, ERYTHROCYTE 10 mm/HR 0-20 (BEAKER) (test code = 766) CBC W/PLT COUNT & AUTO [id number] 06:06:00 Test Item Value Reference Range Interpretation [...] (test code = 417) 0.00RAPID DRUG SCREEN, [id number] 01:59:00 Test Item Value Reference Range Interpretation [...] ng/mLAmphetamine/ 1000 ng/mL MethamphetamineOxycodone 300 ng/mLPREGNANCY SCREEN, [id number] 01:47:00 Test Item Value Reference Range Interpretation Comments TEST URINE (BEAKER) (test Negative code = 583) URINALYSIS W/ [id number] 01:46:00 Test Item Value Reference Range Interpretation [...] SOURCE(BEAKER) (test code = 2795) BASIC METABOLIC [id number] 22:37:00 Test Item Value Reference Range Interpretation [...] ESTIMATED GFR. CREATINE KINASE (CK), TOTAL AND [id number] 22:33:00 Test Item Value Reference Range Interpretation Comments CREATINE KINASE TOTAL (BEAKER) 119 U/L 29-200 (test code = 380) CREATINE KINASE-MB (BEAKER) (test 1.5 ng/mL 0.0-6.6 code = 750) CREATINE KINASE-MB INDEX (BEAKER) 1.3 % (test code = 395) Effective 03/10/2014: CK-MB Reference Range ChangeNew: 0.0-6.6 Previous: 0.0-4.9CK-MB Reference Range:<6.7 Normal6.7-10.0 Borderline>10.0 AbnormalTROPONIN [id number] 22:33:00 Test Item Value Reference Range Interpretation [...] 33 pg/mL 0-100 (test code = 700) [id number] 22:27:00 Test Item Value Reference Range Interpretation Comments MAGNESIUM (BEAKER) (test code = 1.9 mg/dL 1.6-2.6 627) [id number] 22:10:00 Test Item Value Reference Range Interpretation [...] 2.5-3.5 for patients with mechanical heart valves.POCT-GLUCOSE [id number] 22:02:00 Test Item Value Reference Range Interpretation Comments POC-GLUCOSE METER 86 mg/dL 70-110 TESTED AT [facility] 6720 (AKER) (test code = MAIDA Estes [facility] [address] 1538) CBC W/PLT COUNT & AUTO [id number] 22:01:00 Test Item Value Reference Range Interpretation [...]
[2020-10-06] MEDS ORDERED: IBUPROFEN 200 MG TAB PO ONE (17:48)
[2020-10-06] MEDS ORDERED: ACETAMINOPHEN 325 MG TABLET ONE (17:48)
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
--- NOTE | 2020-10-06 18:40 | RAD REPORT ---
EXAM DESCRIPTION: US - Extremity Venous Uni Ltd - 10/06/2020 6:10 pm CLINICAL HISTORY: Pain;Swelling Arm pain and swelling COMPARISON: <Comparisons> FINDINGS: Right upper extremity venous system was interrogated with Doppler technique. Normal flow, compressibility and augmentation was noted. There is no DVT present. IMPRESSION: No evidence of right upper extremity deep venous thrombosis.
[2020-10-06 19:08] VITALS: BP 121/71; TEMP 97.4; O2SAT 99
== END 2020-10-06 18:54 | disposition home or self-care (01) ==
LOC: ER 14:01
DX: M79.631 Pain in right forearm (principal)
CPT/HCPCS: 93971

== ENCOUNTER 2020-12-05 19:27 | Emergency (ER) | payer OTHER ==
--- OUTSIDE RECORDS SUMMARY | 2020-12-05 19:31 | XMS REPORT | Continuity of Care Document ---
:1985 Author Organization [facility] t Address [address] [place] [address] Care Team Providers Name Role Phone Mariposa [...] Start Date Stop Date Quantity Comments Source Tobacco use and 2019-08-15 2019-08-[address] [facility] - exposure 00:00[facility]00 [facility]:00 [facility] Cigarettes smoked 2019-04-21 2019-04-[address] current (pack per 00:00:00 00:00:00 [facility] day) - Reported Alcohol intake 2019-04-21 2019-04-21 Current drinker [facility] 00:00:00 00:00:00 of alcohol Hospital (finding) Sex Assigned At [birth year] Jew 00:00:00 00:00:00 Hospital Smoking Status Start Date Stop Date Source Never smoker [facility] Former smoker 2019-04-21 00:00:00 2019-04-21 [facility] Medications Ordered Filled Start Stop Current Ordering Indication Dosage Frequency Signature Comments Components Source Medication Medication Date Date Medication? Clinician (SIG) Name Name aspirin 81 Yes 81mg QD Take [address] [facility] EC 4-24 by [facility] - tablet 14:44: daily. [address] dicyclomine 2020- No 10mg Take [address] (BENTYL) 10 4-20 04-20 capsule [facility] - MG capsule 00:00: 23:59 (10 mg Medi cortney 00 :00 total) by Center mouth 3 (three) times daily before meals For abdominal pain/cramp ing. acetaminoph 2018-04 Yes 500mg Q6H Take 500 M ethodi en 2-[address] (TYLENOL) 11:33: [facility] 500 MG 25 every 6 l tablet (six) hours as needed for mild pain. Procedures This patient has no known procedures. Plan of Care Planned Activity Planned Date Details Comments Source Future Scheduled 2019-12-[address] [facility] - Test 00:00:00 (#1) [code = [facility] INFLUENZA VACCINE (#1)] Future Scheduled 2019-07-[address] [facility] Test 00:00:00 (procedure) [code = [facility] 76370397] Future Scheduled 2008-08-[address] [facility] - Test 00:00:00 malignant neoplasm [facility] enter of cervix (procedure) [code = 020669546] Future Scheduled [facility]ACCINE [facility] [code = INFLUENZA VACCINE] Future Scheduled COVID-[address] [facility] Test (1) [code = COVID-19 VACCINE (1)] Future Scheduled [facility] screening (procedure) [code = 413342371] Future Scheduled [facility] Test malignant neoplasm of cervix (procedure) [code = 959701784] Encounters Start End Encounter Admission Attending Care Care Encounter Source Date/Time Date/Time Type Type Clinicians Facility Department ID 2020-09-13 2020-09-13 Refill ROSE Navarrete [id number] 00:00:00 00:00:00 Whit Jean SCIENCE INTERPRETER [id number] REGIONAL 4.2.7.2.686 MATERNAL [id number] & CHILD [address] [place] [address] 2020-04-06 2020-04-06 Telephone ROSE Lepe [id number] 00:00:00 00:00:00 Bo Vitale [id number] Irwin 4.2.7.2.686 Professio [id number] nal 198 [facility] 2020-02-02 2020-02-02 Prep For Trevor DCBRENDAN [id number] 00:00:00 00:00:00 Surgery Stefano Sethi [facility] [id number] Surgical 4.2.7.2.686 Specialti [id number] es [address] [place] 2020-02-01 2020-02-01 Refill Trevor [facility] [id number] 00:00:00 00:00:00 Stefano New [id number] Surgical 4.2.7.2.686 Specialti [id number] es [address] [place] 2020-01-26 2020-01-26 Office Trevor [facility] [id number] 13:42:13 14:09:11 Visit Stefano New [id number] Surgical 4.2.7.2.686 Specialti [id number] es [address] [place] 2020-01-26 2020-01-26 Orders Doctor ABBI [id number] 00:00:00 00:00:00 Only Unassigned, DOMINGO 350.1.13.10 [facility] 4.2.7.2.686 [id number] 009 2020-01-12 2020-01-12 Orders Doctor ABBI [id number] 00:00:00 00:00:00 Only Unassigned, DOMINGO 350.1.13.10 [facility] 4.2.7.2.686 [id number] [id number] Results Test Description Test Time Test Comments Results Result [facility] e Comments RAD, 2019-07-24 Reason for FINAL REPORT ABDOMEN/KUB, 1 0 exam:->eval position PATIENT ID: VIEW AP 07:30:00 of reportedly [id number] CLINICAL swallowed tongue ring HISTORY: eval position [...] Tavares Verified Date/Time: 08/11/2019 07:30:51 Reading Location: [facility] Radiology Reading Room , CHEST, 1 2019-07-24 Reason for FINAL REPORT VIEW, NON DEPT 0 exam:->nausea, eval PATIENT ID: 05:29:00 for aspirationShould [id number] RAD, this be performed at CHEST, 1 [...] DATA TO 1092) CALCULATE ESTIM ATED GFR. Breaker Off ID - JENNIFER [id number] 04:49:00 Test Item Value Reference Range Interpretation Comments PHOSPHORUS (BEAKER) (test code = 3.4 mg/dL 2.3-4.7 604) Breaker Off ID - JENNIFER [id number] 04:49:00 Test Item Value Reference Range Interpretation Comments MAGNESIUM (BEAKER) (test code = 1.7 mg/dL 1.6-2.6 627) Breaker Off ID - JENNIFER LHEPATIC FUNCTION [id number] 04:49:00 Test Item Value Reference Range Interpretation [...] (test code = 38 U/L 6-55 347) Breaker Off ID - JENNIFER LCBC (HEMOGRAM ONLY)2019-08-11 04:15:00 Test Item Value [...] (test code = 413) HEPATOBILIARY IMAGING W/ [id number] 18:40:00Scheduled 08/09 but swallowed tongue ringHolding off until f/u KUB and cleared by radiologistReason for exam:- >See aboveFINAL REPORT PROCEDURE: HEPATOBILIARY SCAN CPT CODE: 23997 INDICATION: abdominal pain PROTOCOL: 5.22 mCi of [...] acute cholecystitis is low. Signed: Alexis Nieto MDRepsaint [facility] Verified Date/Time: 2019 18:40:53 RAD, ABDOMEN/KUB, 1 VIEW [id number] 16:48:00Reason for exam:->swallowed tongue ring; planned MRCP [...] MDReport Verified Date/Time: 2019 16:48:26 Reading Location: [facility] B1 C013Y CT Body Reading Room BASIC METABOLIC [id number] 06:31:00 Test Item Value Reference Range Interpretation [...] 1092) DATA TO CALCULA TE ESTIMATED GFR. Breaker Off ID - PIAYA [id number] 06:27:00 Test Item Value Reference Range Interpretation [...] (test code = 35 U/L 6-55 347) Breaker Off GERALD RODRIGUEZ LC-REACTIVE [id number] 06:27:00 Test Item Value Reference Range Interpretation Comments C-REACTIVE PROTEIN (BEAKER) (test 0.08 mg/dL 0.00-0.50 code = 676) Breaker Off GERALD RODRIGUEZ LCBC W/PLT COUNT & AUTO [id number] 05:45:00 Test Item Value Reference Range Interpretation [...] (BEAKER) (test code = 2801) BASIC METABOLIC [id number] 08:22:00 Test Item Value Reference Range Interpretation [...] 1092) DATA TO CALCULA TE ESTIMATED GFR. Breaker Off ID - LMHEPATIC FUNCTION [id number] 08:01:00 Test Item Value Reference Range Interpretation [...] (test code = 39 U/L 6-55 347) Breaker Off ID - [id number] 15:09:00 Test Item Value Reference Range Interpretation Comments LIPASE (BEAKER) (test code = 749) 323 U/L 8-78 H Breaker Off ID - NTPU/S, ABDOMINAL, [id number] 14:33:00Abdomen limited area? Add comment if clarification [...] MDReport Verified Date/Time: 08/08/2019 14:33:42 Reading Location: [facility] C013W Consult Reading Room MR, ABDOMEN, [id number] 12:09:00FINAL REPORT MR Abdomen dated 08/08/2019 Comment: [...] MDReport Verified Date/Time: 08/08/2019 12:09:11 Reading Location: [facility] C013Y CT Body Reading Room BASIC METABOLIC [id number] 06:41:00 Test Item Value Reference Range Interpretation [...] 1092) DATA TO CALCULA TE ESTIMATED GFR. Breaker Off ID - MADELINE [id number] 06:40:00 Test Item Value Reference Range Interpretation Comments MAGNESIUM (BEAKER) (test code = 1.8 mg/dL 1.6-2.6 627) Breaker Off ID Lorne CORREA WHEPATIC FUNCTION [id number] 06:40:00 Test Item Value Reference Range Interpretation [...] (test code = 53 U/L 6-55 347) Breaker Off ID Lorne CORREA [id number] 05:43:00 Test Item Value Reference Range Interpretation [...] mechanical heart valves.CBC W/PLT COUNT & AUTO [id number] 05:36:00 Test Item Value Reference Range Interpretation [...] Normal DRVV Results (BEAKER) (test code = 2408) [id number] Alvarez Moe MD (BEAKER) (test code = [...] 0.00-0.20 (test code = 417) 0.00BASIC METABOLIC [id number] 07:05:00 Test Item Value Reference Range Interpretation [...] TE ESTIMATED GFR. CARDIOLIPIN ANTIBODIES, IGG AND [id number] 14:31:00 Test Item Value Reference Range Interpretation Comments ANTICARDIOLIPIN IGG ANTIBODY (BEAKER) < GPL (test code = 712) ANTICARDIOLIPIN IGM ANTIBODY (BEAKER) < MPL (test code = 713) Anticardiolipin IgG Result Interpretation:NEG: <20 GPL; U/mlPOS: >/=20 GPL; U/mlAnticardiolipin IgM Result Interpretation:NEG: <20 MPL; U/mlPOS: >/=20 MPL; U/mlTHROMBIN [id number] 14:25:00 Test Item Value Reference Range Interpretation Comments THROMBIN TIME (BEAKER) (test code 193.3 secs 13.8-20.0 H = 550) EQUAL MIX, NORMAL [id number] 14:16:00 Test Item Value Reference Range Interpretation [...] = 418) CBC W/PLT COUNT & AUTO [id number] 08:32:00 Test Item Value Reference Range Interpretation [...] (BEAKER) (test code = 1351) BASIC METABOLIC [id number] 06:54:00 Test Item Value Reference Range Interpretation [...] TO CALCULA TE ESTIMATED GFR. BASIC METABOLIC [id number] 07:19:00 Test Item Value Reference Range Interpretation [...] ESTIMATED GFR. CBC W/PLT COUNT & AUTO [id number] 07:07:00 Test Item Value Reference Range Interpretation [...] K/ L 0.00-0.20 (test code = 417) [id number] 11:08:00 Test Item Value Reference Range Interpretation Comments POTASSIUM (BEAKER) (test code = 3.8 meq/L 3.5-5.1 379) [id number] 11:08:00 Test Item Value Reference Range Interpretation Comments MAGNESIUM (BEAKER) (test code = 2.3 mg/dL 1.6-2.6 627) BASIC METABOLIC [id number] 05:29:00 Test Item Value Reference Range Interpretation [...] m DATA TO CALCULA TE ESTIMATED GFR. [id number] 05:27:00 Test Item Value Reference Range Interpretation Comments PHOSPHORUS (BEAKER) (test code = 2.7 mg/dL 2.3-4.7 604) [id number] 05:27:00 Test Item Value Reference Range Interpretation Comments MAGNESIUM (BEAKER) (test code = 1.8 mg/dL 1.6-2.6 627) CBC W/PLT COUNT & AUTO [id number] 05:04:00 Test Item Value Reference Range Interpretation [...] K/ L 0.00-0.20 (test code = 417) [id number] 17:27:00 Test Item Value Reference Range Interpretation [...] L (test code = 2590) BASIC METABOLIC [id number] 15:01:00 Test Item Value Reference Range Interpretation [...] m DATA TO CALCULA TE ESTIMATED GFR. [id number] 14:50:00 Test Item Value Reference Range Interpretation Comments PHOSPHORUS (BEAKER) (test code = 3.5 mg/dL 2.3-4.7 604) [id number] 14:50:00 Test Item Value Reference Range Interpretation Comments MAGNESIUM (BEAKER) (test code = 1.9 mg/dL 1.6-2.6 627) LIPID [id number] 14:50:00 Test Item Value Reference Range Interpretation [...] Borderline 130-159 High 160-189 Very High >=190C-REACTIVE [id number] 14:50:00 Test Item Value Reference Range Interpretation Comments C-REACTIVE PROTEIN (BEAKER) (test 0.02 mg/dL 0.00-0.50 code = 676) COMPLEMENT COMPONENT [id number] 14:48:00 Test Item Value Reference Range Interpretation Comments C4 COMPLEMENT (BEAKER) (test code = 19 mg/dL 15-57 394) Effective 03/10/2014: Reference Range ChangeNew: 15-57 Previous: 16-38 COMPLEMENT COMPONENT [id number] 14:48:00 Test Item Value Reference Range Interpretation Comments C3 COMPLEMENT (BEAKER) (test code = 105 mg/dL 82-193 393) Effective 03/10/2014: Reference Range ChangeNew: 82-193 Previous: 79-152 HEMOGLOBIN [id number] 14:38:00 Test Item Value Reference Range Interpretation Comments HEMOGLOBIN A1C (BEAKER) (test code = 5.1 % 4.3-6.1 368) SEDIMENTATION [id number] 08:29:00 Test Item Value Reference Range Interpretation Comments SEDIMENTATION RATE, ERYTHROCYTE 10 mm/HR 0-20 (BEAKER) (test code = 766) CBC W/PLT COUNT & AUTO [id number] 06:06:00 Test Item Value Reference Range Interpretation [...] (test code = 417) 0.00RAPID DRUG SCREEN, [id number] 01:59:00 Test Item Value Reference Range Interpretation [...] ng/mLAmphetamine/ 1000 ng/mL MethamphetamineOxycodone 300 ng/mLPREGNANCY SCREEN, [id number] 01:47:00 Test Item Value Reference Range Interpretation Comments TEST URINE (BEAKER) (test Negative code = 583) URINALYSIS W/ [id number] 01:46:00 Test Item Value Reference Range Interpretation [...] SOURCE(BEAKER) (test code = 2795) BASIC METABOLIC [id number] 22:37:00 Test Item Value Reference Range Interpretation [...] ESTIMATED GFR. CREATINE KINASE (CK), TOTAL AND [id number] 22:33:00 Test Item Value Reference Range Interpretation Comments CREATINE KINASE TOTAL (BEAKER) 119 U/L 29-200 (test code = 380) CREATINE KINASE-MB (BEAKER) (test 1.5 ng/mL 0.0-6.6 code = 750) CREATINE KINASE-MB INDEX (BEAKER) 1.3 % (test code = 395) Effective 03/10/2014: CK-MB Reference Range ChangeNew: 0.0-6.6 Previous: 0.0-4.9CK-MB Reference Range:<6.7 Normal6.7-10.0 Borderline>10.0 AbnormalTROPONIN [id number] 22:33:00 Test Item Value Reference Range Interpretation [...] 33 pg/mL 0-100 (test code = 700) [id number] 22:27:00 Test Item Value Reference Range Interpretation Comments MAGNESIUM (BEAKER) (test code = 1.9 mg/dL 1.6-2.6 627) [id number] 22:10:00 Test Item Value Reference Range Interpretation [...] 2.5-3.5 for patients with mechanical heart valves.POCT-GLUCOSE [id number] 22:02:00 Test Item Value Reference Range Interpretation Comments POC-GLUCOSE METER 86 mg/dL 70-110 TESTED AT [facility] 6720 (BEAKER) (test code = [place] [address] 1538) CBC W/PLT COUNT & AUTO [id number] 22:01:00 Test Item Value Reference Range Interpretation [...]
[2020-12-05] MEDS ORDERED: ACETAMINOPHEN 500 MG TAB ONE (21:29)
[2020-12-05 21:46] LABS: SARS-COV-2 RT PCR POSITIVE (NEGATIVE)
--- NOTE | 2020-12-05 22:06 | EDPHYS ---
Physician Documentation [facility] Name: Italia Allen Age: 35 yrs Sex: Female : 1985 Arrival Date: 12/05/2020 Time: 19:30 Bed DIS8 Private MD: ED Physician Randell sOuna HPI: 12/05 20:23 This 35 yrs old Female presents to ER via Ambulatory with complaints of Cough. mh7 Sore throat. 20:23 The patient or guardian reports cough, that is intermittent, described as mild, with no mh7 sputum, Runny nose, nasal congestion, sore throat, vomiting with coughing. Onset: The symptoms/episode began/occurred 3 day(s) ago. Severity of symptoms: At their worst the symptoms were moderate, 2 day(s) ago, in the emergency department the symptoms are unchanged. Modifying factors: The symptoms are alleviated by nothing, the symptoms are aggravated by nothing. Associated signs and symptoms: Pertinent positives: earache, rhinorrhea, sore throat, vomiting, With coughing, Pertinent negatives: chest pain. Patient reports coughing, runny nose, nasal congestion, sore throat for 3 days. She has had some posttussive emesis and reports one episode of loose stool today. She denies any headache, chest pain, shortness of breath, fever, abdominal pain, or dysuria.. 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 - Social history:: Smoking status: Patient/guardian denies using tobacco, Stopped _ months ago 2. ROS: 20:23 Constitutional: Negative for fever, chills, and weight loss, Eyes: Negative for injury, mh7 pain, redness, and discharge, Neck: Negative for injury, pain, and swelling, Cardiovascular: Negative for chest pain, palpitations, and edema. 20:23 Back: Negative for injury and pain, : Negative for injury, bleeding, discharge, and swelling, MS/Extremity: Negative for injury and deformity, Skin: Negative for injury, rash, and discoloration, Neuro: Negative for headache, weakness, numbness, tingling, and seizure, Psych: Negative for depression, anxiety, suicide ideation, homicidal ideation, and hallucinations, Allergy/Immunology: Negative for hives, rash, and allergies, Endocrine: Negative for neck swelling, polydipsia, polyuria, polyphagia, and marked weight changes, Hematologic/Lymphatic: Negative for swollen nodes, abnormal bleeding, and unusual bruising. 20:23 Abdomen/GI: Negative for abdominal pain, constipation, abdominal cramps, abdominal distension, anorexia, dysphagia, hematemesis, black/tarry stool, rectal pain, rectal bleeding, bowel incontinence, flatulence. Exam: 20:23 Constitutional: This is a well developed, well nourished patient who is awake, alert, mh7 and in no acute distress. Head/Face: Normocephalic, atraumatic. Eyes: Pupils equal round and reactive to light, extra-ocular motions intact. Lids and lashes normal. Conjunctiva and sclera are non-icteric and not injected. Cornea within normal limits. Periorbital areas with no swelling, redness, or edema. Neck: Trachea midline, no thyromegaly or masses palpated, and no cervical lymphadenopathy. Supple, full range of motion without nuchal rigidity, or vertebral point tenderness. No Meningismus. Chest/axilla: Normal chest wall appearance and motion. Nontender with no deformity. No lesions are appreciated. Cardiovascular: Regular rate and rhythm with a normal S1 and S2. No gallops, murmurs, or rubs. Normal PMI, no JVD. No pulse deficits. Respiratory: Lungs have equal breath sounds bilaterally, clear to auscultation and percussion. No rales, rhonchi or wheezes noted. No increased work of breathing, no retractions or nasal flaring. Abdomen/GI: Soft, non-tender, with normal bowel sounds. No distension or tympany. No guarding or rebound. No evidence of tenderness throughout. Back: No spinal tenderness. No costovertebral tenderness. Full range of motion. Skin: Warm, dry with normal turgor. Normal color with no rashes, no lesions, and no evidence of cellulitis. MS/ Extremity: Pulses equal, no cyanosis. Neurovascular intact. Full, normal range of motion. Neuro: Awake and alert, GCS 15, oriented to person, place, time, and situation. Cranial nerves II-XII grossly intact. Motor strength 5/5 in all extremities. Sensory grossly intact. Cerebellar exam normal. Normal gait. Psych: Awake, alert, with orientation to person, place and time. Behavior, mood, and affect are within normal limits. 20:23 ENT: External ear(s): are unremarkable, Ear canal(s): are normal, clear, TM's: are mh7 normal, Nose: is normal, Mouth: is normal, Posterior pharynx: is normal, airway is patent, Dental exam: normal, Voice: is normal. Vital Signs: 20:03 BP 122 / 81; Pulse 78; Resp 16 S; Temp 98.6(O); Pulse Ox 99% on R/A; Weight 55.79 kg bb (R); Height 5 ft. 1 in. (154.94 cm) (R); Pain 10/10; 22:28 BP 113 / 78; Pulse 70; Resp 16 S; Pulse Ox 100% ; bb 20:03 Body Mass Index 23.24 (55.79 kg, 154.94 cm) MDM: 22:03 Differential Diagnosis: Bronchitis Influenza Upper Respiratory Infection Pharyngitis [facility] [place] Viral Syndrome. Data reviewed: vital signs, nurses notes, old medical records, lab test result(s), Flu: negative Strep negative, Covid positive. Data interpreted: Pulse oximetry: on room air is 99 %. Interpretation: normal. Counseling: I had a detailed discussion with the patient and/or guardian regarding: the historical points, exam findings, and any diagnostic results supporting the discharge/admit diagnosis, lab results, the need for outpatient follow up, to return to the emergency department if symptoms worsen or persist or if there are any questions or concerns that arise at home. Response to treatment: the patient's symptoms have markedly improved after treatment. 22:03 Refusal of service: The patient/guardian displays adequate decision making capability [facility] [place] and despite a detailed discussion of alternatives, benefits, risks, and consequences refuses: all X-rays. 22:[address] [facility] [place] 12/05 20:03 Order name: Strep; Complete Time: 21:48 bb 12/05 21:46 Order name: COVID-19/FLU A+B; Complete Time: 21:48 EDMS 08/15 21:47 Order name: Throat Culture EDMS Administered Medications: 21:04 Drug: Tylenol 1000 mg Route: PO; bb 22:09 Follow up: Response: No adverse reaction bb Disposition Summary: 12/05/20 22:06 Discharge Ordered Location: Home [facility] [place] Problem: new [facility] [place] Symptoms: have improved [facility] [place] Condition: Stable [facility] [place] Diagnosis - COVID 7 - Pharyngitis 7 Followup: [facility] [place] - With: Private Physician - When: 1 - 2 days - Reason: Worsening of condition, Recheck today's complaints, Continuance of care, Re-evaluation by your physician Discharge Instructions: - Discharge Summary Sheet 7 - COVID-19 7 - COVID-[address] [facility] [place] - COVID-19: Quarantine vs. Isolation - [place] [id number] Forms: - Medication Reconciliation Form [facility] [place] - Thank You Letter [facility] [place] - Antibiotic Education 7 - Prescription Opioid Use 7 - Work release form mw2 Prescriptions: - albuterol sulfate 90 mcg/actuation Inhalation HFA aerosol inhaler - inhale 1 puff by INHALATION route every 6 hours As needed; 1 Inhaler; Refills: 7 0, Product Selection Permitted - Tessalon Perles 100 mg Oral Capsule - take 1 capsule by ORAL route every 8 hours As needed; 15 capsule; Refills: 0, 7 Product Selection Permitted - Zithromax Z-Wolfgang 250 mg Oral Tablet - take 1 tablet by ORAL route as directed for 5 days Day 1 - take two (2) tablets [facility] [place] one time. Day 2, 3, 4 , 5 take one (1) tablet once daily.; 6 tablet; Refills: 0, Product Selection Permitted - Prednisone 20 mg Oral Tablet - take 2 tablets by ORAL route once daily for 5 days; 10 tablet; Refills: 0, 7 Product Selection Permitted Signatures: Dispatcher [employer] EDMS Althea Li RN RN Randell Lo MD MD 7 Corrections: (The following items were deleted from the chart) 20:17 20:03 Influenza Screen (A \T\ B)+BA.LAB.BRZ ordered. EDMS EDMS 20:17 20:03 CORONAVIRUS+MR.LAB.BRZ ordered. EDMS EDMS
--- NOTE | 2020-12-05 22:06 | ER ---
Nurse's Notes [facility] Name: Italia Allen Age: 35 yrs Sex: Female : 1985 Arrival Date: 12/05/2020 Time: 19:30 Bed DIS8 Private MD: Diagnosis: COVID;Pharyngitis Presentation: 12/05 20:03 Chief complaint: Patient states: she has been sick x 3 days with sore throat, headache, bb cough, vomiting. Coronavirus screen: cough unrelated to allergies, headache, sore throat, vomiting. Ebola Screen: No symptoms or risks identified at this time. Initial Sepsis Screen: Does the patient meet any 2 criteria? No. Patient's initial sepsis screen is negative. Does the patient have a suspected source of infection? No. Patient's initial sepsis screen is negative. Risk Assessment: Do you want to hurt yourself or someone else? Patient reports no desire to harm self or others. Onset of symptoms was December 02, 2020. 20:03 Method Of Arrival: Ambulatory bb 20:03 Acuity: BUDDY 4 bb Triage Assessment: 20:04 General: Appears in no apparent distress. Behavior is calm, cooperative. Pain: bb Complains of pain in throat Pain currently is 10 out of 10 on a pain scale. Neuro: Level of Consciousness is awake, alert, obeys commands, Oriented to person, place, time, situation. Cardiovascular: Capillary refill < 3 seconds Patient's skin is warm and dry. Respiratory: Respiratory effort is even, unlabored, Respiratory pattern is regular. GI: Reports vomiting. Derm: Skin is pink, warm \T\ dry. Musculoskeletal: Circulation, motion, and sensation intact. 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 - Social history:: Smoking status: Patient/guardian denies using tobacco, Stopped _ months ago 2. Screenin:20 Abuse screen: Denies threats or abuse. Nutritional screening: No deficits noted. bb Tuberculosis screening: No symptoms or risk factors identified. Fall Risk None identified. Assessment: 20:20 Reassessment: No changes from previously documented assessment. Patient is alert, bb oriented x 3, equal unlabored respirations, skin warm/dry/pink. 22:28 Reassessment: Patient is alert, oriented x 3, equal unlabored respirations, skin bb warm/dry/pink. pt verbalized understanding of and agrees to plan of care discharge instructions given pt ambulated with steady gait to exit. Vital Signs: 20:03 BP 122 / 81; Pulse 78; Resp 16 S; Temp 98.6(O); Pulse Ox 99% on R/A; Weight 55.79 kg bb (R); Height 5 ft. 1 in. (154.94 cm) (R); Pain 10/10; 22:28 BP 113 / 78; Pulse 70; Resp 16 S; Pulse Ox 100% ; bb 20:03 Body Mass Index 23.24 (55.79 kg, 154.94 cm) bb ED Course: 19:30 Patient arrived in ED. 20:04 Triage completed. bb 20:04 Arm band placed on Patient placed in waiting room, Patient notified of wait time. Labs bb ordered per protocol. 20:11 Randell Osuna MD is Attending Physician. [facility] 20:20 Patient has correct armband on for positive identification. bb 22:07 Althea Li RN is Primary Nurse. bb 22:29 No provider procedures requiring assistance completed. Patient did not have IV access bb during this emergency room visit. Administered Medications: 21:04 Drug: Tylenol 1000 mg Route: PO; bb 22:09 Follow up: Response: No adverse reaction bb Outcome: 22:06 Discharge ordered by . [facility] 22:29 Discharged to home ambulatory. bb 22:29 Condition: stable 22:29 Discharge instructions given to patient, Instructed on discharge instructions, follow up and referral plans. medication usage, Demonstrated understanding of instructions, follow-up care, medications, Prescriptions given X 4. 22:29 Patient left the ED. bb Signatures: Althea Li RN RN Randell Lo MD MD [facility] Lachelle Olivarez
[2020-12-05 22:48] VITALS: TEMP 98.6
[2020-12-05 22:49] VITALS: BP 113/78; O2SAT 100
== END 2020-12-05 22:29 | disposition home or self-care (01) ==
LOC: ER 19:27
DX: U07.1 COVID-19 (principal)
CPT/HCPCS: 87070; 87081; 0240U; 99283

== ENCOUNTER 2021-02-11 08:28 | Emergency (ER) | payer OTHER ==
[2021-02-11 09:02] LABS: Urine Blood 2+ (Negative); Urine Glucose Negative (Negative); Urine Protein Negative (Negative); Urine Specific Gravity >=1.030 (1.005-1.030); Urine pH 5.5 (5.0-7.0)
[2021-02-11 09:22] LABS: Absolute Lymphocytes (CBC) 2.1 K/uL (0.7-4.9); Basophils % 0.6 % (0-1.3); Hematocrit 39.3 % (36.0-45.0); Lymphocytes % 22.4 % (15.3-44.8); RBC Red Blood Cell Count 4.24 M/uL (3.86-4.86)
[2021-02-11] MEDS ORDERED: CIPROFLOXACIN 400mg IV 400 MG/200 ML BAG IV ONE (09:27)
[2021-02-11] MEDS ORDERED: MORPHINE 2 MG/ML SYR ONE (09:27)
[2021-02-11] MEDS ORDERED: METRONIDAZOLE 500mg IVPB 500 MG/100 ML BAG IV ONE (09:28)
[2021-02-11] MEDS ORDERED: NA CHLORIDE 0.9% 1,000 ML ONE (09:28)
[2021-02-11] MEDS ORDERED: ONDANSETRON 4 MG/2 ML VIAL ONE (09:29)
[2021-02-11 09:44] LABS: ALT/SGPT 24 U/L (12-78); AST/SGOT 15 U/L (15-37); Albumin 3.8 g/dL (3.4-5.0); Alkaline Phosphatase 86 U/L (45-117); BUN Blood Urea Nitrogen 9 mg/dL (7-18); Bicarbonate 28 mmol/L (21-32); Bilirubin Direct 0.1 mg/dL (0-0.2); Bilirubin Total 0.3 mg/dL (0.2-1.0); Glucose Level 79 mg/dL (74-106); Lipase 80 U/L (73-393); Potassium 3.3 mmol/L (3.5-5.1); Protein, Total 7.3 g/dL (6.4-8.2); Sodium Level 139 mmol/L (136-145)
[2021-02-11] MEDS ORDERED: LORazepam 2 MG/ML VIAL ONE (10:01)
--- NOTE | 2021-02-11 11:03 | RAD REPORT ---
EXAM DESCRIPTION: CT - Abdomen Pelvis W Contrast - 02/11/2021 10:42 am CLINICAL HISTORY: ABD PAIN COMPARISON: Abdomen Pelvis W Contrast dated 08/07/2019; Abdomen Pelvis W Contrast dated 07/17/2019 TECHNIQUE: Biphasic, helical CT imaging of the abdomen and pelvis was performed following 100 ml non -ionic IV contrast. Oral contrast was given. All CT scans are performed using dose optimization technique as appropriate and may include automated exposure control or mA/KV adjustment according to patient size. FINDINGS: No suspicious findings in the lung bases. The liver, spleen, and pancreas show no suspicious findings. Gallbladder and biliary tree are also wi thout suspicious finding. Symmetric renal function is seen with no hydronephrosis or suspicious renal mass. No pyelonephritis o r acute parenchymal process. No bladder abnormalities. No adrenal abnormalities. No uterus or ovary a bnormality seen. No gastric dilatation or wall thickening. No dilated small bowel loops. There is some fecalized bowel content in the distal small bowel. Terminal ileum is not well visualized. An acute terminal ileum pr ocess is not suspected. No appendicitis. No colon dilatation or wall thickening. No rectal or colon f ocal abnormality seen. Mucosal level abnormalities can be occult on CT imaging. Numerous phleboliths are seen along the pelvic floor. Tampon is in place. No free air, free fluid or inflammatory stranding. No hernia, mass or bulky lymphadenopathy. No suspicious bony findings. IMPRESSION: Contrast enhanced CT abdomen and pelvis showing no acute or emergent finding. No abnormality seen that would explain the lower abdominal pain and bloody stool history. Mucosal lev el mass or inflammatory changes can be occult on CT imaging.
--- NOTE | 2021-02-11 11:07 | EDPHYS ---
Physician Documentation [facility] Name: Italia Allen Age: 35 yrs Sex: Female : 1985 Arrival Date: 02/11/2021 Time: 08:29 Bed 6 Private MD: ED Physician Serjio Hitchcock HPI: 02/11 08:57 This 35 yrs old Female presents to ER via Ambulatory with complaints of Bloody nils Stools. 08:57 The patient presents with abdominal pain in the upper abdomen, in the lower abdomen. nils Onset: The symptoms/episode began/occurred 2 day(s) ago. The symptoms do not radiate. Associated signs and symptoms: none. The symptoms are described as crampy. Modifying factors: The symptoms are alleviated by remaining still. Severity of pain: At its worst the pain was moderate in the emergency department the pain is unchanged. The patient has experienced a previous episode, last year. 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 - Social history:: Smoking status: Reported history of juuling and/or vaping. - Family history:: not pertinent. - Code Status:: Full code. ROS: 08:57 Constitutional: Negative for fever, chills, and weight loss, Eyes: Negative for injury, nils pain, redness, and discharge, ENT: Negative for injury, pain, and discharge, Neck: Negative for injury, pain, and swelling, Cardiovascular: Negative for chest pain, palpitations, and edema, Respiratory: Negative for shortness of breath, cough, wheezing, and pleuritic chest pain, Back: Negative for injury and pain, : Negative for injury, bleeding, discharge, and swelling, MS/Extremity: Negative for injury and deformity, Skin: Negative for injury, rash, and discoloration, Neuro: Negative for headache, weakness, numbness, tingling, and seizure, Psych: Negative for depression, anxiety, suicide ideation, homicidal ideation, and hallucinations, Allergy/Immunology: Negative for hives, rash, and allergies, Endocrine: Negative for neck swelling, polydipsia, polyuria, polyphagia, and marked weight changes, Hematologic/Lymphatic: Negative for swollen nodes, abnormal bleeding, and unusual bruising. 08:57 Abdomen/GI: Positive for abdominal pain, of the left upper quadrant and left lower quadrant. Exam: 08:57 Constitutional: This is a well developed, well nourished patient who is awake, alert, nils and in no acute distress. Head/Face: Normocephalic, atraumatic. Eyes: Pupils equal round and reactive to light, extra-ocular motions intact. Lids and lashes normal. Conjunctiva and sclera are non-icteric and not injected. Cornea within normal limits. Periorbital areas with no swelling, redness, or edema. ENT: Nares patent. No nasal discharge, no septal abnormalities noted. Tympanic membranes are normal and external auditory canals are clear. Oropharynx with no redness, swelling, or masses, exudates, or evidence of obstruction, uvula midline. Mucous membranes moist. Neck: Trachea midline, no thyromegaly or masses palpated, and no cervical lymphadenopathy. Supple, full range of motion without nuchal rigidity, or vertebral point tenderness. No Meningismus. Chest/axilla: Normal chest wall appearance and motion. Nontender with no deformity. No lesions are appreciated. Cardiovascular: Regular rate and rhythm with a normal S1 and S2. No gallops, murmurs, or rubs. Normal PMI, no JVD. No pulse deficits. Respiratory: Lungs have equal breath sounds bilaterally, clear to auscultation and percussion. No rales, rhonchi or wheezes noted. No increased work of breathing, no retractions or nasal flaring. Abdomen/GI: Soft, non-tender, with normal bowel sounds. No distension or tympany. No guarding or rebound. No evidence of tenderness throughout. Back: No spinal tenderness. No costovertebral tenderness. Full range of motion. Skin: Warm, dry with normal turgor. Normal color with no rashes, no lesions, and no evidence of cellulitis. MS/ Extremity: Pulses equal, no cyanosis. Neurovascular intact. Full, normal range of motion. Neuro: Awake and alert, GCS 15, oriented to person, place, time, and situation. Cranial nerves II-XII grossly intact. Motor strength 5/5 in all extremities. Sensory grossly intact. Cerebellar exam normal. Normal gait. Psych: Awake, alert, with orientation to person, place and time. Behavior, mood, and affect are within normal limits. 08:57 Abdomen/GI: Rectal exam: is unremarkable, rectal tone normal, Stool: guaiac positive, hemorrhoid(s), are not appreciated, mass, is not appreciated, swelling, is not appreciated, tenderness, is not appreciated, Liver: no appreciated palpable abnormalities, Hernia: not appreciated. Vital Signs: 08:35 BP 117 / 78; Pulse 94; Resp 18; Temp 98.2(O); Pulse Ox 100% on R/A; Weight 54.43 kg; ss Height 5 ft. 1 in. (154.94 cm); Pain 0/10; 10:19 BP 91 / 63; Pulse 65; Resp 18; Pulse Ox 100% on R/A; Pain 3/10; jw6 11:30 BP 98 / 66; Pulse 68; Resp 18; Pulse Ox 100% on R/A; jw6 08:35 Body Mass Index 22.67 (54.43 kg, 154.94 cm) ss MDM: 08:43 Patient medically screened. nils 09:00 Differential diagnosis: bowel obstruction, diverticulitis, gastritis, GI Bleed, nils non-specific abd pain, pancreatitis, Pyelonephritis, Ureterolithiasis, urinary tract infection. Data reviewed: vital signs, nurses notes, lab test result(s), radiologic studies, CT scan. Data interpreted: awake overnight monitor: rate is 94 beats/min, rhythm is regular, Pulse oximetry: on room air is 100 %. Counseling: I had a detailed discussion with the patient and/or guardian regarding: the historical points, exam findings, and any diagnostic results supporting the discharge/admit diagnosis, lab results, radiology results. 02/11 08:56 Order name: Basic Metabolic Panel; Complete Time: 09:55 [facility] 02/11 08:56 Order name: CBC with Diff; Complete Time: 09:55 [facility] 02/11 08:56 Order name: Hepatic Function; Complete Time: 09:55 [facility] 02/11 08:56 Order name: Lipase; Complete Time: 09:55 [facility] 02/11 08:56 Order name: Stool Culture [facility] 02/11 09:02 Order name: Urine Dipstick-Ancillary; Complete Time: 09:55 EDMS 02/11 08:56 Order name: CT Abd/Pelvis - PO and IV Contrast nils 02/11 08:56 Order name: IV Saline Lock; Complete Time: 08:57 nils 02/11 08:56 Order name: Labs collected and sent; Complete Time: 08:57 nils 02/11 08:56 Order name: Urine Dipstick-Ancillary (obtain specimen); Complete Time: 09:04 nils 02/11 08:56 Order name: Urine Test (obtain specimen); Complete Time: 09:04 nils Administered Medications: 09:25 Drug: NS 0.9% 1000 ml Route: IV; Rate: 1 bolus; Site: right antecubital; jw6 10:56 Follow up: Response: No adverse reaction; IV Status: Completed infusion; IV Intake: jw6 1000ml 09:27 Drug: Flagyl (metroNIDAZOLE) 500 mg Volume: 100 ml; Route: IVPB; Rate: 200 ml/hr; jw6 Infused Over: 30 mins; Site: right antecubital; 09:42 Follow up: Response: No adverse reaction; IV Status: Completed infusion; IV Intake: jw6 100ml 09:27 Drug: morphine 2 mg Route: IVP; Site: right antecubital; jw6 09:27 Drug: Zofran (Ondansetron) 4 mg Route: IVP; Site: right antecubital; jw6 09:43 Follow up: Response: No adverse reaction jw6 09:42 Drug: Ativan (LORazepam) 1 mg Route: IVP; Site: right antecubital; jw6 09:43 Follow up: Response: No adverse reaction jw6 09:44 Drug: Cipro (ciprofloxacin) 400 mg Volume: 200 ml; Route: IVPB; Infused Over: 60 mins; jw6 Site: right antecubital; 10:18 Follow up: Response: No adverse reaction; IV Status: Completed infusion; IV Intake: jw6 200ml 11:30 Not Given (Patient Refused): Potassium Effervescent Tablet 25 mEq PO once; dissolve in jw6 4 ounces of water or juice Point of Care Testing: Urine : 09:28 hCG Reading: Negative; jw6 Disposition Summary: 02/11/21 11:07 Discharge Ordered Location: Home nils Problem: new nils Symptoms: have improved nils Condition: Stable nils Diagnosis - Abdominal pain, unspecified nils - Left sided colitis with rectal bleeding nils Followup: nils - With: Private Physician - When: 2 - 3 days - Reason: Recheck today's complaints, Continuance of care, Re-evaluation by your physician Followup: nils - With: - When: 2 - 3 days - Reason: Recheck today's complaints, Continuance of care, Re-evaluation by your physician Discharge Instructions: - Discharge Summary Sheet nils - Abdominal Pain, Adult nils - Gastrointestinal Bleeding nils - Gastrointestinal Bleeding, [id number] nils - Colitis nils Forms: - Medication Reconciliation Form nils - Thank You Letter nils - Antibiotic Education nils - Prescription Opioid Use nils - Work release form eb Prescriptions: - Flagyl 500 mg Oral Tablet - take 1 tablet by ORAL route every 6 hours for 7 days; 28 tablet; Refills: 0, [facility] Product Selection Permitted - Pepcid 20 mg Oral Tablet - take 1 tablet by ORAL route every 12 hours for 15 days; 30 tablet; Refills: 0, [facility] Product Selection Permitted - Zofran 4 mg Oral Tablet - take 1 tablet by ORAL route every 12 hours As needed; 20 tablet; Refills: 0, [facility] Product Selection Permitted - Cipro 500 mg Oral Tablet - take 1 tablet by ORAL route every 12 hours for 7 days; 14 tablet; Refills: 0, [facility] Product Selection Permitted - dicyclomine 20 mg Oral Tablet - take 1 tablet by ORAL route 4 times per day; 28 tablet; Refills: 0, Product [facility] Selection Permitted Signatures: Dispatcher [employer] Serjio Silveira MD MD cha Smirch, Shelby, RN RN Samantha Webber jw6
--- NOTE | 2021-02-11 11:07 | ER ---
Nurse's Notes [facility] Name: Italia Allen Age: 35 yrs Sex: Female : 1985 Arrival Date: 02/11/2021 Time: 08:29 Bed 6 Private MD: Diagnosis: Abdominal pain, unspecified;Left sided colitis with rectal bleeding Presentation: 02/11 08:35 Chief complaint: Patient states: "I've been pooping blood with blood clots since yesterday morning.". Coronavirus screen: Client denies travel out of the [place] in the last 14 days. Ebola Screen: Patient denies exposure to infectious person. Patient denies travel to an Ebola-affected area in the 21 days before illness onset. Initial Sepsis Screen: Does the patient meet any 2 criteria? No. Patient's initial sepsis screen is negative. Does the patient have a suspected source of infection? No. Patient's initial sepsis screen is negative. Risk Assessment: Do you want to hurt yourself or someone else? Patient reports no desire to harm self or others. Onset of symptoms was February 10, 2021. 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 - Social history:: Smoking status: Reported history of juuling and/or vaping. - Family history:: not pertinent. - Code Status:: Full code. Screenin:31 Abuse screen: Denies threats or abuse. Denies injuries from another. Nutritional jw6 screening: No deficits noted. Tuberculosis screening: No symptoms or risk factors identified. Fall Risk IV access (20 points). Gait- Weak (10 pts.). Assessment: 09:14 General: Appears distressed, uncomfortable, Behavior is cooperative, restless, Reports jw6 fatigue for Denies. General:. Pain: Complains of pain in abdomen. 09:28 Pain: Complains of pain in buttocks Pain does not radiate. Pain currently is 10 out of jw6 10 on a pain scale. Quality of pain is described as sharp, shooting, stabbing, Pain began 4 hours ago. Neuro: No deficits noted. Cardiovascular: No deficits noted. Respiratory: No deficits noted. GI: Abdomen is flat, non-distended, Stools are reported to be loose, bloody. Last BM was February 11, 2021. at 09:29. Reports lower abdominal pain, upper abdominal pain, diarrhea, rectal bleeding, bloody stool. : No deficits noted. EENT: No deficits noted. Derm: No deficits noted. Musculoskeletal: No deficits noted. Vital Signs: 08:35 BP 117 / 78; Pulse 94; Resp 18; Temp 98.2(O); Pulse Ox 100% on R/A; Weight 54.43 kg; ss Height 5 ft. 1 in. (154.94 cm); Pain 0/10; 10:19 BP 91 / 63; Pulse 65; Resp 18; Pulse Ox 100% on R/A; Pain 3/10; jw6 11:30 BP 98 / 66; Pulse 68; Resp 18; Pulse Ox 100% on R/A; jw6 08:35 Body Mass Index 22.67 (54.43 kg, 154.94 cm) ED Course: 08:29 Patient arrived in ED. ds1 08:36 Triage completed. ss 08:36 Arm band placed on right wrist. ss 08:43 Serjio Hitchcock MD is Attending Physician. nils 08:56 Samantha Lopes is Primary Nurse. jw6 09:14 Lipase Sent. jw6 09:14 Hepatic Function Sent. jw6 09:14 CBC with Diff Sent. jw6 09:14 Basic Metabolic Panel Sent. jw6 09:27 Stool Culture Sent. jw6 09:31 Patient has correct armband on for positive identification. Placed in gown. Bed in low jw6 position. Call light in reach. Side rails up X 1. 09:31 Served as a strapper and buffer during rectal exam. Inserted saline lock: 20 gauge in right jw6 antecubital area, using aseptic technique. Blood collected. 10:42 CT Abd/Pelvis - PO and IV Contrast In Process Unspecified. EDMS 10:57 Appears to be sleeping. jw6 11:07 Elle Ojeda MD is Referral Physician. nils 11:29 Awaiting: ride home. jw6 11:29 IV discontinued, intact, No redness/swelling at site. Pressure dressing applied. jw6 Administered Medications: 09:25 Drug: NS 0.9% 1000 ml Route: IV; Rate: 1 bolus; Site: right antecubital; jw6 10:56 Follow up: Response: No adverse reaction; IV Status: Completed infusion; IV Intake: jw6 1000ml 09:27 Drug: Flagyl (metroNIDAZOLE) 500 mg Volume: 100 ml; Route: IVPB; Rate: 200 ml/hr; jw6 Infused Over: 30 mins; Site: right antecubital; 09:42 Follow up: Response: No adverse reaction; IV Status: Completed infusion; IV Intake: jw6 100ml 09:27 Drug: morphine 2 mg Route: IVP; Site: right antecubital; jw6 09:27 Drug: Zofran (Ondansetron) 4 mg Route: IVP; Site: right antecubital; jw6 09:43 Follow up: Response: No adverse reaction jw6 09:42 Drug: Ativan (LORazepam) 1 mg Route: IVP; Site: right antecubital; jw6 09:43 Follow up: Response: No adverse reaction jw6 09:44 Drug: Cipro (ciprofloxacin) 400 mg Volume: 200 ml; Route: IVPB; Infused Over: 60 mins; jw6 Site: right antecubital; 10:18 Follow up: Response: No adverse reaction; IV Status: Completed infusion; IV Intake: jw6 200ml 11:30 Not Given (Patient Refused): Potassium Effervescent Tablet 25 mEq PO once; dissolve in jw6 4 ounces of water or juice Point of Care Testing: Urine : :28 hCG Reading: Negative; jw6 Intake: 09:42 IV: 100ml; Total: 100ml. jw6 10:18 IV: 200ml; Total: 300ml. jw6 10:56 IV: 1000ml; Total: 1300ml. jw6 Outcome: 11:07 Discharge ordered by . [facility] 11:27 Discharged to home ambulatory, friend coming to pick patient up from ER jw6 11:27 Condition: stable 11:27 Discharge instructions given to patient, Instructed on discharge instructions, follow up and referral plans. no drinking with medication, medication usage, Demonstrated understanding of instructions, follow-up care, medications, Prescriptions given X 4. 11:35 Patient left the ED. jw6 Signatures: Dispatcher [employer] EDSerjio Pascal MD MD cha Sanford, Demi ds1 Elle Craft RN RN ss Welch, Jessica jw6
[2021-02-11 11:42] VITALS: TEMP 98.2; O2SAT 100
[2021-02-11 11:45] VITALS: BP 98/66
== END 2021-02-11 11:35 | disposition home or self-care (01) ==
LOC: ER 08:28
DX: K51.511 Left sided colitis with rectal bleeding (principal)
CPT/HCPCS: 96365; 96361; 87045; 85025; 80048; 36415; 80076; 87046; 81003; 83690; 74177; 96375; 99284; Q9967; J2270; J7030; J2405; J0744

== ENCOUNTER 2021-08-17 18:19 | Observation (INO) | payer OTHER ==
--- OUTSIDE RECORDS SUMMARY | 2021-08-17 18:25 | XMS REPORT | Continuity of Care Document ---
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 (twelve) Branch hours. acetaminoph 2020-0 Yes [id number] 1{tbl} Take 1 [facility] en-codeine 5-04 tablet by ity of (TYLENOL-CO 00:00: mouth [place] DEINE #3) 00 every 4 Medical 300-30 mg (four) Branch tablet hours as needed for Pain (scale 4-6) or Pain (scale 7-10). ondansetron 2020-0 Yes [id number] 8mg Take 1 [facility] (ZOFRAN) 8 5-04 tablet by ity of mg tablet 00:00: mouth [place] 00 every 12 Medical (twelve) Branch hours. acetaminoph 2020-0 Yes [id number] 1{tbl} Take 1 [facility] en-codeine 5-04 tablet by ity of (TYLENOL-CO 00:00: mouth [place] DEINE #3) 00 every 4 Medical 300-30 mg (four) Branch tablet hours as needed for Pain (scale 4-6) or Pain (scale 7-10). ondansetron 2020-0 Yes [id number] 8mg Take 1 [facility] (ZOFRAN) 8 5-04 tablet by ity of mg tablet 00:00: mouth [place] 00 every 12 Medical (twelve) Branch hours. acetaminoph 2020-0 Yes [id number] 1{tbl} Take 1 [facility] en-codeine 5-04 tablet by ity of (TYLENOL-CO 00:00: mouth [place] DEINE #3) 00 every 4 Medical 300-30 mg (four) Branch tablet hours as needed for Pain (scale 4-6) or Pain (scale 7-10). ondansetron 2020-0 Yes [id number] 8mg Take 1 [facility] (ZOFRAN) 8 5-04 tablet by ity of mg tablet 00:00: mouth [place] 00 every 12 Medical (twelve) Branch hours. acetaminoph 2020-0 Yes [id number] 1{tbl} Take 1 [facility] en-codeine 5-04 tablet by ity of (TYLENOL-CO 00:00: mouth [place] DEINE #3) 00 every 4 Medical 300-30 mg (four) Branch tablet hours as needed for Pain (scale 4-6) or Pain (scale 7-10). ondansetron 2020-0 Yes [id number] 8mg Take 1 [facility] (ZOFRAN) 8 5-04 tablet by ity of mg tablet 00:00: mouth [place] 00 every 12 Medical (twelve) Branch hours. acetaminoph 2020-0 Yes [id number] 1{tbl} Take 1 [facility] en-codeine 5-04 tablet by ity of (TYLENOL-CO 00:00: mouth [place] DEINE #3) 00 every 4 Medical 300-30 mg (four) Branch tablet hours as needed for Pain (scale 4-6) or Pain (scale 7-10). ondansetron 2020-0 Yes [id number] 8mg Take 1 [facility] (ZOFRAN) 8 5-04 tablet by ity of mg tablet 00:00: mouth [place] 00 every 12 Medical (twelve) Branch hours. acetaminoph 2020-0 Yes [id number] 1{tbl} Take 1 [facility] en-codeine 5-04 tablet by ity of (TYLENOL-CO 00:00: mouth [place] DEINE #3) 00 every 4 Medical 300-30 mg (four) Branch tablet hours as needed for Pain (scale 4-6) or Pain (scale 7-10). ondansetron 2020-0 Yes [id number] 8mg Take 1 [facility] (ZOFRAN) 8 5-04 tablet by ity of mg tablet 00:00: mouth [place] 00 every 12 Medical (twelve) Branch hours. acetaminoph 2020-0 Yes [id number] 1{tbl} Take 1 [facility] en-codeine 5-04 tablet by ity of (TYLENOL-CO 00:00: mouth [place] DEINE #3) 00 every 4 Medical 300-30 mg (four) Branch tablet hours as needed for Pain (scale 4-6) or Pain (scale 7-10). ondansetron 2020-0 Yes [id number] 8mg Take 1 [facility] (ZOFRAN) 8 5-04 tablet by ity of mg tablet 00:00: mouth [place] 00 every 12 Medical (twelve) Branch hours. acetaminoph 2020-0 Yes [id number] 1{tbl} Take 1 [facility] en-codeine 5-04 tablet by ity of (TYLENOL-CO 00:00: mouth [place] DEINE #3) 00 every 4 Medical 300-30 mg (four) Branch tablet hours as needed for Pain (scale 4-6) or Pain (scale 7-10). ondansetron 2020-0 Yes [id number] 8mg Take 1 [facility] (ZOFRAN) 8 5-04 tablet by ity of mg tablet 00:00: mouth [place] 00 every 12 Medical (twelve) Branch hours. acetaminoph 2020-0 Yes [id number] 1{tbl} Take 1 [facility] en-codeine 5-04 tablet by ity of (TYLENOL-CO 00:00: mouth [place] DEINE #3) 00 every 4 Medical 300-30 mg (four) Branch tablet hours as needed for Pain (scale 4-6) or Pain (scale 7-10). ondansetron 2020-0 Yes [id number] 8mg Take 1 [facility] (ZOFRAN) 8 5-04 tablet by ity of mg tablet 00:00: mouth [place] 00 every 12 Medical (twelve) Branch hours. acetaminoph 2020-0 Yes [id number] 1{tbl} Take 1 [facility] en-codeine 5-04 tablet by ity of (TYLENOL-CO 00:00: mouth [place] DEINE #3) 00 every 4 Medical 300-30 mg (four) Branch tablet hours as needed for Pain (scale 4-6) or Pain (scale 7-10). ondansetron 2020-0 Yes [id number] 8mg Take 1 [facility] (ZOFRAN) 8 5-04 tablet by ity of mg tablet 00:00: mouth [place] 00 every 12 Medical (twelve) Branch hours. acetaminoph 2020-0 Yes [id number] 1{tbl} Take 1 [facility] en-codeine 5-04 tablet by ity of (TYLENOL-CO 00:00: mouth [place] DEINE #3) 00 every 4 Medical 300-30 mg (four) Branch tablet hours as needed for Pain (scale 4-6) or Pain (scale 7-10). ondansetron 2020-0 Yes [id number] 8mg Take 1 [facility] (ZOFRAN) 8 5-04 tablet by ity of mg tablet 00:00: mouth [place] 00 every 12 Medical (twelve) Branch hours. acetaminoph 2020-0 Yes [id number] 1{tbl} Take 1 [facility] en-codeine 5-04 tablet by ity of (TYLENOL-CO 00:00: mouth [place] DEINE #3) 00 every 4 Medical 300-30 mg (four) Branch tablet hours as needed for Pain (scale 4-6) or Pain (scale 7-10). ondansetron 2020-0 Yes [id number] 8mg Take 1 [facility] (ZOFRAN) 8 5-04 tablet by ity of mg tablet 00:00: mouth [place] 00 every 12 Medical (twelve) Branch hours. acetaminoph 2020-0 Yes [id number] 1{tbl} Take 1 [facility] en-codeine 5-04 tablet by ity of (TYLENOL-CO 00:00: mouth [place] DEINE #3) 00 every 4 Medical 300-30 mg (four) Branch tablet hours as needed for Pain (scale 4-6) or Pain (scale 7-10). ondansetron 2020-0 Yes [id number] 8mg Take 1 [facility] (ZOFRAN) 8 5-04 tablet by ity of mg tablet 00:00: mouth [place] 00 every 12 Medical (twelve) Branch hours. acetaminoph 2020-0 Yes [id number] 1{tbl} Take 1 [facility] en-codeine 5-04 tablet by ity of (TYLENOL-CO 00:00: mouth [place] DEINE #3) 00 every 4 Medical 300-30 mg (four) Branch tablet hours as needed for Pain (scale 4-6) or Pain (scale 7-10). ondansetron 2020-0 Yes [id number] 8mg Take 1 [facility] (ZOFRAN) 8 5-04 tablet by ity of mg tablet 00:00: mouth [place] 00 every 12 Medical (twelve) Branch hours. acetaminoph 2020-0 Yes [id number] 1{tbl} Take 1 [facility] en-codeine 5-04 tablet by ity of (TYLENOL-CO 00:00: mouth [place] DEINE #3) 00 every 4 Medical 300-30 mg (four) Branch tablet hours as needed for Pain (scale 4-6) or Pain (scale 7-10). ondansetron 2020-0 Yes [id number] 8mg Take 1 [facility] (ZOFRAN) 8 5-04 tablet by ity of mg tablet 00:00: mouth [place] 00 every 12 Medical (twelve) Branch hours. FENTanyl PF 2020-0 2020- No 75ug 75 mcg, [facility] (SUBLIMAZE 08-18 Intramuscu it y of (PF)) 08:15: 07:18 lar, ONCE, [place] injection 00 :00 1 dose, Medical 75 mcg Tue Branch 08/19/19 at 0315, STAT lactated 2020-0 Yes 1000mL at 75 Univer s ringers IV 4-27 mL/hr, ity of infusion 16:15: 1,000 mL, [place] 1[place]000 [place] 00 IV Medical Infusion, Branch CONTINUOUS , Starting Sun08/18/19 at 1115, Until Discontinu ed, Routine, PACU HYDROmorpho 2019-0 Yes .2mg 0.2 mg, Uni vers ne 08-17 Slow IV ity of (DILAUDID) 16:05: Push, [place] injection 50 Q5MIN PRN, Medi cortney 0.2 mg 10 doses, Branch Starting Sun08/18/19 at 1105, Until Discontinu ed, Routine, Pain (scale 7-10), PACU
Us e approved by (Faculty): PACU USE -ANESTHESI A SERVICE-HY DROMORPHON E INJECTIONS FENTanyl PF 2019-0 Yes 25ug 25 mcg, Uni vers (SUBLIMAZE 08-17 Slow IV ity of (PF)) 16:05: Push, [place] injection 50 Q5MIN PRN, Medi cortney 25 mcg 4 doses, Branch Starting Sun08/18/19 at 1105, Until Discontinu ed, Routine, Pain (scale 4-6), PACU ondansetron 2019- No 4mg 4 mg, Slow [facility] (ZOFRAN 08-17 IV Push, ity of (PF)) 16:05: 18:02 PRN, 1 [place] injection 4 50 :00 dose, Medical mg Starting Branch 08/18/19 at 1105, Until Discontinu ed, Routine, Nausea and Vomiting (N/V), PACU bupivacaine 2020-0 Yes PRN, Univer s -epinephrin 08-17 Starting ity of e-pf 16:05: Mon [place] (SENSORCAIN 00 08/18/19 at Me dical E 1105, Branch W/EPINEPHRI Until NE) 0.5 Discontinu %-1:200,000 ed, injection Routine, Intra-op ondansetron 2019-0 2020- No Slow IV [facility] (ZOFRAN 08-17 Push, ONCE ity o f (PF)) 15:59: 16:36 INTRA [place] injection 00 :38 PROCEDURE, [facility] Starting Branch 08/18/19 at 1059, Until Sun08/18/19 at 1136, Routine, Intra-op HYDROmorphO 2020-0 2020- No Intravenou Univers ne 08-17 s, ONCE ity of (DILAUDID) 15:34: 16:36 INTRA [place] injection 00 :38 PROCEDURE, [facility] Starting Branch 08/18/19 at 1034, Until Sun08/18/19 at 1136, Routine, Intra-op lactated 2020-0 Yes PRN, Univers Ringers 08-17 Starting ity of irrigation 15:08: Mon [place] solution 00 08/18/19 at Medic al 1008, Branch Until Discontinu ed, Routine, Intra-op PHENYLephri 2020-0 2020- No ONCE INTRA Univers ne 1000 08-17 PROCEDURE, ity o f mcg/10 mL 15:03: 16:36 Starting [place] in 0.9% 00 :38 Mon Medical NaCl 08/18/19 at Branch syringe 1003, Until 08/18/19 at 1136, Routine, Intra-op ceFAZolin 2020-0 2020- No ONCE INTRA U nivers (ANCEF) 08-17 PROCEDURE, ity o f injection 14:57: 16:36 Starting [place] 00 :38 Mon Medical 08/18/19 at Branch 0957, Until 08/18/19 at 1136, RAVEN, Intra-op dexamethaso 2020-0 2020- No Intravenou Univers ne 08-17 s, ONCE ity of (DECADRON 14:57: 16:36 INTRA [place] PHOSPHATE) 00 :38 PROCEDURE, Med ical injection Starting Branch 08/18/19 at 0957, Until Sun08/18/19 at 1136, Routine, Intra-op FENTanyl PF 2020-0 2020- No Intravenou Univers (SUBLIMAZE 08-17 s, ONCE ity o f (PF)) 14:46: 16:36 INTRA [place] injection 00 :38 PROCEDURE, [facility] Starting Branch [facility] 08/18/19 at 0946, Until Sun08/18/19 at 1136, Routine, Intra-op propofol IV 2020-0 2020- No Intravenou Univers infusion 08-17 s, ONCE ity of 14:46: 16:36 INTRA [place] 00 :38 PROCEDURE, Medical Starting Branch [facility] 08/18/19 at 0946, Until 08/18/19 at 1136, Routine, Intra-op lidocaine 2020-0 2020- No ONCE INTRA U nivers 1% 08-17 PROCEDURE, ity of (XYLOCAINE) 14:46: 16:36 Starting [place] 100 mg/10 00 :38 Mon Medical mL (1 %) 08/18/19 at [facility] h injection 0946, Until [facility] 08/18/19 at 1136, Routine, Intra-op midazolam 2020-0 2020- No IV Push, Uni vers (VERSED) 08-17 ONCE INTRA ity of injection 14:44: 16:36 PROCEDURE, [place] 00 :38 Starting Medical [facility] 08/18/19 at 0944, Until [facility] 08/18/19 at 1136, Routine, Intra-op lactated 2020-0 2020- No IV Univers ringers IV 08-17 Infusion, ity of infusion 14:44: 16:36 CONTINUOUS [place] 00 :38 PRN, [facility] Starting Branch [facility] 08/18/19 at 0944, Until [facility] 08/18/19 at 1136, Routine, Intra-op lactated 2019-0 2020- No 1000mL at 20 Unive rs ringers IV 08-17 mL/hr, ity of infusion 13:45: 13:54 1,000 mL, [place] 1,000 mL 00 :00 IV Medical Infusion, Branch ONCE, 1 dose, [facility] 08/18/19 at 0845, Routine, [facility] Pre-op ceFAZolin 2019-0 2020- No 2g Univers in dextrose 08-17 ity of (iso-os) 05:00: 16:59 [place] (ANCEF) 2 00 :00 Medical gram/100 mL Branch Piggyback 2 g oxyCODONE-a 2019-0 2020- No 2{tbl} Uni vers cetaminophe 08-17 ity of n 05:00: 16:59 [place] (PERCOCET) 00 :00 Medical 5-325 mg Branch per tablet 2 tablet acetaminoph 2020-0 Yes 1{tbl} Take 1 [facility] en-codeine 4-27 tablet by ity of 300-30 mg 00:00: mouth [place] tablet 00 every 4 Medical (four) Branch hours as needed for Pain (scale 4-6). acetaminoph 2020-0 Yes 1{tbl} Take 1 [facility] en-codeine 4-27 tablet by ity of 300-30 mg 00:00: mouth [place] tablet 00 every 4 Medical (four) Branch hours as needed for Pain (scale 4-6). acetaminoph 2020-0 Yes 1{tbl} Take 1 [facility] en-codeine 4-27 tablet by ity of 300-30 mg 00:00: mouth [place] tablet 00 every 4 Medical (four) Branch hours as needed for Pain (scale 4-6). acetaminoph 2020-0 Yes 1{tbl} Take 1 [facility] en-codeine 4-27 tablet by ity of 300-30 mg 00:00: mouth [place] tablet 00 every 4 Medical (four) Branch hours as needed for Pain (scale 4-6). acetaminoph 2020-0 Yes 1{tbl} Take 1 [facility] en-codeine 4-27 tablet by ity of 300-30 mg 00:00: mouth [place] tablet 00 every 4 Medical (four) Branch hours as needed for Pain (scale 4-6). acetaminoph 2020-0 Yes 1{tbl} Take 1 [facility] en-codeine 4-27 tablet by ity of 300-30 mg 00:00: mouth [place] tablet 00 every 4 Medical (four) Branch hours as needed for Pain (scale 4-6). acetaminoph 2020-0 Yes 1{tbl} Take 1 [facility] en-codeine 4-27 tablet by ity of 300-30 mg 00:00: mouth [place] tablet 00 every 4 Medical (four) Branch hours as needed for Pain (scale 4-6). acetaminoph 2020-0 Yes 1{tbl} Take 1 [facility] en-codeine 4-27 tablet by ity of 300-30 mg 00:00: mouth [place] tablet 00 every 4 Medical (four) Branch hours as needed for Pain (scale 4-6). acetaminoph 2020-0 Yes 1{tbl} Take 1 [facility] en-codeine 4-27 tablet by ity of 300-30 mg 00:00: mouth [place] tablet 00 every 4 Medical (four) Branch hours as needed for Pain (scale 4-6). acetaminoph 2020-0 Yes 1{tbl} Take 1 [facility] en-codeine 4-27 tablet by ity of 300-30 mg 00:00: mouth [place] tablet 00 every 4 Medical (four) Branch hours as needed for Pain (scale 4-6). acetaminoph 2020-0 Yes 1{tbl} Take 1 [facility] en-codeine 4-27 tablet by ity of 300-30 mg 00:00: mouth [place] tablet 00 every 4 Medical (four) Branch hours as needed for Pain (scale 4-6). acetaminoph 2020-0 Yes 1{tbl} Take 1 [facility] en-codeine 4-27 tablet by ity of 300-30 mg 00:00: mouth [place] tablet 00 every 4 Medical (four) Branch hours as needed for Pain (scale 4-6). acetaminoph 2020-0 Yes 1{tbl} Take 1 [facility] en-codeine 4-27 tablet by ity of 300-30 mg 00:00: mouth [place] tablet 00 every 4 Medical (four) Branch hours as needed for Pain (scale 4-6). acetaminoph 2020-0 Yes 1{tbl} Take 1 [facility] en-codeine 4-27 tablet by ity of 300-30 mg 00:00: mouth [place] tablet 00 every 4 Medical (four) Branch hours as needed for Pain (scale 4-6). acetaminoph 2020-0 Yes 1{tbl} Take 1 [facility] en-codeine 4-27 tablet by ity of 300-30 mg 00:00: mouth [place] tablet 00 every 4 Medical (four) Branch hours as needed for Pain (scale 4-6). acetaminoph 2020-0 Yes 1{tbl} Take 1 [facility] en-codeine 4-27 tablet by ity of 300-30 mg 00:00: mouth [place] tablet 00 every 4 Medical (four) Branch hours as needed for Pain (scale 4-6). acetaminoph 2020-0 Yes 1{tbl} Take 1 [facility] en-codeine 4-27 tablet by ity of 300-30 mg 00:00: mouth [place] tablet 00 every 4 Medical (four) Branch hours as needed for Pain (scale 4-6). acetaminoph 2020-0 Yes 1{tbl} Take 1 [facility] en-codeine 4-27 tablet by ity of 300-30 mg 00:00: mouth [place] tablet 00 every 4 Medical (four) Branch hours as needed for Pain (scale 4-6). acetaminoph 2020-0 Yes 1{tbl} Take 1 [facility] en-codeine 4-27 tablet by ity of 300-30 mg 00:00: mouth [place] tablet 00 every 4 Medical (four) Branch hours as needed for Pain (scale 4-6). acetaminoph 2020-0 Yes 1{tbl} Take 1 [facility] en-codeine 4-27 tablet by ity of 300-30 mg 00:00: mouth [place] tablet 00 every 4 Medical (four) Branch hours as needed for Pain (scale 4-6). acetaminoph 2020-0 Yes 1{tbl} Take 1 [facility] en-codeine 4-27 tablet by ity of 300-30 mg 00:00: mouth [place] tablet 00 every 4 Medical (four) Branch hours as needed for Pain (scale 4-6). acetaminoph 2020-0 Yes 1{tbl} Take 1 [facility] en-codeine 4-27 tablet by ity of 300-30 mg 00:00: mouth [place] tablet 00 every 4 Medical (four) Branch hours as needed for Pain (scale 4-6). acetaminoph 2020-0 Yes 1{tbl} Take 1 [facility] en-codeine 4-27 tablet by ity of 300-30 mg 00:00: mouth [place] tablet 00 every 4 Medical (four) Branch hours as needed for Pain (scale 4-6). acetaminoph 2020-0 Yes 1{tbl} Take 1 [facility] en-codeine 4-27 tablet by ity of 300-30 mg 00:00: mouth [place] tablet 00 every 4 Medical (four) Branch hours as needed for Pain (scale 4-6). acetaminoph 2020-0 Yes 1{tbl} Take 1 [facility] en-codeine 4-27 tablet by ity of 300-30 mg 00:00: mouth [place] tablet 00 every 4 Medical (four) Branch hours as needed for Pain (scale 4-6). acetaminoph 2020-0 Yes 1{tbl} Take 1 [facility] en-codeine 4-27 tablet by ity of 300-30 mg 00:00: mouth [place] tablet 00 every 4 Medical (four) Branch hours as needed for Pain (scale 4-6). acetaminoph 2020-0 Yes 1{tbl} Take 1 [facility] en-codeine 4-27 tablet by ity of 300-30 mg 00:00: mouth [place] tablet 00 every 4 Medical (four) Branch hours as needed for Pain (scale 4-6). acetaminoph 2020-0 Yes 1{tbl} Take 1 [facility] en-codeine 4-27 tablet by ity of 300-30 mg 00:00: mouth [place] tablet 00 every 4 Medical (four) Branch hours as needed for Pain (scale 4-6). acetaminoph 2020-0 Yes 1{tbl} Take 1 [facility] en-codeine 4-27 tablet by ity of 300-30 mg 00:00: mouth [place] tablet 00 every 4 Medical (four) Branch hours as needed for Pain (scale 4-6). acetaminoph 2020-0 Yes 1{tbl} Take 1 [facility] en-codeine 4-27 tablet by ity of 300-30 mg 00:00: mouth [place] tablet 00 every 4 Medical (four) Branch hours as needed for Pain (scale 4-6). acetaminoph 2020-0 Yes 1{tbl} Take 1 [facility] en-codeine 4-27 tablet by ity of 300-30 mg 00:00: mouth [place] tablet 00 every 4 Medical (four) Branch hours as needed for Pain (scale 4-6). acetaminoph 2020-0 Yes 1{tbl} Take 1 [facility] en-codeine 4-27 tablet by ity of 300-30 mg 00:00: mouth [place] tablet 00 every 4 Medical (four) Branch hours as needed for Pain (scale 4-6). acetaminoph 2020-0 Yes 1{tbl} Take 1 [facility] en-codeine 4-27 tablet by ity of 300-30 mg 00:00: mouth [place] tablet 00 every 4 Medical (four) Branch hours as needed for Pain (scale 4-6). acetaminoph 2020-0 Yes 1{tbl} Take 1 [facility] en-codeine 4-27 tablet by ity of 300-30 mg 00:00: mouth [place] tablet 00 every 4 Medical (four) Branch hours as needed for Pain (scale 4-6). acetaminoph 2020-0 Yes 1{tbl} Take 1 [facility] en-codeine 4-27 tablet by ity of 300-30 mg 00:00: mouth [place] tablet 00 every 4 Medical (four) Branch hours as needed for Pain (scale 4-6). acetaminoph 2020-0 Yes 1{tbl} Take 1 [facility] en-codeine 4-27 tablet by ity of 300-30 mg 00:00: mouth [place] tablet 00 every 4 Medical (four) Branch hours as needed for Pain (scale 4-6). acetaminoph 2020-0 Yes 1{tbl} Take 1 [facility] en-codeine 4-27 tablet by ity of 300-30 mg 00:00: mouth [place] tablet 00 every 4 Medical (four) Branch hours as needed for Pain (scale 4-6). acetaminoph 2020-0 Yes 1{tbl} Take 1 [facility] en-codeine 4-27 tablet by ity of 300-30 mg 00:00: mouth [place] tablet 00 every 4 Medical (four) Branch hours as needed for Pain (scale 4-6). acetaminoph 2020-0 Yes 1{tbl} Take 1 [facility] en-codeine 4-27 tablet by ity of 300-30 mg 00:00: mouth [place] tablet 00 every 4 Medical (four) Branch hours as needed for Pain (scale 4-6). acetaminoph 2020-0 Yes 1{tbl} Take 1 [facility] en-codeine 4-27 tablet by ity of 300-30 mg 00:00: mouth [place] tablet 00 every 4 Medical (four) Branch hours as needed for Pain (scale 4-6). aspirin 81 2020-0 Yes 81mg QD Take [address] [facility] EC 4-24 by mouth [facility] - tablet 14:44: daily. [address] aspirin 81 2020-0 Yes 81mg QD Take [address] MG EC 4-24 by mouth [facility] - tablet 14:44: daily. [address] aspirin 81 2020-0 Yes 81mg QD Take [address] MG EC 4-24 by mouth [facility] - tablet 14:44: daily. Medical [facility] dicyclomine 2020-0 Yes Univer s 10 mg 4-20 ity of capsule 00:00: [place] 00 Medical Branch dicyclomine 2020-0 Yes Univer s 10 mg 4-20 ity of capsule 00:00: [place] 00 Medical Branch dicyclomine 2020-0 Yes Univer s 10 mg 4-20 ity of capsule 00:00: [place] [address] Medical Branch dicyclomine 2020-0 Yes Univer s 10 mg 4-20 ity of capsule 00:00: [place] [address] Medical Branch dicyclomine 2020-0 Yes Univer s 10 mg 4-20 ity of capsule 00:00: [place] [address] Medical Branch dicyclomine 2020-0 Yes Univer s 10 mg 4-20 ity of capsule 00:00: [place] [address] Medical Branch dicyclomine 2020-0 Yes Univer s 10 mg 4-20 ity of capsule 00:00: [place] [address] Medical Branch dicyclomine 2020-0 Yes Univer s 10 mg 4-20 ity of capsule 00:00: [place] [address] Medical Branch dicyclomine 2020-0 Yes Univer s 10 mg 4-20 ity of capsule 00:00: [place] [address] Medical Branch dicyclomine 2020-0 Yes Univer s 10 mg 4-20 ity of capsule 00:00: [place] [address] Medical Branch dicyclomine 2020-0 Yes Univer s 10 mg 4-20 ity of capsule 00:00: [place] [address] Medical Branch dicyclomine 2020-0 Yes Univer s 10 mg 4-20 ity of capsule 00:00: [place] [address] Medical Branch dicyclomine 2020-0 Yes Univer s 10 mg 4-20 ity of capsule 00:00: [place] [address] Medical Branch dicyclomine 2020-0 Yes Univer s 10 mg 4-20 ity of capsule 00:00: [place] [address] Medical Branch dicyclomine 2020-0 Yes Univer s 10 mg 4-20 ity of capsule 00:00: [place] [address] Medical Branch dicyclomine 2020-0 Yes Univer s 10 mg 4-20 ity of capsule 00:00: [place] [address] Medical Branch dicyclomine 2020-0 Yes Univer s 10 mg 4-20 ity of capsule 00:00: [place] [address] Medical Branch dicyclomine 2020-0 Yes Univer s 10 mg 4-20 ity of capsule 00:00: [place] 00 Medical Branch dicyclomine 2020-0 Yes Univer s 10 mg 4-20 ity of capsule 00:00: [place] 00 Medical Branch dicyclomine 2020-0 Yes Univer s 10 mg 4-20 ity of capsule 00:00: [place] 00 Medical Branch dicyclomine 2020-0 Yes Univer s 10 mg 4-20 ity of capsule 00:00: [place] 00 Medical Branch dicyclomine 2020-0 Yes Univer s 10 mg 4-20 ity of capsule 00:00: [place] 00 Medical Branch dicyclomine 2020-0 Yes Univer s 10 mg 4-20 ity of capsule 00:00: [place] [address] Medical Branch dicyclomine 2020-0 Yes Univer s 10 mg 4-20 ity of capsule 00:00: [place] [address] Medical Branch dicyclomine 2020-0 Yes Univer s 10 mg 4-20 ity of capsule 00:00: [place] [address] Medical Branch dicyclomine 2020-0 Yes Univer s 10 mg 4-20 ity of capsule 00:00: [place] [address] Medical Branch dicyclomine 2020-0 Yes Univer s 10 mg 4-20 ity of capsule 00:00: [place] [address] Medical Branch dicyclomine 2020-0 Yes Univer s 10 mg 4-20 ity of capsule 00:00: [place] 00 Medical Branch dicyclomine 2020-0 Yes Univer s 10 mg 4-20 ity of capsule 00:00: [place] [address] Medical Branch dicyclomine 2020-0 Yes Univer s 10 mg 4-20 ity of capsule 00:00: [place] 00 Medical Branch dicyclomine 2020-0 Yes Univer s 10 mg 4-20 ity of capsule 00:00: [place] 00 Medical Branch dicyclomine 2020-0 Yes Univer s 10 mg 4-20 ity of capsule 00:00: [place] [address] Medical Branch dicyclomine 2020-0 Yes Univer s 10 mg 4-20 ity of capsule 00:00: [place] 00 Medical Branch dicyclomine 2020-0 2020- No 10mg Take [address] [facility] (BENTYL) 10 4-20 04-20 capsule [facility] - MG capsule 00:00: 23:59 (10 mg Medi cortney 00 :00 total) by Center mouth 3 (three) times daily before meals For abdominal pain/cramp ing. dicyclomine 2020-0 2020- No 10mg Take [address] [facility] (BENTYL) 10 4-20 04-20 capsule [facility] - MG capsule 00:00: 23:59 (10 mg Medi cortney 00 :00 total) by Center mouth 3 (three) times daily before meals For abdominal pain/cramp ing. dicyclomine 2020-0 2020- No 10mg Take [address] [facility] (BENTYL) 10 4-20 04-20 capsule [facility] - MG capsule 00:00: 23:59 (10 mg Medi cortney 00 :00 total) by Center mouth 3 (three) times daily before meals For abdominal pain/cramp ing. acyclovir 2020-0 Yes [id number] 400mg Take 1 U nivers 400 mg 4-01 tablet by ity of tablet 00:00: mouth [place] (two) Medical times Branch daily. acyclovir 2020-0 Yes [id number] 400mg Take 1 [facility]ivers 400 mg 4-01 tablet by ity of tablet 00:00: mouth [place] (two) Medical times Branch daily. acyclovir 2020-0 Yes [id number] 400mg Take 1 U nivers 400 mg 4-01 tablet by ity of tablet 00:00: mouth [place] (two) Medical times Branch daily. acyclovir 2020-0 Yes [id number] 400mg Take 1 U nivers 400 mg 4-01 tablet by ity of tablet 00:00: mouth [place] (two) Medical times Branch daily. acyclovir 2020-0 Yes [id number] 400mg Take 1 U nivers 400 mg 4-01 tablet by ity of tablet 00:00: mouth [place] (two) Medical times Branch daily. acyclovir 2020-0 Yes [id number] 400mg Take 1 U nivers 400 mg 4-01 tablet by ity of tablet 00:00: mouth 2 [place] (two) Medical times Branch daily. acyclovir 2020-0 Yes [id number] 400mg Take 1 U nivers 400 mg 4-01 tablet by ity of tablet 00:00: mouth 2 [place] (two) Medical times Branch daily. acyclovir 2020-0 Yes TK 1 T PO Uni vers 400 mg 4-01 BID ity of tablet 00:00: [place] [address] Medical Branch acyclovir 2020-0 Yes TK 1 T PO Uni vers 400 mg 4-01 BID ity of tablet 00:00: [place] [facility] acyclovir 2020-0 Yes TK 1 T PO Uni vers 400 mg 4-01 BID ity of tablet 00:00: [place] [facility] acyclovir 2020-0 Yes TK 1 T PO Uni vers 400 mg 4-01 BID ity of tablet 00:00: [address] acyclovir 2020-0 Yes TK 1 T PO Uni vers 400 mg 4-01 BID ity of tablet 00:00: [place] [facility] acyclovir 2020-0 Yes TK 1 T PO Uni vers 400 mg 4-01 BID ity of tablet 00:00: [address] acyclovir 2020-0 Yes TK 1 T PO Uni vers 400 mg 4-01 BID ity of tablet 00:00: [address] acyclovir 2020-0 Yes TK 1 T PO Uni vers 400 mg 4-01 BID ity of tablet 00:00: [address] acyclovir 2020-0 Yes TK 1 T PO Uni vers 400 mg 4-01 BID ity of tablet 00:00: [address] acyclovir 2020-0 Yes TK 1 T PO Uni vers 400 mg 4-01 BID ity of tablet 00:00: [address] acyclovir 2020-0 Yes TK 1 T PO Uni vers 400 mg 4-01 BID ity of tablet 00:00: [address] acyclovir 2020-0 Yes TK 1 T PO Uni vers 400 mg 4-01 BID ity of tablet 00:00: [address] acyclovir 2020-0 Yes TK 1 T PO Uni vers 400 mg 4-01 BID ity of tablet 00:00: [address] acyclovir 2020-0 Yes TK 1 T PO Uni vers 400 mg 4-01 BID ity of tablet 00:00: [address] acyclovir 2020-0 Yes TK 1 T PO Uni vers 400 mg 4-01 BID ity of tablet 00:00: [address] acyclovir 2020-0 Yes TK 1 T PO Uni vers 400 mg 4-01 BID ity of tablet 00:00: [address] acyclovir 2020-0 Yes TK 1 T PO Uni vers 400 mg 4-01 BID ity of tablet 00:00: [address] acyclovir 2020-0 Yes TK 1 T PO Uni vers 400 mg 4-01 BID ity of tablet 00:00: [place] [address] [facility] Branch acyclovir 2020-0 Yes TK 1 T PO Uni vers 400 mg 4-01 BID ity of tablet 00:00: [place] [facility] acyclovir 2020-0 Yes TK 1 T PO Uni vers 400 mg 4-01 BID ity of tablet 00:00: [place] [facility] acyclovir 2020-0 Yes TK 1 T PO Uni vers 400 mg 4-01 BID ity of tablet 00:00: [place] [facility] acyclovir 2020-0 Yes TK 1 T PO Uni vers 400 mg 4-01 BID ity of tablet 00:00: [place] [facility] acyclovir 2020-0 Yes [id number] 400mg Take 1 U nivers 400 mg 4-01 tablet by ity of tablet 00:00: mouth 2 [place] [address] (two) Medical times [place] daily. acyclovir 2020-0 Yes TK 1 T PO Uni vers 400 mg 4-01 BID ity of tablet 00:00: [place] [facility] acyclovir 2020-0 Yes TK 1 T PO Uni vers 400 mg 4-01 BID ity of tablet 00:00: [place] [facility] acyclovir 2020-0 Yes TK 1 T PO Uni vers 400 mg 4-01 BID ity of tablet 00:00: [place] [facility] acyclovir 2020-0 Yes TK 1 T PO Uni vers 400 mg 4-01 BID ity of tablet 00:00: [address] acyclovir 2020-0 Yes TK 1 T PO Uni vers 400 mg 4-01 BID ity of tablet 00:00: [address] acyclovir 2020-0 Yes TK 1 T PO Uni vers 400 mg 4-01 BID ity of tablet 00:00: [place] [facility] acyclovir 2020-0 Yes TK 1 T PO Uni vers 400 mg 4-01 BID ity of tablet 00:00: [address] acyclovir 2020-0 Yes [id number] 400mg Take 1 U nivers 400 mg 4-01 tablet by ity of tablet 00:00: mouth 2 [place] [address] (two) Medical times [place] daily. acyclovir 2020-0 Yes TK 1 T PO Uni vers 400 mg 4-01 BID ity of tablet 00:00: [address] acyclovir 2020-0 Yes TK 1 T PO Uni vers 400 mg 4-01 BID ity of tablet 00:00: [place] 00 [facility] acyclovir 2020-0 Yes TK 1 T PO Uni vers 400 mg 4-01 BID ity of tablet 00:00: 00 Medical Branch acyclovir 2020-0 Yes TK 1 T PO Uni vers 400 mg 4-01 BID ity of tablet 00:00: 00 Medical Branch acyclovir 2020-0 Yes [id number] 400mg Take 1 U nivers 400 mg 4-01 tablet by ity of tablet 00:00: mouth 2 [place] 00 (two) Medical times Branch daily. acyclovir 2020-0 Yes [id number] 400mg Take 1 U nivers 400 mg 4-01 tablet by ity of tablet 00:00: mouth 2 [place] 00 (two) Medical times Branch daily. acyclovir 2020-0 Yes [id number] 400mg Take 1 U nivers 400 mg 4-01 tablet by ity of tablet 00:00: mouth 2 [place] 00 (two) Medical times Branch daily. acyclovir 2020-0 2020- No [id number] 400mg Take 1 [facility] 400 mg 4-01 04-28 tablet by ity of tablet 00:00: 00:00 mouth 2 [place] 00 :00 (two) Medical times Branch daily. acyclovir 2020-0 2020- No [id number] 400mg Take 1 Univers 400 mg 4-01 04-28 tablet by ity of tablet 00:00: 00:00 mouth 2 [place] 00 :00 (two) Medical times Branch daily. acetaminoph 2018-04 Yes 500mg Q6H Take 500 M ethodi en 2-[address] (TYLENOL) 05:33: [facility] 500 MG 25 every 6 l tablet (six) hours as needed for mild pain. traMADOL 50 2017-04 Yes 50mg Take 1 Univ ers mg tablet 0-20 tablet by ity o f 00:00: mouth [place] 00 every 6 Medical (six) Branch hours as needed for Pain (scale 4-6). traMADOL 50 2017-04 Yes 50mg Take 1 Univ ers mg tablet 0-20 tablet by ity o f 00:00: mouth [place] 00 every 6 Medical (six) Branch hours as needed for Pain (scale 4-6). traMADOL 50 2017-04 Yes 50mg Take 1 Univ ers mg tablet 0-20 tablet by ity o f 00:00: mouth [place] 00 every 6 Medical (six) Branch hours as needed for Pain (scale 4-6). traMADOL 50 2017-04 Yes 50mg Take 1 Univ ers mg tablet 0-20 tablet by ity o f 00:00: mouth [place] 00 every 6 Medical (six) Branch hours as needed for Pain (scale 4-6). traMADOL 50 2017-1 Yes 50mg Take 1 Univ ers mg tablet 0-20 tablet by ity o f 00:00: mouth [place] 00 every 6 Medical (six) Branch hours as needed for Pain (scale 4-6). traMADOL 50 2017- Yes 50mg Take 1 Univ ers mg tablet 0-20 tablet by ity o f 00:00: mouth [place] 00 every 6 Medical (six) Branch hours as needed for Pain (scale 4-6). traMADOL 50 2017- Yes 50mg Take 1 Univ ers mg tablet 0-20 tablet by ity o f 00:00: mouth [place] 00 every 6 Medical (six) Branch hours as needed for Pain (scale 4-6). traMADOL 50 2017-04 Yes 50mg Take 1 Univ ers mg tablet 0-20 tablet by ity o f 00:00: mouth [place] 00 every 6 Medical (six) Branch hours as needed for Pain (scale 4-6). traMADOL 50 2017-04 Yes 50mg Take 1 Univ ers mg tablet 0-20 tablet by ity o f 00:00: mouth [place] 00 every 6 Medical (six) Branch hours as needed for Pain (scale 4-6). traMADOL 50 2017- Yes 50mg Take 1 Univ ers mg tablet 0-20 tablet by ity o f 00:00: mouth [place] 00 every 6 Medical (six) Branch hours as needed for Pain (scale 4-6). traMADOL 50 2017- Yes 50mg Take 1 Univ ers mg tablet 0-20 tablet by ity o f 00:00: mouth [place] 00 every 6 Medical (six) Branch hours as needed for Pain (scale 4-6). traMADOL 50 2017-1 Yes 50mg Take 1 Univ ers mg tablet 0-20 tablet by ity o f 00:00: mouth [place] 00 every 6 Medical (six) Branch hours as needed for Pain (scale 4-6). traMADOL 50 2017- Yes 50mg Take 1 Univ ers mg tablet 0-20 tablet by ity o f 00:00: mouth [place] 00 every 6 Medical (six) Branch hours as needed for Pain (scale 4-6). traMADOL 50 2017- Yes 50mg Take 1 Univ ers mg tablet 0-20 tablet by ity o f 00:00: mouth [place] 00 every 6 Medical (six) Branch hours as needed for Pain (scale 4-6). traMADOL 50 2017- Yes 50mg Take 1 Univ ers mg tablet 0-20 tablet by ity o f 00:00: mouth [place] 00 every 6 Medical (six) Branch hours as needed for Pain (scale 4-6). traMADOL 50 2017- Yes 50mg Take 1 Univ ers mg tablet 0-20 tablet by ity o f 00:00: mouth [place] 00 every 6 Medical (six) Branch hours as needed for Pain (scale 4-6). traMADOL 50 2017-04- No 50mg Take 1 Uni vers mg tablet 0-20 04-28 tablet by ity of 00:00: 00:00 mouth [place] 00 :00 every 6 Medical (six) Branch hours as needed for Pain (scale 4-6). traMADOL 50 2017-04- No 50mg Take 1 Uni vers mg tablet 0-20 04-28 tablet by ity of 00:00: 00:00 mouth [place] 00 :00 every 6 Medical (six) Branch hours as needed for Pain (scale 4-6). clopidogrel 2018-0 Yes 75mg Take 1 Univ ers 75 mg 7-01 tablet by ity of tablet 00:00: mouth [place] 00 daily. Medical Branch clopidogrel 2018-0 Yes 75mg Take 1 Univ ers 75 mg 7-01 tablet by ity of tablet 00:00: mouth [place] 00 daily. Medical Branch clopidogrel 2018-0 Yes 75mg Take 1 Univ ers 75 mg 7-01 tablet by ity of tablet 00:00: mouth [place] 00 daily. Medical Branch clopidogrel 2018-0 Yes 75mg Take 1 Univ ers 75 mg 7-01 tablet by ity of tablet 00:00: mouth [place] 00 daily. Medical Branch clopidogrel 2018-0 Yes 75mg Take 1 Univ ers 75 mg 7-01 tablet by ity of tablet 00:00: mouth [place] 00 daily. Medical Branch clopidogrel 2018-0 Yes 75mg Take 1 Univ ers 75 mg 7-01 tablet by ity of tablet 00:00: mouth [place] 00 daily. Medical Branch clopidogrel 2018-0 Yes 75mg Take 1 Univ ers 75 mg 7-01 tablet by ity of tablet 00:00: mouth [place] 00 daily. Medical Branch clopidogrel 2018-0 Yes 75mg Take 1 Univ ers 75 mg 7-01 tablet by ity of tablet 00:00: mouth [place] 00 daily. Medical Branch clopidogrel 2018-0 Yes 75mg Take 1 Univ ers 75 mg 7-01 tablet by ity of tablet 00:00: mouth [place] 00 daily. Medical Branch clopidogrel 2018-0 Yes 75mg Take 1 Univ ers 75 mg 7-01 tablet by ity of tablet 00:00: mouth [place] 00 daily. Medical Branch clopidogrel 2018-0 Yes 75mg Take 1 Univ ers 75 mg 7-01 tablet by ity of tablet 00:00: mouth [place] 00 daily. Medical Branch clopidogrel 2018-0 Yes 75mg Take 1 Univ ers 75 mg 7-01 tablet by ity of tablet 00:00: mouth [place] 00 daily. Medical Branch clopidogrel 2018-0 Yes 75mg Take 1 Univ ers 75 mg 7-01 tablet by ity of tablet 00:00: mouth [place] 00 daily. Medical Branch clopidogrel 2018-0 Yes 75mg Take 1 Univ ers 75 mg 7-01 tablet by ity of tablet 00:00: mouth [place] 00 daily. Medical Branch clopidogrel 2018-0 Yes 75mg Take 1 Univ ers 75 mg 7-01 tablet by ity of tablet 00:00: mouth [place] 00 daily. Medical Branch clopidogrel 2018-0 Yes 75mg Take 1 Univ ers 75 mg 7-01 tablet by ity of tablet 00:00: mouth [place] 00 daily. Medical Branch clopidogrel 2018-0 2020- No 75mg Take 1 Uni vers 75 mg 7-01 04-28 tablet by ity of tablet 00:00: 00:00 mouth [place] 00 :00 daily. Medical Branch clopidogrel 2018-0 2020- No 75mg Take 1 Uni vers 75 mg 7-01 04-28 tablet by ity of tablet 00:00: 00:00 mouth [place] 00 :00 daily. Medical Branch aspirin 81 2016- Yes [id number] 81mg Take 1 U nivers mg chewable 0-26 tablet by ity of tablet 00:00: mouth [place] 00 daily. Medical Branch aspirin 81 2017- Yes [id number] 81mg Take 1 U nivers mg chewable 0-26 tablet by ity of tablet 00:00: mouth [place] 00 daily. Medical Branch aspirin 81 2017- Yes [id number] 81mg Take 1 U nivers mg chewable 0-26 tablet by ity of tablet 00:00: mouth [place] 00 daily. Medical Branch aspirin 81 2017- Yes [id number] 81mg Take 1 U nivers mg chewable 0-26 tablet by ity of tablet 00:00: mouth [place] 00 daily. Medical Branch aspirin 81 2016-04 Yes [id number] 81mg Take 1 U nivers mg chewable 0-26 tablet by ity of tablet 00:00: mouth [place] 00 daily. Medical Branch aspirin 81 2016-04 Yes [id number] 81mg Take 1 U nivers mg chewable 0-26 tablet by ity of tablet 00:00: mouth [place] 00 daily. Medical Branch aspirin 81 2016-04 Yes [id number] 81mg Take 1 U nivers mg chewable 0-26 tablet by ity of tablet 00:00: mouth [place] 00 daily. Medical Branch aspirin 81 2016-04 Yes [id number] 81mg Take 1 U nivers mg chewable 0-26 tablet by ity of tablet 00:00: mouth [place] 00 daily. Medical Branch aspirin 81 2016-04 Yes [id number] 81mg Take 1 U nivers mg chewable 0-26 tablet by ity of tablet 00:00: mouth [place] 00 daily. Medical Branch aspirin 81 2016-04 Yes [id number] 81mg Take 1 U nivers mg chewable 0-26 tablet by ity of tablet 00:00: mouth [place] 00 daily. Medical Branch aspirin 81 2016-04 Yes [id number] 81mg Take 1 U nivers mg chewable 0-26 tablet by ity of tablet 00:00: mouth [place] 00 daily. Medical Branch aspirin 81 2016-04 Yes [id number] 81mg Take 1 U nivers mg chewable 0-26 tablet by ity of tablet 00:00: mouth [place] 00 daily. Medical Branch aspirin 81 2016-04 Yes [id number] 81mg Take 1 U nivers mg chewable 0-26 tablet by ity of tablet 00:00: mouth [place] 00 daily. Medical Branch aspirin 81 2016-04 Yes [id number] 81mg Take 1 U nivers mg chewable 0-26 tablet by ity of tablet 00:00: mouth [place] 00 daily. Medical Branch aspirin 81 2016-04 Yes [id number] 81mg Take 1 U nivers mg chewable 0-26 tablet by ity of tablet 00:00: mouth [place] 00 daily. Medical Branch aspirin 81 2016-04 Yes [id number] 81mg Take 1 U nivers mg chewable 0-26 tablet by ity of tablet 00:00: mouth [place] 00 daily. Medical Branch aspirin 81 2016-04 2020- No [id number] 81mg Take 1 Univers mg chewable 0-26 04-28 tablet by it y of tablet 00:00: 00:00 mouth [place] 00 :00 daily. Medical Branch aspirin 81 2016-04 2020- No [id number] 81mg Take 1 Univers mg chewable 0-26 04-28 tablet by it y of tablet 00:00: 00:00 mouth [place] 00 :00 daily. [facility] Immunizations Ordered Filled Immunization Date Status Comments [facility] e Immunization Name Name Tdap 2017-04-30 Completed [facility] of 00:00:00 [facility] [place] Tdap 2017-04-30 Completed University of 00:00:00 [facility] [place] Tdap 2017-04-30 Completed University of 00:00:00 [facility] [place] Tdap 2017-04-30 Completed [facility] of 00:00:00 [facility] [place] Tdap 2017-04-30 Completed University of 00:00:00 [facility] [place] Tdap 2017-04-30 Completed University of 00:00:00 [facility] [place] Tdap 2017-04-30 Completed University of 00:00:00 [facility] [place] Tdap 2017-04-30 Completed University of 00:00:00 [facility] [place] Tdap 2017-04-30 Completed University of 00:00:00 [facility] [place] Tdap 2017-04-30 Completed University of 00:00:00 [facility] [place] Tdap 2017-04-30 Completed University of 00:00:00 [facility] [place] Tdap 2017-04-30 Completed University of 00:00:00 [facility] [place] Tdap 2017-04-30 Completed University of 00:00:00 [facility] [place] Tdap 2017-04-30 Completed University of 00:00:00 [facility] [place] Tdap 2017-04-30 Completed University of 00:00:00 [facility] [place] Tdap 2017-04-30 Completed University of 00:00:00 [facility] [place] Tdap 2017-04-30 Completed University of 00:00:00 [facility] [place] Tdap 2017-04-30 Completed University of 00:00:00 [facility] [place] Tdap 2017-04-30 Completed University of 00:00:00 [facility] [place] Tdap 2017-04-30 Completed University of 00:00:00 [facility] [place] Tdap 2017-04-30 Completed University of 00:00:00 [facility] [place] Tdap 2017-04-30 Completed University of 00:00:00 [place] [facility] Tdap 2017-04-30 Completed [facility] of 00:00:00 [place] [facility] Tdap 2017-04-30 Completed [facility] of 00:00:00 [place] [facility] Tdap 2017-04-30 Completed [facility] 00:00:00 [place] [facility] Tdap 2017-04-30 Completed [facility] 00:00:00 [place] [facility] Tdap 2017-04-30 Completed [facility] 00:00:00 [place] [facility] Tdap 2017-04-30 Completed [facility] 00:00:00 [place] [facility] Tdap 2017-04-30 Completed [facility] of 00:00:00 [place] [facility] TDAP 2017-04-30 Completed [facility] 00:00:00 [place] [facility] TDAP 2017-04-30 Completed [facility] 00:00:00 [place] [facility] TDAP 2017-04-30 Completed [facility] 00:00:00 [place] [facility] Tdap 2017-04-30 Completed [facility] 00:00:00 [place] [facility] TDAP 2017-04-30 Completed [facility] 00:00:00 [place] [facility] TDAP 2017-04-30 Completed [facility] 00:00:00 [place] [facility] TDAP 2017-04-30 Completed [facility] 00:00:00 [place] [facility] TDAP 2017-04-30 Completed [facility] 00:00:00 [place] [facility] TDAP 2017-04-30 Completed [facility] of 00:00:00 [place] [facility] TDAP 2017-04-30 Completed [facility] 00:00:00 [place] [facility] TDAP 2017-04-30 Completed [facility] 00:00:00 [place] [facility] Tdap 2017-04-30 Completed [facility] 00:00:00 [place] [facility] TDAP 2017-04-30 Completed [facility] 00:00:00 [place] [facility] TDAP 2017-04-30 Completed [facility] 00:00:00 [place] [facility] TDAP 2017-04-30 Completed [facility] 00:00:00 [place] [facility] TDAP 2017-04-30 Completed [facility] 00:00:00 [place] [facility] TDAP 2017-04-30 Completed [facility] 00:00:00 [place] [facility] TDAP 2017-04-30 Completed [facility] 00:00:00 [place] [facility] TDAP 2017-04-30 Completed [facility] 00:00:00 [place] [facility] TDAP 2017-04-30 Completed [facility] 00:00:00 [place] [facility] Tdap 2017-04-30 Completed [facility] 00:00:00 [place] [facility] TDAP 2017-04-30 Completed [facility] of 00:00:00 [place] [facility] TDAP 2017-04-30 Completed [facility] of 00:00:00 [place] [facility] TDAP 2017-04-30 Completed [facility] of 00:00:00 [place] [facility] Tdap 2017-04-30 Completed [facility] of 00:00:00 [place] [facility] Tdap 2017-04-30 Completed [facility] of 00:00:00 [place] [facility] Td 2013-12-22 Completed [facility] of 00:00:00 [place] [facility] Td 2013-12-22 Completed [facility] of 00:00:00 [place] [facility] Td 2013-12-22 Completed [facility] of 00:00:00 [place] [facility] Td 2013-12-22 Completed [facility] of 00:00:00 [place] [facility] Td 2013-12-22 Completed [facility] of 00:00:00 [place] [facility] Td 2013-12-22 Completed [facility] of 00:00:00 [place] [facility] Td 2013-12-22 Completed [facility] 00:00:00 [place] [facility] Td 2013-12-22 Completed [facility] 00:00:00 [place] [facility] Td 2013-12-22 Completed [facility] 00:00:00 [place] [facility] Td 2013-12-22 Completed [facility] 00:00:00 [place] [facility] Td 2013-12-22 Completed [facility] 00:00:00 [place] [facility] Td 2013-12-22 Completed [facility] 00:00:00 [place] [facility] Td 2013-12-22 Completed [facility] 00:00:00 [place] [facility] Td 2013-12-22 Completed [facility] of 00:00:00 [place] [facility] Td 2013-12-22 Completed [facility] of 00:00:00 [place] [facility] Td 2013-12-22 Completed University of 00:00:00 [place] [facility] Td 2013-12-22 Completed University of 00:00:00 [place] [facility] Td 2013-12-22 Completed [facility] of 00:00:00 [place] [facility] Td 2013-12-22 Completed [facility] of 00:00:00 [place] [facility] Td 2013-12-22 Completed [facility] of 00:00:00 [place] [facility] Td 2013-12-22 Completed [facility] of 00:00:00 [place] [facility] Td 2013-12-22 Completed [facility] of 00:00:00 [place] [facility] Td 2013-12-22 Completed [facility] of 00:00:00 [place] [facility] Td 2013-12-22 Completed [facility] of 00:00:00 [place] [facility] Td 2013-12-22 Completed [facility] of 00:00:00 [place] [facility] Td 2013-12-22 Completed [facility] of 00:00:00 [place] [facility] Td 2013-12-22 Completed [facility] of 00:00:00 [place] [facility] Td 2013-12-22 Completed [facility] of 00:00:00 [place] [facility] Td 2013-12-22 Completed [facility] of 00:00:00 [place] [facility] Td 2013-12-22 Completed [facility] of 00:00:00 [place] [facility] Td 2013-12-22 Completed [facility] of 00:00:00 [place] [facility] Td 2013-12-22 Completed [facility] 00:00:00 [place] [facility] Td 2013-12-22 Completed [facility] of 00:00:00 [place] [facility] Td 2013-12-22 Completed [facility] of 00:00:00 [place] [facility] Td 2013-12-22 Completed [facility] of 00:00:00 [place] [facility] Td 2013-12-22 Completed [facility] of 00:00:00 [place] [facility] Td 2013-12-22 Completed [facility] of 00:00:00 [place] [facility] Td 2013-12-22 Completed [facility] of 00:00:00 [place] [facility] Td 2013-12-22 Completed [facility] of 00:00:00 [place] [facility] Td 2013-12-22 Completed [facility] of 00:00:00 [place] [facility] Td 2013-12-22 Completed [facility] of 00:00:00 [place] [facility] Td 2013-12-22 Completed [facility] of 00:00:00 [place] [facility] Td 2013-12-22 Completed [facility] of 00:00:00 [place] [facility] Td 2013-12-22 Completed [facility] of 00:00:00 [place] [facility] Td 2013-12-22 Completed [facility] of 00:00:00 [place] [facility] Td 2013-12-22 Completed [facility] of 00:00:00 [place] [facility] Td 2013-12-22 Completed [facility] of 00:00:00 [place] [facility] Td 2013-12-22 Completed [facility] of 00:00:00 [place] [facility] Td 2013-12-22 Completed [facility] of 00:00:00 [place] [facility] Td 2013-12-22 Completed [facility] 00:00:00 [place] [facility] Td 2013-12-22 Completed [facility] of 00:00:00 [place] [facility] Td 2013-12-22 Completed [facility] 00:00:00 [place] [facility] Td 2013-12-22 Completed [facility] of 00:00:00 [facility] [place] Td 2013-12-22 Completed University of 00:00:00 [facility] [place] Td 2013-12-22 Completed University of 00:00:00 [facility] [place] Vital Signs Vital Name Observation Time Observation Value Comments Source Systolic blood 2020-01-26 114 mm[Hg] University of pressure 18:43:00 [facility] [place] Diastolic blood 2020-01-26 74 mm[Hg] University o f pressure 18:43:00 [facility] [place] Heart rate 2020-01-26 73 /min University of 18:43:00 [facility] [place] Body height 2020-01-26 157.5 cm University of 18:43:00 [facility] [place] Body weight 2020-01-26 56.7 kg University of 18:43:00 [facility] [place] BMI 2020-01-26 22.86 kg/m2 University of 18:43:00 [facility] [place] Systolic blood 2020-01-26 114 mm[Hg] University of pressure 18:43:00 [facility] [place] Diastolic blood 2020-01-26 74 mm[Hg] University o f pressure 18:43:00 [facility] [place] Heart rate 2020-01-26 73 /min University of 18:43:00 [facility] [place] Body height 2020-01-26 157.5 cm University of 18:43:00 [facility] [place] Body weight 2020-01-26 56.7 kg University of 18:43:00 [facility] [place] BMI 2020-01-26 22.86 kg/m2 University of 18:43:00 [facility] [place] Systolic blood 2020-01-13 118 mm[Hg] University of pressure 15:35:00 [facility] [place] Diastolic blood 2020-01-13 77 mm[Hg] University o f pressure 15:35:00 [facility] [place] Heart rate 2020-01-13 78 /min University of 15:35:00 [facility] [place] Body height 2020-01-13 157.5 cm University of 15:35:00 [facility] [place] Body weight 2020-01-13 56.7 kg University of 15:35:00 [facility] [place] BMI 2020-01-13 22.86 kg/m2 University of 15:35:00 [facility] [place] Systolic blood 2020-01-05 103 mm[Hg] University of pressure 21:23:00 [facility] [place] Diastolic blood 2020-01-05 66 mm[Hg] University o f pressure 21:23:00 [facility] [place] Heart rate 2020-01-05 54 /min University of 21:23:00 [facility] [place] Body height 2020-01-05 157.5 cm University of 21:23:00 [facility] [place] Body weight 2020-01-05 56.7 kg stated weight, University of 21:23:00 difficulty [facility] walking to scale Branch BMI 2020-01-05 22.86 kg/m2 University of 21:23:00 [facility] [place] Systolic blood 2019-09-11 112 mm[Hg] University of pressure 20:49:00 [facility] [place] Diastolic blood 2019-09-11 64 mm[Hg] University o f pressure 20:49:00 [facility] [place] Heart rate 2019-09-11 64 /min University of 20:49:00 [facility] [place] Body height 2019-09-11 157.5 cm University of 20:49:00 [facility] [place] Body weight 2019-09-11 54.432 kg University of 20:49:00 [facility] [place] BMI 2019-09-11 21.95 kg/m2 University of 20:49:00 [facility] [place] Systolic blood 2019-09-02 107 mm[Hg] University of pressure 18:06:00 [facility] [place] Diastolic blood 2019-09-02 67 mm[Hg] University o f pressure 18:06:00 [facility] [place] Heart rate 2019-09-02 83 /min University of 18:06:00 The Medical [facility] Body height 2019-09-02 157.5 cm University of 18:06:00 [facility] Body weight 2019-09-02 54.432 kg University of 18:06:00 [facility] BMI 2019-09-02 21.95 kg/m2 University of 18:06:00 [facility] Systolic blood 2019-08-25 119 mm[Hg] University of pressure 20:20:00 [facility] Diastolic blood 2019-08-25 75 mm[Hg] University o f pressure 20:20:00 [facility] Heart rate 2019-08-25 80 /min University of 20:20:00 [facility] Respiratory rate 2019-08-25 20 /min University of 20:20:00 [facility] Body height 2019-08-25 157.5 cm University of 20:20:00 [facility] Body weight 2019-08-25 54.432 kg University of 20:20:00 [facility] BMI 2019-08-25 21.95 kg/m2 University of 20:20:00 [facility] Body height 2019-08-21 157.5 cm University of 19:17:00 [facility] Body weight 2019-08-21 54.432 kg University of 19:17:00 [facility] BMI 2019-08-21 21.95 kg/m2 University of 19:17:00 [facility] Systolic blood 2019-08-19 149 mm[Hg] University of pressure 07:02:00 [facility] Diastolic blood 2019-08-19 101 mm[Hg] University o f pressure 07:02:00 [facility] Heart rate 2019-08-19 69 /min University of 07:02:00 [facility] Body temperature 2019-08-19 37.89 Simona University of 07:02:00 [facility] Respiratory rate 2019-08-19 20 /min University of 07:02:00 [facility] Body height 2019-08-19 157.5 cm University of 07:02:00 [facility] Body weight 2019-08-19 54.432 kg University of 07:02:00 [facility] BMI 2019-08-19 21.95 kg/m2 University of 07:02:00 [facility] Oxygen saturation 2019-08-19 99 /min [place] of in Arterial blood 07:02:00 [facility] by Pulse oximetry Branch Systolic blood 2019-08-18 146 mm[Hg] University of pressure 18:00:00 [facility] Diastolic blood 2019-08-18 75 mm[Hg] University o f pressure 18:00:00 [facility] Heart rate 2019-08-18 60 /min University of 18:00:00 [facility] Oxygen saturation 2019-08-18 95 /min University of in Arterial blood 18:00:00 [facility] Pulse oximetry Branch Respiratory rate 2019-08-18 35 /min University of 17:50:00 [facility] Body temperature 2019-08-18 37.39 Simona University of 16:34:00 [facility] Body height 2019-08-15 157.5 cm University of 16:16:00 [facility] Body weight 2019-08-15 54.4 kg University of 16:16:00 [facility] BMI 2019-08-15 21.93 kg/m2 University of 16:16:00 [facility] Body weight 2019-08-15 54.432 kg University of 14:06:00 [facility] BMI 2019-08-15 21.95 kg/m2 University of 14:06:00 [facility] Systolic blood 2019-08-15 113 mm[Hg] University of pressure 13:38:00 [facility] Diastolic blood 2019-08-15 71 mm[Hg] University o f pressure 13:38:00 [facility] Heart rate 2019-08-15 74 /min University of 13:38:00 [facility] Body height 2019-08-15 157.5 cm University 13:38:00 [facility] Body weight 2019-08-15 54.432 kg University of 13:38:00 [facility] BMI 2019-08-15 21.95 kg/m2 University of 13:38:00 [facility] Systolic blood 2019-05-23 107 mm[Hg] University of pressure 14:35:00 [facility] Diastolic blood 2019-05-23 71 mm[Hg] University o f pressure 14:35:00 [facility] Heart rate 2019-05-23 91 /min University 14:35:00 [facility] Body height 2019-05-23 157.5 cm [facility] 14:35:00 [facility] Body weight 2019-05-23 52.164 kg [facility] 14:35:00 [facility] BMI 2019-05-23 21.03 kg/m2 University 14:35:00 [facility] Procedures Procedure Date / Time Performing Clinician Source Performed DSU PRE-OP 2020-01-26 05:01:00 Doctor Suleiman, [facility] Name Medical Branch ASSIGNMENT OF BENEFITS 2020-01-13 15:01:12 Doctor Suleiman, [facility] [place] [facility] INSURANCE CORRESPONDENCE 2020-01-12 05:01:00 Doctor Suleiman, [facility] [place] [facility] XR KNEE <3 VW RIGHT 2020-01-05 21:59:20 Adam Reyes [facility] INTUBATION 2019-08-18 15:15:57 Kar Pearson [place] o f [facility] POCT TEST 2019-08-18 13:40:00 Kar Pearson [facility] DAY SURGERY - ADC 2019-08-18 05:01:00 Doctor Suleiman, [facility] Name Medical Branch CORONAVIRUS COVID-19 2019-08-15 17:15:00 Aubrey Eller [facility] NOTICE OF PRIVACY 2019-08-15 16:15:05 Doctor Unassigned, [facility] [place] [facility] CONSENT/REFUSAL FOR 2019-08-15 16:14:52 Doctor Unassigned, [facility] DIAGNOSIS AND TREATMENT [place] [facility] ASSIGNMENT OF BENEFITS 2019-08-15 16:14:37 Doctor Unassigned, [facility] [place] [facility] NOTICE OF PRIVACY 2019-08-15 15:47:31 Doctor Unassigned, [facility] [place] [facility] CONSENT/REFUSAL FOR 2019-08-15 15:47:14 Doctor Unassigned, [facility] DIAGNOSIS AND TREATMENT [place] [facility] ASSIGNMENT OF BENEFITS 2019-08-15 15:46:59 Doctor Unassigned, [facility] [place] [facility] Plan of Care Planned Activity Planned Date Details Comments Source Future Scheduled 2027-04-30 DTAP/TDAP/TD [facility] Test 00:00:00 VACCINES (3 - Td or Medical Center Tdap) [code = DTAP/TDAP/TD VACCINES (3 - Td or Tdap)] Future Scheduled 2027-04-30 DTAP/TDAP/TD [facility] - Test 00:00:00 VACCINES (3 - Td or Medical Center Tdap) [code = DTAP/TDAP/TD VACCINES (3 - Td or Tdap)] Future Scheduled 2021-03-02 COVID-19 [facility]ACCINE (1) [facility] 14:22:04 [code = COVID-19 VACCINE (1)] Future Scheduled 2021-03-02 [facility] 14:22:04 screening (procedure) [code = 697203416] Future Scheduled 2021-03-02 [facility] Test 14:22:04 malignant neoplasm of cervix (procedure) [code = 707349743] Future Scheduled 2021-03-02 [facility]ACCINE [facility] 14:22:04 [code = INFLUENZA VACCINE] Future Scheduled 2020-12-[address] [facility] - Test 00:00:00 (#1) [code = Medical Center INFLUENZA VACCINE (#1)] Future Scheduled 2020-12-[address] [facility] - Test 00:00:00 (#1) [code = Medical Center INFLUENZA VACCINE (#1)] Future Scheduled 2020-04-[address] [facility] - Test 00:00:00 (12+) [code = [facility] DEPRESSION SCREENING (12+)] Future Scheduled 2020-04-[address] [facility] - Test 00:00:00 (12+) [code = [facility] DEPRESSION SCREENING (12+)] Future Scheduled 2019-12-[address] [facility] - Test 00:00:00 (#1) [code = [facility] INFLUENZA VACCINE (#1)] Future Scheduled 2019-07-[address] [facility] - Test 00:00:00 (procedure) [code = [facility] 58446042] Future Scheduled 2019-07-[address] [facility] - Test 00:00:00 (procedure) [code = [facility] 98882473] Future Scheduled 2019-07-[address] [facility] - Test 00:00:00 (procedure) [code = [facility] 08984924] Future Scheduled 2008-08-[address] [facility] 00:00:00 malignant neoplasm Medical C enter of cervix (procedure) [code = 534138503] Future Scheduled 2008-08-[address] [facility] - Test 00:00:00 malignant neoplasm Medical C enter of cervix (procedure) [code = 641775755] Future Scheduled 2008-08-[address] [facility] - Test 00:00:00 malignant neoplasm Medical C enter of cervix (procedure) [code = 038315271] Future Scheduled 2005-08-[address] [facility] - Test 00:00:00 SCREENING [code = Medical Ce nter HEPATITIS C SCREENING] Future Scheduled 2005-08-[address] [facility] - Test 00:00:00 SCREENING [code = Medical Ce nter HEPATITIS C SCREENING] Future Scheduled 1999 COVID-19 VACCINE (1) [facility] - Test 00:00:00 [code = COVID-[address] VACCINE (1)] Future Scheduled 1999 COVID-19 VACCINE (1) [facility] - Test 00:00:00 [code = COVID-[address] VACCINE (1)] Encounters Start End Encounter Admission Attending Care Care Encounter Source Date/Time Date/Time Type Type Clinicians Facility Department ID 2021-02-18 Outpatient DAPHNIE [facility] [id number] Univers 22:20:14 AUBREY janak [facility] 2021-02-17 Emergency [facility] [id number] Univers 19:11:19 itjanak [facility] 2021-02-17 Outpatient DAPHNIE [facility] [id number] Univers 18:57:03 AUBREY [facility] 2020-09-13 2020-09-13 Refill Akinsipe, [facility] [id number] 00:00:00 00:00:00 Artis C PYTHON DEVELOPER [id number] [facility] 4.2.7.2.686 MATERNAL [id number] & CHILD [address] [place] [address] 2020-09-13 2020-09-13 Refill Akinsipe, [facility] 1.2.883.138 [id number] Univers 00:00:00 00:00:00 Artis C PYTHON DEVELOPER 350.1.13.10 ity [facility] 4.2.7.2.686 William as MATERNAL [phone] Med ical & CHILD [address] [place] [address] 2020-04-06 2020-04-06 Telephone [facility] [id number] 00:00:00 00:00:00 Adam Vitale [id number] [place] 4.2.7.2.686 Professio [id number] [address] 2020-04-06 2020-04-06 Telephone [facility] 1.2.069.586 [id number] Univers 00:00:00 00:00:00 Adam Vitale 350.1.13.10 i [place] [phone] Hi dical [address] 2020-02-18 2020-02-18 Outpatient R ELLER, [facility] [id number] Univers 08:00:00 08:00:00 [facility] [id number] [facility] 2020-02-06 2020-02-06 Outpatient R [facility] [id number] Univers 14:30:00 14:30:00 [id number] ity [facility] 2020-02-06 2020-02-06 Outpatient R DAPHNIE [facility] [id number] Univers 14:15:00 14:15:00 [facility] 2020-02-04 2020-02-04 Outpatient R DAPHNIE [facility] [id number] Univers 00:00:00 00:00:00 [facility] [id number] [facility] 2020-02-02 2020-02-02 Prep For Daphnie [facility] 1.2.840.114 [id number] 00:00:00 00:00:00 Surgery Aubrey Sethi [facility] [id number] Surgical 4.2.7.2.686 Specialti [id number] es [address] [place] 2020-02-02 2020-02-02 Prep For Daphnie [facility] 1.2.840.114 [id number] [facility] 00:00:00 00:00:00 Surgery Aubrey Sethi Health 350.1.13.10 it y of Surgical 4.2.7.2.686 [place] as Specialti [phone] Me dical es 198 [facility] 2020-02-01 2020-02-01 Refill Daphnie [facility] 1.2.798.703 [id number] 00:00:00 00:00:00 Aubrey Sethi Health 350.1.13.10 Surgical 4.2.7.2.686 Specialti [id number] es [address] [place] 2020-02-01 2020-02-01 Refill Daphnie [facility] 1.2.074.576 [id number] Univers 00:00:00 00:00:00 Aubrey Sethi [facility] 350.1.13.10 it y of Surgical 4.2.7.2.686 [place] as Specialti [id number] Me dical es 198 [facility] 2020-01-29 2020-01-29 Outpatient R DAPHNIE [facility] [id number] Univers 00:00:00 00:00:00 AUBREY [facility] 2020-01-26 2020-01-26 Office Daphnie [facility] 1.2.062.104 [id number] 13:42:13 14:09:11 Visit Aubrey Sethi [facility] 350.1.13.10 Surgical 4.2.7.2.686 Specialti [id number] es [address] [place] 2020-01-26 2020-01-26 [facility] 1.2.280.996 [id number] Univers 13:42:13 14:09:11 Visit Aubrey [facility] 350.1.13.10 it y of Surgical 4.2.7.2.686 [place] as Specialti [id number] Me dical es 198 [facility] 2020-01-26 2020-01-26 Outpatient R DAPHNIE [facility] [id number] Univers 13:30:00 13:30:00 AUBREY ity [facility] 2020-01-26 2020-01-26 [facility] [id number] Univers 13:30:00 13:30:00 AUBREY y [facility] 2020-01-26 2020-01-26 Orders Doctor ABBI 1.2.840.114 [id number] 00:00:00 00:00:00 Only Unassigned, [place] 350.1.13.10 [place] [facility] 4.2.7.2.686 [id number] 2020-01-26 2020-01-26 Orders Doctor ABBI 1.2.840.114 [id number] Univers 00:00:00 00:00:00 Only Unassigned, [place] 350.1.13.10 ity of [place] [facility] 4.2.7.2.686 William as [phone] [address] 2020-01-23 2020-01-23 Telephone [facility] 1.2.455.099 [id number] Univers 00:00:00 00:00:00 Adam Vitale 350.1.13.10 i [place] [phone] Hi dical nal [address] [facility] 2020-01-22 2020-01-22 [facility]phone [facility] 1.2.755.310 [id number] Univers 00:00:00 00:00:00 Adam New 350.1.13.10 it y of Surgical 4.2.7.2.686 [place] as Specialti [id number] Hi dical es 198 [facility] 2020-01-20 2020-01-20 Outpatient [facility] [id number] Univers 00:00:00 00:00:00 AUBREY [id number] ity [facility] 2020-01-20 2020-01-20 Outpatient [facility] [id number] Univers 00:00:00 00:00:00 AUBREY ity [facility] 2020-01-13 2020-01-15 [facility] 1.2.840.114 [id number] Univers 10:24:54 14:32:51 Visit [facility] 350.1.13.10 it y of Surgical 4.2.7.2.686 [place] as Specialti [id number] Me dical es 198 [facility] 2020-01-14 2020-01-14 [facility] 1.2.840.114 [id number] Univers 00:00:00 00:00:00 Aubrey [facility] 350.1.13.10 it y of Surgical 4.2.7.2.686 [place] as Specialti [id number] Hi dical es 198 [facility] 2020-01-13 2020-01-13 Outpatient Meera [facility] [id number] Univers 10:30:00 10:30:00 ADAM [id number] ity [facility] 2020-01-13 2020-01-13 Outpatient Meera [facility] [id number] Univers 10:30:00 10:30:00 ADAM ity [facility] 2020-01-13 2020-01-13 Orders Doctor GO 1.2.840.114 [id number] Univers 00:00:00 00:00:00 Only Unassigned, [place] 350.1.13.10 ity of [place] [facility] 4.2.7.2.686 William as [id number] [address] 2020-01-12 2020-01-12 Outpatient Meera [facility] [id number] -[id number] Univers 16:15:00 16:15:00 ADAM [id number] ity [facility] 2020-01-12 2020-01-12 Outpatient Meera [facility] [id number] Univers 16:15:00 16:15:00 ADAM ity [facility] 2020-01-12 2020-01-12 Orders Doctor GO 1.2.840.114 [id number] 00:00:00 00:00:00 Only Unassigned, [place] 350.1.13.10 [place] [facility] 4.2.7.2.686 [id number] [id number] 2020-01-12 2020-01-12 Orders Doctor ABBI 1.2.840.114 [id number] Univers 00:00:00 00:00:00 Only Unassigned, [place] 350.1.13.10 ity [facility] [place] [facility] 4.2.7.2.686 William as [phone] [facility] 00[address] Branch 2020-01-11 2020-01-11 Telemedici [facility] 1.2.8 40.114 [id number] Univers 11:58:19 12:28:19 ne Visit Unknown, Attending HEALTH 350.1.13.1 0 ity of [place] 4.2.7.2.686 [facility] [phone] [facility] 2020-01-11 2020-01-11 Outpatient R [facility] [id number] -[id number] Univers 11:30:00 11:30:00 [id number] ity of [facility] 2020-01-11 2020-01-11 Outpatient R [facility] [id number] Univers 11:30:00 11:30:00 [facility] ity [facility] 2020-01-11 2020-01-11 Telephone [facility] 1.2.840.114 [id number] Univers 00:00:00 00:00:00 [facility] HEALTH 350.1.13.10 [place] 4.2.7.2.686 [facility] [id number] [facility] 2020-01-07 2020-01-07 Telephone Amy [facility] 1.2.787.372 [id number] Univers 00:00:00 00:00:00 Adam [facility] 350.1.13.10 it y of Surgical 4.2.7.2.686 [place] as Specialti [id number] Hi dical [address] [place] 2020-01-06 2020-01-06 Outpatient R [facility] [id number] Univers 09:15:00 09:15:00 ADAM [id number] [facility] 2020-01-06 2020-01-06 Outpatient R [facility] [id number] Univers 09:15:00 09:15:00 [facility] 2020-01-05 2020-01-05 Hospital [facility] 1.2.840.114 [id number] Univers 16:59:19 23:59:00 Encounter [facility] 350.1.13.10 ity of Surgical 4.2.7.2.686 [place] as Specialti [id number] Me dical es 8[address] [facility] 2020-01-05 2020-01-05 Office [facility] 1.2.840.114 [id number] Univers 15:58:40 17:11:37 Visit [facility] 350.1.13.10 it y of Surgical 4.2.7.2.686 [place] as Specialti [phone] Me dical es 198 [facility] 2020-01-05 2020-01-05 Outpatient R [facility] [id number] Univers 16:15:00 16:15:00 ADAM [id number] [facility] 2020-01-05 2020-01-05 Outpatient Meera [facility] [id number] Univers 16:15:00 16:15:00 ADAM [facility] 2019-12-24 2019-12-24 Outpatient Meera [facility] [id number] -[id number] Univers 15:15:00 15:15:00 ADAM [facility] 2019-12-24 2019-12-24 Outpatient Meera REYES [facility] [id number] Univers 15:15:00 15:15:00 ADAM [facility] 2019-10-07 2019-10-07 Outpatient R LANDON [facility] [id number] Univers 15:00:00 15:00:00 ARTIS [id number] rosas f [facility] 2019-10-07 2019-10-07 Outpatient R LANDON [facility] [id number] Univers 15:00:00 15:00:00 ARTIS rosas f [facility] 2019-10-02 2019-10-02 Telephone [facility] 1.2.840.114 [id number] Univers 00:00:00 00:00:00 Artis Jean PYTHON DEVELOPER 350.1.13.10 ity of REGIONAL 4.2.7.2.686 [place] as MATERNAL [id number] [facility] & CHILD [address] [place] [address] 2019-09-24 2019-09-24 [facility] [id number] Univers 09:00:00 09:00:00 ARTIS [id number] ity o f [facility] 2019-09-18 2019-09-18 Telephone [facility] 1.2.840.114 [id number] Univers 00:00:00 00:00:00 [facility] 350.1.13.10 it y of Surgical 4.2.7.2.686 William as Specialti [phone] [facility] es 198 [facility] 2019-09-11 2019-09-11 Office [facility] 1.2.459.320 [id number] Univers 15:33:34 16:03:01 Visit [facility] 350.1.13.10 it y of Surgical 4.2.7.2.686 William as Specialti [id number] [facility] es 198 [facility] 2019-09-11 2019-09-11 Outpatient [facility] [id number] Univers 15:30:00 15:30:00 AUBREY ity of [facility] 2019-09-11 2019-09-11 Outpatient [facility] [id number] Univers 13:00:00 13:00:00 [id number] ity of [facility] 2019-09-09 2019-09-09 Outpatient R [facility] [id number] Univers 11:00:00 11:00:00 [id number] ity of [facility] 2019-09-09 2019-09-09 Telephone [facility] 1.2.840.114 [id number] Univers 00:00:00 00:00:00 Artis Jean PYTHON DEVELOPER 350.1.13.10 ity of REGIONAL 4.2.7.2.686 [place] as MATERNAL [id number] [facility] ical & CHILD [address] [place] [address] 2019-09-05 2019-09-05 Outpatient R [facility] [id number] Univers 11:00:00 11:00:00 CHACE [id number] ity of [facility] 2019-09-05 2019-09-05 Outpatient R [facility] [id number] Univers 11:00:00 11:00:00 ISE, ity of [facility] 2019-09-05 2019-09-05 Telemedici [facility] 1.2.840.114 [id number] Univers 07:02:35 07:32:35 ne Visit chace, SPECIALTY 350.1.13.10 ity [facility] 4.2.7.2.686 [place] C[place] AT [id number] Me dical ALFONSOY [address] [facility] 2019-09-04 2019-09-04 Ancillary Sabrina Curry [facility] 1.2.840. 114 [id number] Univers 15:00:59 16:00:59 Visit Aubrey Eller 350.1.13.10 ity [facility] 4.2.7.2.[place] [phone] Me dical nal [address] [facility] 2019-09-04 2019-09-04 Outpatient R [facility] [id number] Univers 15:00:00 15:00:00 [id number] ity [facility] 2019-09-04 2019-09-04 Outpatient [facility] [id number] Univers 15:00:00 15:00:00 AUBREY chilel [facility] 2019-09-02 2019-09-02 Office [facility] 1.2.840.114 [id number] Univers 13:05:06 13:20:06 Visit [facility] 350.1.13.10 it y of Surgical 4.2.7.2.686 [place] as Specialti [id number] Me dical es 198 [facility] 2019-09-02 2019-09-02 Outpatient [facility] [id number] Univers 13:15:00 13:15:00 ADAM [id number] ity [facility] 2019-09-02 2019-09-02 Outpatient [facility] [id number] Univers 13:15:00 13:15:00 ADAM [facility] 2019-08-25 2019-08-25 Office [facility] 1.2.840.114 [id number] Univers 14:48:27 15:03:27 Visit [facility] 350.1.13.10 it y of Surgical 4.2.7.2.686 [place] as Specialti [id number] Hi dical es 198 [facility] 2019-08-25 2019-08-25 Outpatient Meera [facility] [id number] Univers 15:00:00 15:00:00 [facility] [id number] [facility] 2019-08-25 2019-08-25 Outpatient Meera [facility] [id number] Univers 15:00:00 15:00:00 ADAM [facility] 2019-08-25 2019-08-25 Telephone [facility] [id number] [id number] Univers 00:00:00 00:00:00 [facility] 350.1.13.10 it y of Surgical 4.2.7.2.686 [place] as Specialti [id number] Hi dical es 198 [facility] 2019-08-21 2019-08-21 Office [facility] 1.2.840.114 [id number] Univers 14:14:14 14:34:55 Visit [facility] 350.1.13.10 it y of Surgical 4.2.7.2.686 [place] as Specialti [id number] Hi dical es 198 [facility] 2019-08-21 2019-08-21 [facility] [id number] Univers 14:15:00 14:15:00 ADAM [id number] ity [facility] 2019-08-21 2019-08-21 Outpatient [facility] [id number] Univers 14:15:00 14:15:00 ADAM [facility] 2019-08-20 2019-08-20 [facility] [id number] Univers 00:00:00 00:00:00 (Out) [facility] 350.1.13.10 it y of Surgical 4.2.7.2.686 [place] as Specialti [phone] Hi dical es 198 [facility] 2019-08-19 2019-08-19 Emergency [facility] 1.2.775.483 [id number] Univers 02:03:59 03:28:00 Anival Vitale 350.1.13.10 [place] [phone] [facility] [address] [place] 2019-08-19 2019-08-19 Nurse Scarlett Hickman 1.2.840.114 [id number] Univers 00:00:00 00:00:00 Triage DOMINGO 350.1.13.10 it y of HOSPITAL 4.2.7.2.686 [place] as [phone] [facility] [address] [place] 2019-08-19 2019-08-19 Telephone [facility] 1.2.840.114 [id number] Univers 00:00:00 00:00:00 Aubrey L [facility] 350.1.13.10 it y of Surgical 4.2.7.2.686 [place] as Specialti [phone] Hi dical es 198 [facility] 2019-08-18 2019-08-18 [facility] 1.2.840.114 [id number] Univers 08:31:00 13:30:00 Encounter Aubrey Vitale 350.1.13.10 [place] [phone] [facility] [address] [place] 2019-08-18 2019-08-18 Anesthesia Kar Pearson [facility] 1.2.840.11 [id number] Univers 09:44:00 11:36:00 Abbi Be 350.1.13.10 [place] [phone] [facility] ical [facility] [address] [place] 2019-08-18 2019-08-18 Outpatient AUSTIN ZHANG [facility] [id number] [facility] 00:00:00 00:00:00 HARVEY 2019-08-18 2019-08-18 Outpatient [facility] [id number] 1-2 [facility] 00:00:00 00:00:00 [id number] 2019-08-18 2019-08-18 Orders Doctor ABBI 1.2.840.114 [id number] Univers 00:00:00 00:00:00 Only Unassigned, [place] 350.1.13.10 ity of [place] [facility] 4.2.7.2.686 William as [phone] [facility] [address] [place] 2019-08-18 2019-08-18 Nurse ABBI Conti 1.2.840.114 [id number] Univers 00:00:00 00:00:[address] 350.1.13.10 i ty of HOSPITAL 4.2.7.2.686 [place] as [phone] [facility] [address] [place] 2019-08-18 2019-08-18 Prep For Daphnie [facility] 1.2.840.114 [id number] Univers 00:00:00 00:00:00 Surgery Aubrey Sethi [facility] 350.1.13.10 it y of Surgical 4.2.7.2.686 [place] as Specialti [phone] Hi dical es 198 [facility] 2019-08-15 2019-08-15 Outpatient R DAPHNIE [facility] [id number] Univers 11:15:55 23:59:00 AUBREY itjanak [facility] 2019-08-15 2019-08-15 Nurse Nurse, [facility] General Surgery [facility] 1.2.840.114 [id number] Univers 12:10:33 13:09:31 Visit Aubrey Eller 350.1.13.10 [place] [phone] Hi dical nal [address] [facility] 2019-08-15 2019-08-15 Historian Research Assistant Delfino, [facility] Lab Main [facility] 1.2.8 40.114 [id number] Univers 11:02:01 11:17:01 Visit Aubrey Eller 350.1.13.10 [place] [phone] Hi dical nal 353 [facility] 2019-08-15 2019-08-15 Office Amy [facility] 1.2.840.114 [id number] Univers 08:17:14 08:32:14 Visit [facility] 350.1.13.10 it y of Surgical 4.2.7.2.686 [place] as Specialti [phone] Hi dical es 198 [facility] 2019-08-15 2019-08-15 Outpatient Meera REYES [facility] [id number] -[id number] Univers 08:15:00 08:15:00 ADAM [id number] ity of [facility] 2019-08-15 2019-08-15 Outpatient [facility] SLE [id number] 1-2 [facility] 00:00:00 00:00:00 [id number] 2019-08-15 2019-08-15 [facility]phone [facility] 1.2.840.114 [id number] Univers 00:00:00 00:00:00 [facility] 350.1.13.10 it y of Surgical 4.2.7.2.686 [place] as Specialti [phone] Hi dical es 198 [facility] 2019-08-08 2019-08-08 Outpatient SLE SLE [id number] 1-2 [facility] 03:47:00 03:47:00 [id number] 2019-07-23 2019-07-23 [facility] 1.2.840.114 [id number] Univers 08:23:43 11:30:09 ne Visit Artis Jean PYTHON DEVELOPER 350.1.13.10 ity of REGIONAL 4.2.7.2.686 [place] as MATERNAL [id number] Med ical & CHILD [address] [place] [address] 2019-07-23 2019-07-23 Outpatient LANDON [facility] [id number] Univers 11:00:00 11:00:00 ARTIS [id number] donnay o f [facility] 2019-07-23 2019-07-23 Outpatient R LANDON [facility] [id number] Univers 11:00:00 11:00:00 ARTIS thompsony o f [facility] 2019-07-22 2019-07-22 [facility]phone [facility] 1.2.840.114 [id number] Univers 00:00:00 00:00:00 Aubrey Sethi PYTHON DEVELOPER 350.1.13.10 it y of REGIONAL 4.2.7.2.686 [place] as MATERNAL [phone] Med ical & CHILD 107 [facility] 2019-07-22 2019-07-22 Telephone Landon [facility] 1.2.840.114 [id number] Univers 00:00:00 00:00:00 Artis Jean PYTHON DEVELOPER 350.1.13.10 ity of REGIONAL 4.2.7.2.686 William as MATERNAL [phone] [facility] ical & CHILD 107 [facility] 2019-05-23 2019-05-23 Office Daphnie [facility] 1.2.162.152 [id number] [facility] 08:29:26 08:54:40 Visit Aubrey Sethi [facility] 350.1.13.10 it y of Surgical 4.2.7.2.686 [place] as Specialti [phone] Hi dical es 198 [facility] Results Test Test Test Results Result Source Description Time Comments Comments XR KNEE <3 VW 2019-12- 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 ? Intubation 2019-07- Kar Pearson CRNA ? ? Un iversity of 27 08/18/2019 10:16 [place] [facility] ical 15:15:57 AMIntubationUrgency: Bran ch elective Airway not difficult General Information and Staff Patient location during procedure: ORResident/SEALS ENGRAVER: Kar Pearson CRNAPerformed: resident/SEALS ENGRAVER Indications and Patient ConditionIndications for airway management: anesthesiaSpontaneous Ventilation: absentSedation level: deepPreoxygenated: yesPatient position: sniffingMILS maintained throughoutMask difficulty assessment: 0 - not attempted Final Airway DetailsFinal airway type: supraglottic airway Successful airway: classicSize 4 Number of attempts at approach: 1 Additional CommentsAirway dry intact POCT Test 2019-08-18 13:40:00 Test Item Value Reference Range Interpretation Comme nts POCT PREG (test code = 1605) Negative On board controls acceptable with C Line (test code = 3574) Yes POCT PREG LOT # (test code = 3575) POCT PREG TEST DATE (test code = 3576) Lab Interpretation (test code = 90295-2) [facility] [id number] 17:54:00 Test Item Value Reference Range Interpretation Comments SARS-CoV-2 (test code = Not Detected Not Detected 56152-0) RASHARD (test code = RASHARD) ID NOW COVID-19 Assay is an isothermal nucleic acid amplification test intended for the qualitative detection of nucleic acid from SARS-CoV-2 viral RNA in nasopharyngeal (RECONCILIATION ANALYST) specimens. It is used under Emergency Use Authorization (EUA) by FDA. The limit of detection (LOD) of the assay is 125 Genome Equivalents/mL. A positive result is indicative of the presence of SARS-CoV-2 RNA. ?Clinical correlation with patient history and other diagnostic information is necessary to determine patient infection status. A negative (Not Detected) result does not preclude SARS-CoV-2 infection. Clinical correlation with patient history and other diagnostic information should be used in patient management decisions. Invalid: Please collect a new specimen for repeat patient testing if clinically indicated. Lab Interpretation Normal (test code = 43427-7) [facility] 1 VIEW [id number] 07:30:00 Reason for exam:->eval position of reportedly [...] MDReport Verified Date/Time: 08/11/2019 07:30:51 Reading Location: [facility] Radiology Reading Room RAD, CHEST, 1 VIEW, NON [id number] 05:29:00Reason for exam:->nausea, eval for aspirationShould this [...] clinically.Additional findings: Osseous structures are unremarkable. Signed: Maureen Luna MDReport Verified Date/Time: 08/11/2019 05:29:24 BASIC METABOLIC [id number] 04:56:00 Test Item Value Reference Range Interpretation [...] 1092) DATA TO CALCULA TE ESTIMATED GFR. Room Inspector ID - PIAYA [id number] 04:49:00 Test Item Value Reference Range Interpretation Comments PHOSPHORUS (BEAKER) (test code = 3.4 mg/dL 2.3-4.7 604) Room Inspector ID - PIJAYSHREE [id number] 04:49:00 Test Item Value Reference Range Interpretation Comments MAGNESIUM (BEAKER) (test code = 1.7 mg/dL 1.6-2.6 627) Room Inspector ID - PIAYA LHEPATIC FUNCTION [id number] 04:49:00 Test Item Value Reference Range Interpretation [...] (test code = 38 U/L 6-55 347) Room Inspector ID - PIAYA LCBC (HEMOGRAM ONLY)2019-08-11 04:15:00 Test Item Value [...] (test code = 413) HEPATOBILIARY IMAGING W/ [id number] 18:40:00Scheduled 08/09 but swallowed tongue ringHolding off until f/u KUB and cleared by radiologistReason for exam:- >See aboveFINAL REPORT PROCEDURE: HEPATOBILIARY SCAN CPT CODE: 92954 INDICATION: abdominal pain PROTOCOL: 5.22 mCi of [...] PPV for acute cholecystitis is low. Signed: Alexander Nieto MDReport Verified Date/Time: 2019 18:40:53 RAD, ABDOMEN/KUB, 1 VIEW [id number] 16:48:00Reason for exam:->swallowed tongue ring; planned MRCP [...] septal device over the cardiac shadow. Signed: Osiris Aguilera MDReport Verified Date/Time: 2019 16:48:26 Reading Location: [facility] C013Y CT Body Reading Room BASIC METABOLIC [id number] 06:31:00 Test Item Value Reference Range Interpretation [...] 1092) DATA TO CALCULA TE ESTIMATED GFR. Room Inspector ID - JENNIFER [id number] 06:27:00 Test Item Value Reference Range Interpretation Comments TRIGLYCERIDES (BEAKER) (test code = 54 mg/dL 540) TRIGLYCERIDE REFERENCE RANGELow Risk <150Borderline Risk 150-199High Risk 200-499Very High Risk>=500Operator ID - JENNIFER LHEPATIC FUNCTION PANEL 2019 06:27:00 Test Item [...] (test code = 35 U/L 6-55 347) Room Inspector ID - JENNIFER LC-REACTIVE [id number] 06:27:00 Test Item Value Reference Range Interpretation Comments C-REACTIVE PROTEIN (BEAKER) (test 0.08 mg/dL 0.00-0.50 code = 676) Room Inspector ID - JENNIFER LCBC W/PLT COUNT & AUTO [id number] 05:45:00 Test Item Value Reference Range Interpretation [...] (BEAKER) (test code = 2801) BASIC METABOLIC [id number] 08:22:00 Test Item Value Reference Range Interpretation [...] 1092) DATA TO CALCULA TE ESTIMATED GFR. Room Inspector ID - LMHEPATIC FUNCTION [id number] 08:01:00 Test Item Value Reference Range Interpretation [...] (test code = 39 U/L 6-55 347) Room Inspector ID - [id number] 15:09:00 Test Item Value Reference Range Interpretation Comments LIPASE (BEAKER) (test code = 749) 323 U/L 8-78 H Room Inspector ID - NTPU/S, ABDOMINAL, [id number] 14:33:00Abdomen limited area? Add comment if clarification [...] evidence for acute cholecystitis. Signed: Dale Wiggins [facility] Verified Date/Time: 08/08/2019 14:33:42 Reading Location: [facility] B1 C013W Consult Reading Room MR, ABDOMEN, [id number] 12:09:00FINAL REPORT MR Abdomen dated 08/08/2019 Comment: [...] MDReport Verified Date/Time: 08/08/2019 12:09:11 Reading Location: [facility] C013Y [place] Body Reading Room BASIC METABOLIC [id number] 06:41:00 Test Item Value Reference Range Interpretation [...] 1092) DATA TO CALCULA TE ESTIMATED GFR. Room Inspector ID - MADELINE [id number] 06:40:00 Test Item Value Reference Range Interpretation Comments MAGNESIUM (BEAKER) (test code = 1.8 mg/dL 1.6-2.6 627) Room Inspector ID - MADELINE WHEPATIC FUNCTION [id number] 06:40:00 Test Item Value Reference Range Interpretation [...] (test code = 53 U/L 6-55 347) Room Inspector ID Lorne CORREA [id number] 05:43:00 Test Item Value Reference Range Interpretation [...] mechanical heart valves.CBC W/PLT COUNT & AUTO [id number] 05:36:00 Test Item Value Reference Range Interpretation [...] DRVV Results (BEAKER) (test code = 2406) [id number] Alvarez Moe MD (BEAKER) (test code = (electronic 2600) signature) DRVV SCREEN RATIO (BEAKER) 0.84 <1.20 [...] 0.00-0.20 (test code = 417) 0.00BASIC METABOLIC [id number] 07:05:00 Test Item Value Reference Range Interpretation [...] TE ESTIMATED GFR. CARDIOLIPIN ANTIBODIES, IGG AND [id number] 14:31:00 Test Item Value Reference Range Interpretation Comments ANTICARDIOLIPIN IGG ANTIBODY (BEAKER) < GPL (test code = 712) ANTICARDIOLIPIN IGM ANTIBODY (BEAKER) < MPL (test code = 713) Anticardiolipin IgG Result Interpretation:NEG: <20 GPL; U/mlPOS: >/=20 GPL; U/mlAnticardiolipin IgM Result Interpretation:NEG: <20 MPL; U/mlPOS: >/=20 MPL; U/mlTHROMBIN [id number] 14:25:00 Test Item Value Reference Range Interpretation Comments THROMBIN TIME (BEAKER) (test code 193.3 secs 13.8-20.0 H = 550) EQUAL MIX, NORMAL [id number] 14:16:00 Test Item Value Reference Range Interpretation [...] = 418) CBC W/PLT COUNT & AUTO [id number] 08:32:00 Test Item Value Reference Range Interpretation [...] (BEAKER) (test code = 1351) BASIC METABOLIC [id number] 06:54:00 Test Item Value Reference Range Interpretation [...] TO CALCULA TE ESTIMATED GFR. BASIC METABOLIC [id number] 07:19:00 Test Item Value Reference Range Interpretation [...] ESTIMATED GFR. CBC W/PLT COUNT & AUTO [id number] 07:07:00 Test Item Value Reference Range Interpretation [...] K/ L 0.00-0.20 (test code = 417) [id number] 11:08:00 Test Item Value Reference Range Interpretation Comments POTASSIUM (BEAKER) (test code = 3.8 meq/L 3.5-5.1 379) [id number] 11:08:00 Test Item Value Reference Range Interpretation Comments MAGNESIUM (BEAKER) (test code = 2.3 mg/dL 1.6-2.6 627) BASIC METABOLIC [id number] 05:29:00 Test Item Value Reference Range Interpretation [...] m DATA TO CALCULA TE ESTIMATED GFR. [id number] 05:27:00 Test Item Value Reference Range Interpretation Comments PHOSPHORUS (BEAKER) (test code = 2.7 mg/dL 2.3-4.7 604) [id number] 05:27:00 Test Item Value Reference Range Interpretation Comments MAGNESIUM (BEAKER) (test code = 1.8 mg/dL 1.6-2.6 627) CBC W/PLT COUNT & AUTO [id number] 05:04:00 Test Item Value Reference Range Interpretation [...] K/ L 0.00-0.20 (test code = 417) [id number] 17:27:00 Test Item Value Reference Range Interpretation [...] L (test code = 2590) BASIC METABOLIC [id number] 15:01:00 Test Item Value Reference Range Interpretation [...] m DATA TO CALCULA TE ESTIMATED GFR. [id number] 14:50:00 Test Item Value Reference Range Interpretation Comments PHOSPHORUS (BEAKER) (test code = 3.5 mg/dL 2.3-4.7 604) [id number] 14:50:00 Test Item Value Reference Range Interpretation Comments MAGNESIUM (BEAKER) (test code = 1.9 mg/dL 1.6-2.6 627) LIPID [id number] 14:50:00 Test Item Value Reference Range Interpretation [...] Borderline 130-159 High 160-189 Very High >=190C-REACTIVE [id number] 14:50:00 Test Item Value Reference Range Interpretation Comments C-REACTIVE PROTEIN (BEAKER) (test 0.02 mg/dL 0.00-0.50 code = 676) COMPLEMENT COMPONENT [id number] 14:48:00 Test Item Value Reference Range Interpretation Comments C4 COMPLEMENT (BEAKER) (test code = 19 mg/dL 15-57 394) Effective 03/10/2014: Reference Range ChangeNew: 15-57 Previous: 16-38 COMPLEMENT COMPONENT [id number] 14:48:00 Test Item Value Reference Range Interpretation Comments C3 COMPLEMENT (BEAKER) (test code = 105 mg/dL 82-193 393) Effective 03/10/2014: Reference Range ChangeNew: 82-193 Previous: 79-152 HEMOGLOBIN [id number] 14:38:00 Test Item Value Reference Range Interpretation Comments HEMOGLOBIN A1C (BEAKER) (test code = 5.1 % 4.3-6.1 368) SEDIMENTATION [id number] 08:29:00 Test Item Value Reference Range Interpretation Comments SEDIMENTATION RATE, ERYTHROCYTE 10 mm/HR 0-20 (BEAKER) (test code = 766) CBC W/PLT COUNT & AUTO [id number] 06:06:00 Test Item Value Reference Range Interpretation [...] (test code = 417) 0.00RAPID DRUG SCREEN, [id number] 01:59:00 Test Item Value Reference Range Interpretation [...] ng/mLAmphetamine/ 1000 ng/mL MethamphetamineOxycodone 300 ng/mLPREGNANCY SCREEN, [id number] 01:47:00 Test Item Value Reference Range Interpretation Comments TEST URINE (BEAKER) (test Negative code = 583) URINALYSIS W/ [id number] 01:46:00 Test Item Value Reference Range Interpretation [...] SOURCE(BEAKER) (test code = 2795) BASIC METABOLIC [id number] 22:37:00 Test Item Value Reference Range Interpretation [...] ESTIMATED GFR. CREATINE KINASE (CK), TOTAL AND [id number] 22:33:00 Test Item Value Reference Range Interpretation Comments CREATINE KINASE TOTAL (BEAKER) 119 U/L 29-200 (test code = 380) CREATINE KINASE-MB (BEAKER) (test 1.5 ng/mL 0.0-6.6 code = 750) CREATINE KINASE-MB INDEX (BEAKER) 1.3 % (test code = 395) Effective 03/10/2014: CK-MB Reference Range ChangeNew: 0.0-6.6 Previous: 0.0-4.9CK-MB Reference Range:<6.7 Normal6.7-10.0 Borderline>10.0 AbnormalTROPONIN [id number] 22:33:00 Test Item Value Reference Range Interpretation Comments TROPONIN I (ALVARADO) (test code = 397) < ng/mL 0.00-0.03 [...] Reference Range Interpretation Comments B-TYPE NATRIURETIC PEPTIDE (ALVARADO) 33 pg/mL 0-100 (test code = 700) [id number] 22:27:00 Test Item Value Reference Range Interpretation Comments MAGNESIUM (ALVARADO) (test code = 1.9 mg/dL 1.6-2.6 627) [id number] 22:10:00 Test Item Value Reference Range Interpretation Comments PROTIME (ALVARADO) (test code = 13.6 seconds 11.7-14.7 759) INR ([facility]) (test code = 370) 1.1 <=5.9 PARTIAL THROMBOPLASTIN TIME 26.9 seconds 22.5-36.0 (ALIRIO) (test code = 760) RECOMMENDED COUMADIN/WARFARIN INR THERAPY RANGESSTANDARD DOSE: 2.0 - 3.0 Includes: PROPHYLAXIS forvenous thrombosis, systemic embolization; TREATMENT for venous thrombosis and/or pulmonary embolus.HIGH RISK: Target INR is 2.5-3.5 for patients with mechanical heart valves.POCT-GLUCOSE [id number] 22:02:00 Test Item Value Reference Range Interpretation Comments POC-GLUCOSE METER 86 mg/dL 70-[address] [facility] 6720 ([facility]) (test code = MAIDA Estes [facility] [address] 1538) CBC W/PLT COUNT & AUTO [id number] 22:01:00 Test Item Value Reference Range Interpretation [...]
[2021-08-17 18:44] LABS: Urine Blood 2+ (Negative); Urine Glucose Negative (Negative); Urine Protein Negative (Negative); Urine Specific Gravity <=1.005 (1.005-1.030)
[2021-08-17] MEDS ORDERED: MORPHINE 4 MG/ML SYR ONE (18:59)
[2021-08-17] MEDS ORDERED: ONDANSETRON 4 MG/2 ML VIAL ONE ×2 (18:59→19:36)
[2021-08-17] MEDS ORDERED: NA CHLORIDE 0.9% 1,000 ML ONE (18:59)
[2021-08-17] MEDS ORDERED: CEFEPIME 1 GM/VIAL ONE (19:00)
[2021-08-17] MEDS ORDERED: TETANUS & DIPHTHERIA TOX,ADULT 0.5 ML VIAL ONE (19:00)
[2021-08-17] MEDS ORDERED: NA CHLORIDE 0.9% 100 ML IV ONE (19:00)
[2021-08-17 19:12] LABS: Absolute Lymphocytes (CBC) 1.4 K/uL (0.7-4.9); Hematocrit 39.5 % (36.0-45.0); Lymphocytes % 11.4 % (15.3-44.8); MPV 8.8 fL (7.6-11.3); RBC Red Blood Cell Count 4.28 M/uL (3.86-4.86)
[2021-08-17 19:35] LABS: ALT/SGPT 32 U/L (12-78); AST/SGOT 26 U/L (15-37); Albumin 4.3 g/dL (3.4-5.0); Alkaline Phosphatase 70 U/L (45-117); BUN Blood Urea Nitrogen 4 mg/dL (7-18); Bicarbonate 26 mmol/L (21-32); Bilirubin Total 0.2 mg/dL (0.2-1.0); Glucose Level 97 mg/dL (74-106); Lipase 89 U/L (73-393); Potassium 3.7 mmol/L (3.5-5.1); Protein, Total 7.6 g/dL (6.4-8.2); Sodium Level 140 mmol/L (136-145)
[2021-08-17] MEDS ORDERED: HYDROMORPHONE HCL 0.5 MG/0.5 ML INJ ONE (19:36)
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
[2021-08-17] MEDS ORDERED: LORazepam 2 MG/ML VIAL ONE (20:02)
[2021-08-17 22:38] VITALS: O2SAT 100
[2021-08-17] MEDS ORDERED: ONDANSETRON 4 MG/2 ML VIAL IV PRN (22:57)
[2021-08-17] MEDS ORDERED: ACETAMINOPHEN 325 MG TABLET PO PRN (22:57)
[2021-08-17] MEDS ORDERED: HYDROMORPHONE HCL 1 MG/ML INJ IV PRN (22:57)
[2021-08-17] MEDS: D5 0.45 NS 1,000 ML IV SCH (23:24)
[2021-08-17] MEDS: FAMOTIDINE 20 MG/2 ML VIAL IV SCH (23:25)
[2021-08-18 01:08] VITALS: BMI 22.3
[2021-08-18] MEDS: CEFAZOLIN 1 GM in NA CHLORIDE 0.9% 50 ML IVPB SCH ×2 (01:35→08:16)
[2021-08-18] MEDS: LORazepam 2 MG/ML VIAL IV SCH ×2 (01:36→08:16)
[2021-08-18 04:17] LABS: Absolute Lymphocytes (CBC) 1.3 K/uL (0.7-4.9); Lymphocytes % 22.7 % (15.3-44.8); RBC Red Blood Cell Count 3.32 M/uL (3.86-4.86)
[2021-08-18 04:38] LABS: ALT/SGPT 26 U/L (12-78); AST/SGOT 30 U/L (15-37); Albumin 3.2 g/dL (3.4-5.0); Alkaline Phosphatase 55 U/L (45-117); BUN Blood Urea Nitrogen 5 mg/dL (7-18); Bicarbonate 27 mmol/L (21-32); Bilirubin Total 0.3 mg/dL (0.2-1.0); Glucose Level 86 mg/dL (74-106); Lipase 76 U/L (73-393); Potassium 3.8 mmol/L (3.5-5.1); Protein, Total 5.7 g/dL (6.4-8.2); Sodium Level 142 mmol/L (136-145)
[2021-08-18 04:42] LABS: Bilirubin Direct < 0.1 mg/dL (0-0.2)
[2021-08-18] MEDS ORDERED: NA CHLORIDE 0.9% 0 ML ONE (08:00)
[2021-08-18] MEDS: FAMOTIDINE 20 MG/2 ML VIAL IV SCH (08:16)
[2021-08-18] MEDS: D5 0.45 NS 1,000 ML IV SCH (08:27)
[2021-08-18 11:54] VITALS: BP 116/64; TEMP 97.3
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
== END 2021-08-18 14:47 | disposition home or self-care (01) ==
LOC: ER 18:19 → ERHOLD 19:50 → 4TH 22:04
PROVIDERS: ADMIT Surgery; ATTEND Surgery
DX: S30.0XXA Contusion of lower back and pelvis, initial encounter (principal); S00.83XA Contusion of other part of head, initial encounter; S70.11XA Contusion of right thigh, initial encounter; S20.229A Contusion of unspecified back wall of thorax, initial encounter; S31.811A Laceration without foreign body of right buttock, initial encounter; V94 Other and unspecified water transport accidents; Y93.11 Activity, swimming; Y92.89 Other specified places as the place of occurrence of the external cause; F41.9 Anxiety disorder, unspecified; E78.00 Pure hypercholesterolemia, unspecified; Z23 Encounter for immunization; Z20.822 Contact with and (suspected) exposure to COVID-19; Z86.73 Personal history of transient ischemic attack (TIA), and cerebral infarction without residual deficits
CPT/HCPCS: 85025 ×2; 80048; 36415; 86900; 86850; 84703; 82565; 86901; 80076; 81003; 83690 ×2; 80053; 70450; 72125; 71260; 74177; 90471; 90714; 99285; U0003; Q9967; J1170 ×2; J7799 ×2; J7030; J2405 ×3; J0692; J0690; J3490 ×2; G0378 ×2

== ENCOUNTER 2021-08-31 06:46 | Day surgery (SDC) | payer OTHER ==
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
[2021-08-31 07:46] LABS: Absolute Lymphocytes (CBC) 1.1 K/uL (0.7-4.9); Hematocrit 31.3 % (36.0-45.0); Lymphocytes % 23.2 % (15.3-44.8); RBC Red Blood Cell Count 3.38 M/uL (3.86-4.86)
[2021-08-31] MEDS ORDERED: MORPHINE 4 MG/ML SYR ONE (07:54)
[2021-08-31 08:04] LABS: Albumin 3.7 g/dL (3.4-5.0); Bilirubin Total 0.4 mg/dL (0.2-1.0); Potassium 4.1 mmol/L (3.5-5.1); Protein, Total 6.7 g/dL (6.4-8.2)
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
[2021-08-31] MEDS ORDERED: ONDANSETRON 4 MG/2 ML VIAL ONE ×2 (09:03→12:02)
[2021-08-31] MEDS ORDERED: FENTANYL CITR 100 MCG/2 ML ONE (12:02)
[2021-08-31] MEDS ORDERED: LIDOCAINE 2% MPF 5 ML VIAL ONE (12:02)
[2021-08-31] MEDS ORDERED: propofoL 200 MG/20 ML VIAL IV ONE (12:02)
[2021-08-31] MEDS ORDERED: MIDAZOLAM HCL 2 MG/2 ML INJ ONE (12:02)
[2021-08-31] MEDS ORDERED: BUPIVACAINE 0.5% Inj,MDV 50 mL VIAL ONE (12:19)
[2021-08-31] MEDS ORDERED: Ringers Lactate 1,000 ML IV ONE (12:25)
[2021-08-31] MEDS ORDERED: CEFAZOLIN SODIUM 1 GM/VIAL ONE (12:51)
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
--- NOTE | 2021-08-31 13:29 | P.OP ---
Preoperative diagnosis: Right buttock hematoma Postoperative diagnosis: The same Primary procedure: Incision, drainage, and sharp debridement of hematoma of the right buttock Anesthesia: General Estimated blood loss: Less than 10 cc Specimen: None was sent Findings: Large 50 cc hematoma Operative Technique: The patient brought the operating room placed supine on the table. After the induction of adequate general endotracheal anesthesia, the area of the right buttock was prepped with a DuraPrep solution, after having positioned her in the left lateral recovery position. The area was then draped in the usual aseptic manner. Attention was turned towards his large hematoma. We could see that there was an abrasion almost full-thickness just above the upper quadrant of this hematoma. After injecting with 0.25% Marcaine this area was gently teased with 11 blade which allowed us to open the hematoma. It was opened for approximately 18 mm. We were now able to gently apply pressure and express this large hematoma. At this point the wound was then irrigated with a copious amount of a saline solution. Taking a surgical cutting curette we were now able to clean out the inside of this large hematoma. The area was now irrigated until the effluent was clear. A number 7 mm [place] drain was now placed into the depths of the wound at the very bottom and brought out through our opening incision. A negative pressure dressing was now formed and it was applied over the wound. The drain had been sutured in place with some chromic sutures and attached to the bulb of the GERBER. At the end of the procedure the patient was in a stable condition was sent to the recovery room. Needle sponge instrument count were correct. Drain(s): GERBER drain Transferred to: Recovery Room Condition: Good
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
[2021-08-31] MEDS ORDERED: HYDROCODONE/APAP 7.5/325 MG TAB PO PRN (13:43)
[2021-08-31 13:56] VITALS: O2SAT 100
[2021-08-31 14:30] VITALS: BP 102/71; TEMP 97.6
[2021-08-31] MEDS ORDERED: HYDROCODONE/APAP 7.5/325 MG TAB ONE (14:40)
== END 2021-08-31 14:56 | disposition home or self-care (01) ==
LOC: ER 06:46 → OR 11:55
PROVIDERS: ATTEND Surgery
PROC: 0JD90ZZ Extraction of Buttock Subcutaneous Tissue and Fascia, Open Approach (ICD-10-PCS; 2021-08-31)
PROC: 0J990ZZ Drainage of Buttock Subcutaneous Tissue and Fascia, Open Approach (ICD-10-PCS; principal; 2021-08-31 12:00)
DX: S30.0XXA Contusion of lower back and pelvis, initial encounter (principal); F41.9 Anxiety disorder, unspecified; E78.00 Pure hypercholesterolemia, unspecified; Z86.73 Personal history of transient ischemic attack (TIA), and cerebral infarction without residual deficits; Z20.822 Contact with and (suspected) exposure to COVID-19
CPT/HCPCS: 10140; 11042; 85025; 36415; 80053; 74177; 96375; 96374; 99285; U0003; Q9967; J2704; J2250; J3010; J7120; J2405 ×2; J0690

== ENCOUNTER 2022-07-14 10:41 | Emergency (ER) | payer OTHER ==
--- OUTSIDE RECORDS SUMMARY | 2022-07-14 10:51 | XMS REPORT | Continuity of Care Document ---
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 1.2.301.339 [id number] 1450 Univers 13:42:13 14:09:11 Visit Aubrey New 350.1.13.10 it y of Surgical 4.2.7.2.686 William as Specialti [phone] Mn dical es 198 [facility] 2020-01-26 2020-01-26 [facility] 1.2.775.004 [id number] 1450 13:42:13 14:09:11 Visit Aubrey New 350.1.13.10 Surgical 4.2.7.2.686 Specialti [phone] es [address] [place] [address] 2020-01-26 2020-01-26 Outpatient [facility] [id number] Univers 13:30:00 13:30:00 AUBREY itjanak [facility] 2020-01-26 2020-01-26 Orders Doctor ABBI 1.2.840.114 [id number] Univers 00:00:00 00:00:00 Only Unassigned, DOMINGO 350.1.13.10 ity of [facility] 4.2.7.2.686 William as [phone] [address] 2020-01-26 2020-01-26 Orders Doctor ABIB 1.2.840.114 [id number] 03 00:00:00 00:00:00 Only Unassigned, DOMINGO 350.1.13.10 [facility] 4.2.7.2.686 [phone] 009 2020-01-23 2020-01-23 [facility] 1.2.188.541 1133 [id number] Univers 00:00:00 00:00:00 Adam Pacheco 350.1.13.10 i ty of [place] [phone] Mn dical nal 198 [facility] 2020-01-22 2020-01-22 Telephone [facility] 1.2.932.216 [id number] 7295 Univers 00:00:00 00:00:00 Adam New 350.1.13.10 it y of Surgical 4.2.7.2.686 William as Specialti [phone] Mn dical es 198 [facility] 2020-01-20 2020-01-20 Outpatient [facility] [id number] Univers 00:00:00 00:00:00 AUBREY chilel [facility] 2020-01-13 2020-01-15 Office [facility] 1.2.840.114 [id number] Univers 10:24:54 14:32:51 Visit Adam New 350.1.13.10 it y of Surgical 4.2.7.2.686 William as Specialti [phone] Mn dical es 198 [facility] 2020-01-14 2020-01-14 Telephone [facility] 1.2.840.114 [id number] Univers 00:00:00 00:00:00 Aubrey New 350.1.13.10 it y of Surgical 4.2.7.2.686 William as Specialti [phone] Mn dical es 198 [facility] 2020-01-13 2020-01-13 Outpatient [facility] [id number] Univers 10:30:00 10:30:00 ADAM chilel [facility] 2020-01-13 2020-01-13 Orders Doctor GO 1.2.840.114 [id number] Univers 00:00:00 00:00:00 Only Unassigned, DOMINGO 350.1.13.10 ity of [facility] 4.2.7.2.686 William as [phone] [address] 2020-01-12 2020-01-12 Outpatient Meera REYES [facility] [id number] Univers 16:15:00 16:15:00 ADAM chilel [facility] 2020-01-12 2020-01-12 Orders Doctor ABBI 1.2.840.114 [id number] Univers 00:00:00 00:00:00 Only Unassigned, DOMINGO 350.1.13.10 ity of [facility] 4.2.7.2.686 William as [phone] [facility] [address] 2020-01-12 2020-01-12 Orders Doctor ABBI 1.2.840.114 [id number] 00:00:00 00:00:00 Only Unassigned, [place] 350.1.13.10 [facility] [id number] [facility][note 2] 2020-01-11 2020-01-11 Telemedici Goldbeulah Erica [facility] 1.2.8 40.114 [id number] Univers 11:58:19 12:28:19 ne Visit Unknown, Attending HEALTH 350.1.13.1 0 it[place] of [place].2.7.2.686 [place] [phone] [facility] Primary & [address] [facility] 2020-01-11 2020-01-11 Outpatient R ZAYRA [facility] [id number] Univers 11:30:00 11:30:00 [facility] 2020-01-11 2020-01-11 Telephone [facility] 1.2.840.114 [id number] Univers 00:00:00 00:00:00 [facility] 350.1.13.10 it y of [place].2.7.2.686 [place] [phone] [facility] Primary & [address] [facility] 2020-01-07 2020-01-07 Telephone [facility] 1.2.904.269 [id number] 6719 Univers 00:00:00 00:00:00 [facility] 350.1.13.10 it y of Surgical 4.2.7.2.686 William as Specialti [phone] Mn dic[address] 2020-01-06 2020-01-06 Outpatient [facility] [id number] Univers 09:15:00 09:15:00 ADAM ity [facility] 2020-01-05 2020-01-05 [facility] 1.2.840.114 [id number] Univers 16:59:19 23:59:00 Encounter Adam [facility] 350.1.13.10 ity of Surgical 4.2.7.2.686 William as Specialti [phone] Mn dical es 809 [facility] 2020-01-05 2020-01-05 Office [facility] 1.2.840.114 [id number] Univers 15:58:40 17:11:37 Visit Adam Velazco Health 350.1.13.10 it y of Surgical 4.2.7.2.686 William as Specialti [phone] Mn dical es 198 [facility] 2020-01-05 2020-01-05 Outpatient [facility] [id number] Univers 16:15:00 16:15:00 [facility] 2019-12-24 2019-12-24 Outpatient Meera [facility] [id number] Univers 15:15:00 15:15:00 [facility] 2019-10-07 2019-10-07 Outpatient [facility] [id number] Univers 15:00:00 15:00:00 ARTIS chilel o f [facility] 2019-10-02 2019-10-02 Telephone [facility] 1.2.840.114 [id number] Univers 00:00:00 00:00:00 Artis Jean 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7.2.686 William as Specialti [phone] Me dical es 198 [facility] 2019-09-11 2019-09-11 Outpatient R DAPHNIE [facility] [id number] Univers 15:30:00 15:30:00 AUBREY chilel [facility] 2019-09-09 2019-09-09 Telephone [facility] 1.2.840.114 [id number] Univers 00:00:00 00:00:00 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 Jean 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 350.1.13.10 ity of [facility] 4.2.7.2.686 William as MATERNAL [phone] Med ical & CHILD [address] [place] [address] 2019-09-05 2019-09-05 Outpatient R [facility] [id number] Univers 11:00:00 11:00:00 ISE, ity [facility] 2019-09-05 2019-09-05 Telemedici [facility] 1.2.840.114 [id number] Univers 07:02:35 07:32:35 ne Visit beatrice, SPECIALTY 350.1.13.10 ity [facility] 4.2.7.2.686 [place] [phone] Me dical VICTORY 072 [facility] 2019-09-04 2019-09-04 Ancillary Sabrina Curry [facility] 1.2.840. 114 [id number] Univers 15:00:59 16:00:59 Visit Aubrey Eller [facility] 350.1.13.10 ity [facility] 4.2.7.2.[place] [phone] Me dical nal 179 [facility] 2019-09-04 2019-09-04 Outpatient R DAPHNIE [facility] 33219 [id number] Univers 15:00:00 15:00:00 AUBREY chilel [facility] 2019-09-02 2019-09-02 Office Amy [facility] 1.2.840.114 [id number] Univers 13:05:06 13:20:06 Visit [facility] 350.1.13.10 it y of Surgical 4.2.7.2.686 William as Specialti [phone] Me dical es 198 [facility] 2019-09-02 2019-09-02 Outpatient R [facility] [id number] Univers 13:15:00 13:15:00 [facility] 2019-08-25 2019-08-25 Office [facility] 1.2.840.114 [id number] Univers 14:48:27 15:03:27 Visit Adam Velazco [facility] 350.1.13.10 it y of Surgical 4.2.7.2.686 William as Specialti [phone] Mn dical es 198 [facility] 2019-08-25 2019-08-25 Outpatient Meera [facility] [id number] Univers 15:00:00 15:00:00 [facility] 2019-08-25 2019-08-25 Telephone [facility] 1.2.876.678 [id number] 0379 Univers 00:00:00 00:00:00 Adam S Health 350.1.13.10 it y of Surgical 4.2.7.2.686 William as Specialti [phone] Mn dical es 198 [facility] 2019-08-21 2019-08-21 [facility] 1.2.840.114 [id number] Univers 14:14:14 14:34:55 Visit Adam Velazco [facility] 350.1.13.10 it y of Surgical 4.2.7.2.686 William as Specialti [id number] Mn dical es 198 [facility] 2019-08-21 2019-08-21 Outpatient Meera [facility] [id number] Univers 14:15:00 14:15:00 [facility] 2019-08-20 2019-08-20 Letter [facility] 1.2.081.401 [id number] Univers 00:00:00 00:00:00 (Out) [facility] 350.1.13.10 it y of Surgical 4.2.7.2.686 William as Specialti [phone] Mn dical es 198 [facility] 2019-08-19 2019-08-19 Emergency [facility] 1.2.941.396 [id number] Univers 02:03:59 03:28:00 Anivalashwini [place] 350.1.13.10 i ty of [place]2.7.2.686 [place] [phone] [facility] [address] [place] 2019-08-19 2019-08-19 Nurse Scarlett Hickman 1.2.840.114 [id number] Univers 00:00:00 00:00:00 Triage DOMINGO 350.1.13.10 it y of HOSPITAL 4.2.7.2.686 William as [phone] [facility] [address] [place] 2019-08-19 2019-08-19 Telephone [facility] 1.2.840.114 [id number] Univers 00:00:00 00:00:00 Aubrey Sethi [facility] 350.1.13.10 it y of Surgical 4.2.7.2.686 William as Specialti [phone] Mn dical 198 [facility] 2019-08-18 2019-08-18 [facility] 1.2.840.114 [id number] Univers 08:31:00 13:30:00 Encounter Aubrey [place] 350.1.13.10 ity of [place]2.[place].2.[place] Surgical [phone] Med ical Center [address] [place] 2019-08-18 2019-08-18 Anesthesia Kar Pearson [facility] 1.2.840.11 [id number] Univers 09:44:00 11:36:00 Abbi Be 350.1.13.10 ity of [place].2.[place] [phone] Med ical Center [address] [place] 2019-08-18 2019-08-18 Outpatient RADHA FAROOQ SLEI[facility] [id number] [facility] 00:00:00 00:00:00 HARVEY 2019-08-18 2019-08-[address] [facility] [id number] 1-2 [facility] 00:00:00 00:00:00 [id number] 2019-08-18 2019-08-18 Orders Doctor GO 1.2.840.114 [id number] Univers 00:00:00 00:00:00 Only Unassigned, DOMINGO 350.1.13.10 ity of [facility] 4.2.7.2.686 William as [id number] [facility] [address] [place] 2019-08-18 2019-08-18 Nurse ABBI Conti 1.2.840.114 [id number] Univers 00:00:00 00:00:[address] 350.1.13.10 i ty of [facility] 4.2.7.2.686 William as [id number] [address] 2019-08-18 2019-08-18 Prep [facility] 1.2.840.114 [id number] Univers 00:00:00 00:00:00 Surgery Aubrey Sethi Health 350.1.13.10 it y of Surgical 4.2.7.2.686 [place] as Specialti [phone] Me dical es 198 [facility] 2019-08-15 2019-08-15 Outpatient [facility] [id number] Univers 11:15:55 23:59:00 AUBREY chilel [facility] 2019-08-15 2019-08-15 Nurse Nurse, [facility] General Surgery [facility] 1.2.840.114 [id number] Univers 12:10:33 13:09:31 Visit Aubrey Eller 350.1.13.10 ity of [place].2.[place] [phone] Me dical nal 377 [facility] 2019-08-15 2019-08-15 B2B Sales Executive Delfino, [facility] Lab Main [facility] 1.2.8 40.114 [id number] Univers 11:02:01 11:17:01 Visit Aubrey Eller 350.1.13.10 ity of [place] 4.2.7.2.686 [place] [phone] Me dical nal 353 [facility] 2019-08-15 2019-08-15 Office Amy [facility] 1.2.840.114 [id number] Univers 08:17:14 08:32:14 Visit Adam Mora New 350.1.13.10 it y of Surgical 4.2.7.2.686 [place] as Specialti [phone] Me dical es 198 [facility] 2019-08-15 2019-08-15 Outpatient [facility]H [facility] [id number] 1-2 [facility] 00:00:00 00:00:00 [id number] 2019-08-15 2019-08-15 Telephone [facility] 1.2.840.114 [id number] Univers 00:00:00 00:00:00 Aubrey L Health 350.1.13.10 it y of Surgical 4.2.7.2.686 [place] as Specialti [phone] Mn dical es 198 [facility] 2019-08-08 2019-08-08 Outpatient SLEH [facility] [id number] 1-2 SLEH 03:47:00 03:47:00 [id number] 2019-07-23 2019-07-23 Telemedici [facility] 1.2.840.114 [id number] Univers 08:23:43 11:30:09 ne Visit 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 Jean 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 350.1.13.10 ity of REGIONAL 4.2.7.2.686 [place] as MATERNAL [phone] Med ical & CHILD [address] [place] [address] 2019-07-23 2019-07-23 Outpatient R LANDON [facility] [id number] Univers 11:00:00 11:00:00 ARTIS thompsony o f [facility] 2019-07-22 2019-07-22 Telephone [facility] 1.2.840.114 [id number] Univers 00:00:00 00:00:00 Aubrey Sethi DRILL 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 350.1.13.10 it y of REGIONAL 4.2.7.2.686 William as MATERNAL [phone] [facility] CH[facility] [address] [place] [address] 2019-07-22 2019-07-22 Telephone [facility] 1.2.840.114 [id number] Univers 00:00:00 00:00:00 Artis Jean DRILL 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 350.1.13.10 ity of REGIONAL 4.2.7.2.686 William as MATERNAL [id number] [facility] & CHILD [address] [place] [address] 2019-05-23 2019-05-23 Office [facility] 1.2.855.723 [id number] Univers 08:29:26 08:54:40 Visit Aubrey Sethi Health 350.1.13.10 it y of Surgical 4.2.7.2.686 [place] as Specialti [phone] Me dical es [address] [place] Results Test Description Test Time Test Comments Results Result Sourc e Comments RAD, 2019-07-24 Reason for FINAL REPORT ABDOMEN/KUB, 1 0 exam:->eval position PATIENT ID: VIEW AP 07:30:00 of reportedly [id number] CLINICAL swallowed tongue ring HISTORY: eval position [...] Tavares Verified Date/Time: 08/11/2019 07:30:51 Reading Location: [facility] Radiology Reading Room , CHEST, 1 2019-07-24 Reason for FINAL REPORT VIEW, NON DEPT 0 exam:->nausea, eval PATIENT ID: 05:29:00 for aspirationShould [id number] RAD, this be performed at CHEST, 1 [...] al findings: Osseous structures are unremarkable. Signed: Maureen Lunaort Verified Date/Time: 08/11/2019 05:29:24 C METABOLIC PANEL [...] DATA TO 1092) CALCULATE ESTIM ATED GFR. Mash Processing Operator ID - JENNIFER [id number] 04:49:00 Test Item Value Reference Range Interpretation Comments PHOSPHORUS (BEAKER) (test code = 3.4 mg/dL 2.3-4.7 604) Mash Processing Operator ID - JENNIFER [id number] 04:49:00 Test Item Value Reference Range Interpretation Comments MAGNESIUM (BEAKER) (test code = 1.7 mg/dL 1.6-2.6 627) Mash Processing Operator ID - JENNIFER LHEPATIC FUNCTION [id number] 04:49:00 Test Item Value Reference Range Interpretation [...] (test code = 38 U/L 6-55 347) Mash Processing Operator ID - JENNIFER LCBC (HEMOGRAM ONLY)2019-08-11 04:15:00 [...] (test code = 413) HEPATOBILIARY IMAGING W/ [id number] 18:40:00Scheduled 08/09 but swallowed tongue ringHolding off until f/u KUB and cleared by radiologistReason for exam:- >See aboveFINAL REPORT PROCEDURE: HEPATOBILIARY SCAN CPT CODE: 46987 INDICATION: abdominal pain PROTOCOL: 5.22 mCi of [...] Date/Time: 2019 18:40:53 RAD, ABDOMEN/KUB, 1 VIEW [id number] 16:48:00 Reason for exam:->swallowed tongue ring; planned MRCP todayFINAL REPORT TECHNIQUE: Single View of the Abdomen. INDICATION: swallowed tongue ring; planned MRCP today. COMPARISON: KUB from 07/24/2016. FINDINGS/IMPRESSION: A navel ring overliesthe expected location. The tongue ring likely overlies the gastric body. Alternatively, this could be in the colon. The bowel gas pattern is normal. There appears to be an atrial septal device over thecardiac shadow. Signed: Osiris Aguilera MDReport Verified Date/Time: 2019 16:48:26 Reading Location: [facility] B1 C013Y CT Body Reading Room BASIC METABOLIC PANEL 2019 06:31:00 Test Item Value Reference Range Interpretation [...] 1092) DATA TO CALCULA TE ESTIMATED GFR. Mash Processing Operator ID - PIAYA [id number] 06:27:00 Test Item Value Reference Range Interpretation Comments TRIGLYCERIDES (BEAKER) (test code = 54 mg/dL 540) TRIGLYCERIDE REFERENCE RANGELow Risk <150Borderline Risk 150-199High Risk 200-499Very High Risk >=500Operator ID - PIAYA LHEPATIC FUNCTION PANEL 2019 [...] (test code = 35 U/L 6-55 347) Mash Processing Operator ID - PIAYA LC-REACTIVE [id number] 06:27:00 Test Item Value Reference Range Interpretation Comments C-REACTIVE PROTEIN (BEAKER) (test 0.08 mg/dL 0.00-0.50 code = 676) Mash Processing Operator ID - PIAYA LCBC W/PLT COUNT & AUTO [id number] 05:45:00 Test Item Value Reference Range Interpretation [...] (BEAKER) (test code = 2801) BASIC METABOLIC [id number] 08:22:00 Test Item Value Reference Range Interpretation [...] 1092) DATA TO CALCULA TE ESTIMATED GFR. Mash Processing Operator ID - LMHEPATIC FUNCTION [id number] 08:01:00 Test Item Value Reference Range Interpretation [...] (test code = 39 U/L 6-55 347) Mash Processing Operator ID - [id number] 15:09:00 Test Item Value Reference Range Interpretation Comments LIPASE (BEAKER) (test code = 749) 323 U/L 8-78 H Mash Processing Operator ID - NTPU/S, ABDOMINAL, [id number] 14:33:00Abdomen limited area? Add comment if clarification is needed.->Gall BladderReason for exam:->RUQ pain.FINAL REPORT HISTORY : Right upper quadrant pain COMPARISON: MRCP from earlier 08/08/2019 COMMENT : Limited ultrasound examination of the abdomen was performed with attention to theright upper quadrant. The visualized pancreas appears unremarkable. The liver is at the upper limitsof normal for size measuring 16.6 cm in length. Hepatic echogenicity is within normal limits. No focal hepatic abnormality is identified. The main portal vein is patent with antegrade flow and diameterof 1.2 cm. A 4 mm non-shadowing echogenic focus is identified along the gallbladder wall. There is no evidence for shadowing stones, gallbladder wall thickening, or pericholecystic fluid. There is no intra or extra hepatic biliary ductal dilatation. The common bile duct measures 4 mm. The right kidneyis normal in size with normal cortical thickness and echogenicity. There is no evidence for solid renal mass, hydronephrosis, or shadowing calcified within the right kidney. The visualized portions theIVC and aorta are within normal limits. There is no ascites or sludge within the right upper quadrant. IMPRESSION : 4 mm echogenic focus identified along the gallbladder wall which may represent a small adherent stone versus subcentimeter polyp. No evidence for shadowing stones identified. No sonographic evidence for acute cholecystitis. Signed: Dale Wiggins MDReport Verified Date/Time: 08/08/2019 14:33:42 Reading Location: [facility] C013W Consult Reading Room MR, ABDOMEN, [id number] 12:09:00FINAL REPORT MR Abdomen dated 08/08/2019 Comment: Multiplanar T1 and T2-weightedimages, respiratory triggered and breath-hold MRCP sequences were obtained. 3-D reconstruction of the abdomen was performed for better evaluation of the biliary tree. Gallbladder is contracted. No gallstone, gallbladder wall thickening, or pericholecystic fluid collection is seen. MRCP demonstrates normal caliber intra and extra hepatic biliary ducts. No filling defect is seen in the biliary ducts tosuggest choledocholithiasis. Common bile duct measures approximately 3 [...] MDReport Verified Date/Time: 08/08/2019 12:09:11 Reading Location: [facility] C013Y CT Body Reading Room BASIC METABOLIC [id number] 06:41:00 Test Item Value Reference Range Interpretation [...] 1092) DATA TO CALCULA TE ESTIMATED GFR. Mash Processing Operator ID - MADELINE [id number] 06:40:00 Test Item Value Reference Range Interpretation Comments MAGNESIUM (BEAKER) (test code = 1.8 mg/dL 1.6-2.6 627) Mash Processing Operator ID - MADELINE WHEPATIC FUNCTION [id number] 06:40:00 Test Item Value Reference Range Interpretation [...] (test code = 53 U/L 6-55 347) Mash Processing Operator ID Lorne CORREA [id number] 05:43:00 Test Item Value Reference Range Interpretation [...] is 2.5-3.5 for patients wiht mechanical heart valves.CBC W/PLT COUNT & AUTO [id number] 05:36:00 Test Item Value Reference Range Interpretation [...] DRVV Results (BEAKER) (test code = 2406) [id number] Alvarez Moe MD (BEAKER) (test code = [...] 0.00-0.20 (test code = 417) 0.00BASI METABOLIC [id number] 07:05:00 Test Item Value Reference Range Interpretation [...] TE ESTIMATED GFR. CARDIOLIPIN ANTIBODIES, IGG AND [id number] 14:31:00 Test Item Value Reference Range Interpretation Comments ANTICARDIOLIPIN IGG ANTIBODY (BEAKER) < GPL (test code = 712) ANTICARDIOLIPIN IGM ANTIBODY (BEAKER) < MPL (test code = 713) Anticardiolipin IgG Result Interpretation:NEG: <20 GPL; U/mlPOS: >/=20 GPL; U/mlAnticardiolipin IgM Result Interpretation:NEG: <20 MPL; U/mlPOS: >/=20 MPL; U/mlTHROMBIN [id number] 14:25:00 Test Item Value Reference Range Interpretation Comments THROMBIN TIME (BEAKER) (test code 193.3 secs 13.8-20.0 H = 550) EQUAL MIX, NORMAL [id number] 14:16:00 Test Item Value Reference Range Interpretation [...] = 418) CBC W/PLT COUNT & AUTO [id number] 08:32:00 Test Item Value Reference Range Interpretation [...] (BEAKER) (test code = 1351) BASIC METABOLIC [id number] 06:54:00 Test Item Value Reference Range Interpretation [...] TO CALCULA TE ESTIMATED GFR. BASIC METABOLIC [id number] 07:19:00 Test Item Value Reference Range Interpretation [...] ESTIMATED GFR. CBC W/PLT COUNT & AUTO [id number] 07:07:00 Test Item Value Reference Range Interpretation [...] K/ L 0.00-0.20 (test code = 417) [id number] 11:08:00 Test Item Value Reference Range Interpretation Comments POTASSIUM (BEAKER) (test code = 3.8 meq/L 3.5-5.1 379) [id number] 11:08:00 Test Item Value Reference Range Interpretation Comments MAGNESIUM (BEAKER) (test code = 2.3 mg/dL 1.6-2.6 627) BASIC METABOLIC [id number] 05:29:00 Test Item Value Reference Range Interpretation [...] m DATA TO CALCULA TE ESTIMATED GFR. [id number] 05:27:00 Test Item Value Reference Range Interpretation Comments PHOSPHORUS (BEAKER) (test code = 2.7 mg/dL 2.3-4.7 604) [id number] 05:27:00 Test Item Value Reference Range Interpretation Comments MAGNESIUM (BEAKER) (test code = 1.8 mg/dL 1.6-2.6 627) CBC W/PLT COUNT & AUTO [id number] 05:04:00 Test Item Value Reference Range Interpretation [...] K/ L 0.00-0.20 (test code = 417) [id number] 17:27:00 Test Item Value Reference Range Interpretation Comments FERRITIN (BEAKER) (test code = 361) 9 ng/mL 5-275 Effective 03/10/2014: Reference Range ChangeNew: Male 5-275 Previous: Male 22- 322 Female 5-275 Female 10-291TSH/FREE T4 IF [id number] 17:27:00 Test Item Value Reference Range Interpretation [...] L (test code = 2590) BASIC METABOLIC [id number] 15:01:00 Test Item Value Reference Range Interpretation [...] m DATA TO CALCULA TE ESTIMATED GFR. [id number] 14:50:00 Test Item Value Reference Range Interpretation Comments PHOSPHORUS (BEAKER) (test code = 3.5 mg/dL 2.3-4.7 604) [id number] 14:50:00 Test Item Value Reference Range Interpretation Comments MAGNESIUM (BEAKER) (test code = 1.9 mg/dL 1.6-2.6 627) LIPID [id number] 14:50:00 Test Item Value Reference Range Interpretation Comments TRIGLYCERIDES (BEAKER) (test code = 41 mg/dL 540) CHOLESTEROL (BEAKER) (test code = 109 mg/dL 631) HDL CHOLESTEROL (BEAKER) (test code 44 mg/dL = 976) LDL CHOLESTEROL CALCULATED (BEAKER) 57 mg/dL (test code = 633) Triglyceride Reference Range: Low Risk <150 Borderline 150-199 High Risk 200- 499 Very High Risk >=500Cholesterol Reference Range: Low Risk <200 Borderline 200-239 High Risk >240HDL Cholesterol Reference Range: Low Risk >=60 High Risk <40LDL Cholesterol Reference Range: Optimal <100 Near Optimal 100-129 Borderline 130-159 High 160-189 Very High >=190C-REACTIVE [id number] 14:50:00 Test Item Value Reference Range Interpretation Comments C-REACTIVE PROTEIN (BEAKER) (test 0.02 mg/dL 0.00-0.50 code = 676) COMPLEMENT COMPONENT [id number] 14:48:00 Test Item Value Reference Range Interpretation Comments C4 COMPLEMENT (BEAKER) (test code = 19 mg/dL 15-57 394) Effective 03/10/2014: Reference Range ChangeNew: 15-57 Previous: 16-38COMPLEMENT COMPONENT [id number] 14:48:00 Test Item Value Reference Range Interpretation Comments C3 COMPLEMENT (BEAKER) (test code = 105 mg/dL 82-193 393) Effective 03/10/2014: Reference Range ChangeNew: 82-193 Previous: 79-152 HEMOGLOBIN [id number] 14:38:00 Test Item Value Reference Range Interpretation Comments HEMOGLOBIN A1C (BEAKER) (test code = 5.1 % 4.3-6.1 368) SEDIMENTATION [id number] 08:29:00 Test Item Value Reference Range Interpretation Comments SEDIMENTATION RATE, ERYTHROCYTE 10 mm/HR 0-20 (BEAKER) (test code = 766) CBC W/PLT COUNT & AUTO [id number] 06:06:00 Test Item Value Reference Range Interpretation [...] (test code = 417) 0.00RAPID DRUG SCREEN, [id number] 01:59:00 Test Item Value Reference Range Interpretation [...] ng/mLAmphetamine/ 1000 ng/mL MethamphetamineOxycodone 300 ng/mLPREGNANCY SCREEN, [id number] 01:47:00 Test Item Value Reference Range Interpretation Comments TEST URINE (BEAKER) (test Negative code = 583) URINALYSIS W/ [id number] 01:46:00 Test Item Value Reference Range Interpretation [...] code = 516) SOURCE(BEAKER) (test code = 6951) BASIC METABOLIC [id number] 22:37:00 Test Item Value Reference Range Interpretation [...] ESTIMATED GFR. CREATINE KINASE (CK), TOTAL AND [id number] 22:33:00 Test Item Value Reference Range Interpretation Comments CREATINE KINASE TOTAL (BEAKER) 119 U/L 29-200 (test code = 380) CREATINE KINASE-MB (BEAKER) (test 1.5 ng/mL 0.0-6.6 code = 750) CREATINE KINASE-MB INDEX (BEAKER) 1.3 % (test code = 395) Effective 03/10/2014: CK-MB Reference Range ChangeNew: 0.0-6.6 Previous: 0.0-4.9CK-MB Reference Range:<6.7 Normal6.7-10.0 Borderline>10.0 Abnormal TROPONIN [id number] 22:33:00 Test Item Value Reference Range Interpretation Comments TROPONIN I (BEAKER) (test code = 397) < ng/mL 0.00-0.03 Effective 03/10/2014: Reference Range ChangeNew: 0.00-0.03 Previous 0.00- 0.15Troponin I (TnI) levelsmust be interpreted in the context of the presenting symptoms and the clinical findings. Elevated TnI levels indicate myocardial damage, but are not specific for ischemic heart disease. Elevated TnI levels are seen in patients with other cardiac conditions (including myocarditis and congestive heart failure), and slight TnI elevations occur in patients with other conditions, including sepsis, renal failure, acidosis, acute neurological disease, and persistent tachyarrhythmia.B-TYPE NATRIURETIC FACTOR (BNP) 2016-07-20 22:33:00 Test Item Value Reference Range Interpretation Comments B-TYPE NATRIURETIC PEPTIDE (BEAKER) 33 pg/mL 0-100 (test code = 700) [id number] 22:27:00 Test Item Value Reference Range Interpretation Comments MAGNESIUM (BEAKER) (test code = 1.9 mg/dL 1.6-2.6 627) [id number] 22:10:00 Test Item Value Reference Range Interpretation Comments PROTIME (BEAKER) (test code = 13.6 seconds 11.7-14.7 759) INR (BEAKER) (test code = 370) 1.1 <=5.9 PARTIAL THROMBOPLASTIN TIME 26.9 seconds 22.5-36.0 (BEAKER) (test code = 760) RECOMMENDED COUMADIN/WARFARIN INR THERAPY RANGESSTANDARD DOSE: 2.0 - 3.0 Includes: PROPHYLAXIS for venous thrombosis, systemic embolization; TREATMENT for venous thrombosis and/or pulmonary embolus.HIGH RISK: Target INR is 2.5-3.5 for patients with mechanical heart valves.POCT-GLUCOSE [id number] 22:02:00 Test Item Value Reference Range Interpretation Comments POC-GLUCOSE METER 86 mg/dL 70-110 TESTED AT [facility] ([facility]) (test code = [place] [address] 1538) CBC W/PLT COUNT & AUTO [id number] 22:01:00 Test Item Value Reference Range Interpretation [...]
[2022-07-14] MEDS ORDERED: MORPHINE 4 MG/ML SYR ONE ×2 (12:09→16:39)
[2022-07-14] MEDS ORDERED: ONDANSETRON 4 MG/2 ML VIAL ONE (12:09)
[2022-07-14] MEDS ORDERED: NA CHLORIDE 0.9% 1,000 ML ONE (12:09)
[2022-07-14 12:13] LABS: Absolute Lymphocytes (CBC) 1.2 K/uL (0.7-4.9); Hematocrit 30.8 % (36.0-45.0); MCV 92.6 fL (80-100); MPV 8.5 fL (7.6-11.3); RBC Red Blood Cell Count 3.33 M/uL (3.86-4.86)
[2022-07-14 12:30] LABS: Albumin 3.5 g/dL (3.4-5.0); Bilirubin Total 0.3 mg/dL (0.2-1.0); Protein, Total 5.9 g/dL (6.4-8.2)
[2022-07-14 12:33] LABS: Specific Gravity 1.021 (1.005-1.030); Urine Bacteria None Seen /HPF (<20); Urine Bilirubin NEGATIVE (Negative); Urine Blood Negative (Negative); Urine Clarity Extremely Turbid (Clear); Urine Color Light-Orange (Yellow); Urine Glucose NEGATIVE (Negative); Urine Mucus 3+ /HPF (None Seen); Urine Protein TRACE (Negative); Urine RBC None Seen /HPF (None Seen); Urine Urobilinogen Normal (Normal)
[2022-07-14 12:37] LABS: Specific Gravity 1.021 (1.005-1.030)
--- NOTE | 2022-07-14 13:16 | RAD REPORT ---
EXAM DESCRIPTION: CT - Abdomen Pelvis W Contrast - 07/14/2022 12:59 pm CLINICAL HISTORY: Abdominal pain COMPARISON: 2021 TECHNIQUE: Computed axial tomography of the abdomen pelvis was obtained. 95 cc Isovue-300 was admini stered intravenously. Oral contrast was not requested which limits evaluation of bowel and appendix All CT scans are performed using dose optimization technique as appropriate and may include automated exposure control or mA/KV adjustment according to patient size. FINDINGS: The liver, spleen, pancreas, adrenal and kidneys appear unremarkable. There is no evidence of diverticulitis. Mild apparent thickening wall of the sigmoid colon. Trace amount of ascites. An adnexal mass IMPRESSION: Mild apparent thickening wall of the sigmoid colon may simply be secondary to distention . A mild colitis can also have this appearance
[2022-07-14] MEDS ORDERED: Levofloxacin 750mg IV 750 MG/150 ML BAG IV ONE (13:55)
[2022-07-14] MEDS ORDERED: METRONIDAZOLE 500mg IVPB 500 MG/100 ML BAG IV ONE (13:56)
--- NOTE | 2022-07-14 15:03 | ER ---
Nurse's Notes [facility] Name: Italia Allen Age: 36 yrs Sex: Female : 1985 Arrival Date: 07/14/2022 Time: 11:00 Bed 13 Private MD: Diagnosis: Colitis Presentation: 07/14 11:10 Chief complaint: Patient states: Rectal bleeding x1 year, had imagine done yesterday in [address], vomiting x 2 days, reports lost 15 pounds in last 2 weeks. Coronavirus screen: At this time, the client does not indicate any symptoms associated with coronavirus-19. Ebola Screen: No symptoms or risks identified at this time. Initial Sepsis Screen: Does the patient meet any 2 criteria? No. Patient's initial sepsis screen is negative. Does the patient have a suspected source of infection? No. Patient's initial sepsis screen is negative. Risk Assessment: Do you want to hurt yourself or someone else? Patient reports no desire to harm self or others. Onset of symptoms was July 12, 2022. 11:10 Method Of Arrival: Ambulatory [facility] 11:10 Acuity: BUDDY 3 [facility] Triage Assessment: 11:12 General: Appears in no apparent distress. uncomfortable, ill, Behavior is calm, jl7 cooperative. Pain: Complains of pain in right lower quadrant Pain currently is 10 out of 10 on a pain scale. Quality of pain is described as pressure. GI: Reports lower abdominal pain, rectal bleeding, nausea, vomiting. 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 - Social history:: Smoking status: Reported history of juuling and/or vaping. Screenin:21 [facility] ED Fall Risk Assessment (Adult) Score/Fall Risk Level 0 - 2 = Low Risk ll1 Oriented to surroundings, Maintained a safe environment, Educated pt \T\ family on fall prevention, incl call for assistance when getting out of bed, Hourly rounding (assess needs \T\ fall precautionary measures) done. Abuse screen: Denies threats or abuse. Nutritional screening: No deficits noted. Tuberculosis screening: No symptoms or risk factors identified. Assessment: 12:00 Reassessment: No changes from previously documented assessment. Patient and/or family ll1 updated on plan of care and expected duration. Pain level reassessed. Patient is alert, oriented x 3, equal unlabored respirations, skin warm/dry/pink. 12:11 Reassessment: No changes from previously documented assessment. Patient and/or family ll1 updated on plan of care and expected duration. Pain level reassessed. Patient is alert, oriented x 3, equal unlabored respirations, skin warm/dry/pink. 13:10 Reassessment: No changes from previously documented assessment. Patient and/or family ll1 updated on plan of care and expected duration. Pain level reassessed. Patient is alert, oriented x 3, equal unlabored respirations, skin warm/dry/pink. 13:59 Reassessment: No changes from previously documented assessment. Patient and/or family ll1 updated on plan of care and expected duration. Pain level reassessed. Patient is alert, oriented x 3, equal unlabored respirations, skin warm/dry/pink. 14:52 Reassessment: No changes from previously documented assessment. Patient and/or family jl7 updated on plan of care and expected duration. Pain level reassessed. Patient is alert, oriented x 3, equal unlabored respirations, skin warm/dry/pink. 16:57 Reassessment: No changes from previously documented assessment. Patient and/or family ll1 updated on plan of care and expected duration. Pain level reassessed. Patient is alert, oriented x 3, equal unlabored respirations, skin warm/dry/pink. 17:17 Reassessment: No changes from previously documented assessment. Patient and/or family ll1 updated on plan of care and expected duration. Pain level reassessed. Patient is alert, oriented x 3, equal unlabored respirations, skin warm/dry/pink. 18:27 GI: Abdomen is flat. ll1 Vital Signs: 11:10 BP 110 / 74; Pulse 74; Resp 17; Temp 97.9; Pulse Ox 99% ; Weight 51.26 kg; Height 5 ft. jl7 2 in. ; Pain 10/10; 13:10 BP 105 / 64; Pulse 56; Resp 16; Temp 97.6; Pulse Ox 99% ; ll1 16:45 BP 115 / 77; Pulse 82; Resp 16; Pulse Ox 99% ; ll1 16:58 BP 111 / 70; Pulse 55; ll1 11:10 Body Mass Index 20.67 (51.26 kg, 157.48 cm) jl7 11:10 Pain Scale: Adult [facility] ED Course: 11:00 Patient arrived in ED. mr 11:12 Triage completed. jl7 11:12 Arm band placed on right wrist. jl7 11:19 Rachelle Moreira, RN is Primary Nurse. ll1 11:19 Patient placed in an exam room, on a stretcher. 1 11:21 Patient has correct armband on for positive identification. Bed in low position. Call [facility] light in reach. 11:41 Reuben Luis PA is PHCP. [facility] 11:41 Mushtaq Umaña MD is Attending Physician. [facility] 12:00 Inserted saline lock: 22 gauge in right antecubital area, using aseptic technique. ll1 Blood collected. 12:19 Urinalysis w/ reflexes Sent. 1 12:19 Test, Urine Sent. 1 13:01 CT Abd/Pelvis - IV Contrast Only In Process Unspecified. EDMS 17:15 No provider procedures requiring assistance completed. IV discontinued, intact, ll1 bleeding controlled, No redness/swelling at site. Pressure dressing applied. Administered Medications: 12:10 Drug: NS 0.9% IV 1000 ml Route: IV; Rate: 1 bolus; Site: right antecubital; 1 14:51 Follow up: Response: No adverse reaction; IV Status: Completed infusion; IV Intake: jl7 1000ml 12:10 Drug: Ondansetron IVP 4 mg Route: IVP; Site: right antecubital; 1 14:51 Follow up: Response: No adverse reaction 7 12:11 Drug: morphine IVP or IV 4 mg {Note: RASS 0, pain 10/10.} Route: IVP; Infused Over: 4 ll1 mins; Site: right antecubital; 14:51 Follow up: Response: No adverse reaction [facility] 13:58 Drug: metroNIDAZOLE IVPB 500 mg Volume: 100 ml; Route: IVPB; Rate: 200 ml/hr; Infused ll1 Over: 30 mins; Site: right antecubital; 14:44 Follow up: IV Status: Completed infusion; IV Intake: 100ml jl7 14:45 Drug: levofloxacin IVPB 750 mg Volume: 150 ml; Route: IVPB; Infused Over: 90 mins; jl7 Site: right antecubital; 17:17 Follow up: Response: No adverse reaction; IV Status: Completed infusion; IV Intake: ll1 150ml 16:45 Drug: morphine IVP or IV 4 mg Route: IVP; Infused Over: 4 mins; Site: right antecubital;kr3 17:17 Follow up: Response: No adverse reaction; Pain is decreased; RASS: Alert and Calm (0) ll1 Medication: 11:21 VIS not applicable for this client. ll1 Intake: 14:44 IV: 100ml; Total: 100ml. jl7 14:51 IV: 1000ml; Total: 1100ml. jl7 17:17 IV: 150ml; Total: 1250ml. ll1 Outcome: 15:03 Discharge ordered by . lissy 17:17 Patient left the ED. ll1 17:17 Discharged to home ambulatory. ll1 17:17 Condition: stable 17:17 Discharge instructions given to patient, family, Instructed on discharge instructions, follow up and referral plans. medication usage, Demonstrated understanding of instructions, follow-up care, medications, Prescriptions given X 3. Signatures: Dispatcher [employer] EDMS Reuben Luis PA PA jmm Rivera, Mary mr Ellis Clement RN RN jl7 Rachelle Moreira RN RN ll1 Roseann Martino RN RN kr3
--- NOTE | 2022-07-14 15:03 | EDPHYS ---
Physician Documentation [facility] Name: Italia Allen Age: 36 yrs Sex: Female : 1985 Arrival Date: 07/14/2022 Time: 11:00 Bed 13 Private MD: ED Physician Mushtaq Umaña HPI: 07/14 11:49 This 36 yrs old Female presents to ER via Ambulatory with complaints of jmm Vomiting. 11:49 The patient presents to the emergency department with nausea, vomiting. Onset: The jmm symptoms/episode began/occurred gradually, 3 day(s) ago. This is a 36 year old female with a history of anxiety, CVA, that presents ot the ED with complaints of abdominal pain, vomiting, bloody stools which have been intermittent. Symptoms worsened today. . 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 - Social history:: Smoking status: Reported history of juuling and/or vaping. ROS: 11:49 Constitutional: Negative for fever, chills, and weight loss, Cardiovascular: Negative jmm for chest pain, palpitations, and edema, Respiratory: Negative for shortness of breath, cough, wheezing, and pleuritic chest pain. 11:49 Abdomen/GI: Positive for abdominal pain. 11:49 All other systems are negative. Exam: 11:49 Constitutional: This is a well developed, well nourished patient who is awake, alert, jmm and in no acute distress. Head/Face: atraumatic. Eyes: EOMI, no conjunctival erythema appreciated ENT: Moist Mucus Membranes Neck: Trachea midline, Supple Chest/axilla: Normal chest wall appearance and motion. Cardiovascular: Regular rate and rhythm. No edema appreciated Respiratory: Normal respirations, no respiratory distress appreciated 11:49 Skin: General appearance color normal MS/ Extremity: Moves all extremities, no obvious deformities appreciated, no edema noted to the lower extremities Neuro: Awake and alert Psych: Behavior is normal, Mood is normal, Patient is cooperative and pleasant 11:49 Abdomen/GI: Inspection: abdomen appears normal, Bowel sounds: normal, Palpation: soft, moderate abdominal tenderness, in the left lower quadrant. Vital Signs: 11:10 BP 110 / 74; Pulse 74; Resp 17; Temp 97.9; Pulse Ox 99% ; Weight 51.26 kg; Height 5 ft. jl7 2 in. ; Pain 10/10; 13:10 BP 105 / 64; Pulse 56; Resp 16; Temp 97.6; Pulse Ox 99% ; ll1 16:45 BP 115 / 77; Pulse 82; Resp 16; Pulse Ox 99% ; ll1 16:58 BP 111 / 70; Pulse 55; ll1 11:10 Body Mass Index 20.67 (51.26 kg, 157.48 cm) jl7 11:10 Pain Scale: Adult jl7 MDM: 11:49 Patient medically screened. [facility] 15:00 Differential diagnosis: Nonspecific abd pain, gastritis, diverticulitis, viral [facility] gastroenteritis, gastroenteritis. Data reviewed: vital signs, nurses notes. I considered the following discharge prescriptions or medication management in the emergency department Medications were administered in the Emergency Department. See MAR. Counseling: I had a detailed discussion with the patient and/or guardian regarding: the historical points, exam findings, and any diagnostic results supporting the discharge/admit diagnosis, lab results, radiology results, the need for outpatient follow up, to return to the emergency department if symptoms worsen or persist or if there are any questions or concerns that arise at home. ED course: Pain decreased in the ED. Patient will follow up with GI for further evaluation. Patient understood and agrees with the plan of care. . 07/14 11:54 Order name: CBC with Diff; Complete Time: 12:20 [facility] 07/14 11:54 Order name: CMP; Complete Time: 12:44 [facility] 07/14 11:54 Order name: Lipase; Complete Time: 12:44 [facility] 07/14 11:54 Order name: Test, Urine; Complete Time: 12:44 [facility] 07/14 11:54 Order name: Urinalysis w/ reflexes; Complete Time: 12:44 [facility] 07/14 12:38 Order name: Urine Culture [facility] 07/14 11:54 Order name: CT Abd/Pelvis - IV Contrast Only; Complete Time: 13:17 [facility] 07/14 11:54 Order name: IV Saline Lock; Complete Time: 11:54 [facility] 07/14 11:54 Order name: Labs collected and sent; Complete Time: 11:54 [facility] Administered Medications: 12:10 Drug: NS 0.9% IV 1000 ml Route: IV; Rate: 1 bolus; Site: right antecubital; ll1 14:51 Follow up: Response: No adverse reaction; IV Status: Completed infusion; IV Intake: jl7 1000ml 12:10 Drug: Ondansetron IVP 4 mg Route: IVP; Site: right antecubital; ll1 14:51 Follow up: Response: No adverse reaction [facility] 12:11 Drug: morphine IVP or IV 4 mg {Note: RASS 0, pain 10/10.} Route: IVP; Infused Over: 4 ll1 mins; Site: right antecubital; 14:51 Follow up: Response: No adverse reaction [facility] 13:58 Drug: metroNIDAZOLE IVPB 500 mg Volume: 100 ml; Route: IVPB; Rate: 200 ml/hr; Infused ll1 Over: 30 mins; Site: right antecubital; 14:44 Follow up: IV Status: Completed infusion; IV Intake: 100ml [facility] 14:45 Drug: levofloxacin IVPB 750 mg Volume: 150 ml; Route: IVPB; Infused Over: 90 mins; jl7 Site: right antecubital; 17:17 Follow up: Response: No adverse reaction; IV Status: Completed infusion; IV Intake: ll1 150ml 16:45 Drug: morphine IVP or IV 4 mg Route: IVP; Infused Over: 4 mins; Site: right antecubital;kr3 17:17 Follow up: Response: No adverse reaction; Pain is decreased; RASS: Alert and Calm (0) ll1 Disposition: 18:05 Co-signature as Attending Physician, Mushtaq Umaña MD I reviewed the patient's care rt provided by the Advanced Practice Provider and agree with the diagnosis and treatment plan. Disposition Summary: 07/14/22 15:03 Discharge Ordered Location: Home [facility] Condition: Stable [facility] Diagnosis - Colitis [facility] Followup: [facility] - With: Private Physician - When: 2 - 3 days - Reason: Recheck today's complaints, Continuance of care, Re-evaluation by your physician Discharge Instructions: - Discharge Summary Sheet jmm - Colitis [facility] Forms: - Medication Reconciliation Form [facility] - Thank You Letter lissy - Antibiotic Education lea - Prescription Opioid Use [facility] - Work release form ll1 Prescriptions: - Flagyl 500 mg Oral Tablet - take 1 tablet by ORAL route every 6 hours for 10 days; 40 tablet; Refills: 0, [facility] Product Selection Permitted - dicyclomine 20 mg Oral Tablet - take 1 tablet by ORAL route 4 times per day As needed; 40 tablet; Refills: 0, [facility] Product Selection Permitted - levofloxacin 500 mg Oral Tablet - take 1 tablet by ORAL route once daily for 9 days; 9 tablet; Refills: 0, [facility] Product Selection Permitted Signatures: Dispatcher [employer] Reuben Howard PA PA jmm Leal, Jahala, RN RN jl7 Rachelle Moreira RN RN ll1 Roseann Martino RN RN kr3 Mushtaq Umaña MD MD rt
[2022-07-14 17:42] VITALS: O2SAT 99
[2022-07-14 17:52] VITALS: TEMP 97.6
[2022-07-14 17:59] VITALS: BP 111/70
== END 2022-07-14 17:17 | disposition home or self-care (01) ==
LOC: ER 10:41
DX: K52.9 Noninfective gastroenteritis and colitis, unspecified (principal)
CPT/HCPCS: 96365; 96367; 96361; 87088; 85025; 81001; 87086; 36415; 81025; 83690; 80053; 74177; 96375; 99284; 96366; Q9967; J2405; J7030

== ENCOUNTER 2022-08-18 14:02 | Emergency (ER) | payer OTHER ==
--- OUTSIDE RECORDS SUMMARY | 2022-08-18 14:06 | XMS REPORT | Continuity of Care Document ---
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 Univers 10:30:00 10:30:00 ADAM chilel [facility] 2020-01-13 2020-01-13 Orders Doctor GO 1.2.840.114 [id number] Univers 00:00:00 00:00:00 Only Unassigned, DOMINGO 350.1.13.10 ity of [facility] 4.2.7.2.686 William as [phone] [address] 2020-01-12 2020-01-12 Outpatient Meera REYES [facility] [id number] Univers 16:15:00 16:15:00 ADAM chilel [facility] 2020-01-12 2020-01-12 Orders Doctor ABBI 1.2.840.114 [id number] Univers 00:00:00 00:00:00 Only Unassigned, DOMINGO 350.1.13.10 ity of [facility] 4.2.7.2.686 William as [phone] [place] [address] [address] 2020-01-12 2020-01-12 Orders Doctor ABBI 1.2.840.114 [id number] 00:00:00 00:00:00 Only Unassigned, DOMINGO 350.1.13.10 [facility] 4.2.7.2.686 [phone] [facility] 2020-01-11 2020-01-11 Telemedici Katherineconchabeulah Erica [facility] 1.2.8 40.114 [id number] Univers 11:58:19 12:28:19 ne Visit Unknown, Attending HEALTH 350.1.13.1 0 [place] of [place]2.7.2.686 [place] [phone] [facility] [address] [facility] 2020-01-11 2020-01-11 Outpatient R ZAYRA [facility] 03566 [id number] Univers 11:30:00 11:30:00 [facility] 2020-01-11 2020-01-11 Telephone [facility] 1.2.840.114 [id number] Univers 00:00:00 00:00:00 [facility] 350.1.13.10 it [place]2.[place].2.686 [place] [phone] [facility] 2020-01-07 2020-01-07 Telephone [facility] 1.2.646.835 [id number] [id number] Univers 00:00:00 00:00:00 [facility] 350.1.13.10 it y of Surgical 4.2.7.2.686 [place] as Specialti [phone] Az dical [address] 2020-01-06 2020-01-06 Outpatient [facility] [id number] Univers 09:15:00 09:15:00 ADAM ity [facility] 2020-01-05 2020-01-05 [facility] 1.2.840.114 [id number] Univers 16:59:19 23:59:00 Encounter Adam Velazco [facility] 350.1.13.10 ity of Surgical 4.2.7.2.686 [place] as Specialti [phone] Az dical es [address] [facility] 2020-01-05 2020-01-05 Office [facility] 1.2.840.114 [id number] Univers 15:58:40 17:11:37 Visit Adam Velazco Health 350.1.13.10 it y of Surgical 4.2.7.2.686 [place] as Specialti [phone] Az dical es 198 [facility] 2020-01-05 2020-01-05 Outpatient [facility] [id number] Univers 16:15:00 16:15:00 [facility] 2019-12-24 2019-12-24 Outpatient Meera [facility] [id number] Univers 15:15:00 15:15:00 [facility] 2019-10-07 2019-10-07 Outpatient R LANDON [facility] [id number] Univers 15:00:00 15:00:00 ARTIS chilel o f [facility] 2019-10-02 2019-10-[address] [facility] 1.2.840.114 [id number] Univers 00:00:00 00:00:00 Artis Jean [employer] 350.1.13.10 ity of REGIONAL 4.2.7.2.686 [place] as MATERNAL [phone] Med ical & CHILD 107 [facility] 2019-09-18 2019-09-18 Telephone [facility] 1.2.840.114 [id number] Univers 00:00:00 00:00:00 Aubrey Sethi Arideas 350.1.13.10 it y of Surgical 4.2.7.2.686 [place] as Specialti [phone] Az dical es 198 [facility] 2019-09-11 2019-09-11 Office [facility] 1.2.621.307 [id number] [id number] Univers 15:33:34 16:03:01 Visit Aubrey Sethi Health 350.1.13.10 it y of Surgical 4.2.7.2.686 [place] as Specialti [phone] Me dical es [address] [facility] 2019-09-11 2019-09-11 Outpatient R DAPHNIE [facility] [id number] Univers 15:30:00 15:30:00 AUBREY chilel [facility] 2019-09-09 2019-09-09 Telephone [facility] 1.2.840.114 [id number] Univers 00:00:00 00:00:00 Artis Jean [employer] 350.1.13.[address] [facility] 4.2.7.2.686 William as MATERNAL [phone] Med ical & CHILD [address] [place] [address] 2019-09-05 2019-09-[address] [facility] [id number] Univers 11:00:00 11:00:00 ISGiovany, ity [facility] 2019-09-05 2019-09-05 Telemedici [facility] 1.2.840.114 [id number] Univers 07:02:35 07:32:35 ne Visit beatrice, SPECIALTY 350.1.13.10 ity [facility] 4.2.7.2.[place] [phone] Me dical VICTORY 072 [facility] 2019-09-04 2019-09-04 Ancillary Sabrina Curry [facility] 1.2.840. 114 [id number] Univers 15:00:59 16:00:59 Visit Aubrey Eller [facility] 350.1.13.10 ity [facility] 4.2.7.2.[place] [phone] Me dical nal 179 [facility] 2019-09-04 2019-09-04 Outpatient R DAPHNIE [facility] [id number] Univers 15:00:00 15:00:00 AUBREY chilel [facility] 2019-09-02 2019-09-02 Office Amy [facility] 1.2.840.114 [id number] Univers 13:05:06 13:20:06 Visit [facility] 350.1.13.10 it y of Surgical 4.2.7.2.686 [place] as Specialti [phone] Me dical es [address] [facility] 2019-09-02 2019-09-02 Outpatient R [facility] [id number] Univers 13:15:00 13:15:00 [facility] 2019-08-25 2019-08-25 Office [facility] 1.2.840.114 [id number] Univers 14:48:27 15:03:27 Visit Adam Roxie [facility] 350.1.13.10 it y of Surgical 4.2.7.2.686 [place] as Specialti [phone] Az dical es 198 [facility] 2019-08-25 2019-08-25 Outpatient Meera [facility] [id number] Univers 15:00:00 15:00:00 [facility] 2019-08-25 2019-08-25 Tatamy [facility] 1.2.616.616 [id number] Univers 00:00:00 00:00:00 Adam Roxie [facility] 350.1.13.10 it y of Surgical 4.2.7.2.686 [place] as Specialti [phone] Az dical es 198 [facility] 2019-08-21 2019-08-21 [facility] 1.2.840.114 [id number] Univers 14:14:14 14:34:55 Visit [facility] 350.1.13.10 it y of Surgical 4.2.7.2.686 [place] as Specialti [phone] Az dical es 198 [facility] 2019-08-21 2019-08-21 Outpatient Meera [facility] [id number] Univers 14:15:00 14:15:00 [facility] 2019-08-20 2019-08-20 Letter [facility] 1.2.322.929 [id number] Univers 00:00:00 00:00:00 (Out) [facility] 350.1.13.10 it y of Surgical 4.2.7.2.686 [place] as Specialti [phone] Az dical es 198 [facility] 2019-08-19 2019-08-19 Emergency [facility] 1.2.509.927 [id number] 5540 Univers 02:03:59 03:28:00 Anival [place] 350.1.13.10 i ty [place]2.[place].2.[place] [phone] [facility] [address] [place] 2019-08-19 2019-08-19 Nurse Scarlett Hickman 1.2.840.114 [id number] Univers 00:00:00 00:00:00 Triage DOMINGO 350.1.13.10 it y of HOSPITAL 4.2.7.2.686 William as [phone] [facility] [address] 2019-08-19 2019-08-19 Telephone [facility] 1.2.840.114 [id number] Univers 00:00:00 00:00:00 Aubrey Sethi [facility] 350.1.13.10 it y of Surgical 4.2.7.2.686 [place] as Specialti [phone] Az dical 198 [facility] 2019-08-18 2019-08-18 [facility] 1.2.840.114 [id number] Univers 08:31:00 13:30:00 Encounter Aubrey [place] 350.1.13.10 ity [place]2.[place].2.[place] Surgical [phone] Med ical Center [address] [place] 2019-08-18 2019-08-18 Anesthesia Kar Pearson [facility] 1.2.840.11 4 [id number] Univers 09:44:00 11:36:00 Abbi Be 350.1.13.10 ity [place] 4[place]2.[place].2.[place] Surgical [phone] Med ical Center [address] [place] 2019-08-18 2019-08-18 Outpatient RADHA FAROOQ [facility] [id number] [facility] 00:00:00 00:00:00 HARVEY 2019-08-18 2019-08-18 Outpatient [facility] [id number] 1-2 [facility] 00:00:00 00:00:00 [id number] 2019-08-18 2019-08-18 Orders Doctor GO 1.2.840.114 [id number] Univers 00:00:00 00:00:00 Only Unassigned, DOM[place]O 350.1.13.10 ity of [facility] 4.2.7.2.686 William as [phone] [facility] [address] [place] 2019-08-18 2019-08-18 Nurse ABBI Conti 1.2.840.114 [id number] Univers 00:00:00 00:00:[address] 350.1.13.10 i ty of [facility] 4.2.7.2.686 William as [phone] [address] 2019-08-18 2019-08-18 Prep For [facility] 1.2.840.114 [id number] Univers 00:00:00 00:00:00 Surgery Aubrey Sethi Health 350.1.13.10 it y of Surgical 4.2.7.2.686 [place] as Specialti [phone] Me dical es [address] [facility] 2019-08-15 2019-08-15 Outpatient [facility] 91604 04745 Univers 11:15:55 23:59:00 AUBREY chilel [facility] 2019-08-15 2019-08-15 Nurse Nurse, [facility] General Surgery [facility] 1.2.840.114 [id number] Univers 12:10:33 13:09:31 Visit EllerLeighaig Jossie Pacheco 350.1.13.10 ity of [place] 4.2.7.2.[place] [phone] Me dical nal [address] [facility] 2019-08-15 2019-08-15 [employer] 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 2019-08-15 2019-08-15 Outpatient [facility] [id number] 1-2 [facility] 00:00:00 00:00:00 [id number] 2019-08-15 2019-08-15 Telephone [facility] 1.2.840.114 [id number] Univers 00:00:00 00:00:00 Aubrey L Health 350.1.13.10 it y of Surgical 4.2.7.2.686 [place] as Specialti [phone] Az dical es 198 [facility] 2019-08-08 2019-08-08 Outpatient SLEH [facility] [id number] 1-2 [facility] 03:47:00 03:47:00 [id number] 2019-07-23 2019-07-[address] [facility] 1.2.840.114 [id number] Univers 08:23:43 11:30:09 ne Visit Artis Jean [employer] 350.1.13.10 ity of REGIONAL 4.2.7.2.686 [place] as MATERNAL [phone] Med ical & CHILD [address] [place] [address] 2019-07-23 2019-07-23 Outpatient R LANDON [facility] [id number] Univers 11:00:00 11:00:00 ARTIS chilel o f [facility] 2019-07-22 2019-07-22 Telephone [facility] 1.2.840.114 [id number] Univers 00:00:00 00:00:00 Aubrey Sethi [employer] 350.1.13.10 it y of REGIONAL 4.2.7.2.686 William as MATERNAL [phone] [facility] CH[facility] [address] [place] [address] 2019-07-22 2019-07-22 [facility]phone [facility] 1.2.840.114 [id number] Univers 00:00:00 00:00:00 Artis Jean [employer] 350.1.13.10 ity of REGIONAL 4.2.7.2.686 William as MATERNAL [phone] [facility] [address] [place] [address] 2019-05-23 2019-05-23 Office [facility] 1.2.176.053 [id number] Univers 08:29:26 08:54:40 Visit Aubrey Sethi Health 350.1.13.10 it y of Surgical 4.2.7.2.686 [place] as Specialti [phone] Me dical es [address] [place] Results Test Description Test Time Test Comments Results Result Sourc e Comments RAD, 2019-07-24 Reason for FINAL REPORT ABDOMEN/KUB, 1 0 exam:->eval position PATIENT ID: VIEW AP 07:30:00 of reportedly [id number] CLINICAL swallowed tongue ring HISTORY: eval position [...] Tavares Verified Date/Time: 08/11/2019 07:30:51 Reading Location: [facility] Radiology Reading Room , CHEST, 1 2019-07-24 Reason for FINAL REPORT VIEW, NON DEPT 0 exam:->nausea, eval PATIENT ID: 05:29:00 for aspirationShould [id number] RAD, this be performed at CHEST, 1 [...] DATA TO 1092) CALCULATE ESTIM ATED GFR. [facility] Laboratory Assistant ID - JENNIFER [id number] 04:49:00 Test Item Value Reference Range Interpretation Comments PHOSPHORUS (BEAKER) (test code = 3.4 mg/dL 2.3-4.7 604) [facility] Laboratory Assistant ID - JENNIFER [id number] 04:49:00 Test Item Value Reference Range Interpretation Comments MAGNESIUM (BEAKER) (test code = 1.7 mg/dL 1.6-2.6 627) [facility] Laboratory Assistant ID - JENNIFER LHEPATIC FUNCTION [id number] 04:49:00 Test Item Value Reference Range Interpretation [...] (test code = 38 U/L 6-55 347) [facility] Laboratory Assistant ID - JENNIFER LCBC (HEMOGRAM ONLY)2019-08-11 04:15:00 [...] (test code = 413) HEPATOBILIARY IMAGING W/ [id number] 18:40:00Scheduled 08/09 but swallowed tongue ringHolding off until f/u KUB and cleared by radiologistReason for exam:- >See aboveFINAL REPORT PROCEDURE: HEPATOBILIARY SCAN CPT CODE: 81068 INDICATION: abdominal pain PROTOCOL: 5.22 mCi of [...] Date/Time: 2019 18:40:53 RAD, ABDOMEN/KUB, 1 VIEW [id number] 16:48:00 Reason for exam:->swallowed tongue ring; planned [...] MDReport Verified Date/Time: 2019 16:48:26 Reading Location: [facility] B1 C013Y CT Body Reading Room BASIC [...] 1092) DATA TO CALCULA TE ESTIMATED GFR. [facility] Laboratory Assistant ID - PIAYA [id number] 06:27:00 Test Item Value Reference Range Interpretation [...] (test code = 35 U/L 6-55 347) [facility] Laboratory Assistant ID - PIAYA LC-REACTIVE [id number] 06:27:00 Test Item Value Reference Range Interpretation Comments C-REACTIVE PROTEIN (BEAKER) (test 0.08 mg/dL 0.00-0.50 code = 676) [facility] Laboratory Assistant ID - PIAYA LCBC W/PLT COUNT & AUTO [id number] 05:45:00 Test Item Value Reference Range Interpretation [...] (BEAKER) (test code = 2801) BASIC METABOLIC [id number] 08:22:00 Test Item Value Reference Range Interpretation [...] 1092) DATA TO CALCULA TE ESTIMATED GFR. [facility] Laboratory Assistant ID - LMHEPATIC FUNCTION [id number] 08:01:00 Test Item Value Reference Range Interpretation [...] (test code = 39 U/L 6-55 347) [facility] Laboratory Assistant ID - [id number] 15:09:00 Test Item Value Reference Range Interpretation Comments LIPASE (BEAKER) (test code = 749) 323 U/L 8-78 H [facility] Laboratory Assistant ID - NTPU/S, ABDOMINAL, [id number] 14:33:00Abdomen limited area? Add comment if clarification [...] MDReport Verified Date/Time: 08/08/2019 14:33:42 Reading Location: [place] [id number] Consult Reading Room MR, ABDOMEN, [id number] 12:09:00FINAL REPORT MR Abdomen dated 08/08/2019 Comment: [...] C013Y CT Body Reading Room BASIC METABOLIC [id number] 06:41:00 Test Item Value Reference Range Interpretation [...] 1092) DATA TO CALCULA TE ESTIMATED GFR. [facility] Laboratory Assistant ID - MADELINE [id number] 06:40:00 Test Item Value Reference Range Interpretation Comments MAGNESIUM (BEAKER) (test code = 1.8 mg/dL 1.6-2.6 627) [facility] Laboratory Assistant ID - MADELINE WHEPATIC FUNCTION [id number] 06:40:00 Test Item Value Reference Range Interpretation [...] (test code = 53 U/L 6-55 347) [facility] Laboratory Assistant ID Lorne CORREA [id number] 05:43:00 Test Item Value Reference Range Interpretation [...] mechanical heart valves.CBC W/PLT COUNT & AUTO [id number] 05:36:00 Test Item Value Reference Range Interpretation [...] DRVV Results (BEAKER) (test code = 2406) [id number] Alvarez Moe MD (BEAKER) (test code = [...] 0.00-0.20 (test code = 417) 0.00BASI METABOLIC [id number] 07:05:00 Test Item Value Reference Range Interpretation [...] TE ESTIMATED GFR. CARDIOLIPIN ANTIBODIES, IGG AND [id number] 14:31:00 Test Item Value Reference Range Interpretation Comments ANTICARDIOLIPIN IGG ANTIBODY (BEAKER) < GPL (test code = 712) ANTICARDIOLIPIN IGM ANTIBODY (BEAKER) < MPL (test code = 713) Anticardiolipin IgG Result Interpretation:NEG: <20 GPL; U/mlPOS: >/=20 GPL; U/mlAnticardiolipin IgM Result Interpretation:NEG: <20 MPL; U/mlPOS: >/=20 MPL; U/mlTHROMBIN [id number] 14:25:00 Test Item Value Reference Range Interpretation Comments THROMBIN TIME (BEAKER) (test code 193.3 secs 13.8-20.0 H = 550) EQUAL MIX, NORMAL [id number] 14:16:00 Test Item Value Reference Range Interpretation [...] = 418) CBC W/PLT COUNT & AUTO [id number] 08:32:00 Test Item Value Reference Range Interpretation [...] (BEAKER) (test code = 1351) BASIC METABOLIC [id number] 06:54:00 Test Item Value Reference Range Interpretation [...] TO CALCULA TE ESTIMATED GFR. BASIC METABOLIC [id number] 07:19:00 Test Item Value Reference Range Interpretation [...] ESTIMATED GFR. CBC W/PLT COUNT & AUTO [id number] 07:07:00 Test Item Value Reference Range Interpretation [...] K/ L 0.00-0.20 (test code = 417) [id number] 11:08:00 Test Item Value Reference Range Interpretation Comments POTASSIUM (BEAKER) (test code = 3.8 meq/L 3.5-5.1 379) [id number] 11:08:00 Test Item Value Reference Range Interpretation Comments MAGNESIUM (BEAKER) (test code = 2.3 mg/dL 1.6-2.6 627) BASIC METABOLIC [id number] 05:29:00 Test Item Value Reference Range Interpretation [...] m DATA TO CALCULA TE ESTIMATED GFR. [id number] 05:27:00 Test Item Value Reference Range Interpretation Comments PHOSPHORUS (BEAKER) (test code = 2.7 mg/dL 2.3-4.7 604) [id number] 05:27:00 Test Item Value Reference Range Interpretation Comments MAGNESIUM (BEAKER) (test code = 1.8 mg/dL 1.6-2.6 627) CBC W/PLT COUNT & AUTO [id number] 05:04:00 Test Item Value Reference Range Interpretation [...] K/ L 0.00-0.20 (test code = 417) [id number] 17:27:00 Test Item Value Reference Range Interpretation Comments FERRITIN (BEAKER) (test code = 361) 9 ng/mL 5-275 Effective 03/10/2014: Reference Range ChangeNew: Male 5-275 Previous: Male 22- 322 Female 5-275 Female 10-291TSH/FREE T4 IF [id number] 17:27:00 Test Item Value Reference Range Interpretation [...] L (test code = 2590) BASIC METABOLIC [id number] 15:01:00 Test Item Value Reference Range Interpretation [...] m DATA TO CALCULA TE ESTIMATED GFR. [id number] 14:50:00 Test Item Value Reference Range Interpretation Comments PHOSPHORUS (BEAKER) (test code = 3.5 mg/dL 2.3-4.7 604) [id number] 14:50:00 Test Item Value Reference Range Interpretation Comments MAGNESIUM (BEAKER) (test code = 1.9 mg/dL 1.6-2.6 627) LIPID [id number] 14:50:00 Test Item Value Reference Range Interpretation [...] Borderline 130-159 High 160-189 Very High >=190C-REACTIVE [id number] 14:50:00 Test Item Value Reference Range Interpretation Comments C-REACTIVE PROTEIN (BEAKER) (test 0.02 mg/dL 0.00-0.50 code = 676) COMPLEMENT COMPONENT [id number] 14:48:00 Test Item Value Reference Range Interpretation Comments C4 COMPLEMENT (BEAKER) (test code = 19 mg/dL 15-57 394) Effective 03/10/2014: Reference Range ChangeNew: 15-57 Previous: 16-38COMPLEMENT COMPONENT [id number] 14:48:00 Test Item Value Reference Range Interpretation Comments C3 COMPLEMENT (BEAKER) (test code = 105 mg/dL 82-193 393) Effective 03/10/2014: Reference Range ChangeNew: 82-193 Previous: 79-152 HEMOGLOBIN [id number] 14:38:00 Test Item Value Reference Range Interpretation Comments HEMOGLOBIN A1C (BEAKER) (test code = 5.1 % 4.3-6.1 368) SEDIMENTATION [id number] 08:29:00 Test Item Value Reference Range Interpretation Comments SEDIMENTATION RATE, ERYTHROCYTE 10 mm/HR 0-20 (BEAKER) (test code = 766) CBC W/PLT COUNT & AUTO [id number] 06:06:00 Test Item Value Reference Range Interpretation [...] (test code = 417) 0.00RAPID DRUG SCREEN, [id number] 01:59:00 Test Item Value Reference Range Interpretation [...] ng/mLAmphetamine/ 1000 ng/mL MethamphetamineOxycodone 300 ng/mLPREGNANCY SCREEN, [id number] 01:47:00 Test Item Value Reference Range Interpretation Comments TEST URINE (BEAKER) (test Negative code = 583) URINALYSIS W/ [id number] 01:46:00 Test Item Value Reference Range Interpretation [...] code = 516) SOURCE(BEAKER) (test code = 1984) BASIC METABOLIC [id number] 22:37:00 Test Item Value Reference Range Interpretation [...] ESTIMATED GFR. CREATINE KINASE (CK), TOTAL AND [id number] 22:33:00 Test Item Value Reference Range Interpretation Comments CREATINE KINASE TOTAL (BEAKER) 119 U/L 29-200 (test code = 380) CREATINE KINASE-MB (BEAKER) (test 1.5 ng/mL 0.0-6.6 code = 750) CREATINE KINASE-MB INDEX (BEAKER) 1.3 % (test code = 395) Effective 03/10/2014: CK-MB Reference Range ChangeNew: 0.0-6.6 Previous: 0.0-4.9CK-MB Reference Range:<6.7 Normal6.7-10.0 Borderline>10.0 Abnormal TROPONIN [id number] 22:33:00 Test Item Value Reference Range Interpretation [...] 33 pg/mL 0-100 (test code = 700) [id number] 22:27:00 Test Item Value Reference Range Interpretation Comments MAGNESIUM (BEAKER) (test code = 1.9 mg/dL 1.6-2.6 627) [id number] 22:10:00 Test Item Value Reference Range Interpretation [...] 2.5-3.5 for patients with mechanical heart valves.POCT-GLUCOSE [id number] 22:02:00 Test Item Value Reference Range Interpretation Comments POC-GLUCOSE METER 86 mg/dL 70-110 TESTED AT [facility] 6720 (AKER) (test code = MAIDA Estes [facility] [address] 1538) CBC W/PLT COUNT & AUTO [id number] 22:01:00 Test Item Value Reference Range Interpretation [...]
[2022-08-18] MEDS ORDERED: ONDANSETRON 4 MG/2 ML VIAL ONE (15:13)
[2022-08-18] MEDS ORDERED: NA CHLORIDE 0.9% 1,000 ML ONE (15:14)
[2022-08-18] MEDS ORDERED: FAMOTIDINE 20 MG/2 ML VIAL IV ONE (15:14)
[2022-08-18 15:15] LABS: Absolute Lymphocytes (CBC) 1.1 K/uL (0.7-4.9); Hematocrit 38.5 % (36.0-45.0); Lymphocytes % 18.1 % (15.3-44.8); MPV 8.3 fL (7.6-11.3); RBC Red Blood Cell Count 4.14 M/uL (3.86-4.86)
[2022-08-18 15:27] LABS: Specific Gravity 1.019 (1.005-1.030); Urine Bilirubin NEGATIVE (Negative); Urine Blood Negative (Negative); Urine Clarity Clear (Clear); Urine Color Yellow (Yellow); Urine Glucose NEGATIVE (Negative); Urine Protein NEGATIVE (Negative); Urine Urobilinogen Normal (Normal); Urine pH 7.5 (5.0-7.0)
[2022-08-18 15:32] LABS: Albumin 4.4 g/dL (3.4-5.0); Bilirubin Total 0.3 mg/dL (0.2-1.0); Potassium 3.8 mEq/L (3.5-5.1); Protein, Total 7.8 g/dL (6.4-8.2)
[2022-08-18 15:53] LABS: Specific Gravity 1.019 (1.005-1.030)
--- NOTE | 2022-08-18 16:32 | EDPHYS ---
Physician Documentation [facility] Name: Italia Allen Age: 37 yrs Sex: Female : 1985 Arrival Date: 08/18/2022 Time: 14:02 Bed 11 Private MD: ED Physician Florentino Rothman HPI: 08/18 15:33 This 37 yrs old Female presents to ER via Ambulatory with complaints of GI ms3 ISSUES./NAUSEA. 15:33 37-year-old female with no past medical history presents for nausea, vomiting that ms3 began 5 days prior to arrival. Patient states her GI doctor is Dr. Christopher and he instructed patient to come to the emergency department. Patient states she is unable to tolerate p.o. at this time. Patient states she was recently diagnosed with colitis. Patient states the symptoms have been ongoing for 1 year and have recently become worse.. 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 - Social history:: Smoking status: Patient denies any tobacco usage or history of. Patient/guardian denies using alcohol. ROS: 15:33 Constitutional: Negative for fever, and chills. ENT: Negative for injury, pain, and ms3 discharge, Neck: Negative for injury, pain, and swelling, Cardiovascular: Negative for chest pain, and palpitations. Respiratory: Negative for shortness of breath, cough, wheezing, and pleuritic chest pain. 15:33 MS/Extremity: Negative for injury and deformity, Skin: Negative for injury, rash, and discoloration. 15:33 Abdomen/GI: Positive for nausea and vomiting. 15:33 All other systems are negative. Exam: 15:33 Constitutional: This is a well developed, well nourished patient who is awake, alert, ms3 and in no acute distress. Head/Face: Normocephalic, atraumatic. Neck: Trachea midline, no cervical lymphadenopathy. Supple, full range of motion without nuchal rigidity, or vertebral point tenderness. No Meningismus. Chest/axilla: Normal chest wall appearance and motion. Nontender with no deformity. Cardiovascular: Regular rate and rhythm with a normal S1 and S2. No gallops, murmurs, or rubs. Normal PMI, no JVD. No pulse deficits. Respiratory: Lungs have equal breath sounds bilaterally, clear to auscultation and percussion. No rales, rhonchi or wheezes noted. No increased work of breathing, no retractions or nasal flaring. Abdomen/GI: Soft, non-tender, with normal bowel sounds. No distension or tympany. No guarding or rebound. No evidence of tenderness throughout. Skin: Warm, dry with normal turgor. Normal color with no rashes, no lesions, and no evidence of cellulitis. MS/ Extremity: Pulses equal, no cyanosis. Neurovascular intact. Full, normal range of motion. Vital Signs: 14:28 BP 115 / 80; Pulse 81; Resp 18; Temp 98.5(TE); Pulse Ox 100% on R/A; Weight 50.35 kg; ld1 Height 5 ft. 2 in. ; Pain 8/10; 16:41 BP 118 / 82; Pulse 84; Resp 16; Pulse Ox 100% ; mb9 14:28 Body Mass Index 20.30 (50.35 kg, 157.48 cm) ld1 14:28 Pain Scale: Adult ld1 MDM: 14:45 Patient medically screened. ms3 15:33 Differential diagnosis: Nonspecific abd pain, viral gastroenteritis, gastroenteritis. ms3 16:34 Data reviewed: vital signs, nurses notes, lab test result(s), and as a result, I will ms3 discharge patient. I considered the following discharge prescriptions or medication management in the emergency department Medications were administered in the Emergency Department. See MAR. Counseling: I had a detailed discussion with the patient and/or guardian regarding: the historical points, exam findings, and any diagnostic results supporting the discharge/admit diagnosis, lab results, the need for outpatient follow up, to return to the emergency department if symptoms worsen or persist or if there are any questions or concerns that arise at home. Refusal of service: The patient/guardian displays adequate decision making capability and despite a detailed discussion of alternatives, benefits, risks, and consequences refuses: Patient states she has a family matters to deal with and needs to leave the emergency department. Discussed with patient no imaging studies have returned.. ED course: Discussed with patient labs. Patient imaging studies pending. 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 Patient understands and agrees with plan. All questions were answered. On reevaluation patient is improved, alert and orient x4, no apparent distress, nontoxic, ambulatory in emergency primary, speaking full sentences. Return precautions discussed include worsening symptoms, or any other concerns. 08/18 14:38 Order name: CBC with Diff; Complete Time: 16:29 co3 08/18 14:38 Order name: CMP; Complete Time: 16:29 co3 08/18 14:39 Order name: Urinalysis w/ reflexes; Complete Time: 16:29 co3 08/18 15:37 Order name: Test, Urine; Complete Time: 16:29 jl7 08/18 14:39 Order name: Chest Single View XRAY ms3 08/18 14:50 Order name: CT Abd/Pelvis - IV Contrast Only co3 08/18 14:38 Order name: EKG; Complete Time: 14:40 ms3 08/18 14:38 Order name: O2 Per Protocol; Complete Time: 14:43 ms3 Administered Medications: 14:43 CANCELLED (Duplicate Order): NS 0.9% IV (30 ml/kg) 30 ml/kg IV at bolus once; Sepsis ld1 Protocol 15:11 Drug: NS 0.9% IV 1000 ml Route: IV; Rate: 1000 ml; Site: right antecubital; mb9 15:12 Drug: Ondansetron IVP 4 mg Route: IVP; Site: right antecubital; mb9 15:15 Drug: Famotidine IVP 20 mg Route: IVP; Site: right antecubital; mb9 Disposition Summary: 08/18/22 16:32 Discharge Ordered Location: Home ms3 Condition: Stable ms3 Diagnosis - Nausea with vomiting, unspecified ms3 Followup: ms3 - With: Private Physician - When: 2 - 3 days - Reason: Recheck today's complaints Discharge Instructions: - Discharge Summary Sheet ms3 - Nausea and Vomiting, Adult ms3 Forms: - Medication Reconciliation Form ms3 - Thank You Letter ms3 - Antibiotic Education ms3 - Prescription Opioid Use ms3 Prescriptions: - ondansetron 4 mg Oral Tablet,disintegrating - take 1 tablet by ORAL route 3 times per day; 15 tablet; Refills: 0, Product ms3 Selection Permitted Signatures: Dispatcher [employer] EDMS Florentino Rothman, DO ms3 Maryann Rothman, RN RN ld1 Danae Stone RN RN mb9 Corrections: (The following items were deleted from the chart) 14: 14:38 Accucheck ordered. ms3 ms3 14: 14:38 Cardiac monitoring ordered. ms3 ms3 14: 14:38 EKG - Nurse/Tech ordered. ms3 ms3 14:42 14:38 Labs collected and sent ordered. ms3 ms3 14: 14:38 O2 Sat Monitoring ordered. ms3 ms3 14: 14:38 Vital Signs ordered. ms3 ms3 14:43 14:38 IV Saline Lock - Large Bore ordered. ms3 ld1 14: 14:39 NS 0.9% IV (30 ml/kg) 30 ml/kg IV at bolus once; Sepsis Protocol ordered. ms3 ld1
--- NOTE | 2022-08-18 16:32 | ER ---
Nurse's Notes [facility] Name: Italia Allen Age: 37 yrs Sex: Female : 1985 Arrival Date: 08/18/2022 Time: 14:02 Bed 11 Private MD: Diagnosis: Nausea with vomiting, unspecified Presentation: 08/18 14:28 Chief complaint: Patient states: Blood in stool, N/V, unable to hold food down X 1 ld1 week. Coronavirus screen: At this time, the client does not indicate any symptoms associated with coronavirus-19. Ebola Screen: No symptoms or risks identified at this time. Initial Sepsis Screen: Does the patient meet any 2 criteria? No. Patient's initial sepsis screen is negative. Does the patient have a suspected source of infection? No. Patient's initial sepsis screen is negative. Risk Assessment: Do you want to hurt yourself or someone else? Patient reports no desire to harm self or others. Onset of symptoms was August 18, 2022. 14:28 Method Of Arrival: Ambulatory ld1 14:28 Acuity: BUDDY 3 ld1 Triage Assessment: 14:29 General: Appears in no apparent distress. uncomfortable, Behavior is calm, cooperative, ld1 appropriate for age. Pain: Complains of pain in right femoral area and right inguinal area Pain does not radiate. Pain currently is 9 out of 10 on a pain scale. Quality of pain is described as throbbing. EENT: No signs and/or symptoms were reported regarding the EENT system. Neuro: Level of Consciousness is awake, alert, obeys commands, Oriented to person, place, time, situation. Cardiovascular: Capillary refill < 3 seconds Patient's skin is warm and dry. Respiratory: Airway is patent Respiratory effort is even, unlabored. GI: Abdomen is flat, non-distended, Reports nausea, vomiting. GI: Reports bloody stool. : No signs and/or symptoms were reported regarding the genitourinary system. Derm: No signs and/or symptoms reported regarding the dermatologic system. Musculoskeletal: No signs and/or symptoms reported regarding the musculoskeletal system. 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 - Social history:: Smoking status: Patient denies any tobacco usage or history of. Patient/guardian denies using alcohol. Screenin:09 [facility] ED Fall Risk Assessment (Adult) History of falling in the last 3 months, mb9 including since admission No falls in past 3 months (0 pts) Confusion or Disorientation No (0 pts) Intoxicated or Sedated No (0 pts) Impaired Gait No (0 pts) Mobility Assist Device Used No (0 pt) Altered Elimination No (0 pt) Score/Fall Risk Level 0 - 2 = Low Risk Oriented to surroundings, Maintained a safe environment, Educated pt \\T\\ family on fall prevention, incl call for assistance when getting out of bed. Abuse screen: Denies threats or abuse. Nutritional screening: No deficits noted. Tuberculosis screening: No symptoms or risk factors identified. Assessment: 15:19 General: Appears uncomfortable, ill, Behavior is cooperative. Pain: Complains of pain mb9 in abdomen Pain radiates to right inguinal area and right femoral area Pain currently is 6 out of 10 on a pain scale. Quality of pain is described as throbbing, Pain began gradually. Neuro: Level of Consciousness is awake, alert, obeys commands, Oriented to person, place, time, situation, Appropriate for age. Respiratory: Airway is patent Respiratory effort is even, unlabored, Respiratory pattern is regular, symmetrical. GI: Abdomen is flat, non-distended, Bowel sounds present X 4 quads. Abd is soft Abdomen is tender to palpation in right inguinal area Reports diarrhea, intolerance of fluids, intolerance of food, nausea, vomiting. : Urine is clear. Derm: Skin is pink, warm \\T\\ dry. Musculoskeletal: Range of motion: intact in all extremities. 16:29 Reassessment: pt states "I have a family emergency and need to leave soon." Lorna LANDON, mb9 notified. Vital Signs: 14:28 BP 115 / 80; Pulse 81; Resp 18; Temp 98.5(TE); Pulse Ox 100% on R/A; Weight 50.35 kg; ld1 Height 5 ft. 2 in. ; Pain 8/10; 16:41 BP 118 / 82; Pulse 84; Resp 16; Pulse Ox 100% ; mb9 14:28 Body Mass Index 20.30 (50.35 kg, 157.48 cm) ld1 14:28 Pain Scale: Adult ld1 ED Course: 14:03 Patient arrived in ED. ts1 14:04 Florentino Rothman DO is Attending Physician. ms3 14:29 Triage completed. ld1 14:29 Arm band placed on right wrist. ld1 14:52 Radiology exam delayed due to test not completed at this time. IV insertion jg10 attempt and/or patient not having appropriate IV at this time. 14:54 Chest Single View XRAY In Process Unspecified. EDMS 14:56 Danae Stone, DIXIE is Primary Nurse. mb9 15:08 Placed in gown. Bed in low position. Call light in reach. Side rails up X 1. Client mb9 placed on continuous cardiac and pulse oximetry monitoring. NIBP monitoring applied. 15:09 No provider procedures requiring assistance completed. mb9 15:10 Initial lab(s) drawn, by me, sent to lab. Inserted saline lock: 20 gauge in right tm3 antecubital area, using aseptic technique. 15:16 Urine collected: clean catch specimen, clear. tm3 15:19 Urinalysis w/ reflexes Sent. mb9 16:22 CT Abd/Pelvis - IV Contrast Only In Process Unspecified. EDMS 16:42 IV discontinued, intact, bleeding controlled, No redness/swelling at site. Pressure mb9 dressing applied. Administered Medications: 14:43 CANCELLED (Duplicate Order): NS 0.9% IV (30 ml/kg) 30 ml/kg IV at bolus once; Sepsis ld1 Protocol 15:11 Drug: NS 0.9% IV 1000 ml Route: IV; Rate: 1000 ml; Site: right antecubital; mb9 15:12 Drug: Ondansetron IVP 4 mg Route: IVP; Site: right antecubital; mb9 15:15 Drug: Famotidine IVP 20 mg Route: IVP; Site: right antecubital; mb9 Medication: 15:09 VIS not applicable for this client. mb9 Outcome: 16:32 Discharge ordered by . ms3 16:41 Discharged to home ambulatory. mb9 16:41 Condition: stable 16:41 Discharge instructions given to patient, Instructed on discharge instructions, follow up and referral plans. Demonstrated understanding of instructions, follow-up care, medications, Prescriptions given X 1. 16:42 Patient left the ED. augustin Signatures: Dispatcher [employer] EDPaulie Gonzalez tm3 Florentino Rothman, DO ms3 Maryann Rothman RN RN ld1 [facility] Danae Stone RN RN mb9 Nikki Moss PAS PAS ts1
--- NOTE | 2022-08-18 16:36 | RAD REPORT ---
EXAM DESCRIPTION: [place] Single View08/18/2022 2:52 pm CLINICAL HISTORY: Fever COMPARISON: 2019 FINDINGS: The lungs appear clear of acute infiltrate. The heart is normal size IMPRESSION: No acute abnormalities displayed
--- NOTE | 2022-08-18 16:36 | RAD REPORT ---
EXAM DESCRIPTION: CT - Abdomen Pelvis W Contrast - 08/18/2022 4:21 pm CLINICAL HISTORY: Abdominal pain/vomiting COMPARISON: June 2022 TECHNIQUE: Computed axial tomography of the abdomen pelvis was obtained. 100 cc Isovue-300 was admin istered intravenously. Oral contrast was not requested which limits evaluation of bowel and appendix All CT scans are performed using dose optimization technique as appropriate and may include automated exposure control or mA/KV adjustment according to patient size. FINDINGS: The liver, spleen, pancreas, adrenal and kidneys appear unremarkable. There is no evidence of diverticulitis. Normal appendix 2.4 centimeter irregularly-shaped right ovarian cyst. No significant free fluid IMPRESSION: 2.4 irregularly-shaped right ovarian cyst likely has recently ruptured. No significant free fluid
[2022-08-18 16:59] VITALS: TEMP 98.5; O2SAT 100
[2022-08-18 17:00] VITALS: BP 118/82
== END 2022-08-18 16:42 | disposition home or self-care (01) ==
LOC: ER 14:02
DX: R11.2 Nausea with vomiting, unspecified (principal)
CPT/HCPCS: 85025; 36415; 81025; 81003; 80053; 74177; 71045; Q9967; J2405; J7030; 96374; 96375; 99284

== ENCOUNTER 2022-09-21 18:52 | Emergency (ER) | payer OTHER ==
--- OUTSIDE RECORDS SUMMARY | 2022-09-21 18:57 | XMS REPORT | Continuity of Care Document ---
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 Scheduled 2008-08-[address] [facility] Test 00:00:00 malignant neoplasm of Medica [facility] Center cervix (procedure) [code = 254605325] Future Scheduled 2005-08-09 HEPATITIS C SCREENING CH [...] VACCINE (1)] Future Scheduled Hepatitis C screening [facility] Test (procedure) [code = 087366097] Future [facility]uled [facility] Test malignant neoplasm of cervix (procedure) [code = 493266351] Future Scheduled INFLUENZA VACCINE [facility] Test [code = INFLUENZA VACCINE] Encounters Start End Encounter Admission Attending Care Care Encounter Source Date/Time Date/Time Type Type Clinicians Facility Department ID 2021-02-18 [facility] [id number] Univers 22:20:14 AUBREY [facility] 2021-02-17 Emergency [facility] [id number] Univers 19:11:[address] [facility] 2021-02-17 [facility] [id number] Univers 18:57:03 AUBREY [facility] 2022-09-15 2022-09-15 [facility] [id number] Univers 08:00:00 08:55:[email or web address] [facility] 2022-09-15 2022-09-15 [facility] 1.2.840.114 [id number] Univers 08:00:00 08:55:18 Visit Althea Stauffer HISTOLOGY TECHNICIAN 350.1.13.10 i ty of [facility] 4.2.7.2.686 William as MATERNAL [phone] Med ical & CHILD [address] [place] [address] 2022-09-15 2022-09-15 Orders Doctor ABBI 1.2.840.114 [id number] Univers 00:00:00 00:00:00 Only Unassigned, DOMINGO 350.1.13.10 ity of [place] [facility] 4.2.7.2.686 William as [phone] [facility] 009 Branch 2022-07-20 2022-07-20 Emergency X SCHOETEIN [facility] ERT [id number] Univers 12:03:00 19:36:00 , SUNNY ity of [facility] 2022-07-20 2022-07-20 Emergency [facility] TRAUMA 1.2.840.114 [id number] Univers 12:03:00 19:36:00 , Sunny CENTER 350.1.13.10 [place] [id number] [facility] 014 Branch 2022-06-02 2022-06-02 Case YANN Echeverria 1.2.840.114 [id number] Univers 00:00:00 00:00:00 Management Althea NG 350.1.13.10 [place] [id number] [facility] 086 Branch 2022-02-27 2022-02-27 Telephone Augustin [facility] 1.2.551.961 [id number] 0341 Univers 00:00:00 00:00:00 Franck A HEALTH 350.1.13.10 it y of [place]2.7.2.[place] [facility] [id number] [facility] 059 Branch OFFICE BUILDING 2022-02-21 2022-02-21 Orders Doctor ABBI 1.2.840.114 [id number] Univers 00:00:00 00:00:00 Only Unassigned, DOMINGO 350.1.13.10 ity of [place] [facility] 4.2.7.2.686 William as [id number] [facility] 009 Branch 2022-02-07 2022-02-07 Emergency X OSCAR K [facility] ERT [id number] Univers 08:33:00 09:25:00 ity of [facility] 2022-02-07 2022-02-07 Emergency Oscar K [facility] 1.2.840.114 [id number] Univers 08:33:00 09:25:00 Karina PACHECO 350.1.13.10 i ty of [place].2.7.2.[place] MAHNOM[place] [id number] [facility] 084 Branch 2021-11-15 2021-11-15 Outpatient R AUGUSTIN [facility] [id number] Univers 16:00:00 16:00:00 FRANCK ity of [facility] 2021-11-04 2021-11-[address] [facility] 756 [place] 02:45:00 02:45:00 HN 0715 [facility] 2021-09-21 2021-09-21 Outpatient [facility] [id number] Univers 08:15:00 08:15:00 ARTIS rosas [facility] [place] 2021-08-25 2021-08-25 Office [facility] 1.2.840.114 [id number] Univers 13:45:00 15:15:05 Visit Js Estes HISTOLOGY TECHNICIAN 350.1.13.10 ity of [facility] 4.2.7.2.686 William as MATERNAL [id number] Med ical & CHILD [address] [place] [address] 2021-08-25 2021-08-25 Outpatient [facility] [id number] Univers 13:45:00 15:15:05 JS rosas [facility] 2021-08-25 2021-08-25 Outpatient Meera [facility] [id number] Univers 13:45:00 13:45:00 JS rosas [facility] 2021-08-25 2021-08-25 Orders Doctor GO 1.2.840.114 [id number] Univers 00:00:00 00:00:00 Only Unassigned, DOMINGO 350.1.13.10 ity of [place] [facility] 4.2.7.2.686 William as [phone] [facility] 009 Branch 2020-09-13 2020-09-13 Refill Landon [facility] 1.2.087.934 [id number] Univers 00:00:00 00:00:00 Artis Jean HISTOLOGY TECHNICIAN 350.1.13.10 ity of [facility] 4.2.7.2.686 William as MATERNAL [phone] Med ical & CHILD 107 [facility] 2020-09-13 2020-09-13 Refill Landon [facility] 1.2.654.150 [id number] 00:00:00 00:00:00 Artis Jean HISTOLOGY TECHNICIAN 350.1.13.10 REGIONAL 4.2.7.2.686 MATERNAL [phone] & CHILD 107 [facility] 2020-04-06 2020-04-06 Telephone [facility] 1.2.144.339 [id number] Univers 00:00:00 00:00:00 Adam Pacheco 350.1.13.10 i ty of [place] Profess[place] [id number] Me dical nal [address] [place] [address] 2020-04-06 2020-04-06 Telephone [facility] 1.2.984.518 [id number] 00:00:00 00:00:00 Adam Pacheco 350.1.13.10 [place] 4.2.7.2.686 Professio [phone] [address] 2020-02-06 2020-02-06 Outpatient [facility] [id number] Univers 14:15:00 14:15:00 AUBREY chilel [facility] 2020-02-02 2020-02-02 Prep For Daphnie [facility] 1.2.840.114 [id number] Univers 00:00:00 00:00:00 Surgery Aubrey Seth[facility] 350.1.13.10 it y of Surgical 4.2.7.2.686 [place] as Specialti [phone] Me dical es [address] [place] [address] 2020-02-02 2020-02-02 Prep For Daphnie [facility] 1.2.840.114 [id number] 00:00:00 00:00:00 Surgery Aubrey Sethi [facility] 350.1.13.10 Surgical 4.2.7.2.686 Specialti [id number] [address] 2020-02-01 2020-02-01 Refill Daphnie [facility] 1.2.778.766 [id number] Univers 00:00:00 00:00:00 Aubrey L JeNaCell 350.1.13.10 it y of Surgical 4.2.7.2.686 [place] as Specialti [phone] Me dical es 198 [facility] 2020-02-01 2020-02-01 [facility]ill [facility] 1.2.672.344 [id number] 00:00:00 00:00:00 Aubrey New 350.1.13.10 Surgical 4.2.7.2.686 Specialti [phone] es 198 [place] 2020-01-26 2020-01-26 Office Daphnie [facility] 1.2.378.901 [id number] [facility] [place] [facility] 13:42:13 14:09:11 Visit Aubrey New 350.1.13.10 it y of Surgical 4.2.7.2.686 William as Specialti [phone] Me dical es 198 [facility] 2020-01-26 2020-01-26 Office [facility] 1.2.497.271 [id number] 1450 13:42:13 14:09:11 Visit Aubrey New 350.1.13.10 Surgical 4.2.7.2.686 Specialti [id number] es 198 [place] 2020-01-26 2020-01-26 Outpatient [facility] [id number] Univers 13:30:00 13:30:00 AUBREY itjanak [facility] 2020-01-26 2020-01-26 Orders Doctor ABBI 1.2.840.114 [id number] Univers 00:00:00 00:00:00 Only Unassigned, DOMINGO 350.1.13.10 ity of [place] [facility] 4.2.7.2.686 William as [id number] [address] 2020-01-26 2020-01-26 Orders Doctor ABBI 1.2.840.114 [id number] 00:00:00 00:00:00 Only Unassigned, DOM[place] 350.1.13.10 [place] [facility] 4.2.7.2.686 [id number] 009 2020-01-23 2020-01-23 Raquel [facility] 1.2.236.527 [id number] Univers 00:00:00 00:00:00 Adam Pacheco 350.1.13.10 i jose alberto of [place] [phone] Me dical nal 198 [facility] 2020-01-22 2020-01-22 Telephone [facility] 1.2.357.870 [id number] Univers 00:00:00 00:00:00 Adam Velazco [facility] 350.1.13.10 it y of Surgical 4.2.7.2.686 William as Specialti [phone] Me dical es 198 [facility] 2020-01-20 2020-01-20 Outpatient [facility] [id number] Univers 00:00:00 00:00:00 AUBREY [facility] 2020-01-13 2020-01-15 Office [facility] 1.2.840.114 [id number] Univers 10:24:54 14:32:51 Visit Adam New 350.1.13.10 it y of Surgical 4.2.7.2.686 [place] as Specialti [id number] Me dical es 198 [facility] 2020-01-14 2020-01-14 Telephone [facility] 1.2.840.114 [id number] Univers 00:00:00 00:00:00 Aurbey Sethi Health 350.1.13.10 it y of Surgical 4.2.7.2.686 William as Specialti [id number] Oh dical es 198 [facility] 2020-01-13 2020-01-13 Outpatient [facility] [id number] Univers 10:30:00 10:30:00 ADAM chilel [facility] 2020-01-13 2020-01-13 Orders Doctor GO 1.2.840.114 [id number] Univers 00:00:00 00:00:00 Only Unassigned, DOMINGO 350.1.13.10 ity of [place] [facility] 4.2.7.2.686 William as [phone] [address] 2020-01-12 2020-01-12 Outpatient [facility]era [facility] [id number] Univers 16:15:00 16:15:00 ADAM itjanak [facility] 2020-01-12 2020-01-12 Orders Doctor GO 1.2.840.114 [id number] Univers 00:00:00 00:00:00 Only Unassigned, DOMINGO 350.1.13.10 ity of [place] [facility] 4.2.7.2.686 William as [phone] [facility] 009 Branch 2020-01-12 2020-01-12 Orders Doctor ABBI 1.2.840.114 [id number] 00:00:00 00:00:00 Only Unassigned, DOM[place] 350.1.13.10 [place] [facility] 4.2.7.2.686 [id number] 009 2020-01-11 2020-01-11 Telemedici [facility] 1.2.8 40.114 [id number] Univers 11:58:19 12:28:19 ne Visit Unknown, Attending HEALTH 350.1.13.1 0 [place] of [place]2.7.2.686 [place] [facility] [id number] [facility] Primary & 370 Branch Specialty Care 2020-01-11 2020-01-11 Outpatient R ZAYRA [facility] [id number] Univers 11:30:00 11:30:00 [facility] 2020-01-11 2020-01-11 Telephone [facility] 1.2.840.114 [id number] Univers 00:00:00 00:00:00 [facility] HEALTH 350.1.13.10 it y of [place] 4.2.7.2.686 [facility] [phone] [facility] Primary & 370 Branch Specialty Care 2020-01-07 2020-01-07 Telephone [facility] 1.2.924.972 [id number] Univers 00:00:00 00:00:00 Adam S Health 350.1.13.10 it y of Surgical 4.2.7.2.686 William as Specialti [id number] [facility] 198 [address] [place] 2020-01-06 2020-01-06 Outpatient R AMY [facility] [id number] Univers 09:15:00 09:15:00 ADAM ity [facility] 2020-01-05 2020-01-05 Hospital [facility] 1.2.840.114 [id number] Univers 16:59:19 23:59:00 Encounter Adam S Health 350.1.13.10 ity of Surgical 4.2.7.2.686 William as Specialti [phone] Me dical es 809 [facility] 2020-01-05 2020-01-05 Office [facility] 1.2.840.114 [id number] Univers 15:58:40 17:11:37 Visit [facility] 350.1.13.10 it y of Surgical 4.2.7.2.686 William as Specialti [phone] Oh dical es 198 [facility] 2020-01-05 2020-01-05 Outpatient R AMY [facility] [id number] Univers 16:15:00 16:15:00 [facility] 2019-12-24 2019-12-24 Outpatient Meera [facility] [id number] Univers 15:15:00 15:15:00 [facility] 2019-10-07 2019-10-07 Outpatient R [facility] [id number] Univers 15:00:00 15:00:00 ARTIS rosas f [facility] 2019-10-02 2019-10-02 [facility] 1.2.840.114 [id number] Univers 00:00:00 00:00:00 Artis Jean HISTOLOGY TECHNICIAN 350.1.13.10 ity of REGIONAL 4.2.7.2.686 [place] as MATERNAL [phone] Med ical & CHILD [address] [place] [address] 2019-09-18 2019-09-18 Telephone [facility] 1.2.840.114 [id number] Univers 00:00:00 00:00:00 [facility] 350.1.13.10 it y of Surgical 4.2.7.2.686 [place] as Specialti [id number] Oh dical es 198 [facility] 2019-09-11 2019-09-11 Office [facility] 1.2.518.047 [id number] Univers 15:33:34 16:03:01 Visit [facility] JeNaCell 350.1.13.10 it y of Surgical 4.2.7.2.686 [place] as Specialti [phone] Oh dical es 198 [facility] 2019-09-11 2019-09-11 Outpatient [facility] [id number] Univers 15:30:00 15:30:00 AUBREY chilel [facility] 2019-09-09 2019-09-09 Telephone Landon [facility] 1.2.840.114 [id number] Univers 00:00:00 00:00:00 Artis Jean HISTOLOGY TECHNICIAN 350.1.13.10 ity of [facility] 4.2.7.2.686 William as MATERNAL [phone] Med ical & CHILD 107 [facility] 2019-09-05 2019-09-05 Outpatient R [facility] [id number] Univers 11:00:00 11:00:00 ISE, ity of [facility] 2019-09-05 2019-09-05 Telemedici [facility] 1.2.840.114 [id number] Univers 07:02:35 07:32:35 ne Visit austin, SPECIALTY 350.1.13.10 ity [facility] [place]2.7.2.[place] CENTER AT [phone] Oh dical VICTORY 072 [facility] 2019-09-04 2019-09-04 Ancillary Sabrina Curry [facility] 1.2.840. 114 [id number] Univers 15:00:59 16:00:59 Visit Aubrey Eller [place] 350.1.13.10 ity of [place] [phone] Me dical nal 179 [facility] 2019-09-04 2019-09-04 Outpatient Meera ELLER [facility] [id number] Univers 15:00:00 15:00:00 AUBREY chilel [facility] 2019-09-02 2019-09-02 Office [facility] 1.2.840.114 [id number] Univers 13:05:06 13:20:06 Visit [facility] 350.1.13.10 it y of Surgical 4.2.7.2.686 [place] as Specialti [phone] Me dical es 198 [facility] 2019-09-02 2019-09-02 Outpatient Meera REYES [facility] [id number] Univers 13:15:00 13:15:00 [facility] 2019-08-25 2019-08-25 Office [facility] 1.2.840.114 [id number] Univers 14:48:27 15:03:27 Visit [facility] 350.1.13.10 it y of Surgical 4.2.7.2.686 [place] as Specialti [phone] Me dical es 198 [facility] 2019-08-25 2019-08-25 Outpatient R [facility] [id number] Univers 15:00:00 15:00:00 [facility] 2019-08-25 2019-08-25 Telephone [facility] 1.2.290.590 [id number] Univers 00:00:00 00:00:00 [facility] 350.1.13.10 it y of Surgical 4.2.7.2.686 [place] as Specialti [id number] Oh dical es 198 [facility] 2019-08-21 2019-08-21 Office [facility] 1.2.840.114 [id number] Univers 14:14:14 14:34:55 Visit [facility] 350.1.13.10 it y of Surgical 4.2.7.2.686 [place] as Specialti [id number] Oh dical es 198 [facility] 2019-08-21 2019-08-21 Outpatient R [facility] [id number] Univers 14:15:00 14:15:00 [facility] 2019-08-20 2019-08-20 Letter [facility] 1.2.150.879 [id number] Univers 00:00:00 00:00:00 (Out) [facility] 350.1.13.10 it y of Surgical 4.2.7.2.686 [place] as Specialti [phone] Oh dical es 198 [facility] 2019-08-19 2019-08-19 Emergency [facility] 1.2.051.902 [id number] Univers 02:03:59 03:28:00 Anival [place] 350.1.13.10 i ty of [place].7.2.[place] [id number] [facility] [address] [place] 2019-08-19 2019-08-19 Nurse Scarlett Hickman 1.2.840.114 [id number] Univers 00:00:00 00:00:00 Triage DOMINGO 350.1.13.10 it y of HOSPITAL 4.2.7.2.686 [place] as [id number] [facility] [address] [place] 2019-08-19 2019-08-19 Telephone [facility] 1.2.840.114 [id number] Univers 00:00:00 00:00:00 Aubrey [facility]i [facility] 350.1.13.10 it y of Surgical 4.2.7.2.686 [place] as Specialti [id number] Oh dical 198 [facility] 2019-08-18 2019-08-18 [facility] 1.2.840.114 [id number] Univers 08:31:00 13:30:00 Encounter Aubrey Jossie Curry[place] 350.1.13.10 ity of [place] Surgical [phone] Med ical Center [address] [place] 2019-08-18 2019-08-18 Anesthesia Kar Pearson [facility] 1.2.840.11 [id number] Univers 09:44:00 11:36:00 Abbi Be 350.1.13.10 ity of [place].2.[place] Surgical [phone] [facility] ical Center 020 Branch 2019-08-18 2019-08-18 Outpatient CAPRI, [facility] [id number] [facility] 00:00:00 00:00:00 HARVEY 2019-08-18 2019-08-18 Outpatient SLE SLE [id number] 1-2 [facility] 00:00:00 00:00:00 [id number] 2019-08-18 2019-08-18 Orders Doctor ABBI 1.2.840.114 [id number] Univers 00:00:00 00:00:00 Only Unassigned, DOM[place]O 350.1.13.10 ity of [place] [facility] 4.2.7.2.686 William as [phone] [facility] [address] [place] 2019-08-18 2019-08-18 Nurse ABBI Conti 1.2.840.114 [id number] Univers 00:00:00 00:00:[address] 350.1.13.10 i ty of [facility] 4.2.7.2.686 William as [id number] [address] 2019-08-18 2019-08-18 Prep For Daphnie [facility] 1.2.840.114 [id number] Univers 00:00:00 00:00:00 Surgery Aubrey Sethi [facility] 350.1.13.10 it y of Surgical 4.2.7.2.686 [place] as Specialti [id number] Oh dical es 198 [facility] 2019-08-15 2019-08-15 Outpatient R DAPHNIE [facility] [id number] Univers 11:15:55 23:59:00 AUBREY ranjana [facility] 2019-08-15 2019-08-15 Nurse Nurse, [facility] General Surgery [facility] 1.2.840.114 [id number] Univers 12:10:33 13:09:31 Visit DaphnieLeighaig Jossie Curry[place] 350.1.13.10 ity of [place].2.[place] Profess[place] [phone] Oh dical nal 377 [facility] 2019-08-15 2019-08-15 C.O.D. Biller Delfino, [facility] Lab Main [facility] 1.2.8 [id number] Univers 11:02:01 11:17:01 Visit Aubrey Eller [id number] it[id number] [phone] Oh dical nal 353 [facility] 2019-08-15 2019-08-15 Office Amy [facility] [id number] Univers 08:17:14 08:32:14 Visit [facility] [id number] it y of Surgical [id number] [place] as Specialti [phone] Me dical es 198 [facility] 2019-08-15 2019-08-15 Outpatient [facility] SLE [id number] 1-2 [facility] 00:00:00 00:00:00 [id number] 2019-08-15 2019-08-15 Telephone Eller, [facility] [id number] [id number] Univers 00:00:00 00:00:00 [facility] [id number] it y of Surgical [id number] [place] as Specialti [phone] Oh dical es 198 [facility] 2019-08-08 2019-08-08 Outpatient SLEH SLE [id number] 1-2 SLEH 03:47:00 03:47:00 [id number] 2019-07-23 2019-07-23 Telemed[facility] [id number] Univers 08:23:43 11:30:09 ne Visit Artis C HISTOLOGY TECHNICIAN [id number] ity of REGIONAL [id number] William as MATERNAL [phone] [facility] ical & CHILD [address] [place] [address] 2019-07-23 2019-07-23 Outpatient R [facility] [id number] Univers 11:00:00 11:00:00 ARTIS chilel o f [facility] 2019-07-22 2019-07-22 Telephone [facility] [id number] Univers 00:00:00 00:00:00 Aubrey Sethi HISTOLOGY TECHNICIAN [id number] it y of REGIONAL 4.2.7.2.686 William as MATERNAL [phone] [facility] & [address] 2019-07-22 2019-07-22 Telephone [facility] [id number] Univers 00:00:00 00:00:00 Artis Ted HISTOLOGY TECHNICIAN [id number] ity of REGIONAL 4.2.7.2.686 William as MATERNAL [phone] [facility] ical & CHILD [address] [place] [address] 2019-05-23 2019-05-23 Office [facility] [id number] Univers 08:29:26 08:54:40 Visit Aubrey Sethi Health [id number] it y of Surgical 4.2.7.2.686 William as Specialti [phone] Oh dical es 198 [facility] Results Test Description Test Time Test Comments Results Result Sour e Comments RAD, 2019-07-24 Reason for FINAL REPORT ABDOMEN/KUB, 1 0 exam:->eval position PATIENT ID: VIEW AP 07:30:00 of reportedly [id number] CLINICAL swallowed tongue ring HISTORY: eval position [...] Tavares Verified Date/Time: 08/11/2019 07:30:51 Reading Location: [facility] Radiology Reading Room , CHEST, 1 2019-07-24 Reason for FINAL REPORT VIEW, NON DEPT 0 exam:->nausea, eval PATIENT ID: 05:29:00 for aspirationShould [id number] RAD, this be performed at CHEST, 1 [...] Osseous structures are unremarkable. Signed: Maureen Luna Verified Date/Time: 08/11/2019 05:29:24 C METABOLIC [...] DATA TO 1092) CALCULATE ESTIM ATED GFR. Group Home Counselor ID - JENNIFER [id number] 04:49:00 Test Item Value Reference Range Interpretation Comments PHOSPHORUS (BEAKER) (test code = 3.4 mg/dL 2.3-4.7 604) Group Home Counselor ID - JENNIFER [id number] 04:49:00 Test Item Value Reference Range Interpretation Comments MAGNESIUM (BEAKER) (test code = 1.7 mg/dL 1.6-2.6 627) Group Home Counselor ID - JENNIFER LHEPATIC FUNCTION [id number] 04:49:00 Test Item Value Reference Range Interpretation [...] (test code = 38 U/L 6-55 347) Group Home Counselor ID - JENNIFER LCBC (HEMOGRAM ONLY)2019-08-11 04:15:00 [...] (test code = 413) HEPATOBILIARY IMAGING W/ [id number] 18:40:00Scheduled 08/09 but swallowed tongue ringHolding off until f/u KUB and cleared by radiologistReason for exam:- >See aboveFINAL REPORT PROCEDURE: HEPATOBILIARY SCAN CPT CODE: 10374 INDICATION: abdominal pain PROTOCOL: 5.22 mCi of [...] acute cholecystitis is low. Signed: Alexander Nieto [facility] Verified Date/Time: 2019 18:40:53 RAD, ABDOMEN/KUB, 1 VIEW [id number] 16:48:00 Reason for exam:->swallowed tongue ring; planned [...] MDReport Verified Date/Time: 2019 16:48:26 Reading Location: [facility] B1 C013Y CT Body Reading Room [...] 1092) DATA TO CALCULA TE ESTIMATED GFR. Group Home Counselor ID - VICENTAAYA [id number] 06:27:00 Test Item Value Reference Range Interpretation Comments TRIGLYCERIDES (BEAKER) (test code = 54 mg/dL 540) TRIGLYCERIDE REFERENCE RANGELow Risk <150Borderline Risk 150-199High Risk 200-499Very High Risk >=500Operator ID - VICENTAJAYSHREE LHEPATIC FUNCTION PANEL 2019 06:27:00 Test Item [...] (test code = 35 U/L 6-55 347) Group Home Counselor ID - JENNIFER LC-REACTIVE [id number] 06:27:00 Test Item Value Reference Range Interpretation Comments C-REACTIVE PROTEIN (BEAKER) (test 0.08 mg/dL 0.00-0.50 code = 676) Group Home Counselor ID - JENNIFER LCBC W/PLT COUNT & AUTO [id number] 05:45:00 Test Item Value Reference Range Interpretation [...] (BEAKER) (test code = 2801) BASIC METABOLIC [id number] 08:22:00 Test Item Value Reference Range Interpretation [...] 1092) DATA TO CALCULA TE ESTIMATED GFR. Group Home Counselor ID - LMHEPATIC FUNCTION [id number] 08:01:00 Test Item Value Reference Range Interpretation [...] (test code = 39 U/L 6-55 347) Group Home Counselor ID - [id number] 15:09:00 Test Item Value Reference Range Interpretation Comments LIPASE (BEAKER) (test code = 749) 323 U/L 8-78 H Group Home Counselor ID - NTPU/S, ABDOMINAL, [id number] 14:33:00Abdomen limited area? Add comment if clarification [...] MDReport Verified Date/Time: 08/08/2019 14:33:42 Reading Location: [facility] C013W Consult Reading Room MR, ABDOMEN, [id number] 12:09:00FINAL REPORT MR Abdomen dated 08/08/2019 Comment: [...] MDReport Verified Date/Time: 08/08/2019 12:09:11 Reading Location: [facility] C013Y CT Body Reading Room BASIC METABOLIC [id number] 06:41:00 Test Item Value Reference Range Interpretation [...] 1092) DATA TO CALCULA TE ESTIMATED GFR. Group Home Counselor ID Lorne CORREA [id number] 06:40:00 Test Item Value Reference Range Interpretation Comments MAGNESIUM (BEAKER) (test code = 1.8 mg/dL 1.6-2.6 627) Group Home Counselor ID Lorne CORREA WHEPATIC FUNCTION [id number] 06:40:00 Test Item Value Reference Range Interpretation [...] (test code = 53 U/L 6-55 347) Group Home Counselor GERALD CORREA [id number] 05:43:00 Test Item Value Reference Range Interpretation [...] mechanical heart valves.CBC W/PLT COUNT & AUTO [id number] 05:36:00 Test Item Value Reference Range Interpretation [...] % 0-1 PERCENT (BEAKER) (test code = 2800) DILUTE NINI VIPER VENOM (DRVV)2016-07-25 15:34:00 Test Item Value Reference Range Interpretation Comments PROTIME (BEAKER) (test 13.9 seconds 11.7-14.7 code = 759) INR (BEAKER) (test code = 1.1 <=5.9 370) PARTIAL THROMBOPLASTIN 56.1 seconds 22.5-36.0 H TIME (BEAKER) (test code = 760) DRVV INTERPRETATION Normal DRVV Results (BEAKER) (test code = 2409) [id number] Alvarez Moe MD (BEAKER) (test code = (electronic 2825) signature) DRVV SCREEN RATIO (BEAKER) 0.84 <1.20 (test code = 3490) Effective 08/26/2013: Test Method ChangeDRVV Screen Ratio, [...] 0.00-0.20 (test code = 417) 0.00BASI METABOLIC [id number] 07:05:00 Test Item Value Reference Range Interpretation [...] TE ESTIMATED GFR. CARDIOLIPIN ANTIBODIES, IGG AND [id number] 14:31:00 Test Item Value Reference Range Interpretation Comments ANTICARDIOLIPIN IGG ANTIBODY (BEAKER) < GPL (test code = 712) ANTICARDIOLIPIN IGM ANTIBODY (BEAKER) < MPL (test code = 713) Anticardiolipin IgG Result Interpretation:NEG: <20 GPL; U/mlPOS: >/=20 GPL; U/mlAnticardiolipin IgM Result Interpretation:NEG: <20 MPL; U/mlPOS: >/=20 MPL; U/mlTHROMBIN [id number] 14:25:00 Test Item Value Reference Range Interpretation Comments THROMBIN TIME (BEAKER) (test code 193.3 secs 13.8-20.0 H = 550) EQUAL MIX, NORMAL [id number] 14:16:00 Test Item Value Reference Range Interpretation [...] = 418) CBC W/PLT COUNT & AUTO [id number] 08:32:00 Test Item Value Reference Range Interpretation [...] (BEAKER) (test code = 1351) BASIC METABOLIC [id number] 06:54:00 Test Item Value Reference Range Interpretation [...] TO CALCULA TE ESTIMATED GFR. BASIC METABOLIC [id number] 07:19:00 Test Item Value Reference Range Interpretation [...] ESTIMATED GFR. CBC W/PLT COUNT & AUTO [id number] 07:07:00 Test Item Value Reference Range Interpretation [...] K/ L 0.00-0.20 (test code = 417) [id number] 11:08:00 Test Item Value Reference Range Interpretation Comments POTASSIUM (BEAKER) (test code = 3.8 meq/L 3.5-5.1 379) [id number] 11:08:00 Test Item Value Reference Range Interpretation Comments MAGNESIUM (BEAKER) (test code = 2.3 mg/dL 1.6-2.6 627) BASIC METABOLIC [id number] 05:29:00 Test Item Value Reference Range Interpretation [...] m DATA TO CALCULA TE ESTIMATED GFR. [id number] 05:27:00 Test Item Value Reference Range Interpretation Comments PHOSPHORUS (BEAKER) (test code = 2.7 mg/dL 2.3-4.7 604) [id number] 05:27:00 Test Item Value Reference Range Interpretation Comments MAGNESIUM (BEAKER) (test code = 1.8 mg/dL 1.6-2.6 627) CBC W/PLT COUNT & AUTO [id number] 05:04:00 Test Item Value Reference Range Interpretation [...] K/ L 0.00-0.20 (test code = 417) [id number] 17:27:00 Test Item Value Reference Range Interpretation Comments FERRITIN (BEAKER) (test code = 361) 9 ng/mL 5-275 Effective 03/10/2014: Reference Range ChangeNew: Male 5-275 Previous: Male 22- 322 Female 5-275 Female 10-291TSH/FREE T4 IF [id number] 17:27:00 Test Item Value Reference Range Interpretation [...] L (test code = 2590) BASIC METABOLIC [id number] 15:01:00 Test Item Value Reference Range Interpretation [...] m DATA TO CALCULA TE ESTIMATED GFR. [id number] 14:50:00 Test Item Value Reference Range Interpretation Comments PHOSPHORUS (BEAKER) (test code = 3.5 mg/dL 2.3-4.7 604) [id number] 14:50:00 Test Item Value Reference Range Interpretation Comments MAGNESIUM (BEAKER) (test code = 1.9 mg/dL 1.6-2.6 627) LIPID [id number] 14:50:00 Test Item Value Reference Range Interpretation [...] Borderline 130-159 High 160-189 Very High >=190C-REACTIVE [id number] 14:50:00 Test Item Value Reference Range Interpretation Comments C-REACTIVE PROTEIN (BEAKER) (test 0.02 mg/dL 0.00-0.50 code = 676) COMPLEMENT COMPONENT [id number] 14:48:00 Test Item Value Reference Range Interpretation Comments C4 COMPLEMENT (BEAKER) (test code = 19 mg/dL 15-57 394) Effective 03/10/2014: Reference Range ChangeNew: 15-57 Previous: 16-38COMPLEMENT COMPONENT [id number] 14:48:00 Test Item Value Reference Range Interpretation Comments C3 COMPLEMENT (BEAKER) (test code = 105 mg/dL 82-193 393) Effective 03/10/2014: Reference Range ChangeNew: 82-193 Previous: 79-152 HEMOGLOBIN [id number] 14:38:00 Test Item Value Reference Range Interpretation Comments HEMOGLOBIN A1C (BEAKER) (test code = 5.1 % 4.3-6.1 368) SEDIMENTATION [id number] 08:29:00 Test Item Value Reference Range Interpretation Comments SEDIMENTATION RATE, ERYTHROCYTE 10 mm/HR 0-20 (BEAKER) (test code = 766) CBC W/PLT COUNT & AUTO [id number] 06:06:00 Test Item Value Reference Range Interpretation [...] (test code = 417) 0.00RAPID DRUG SCREEN, [id number] 01:59:00 Test Item Value Reference Range Interpretation [...] ng/mLAmphetamine/ 1000 ng/mL MethamphetamineOxycodone 300 ng/mLPREGNANCY SCREEN, [id number] 01:47:00 Test Item Value Reference Range Interpretation Comments TEST URINE (BEAKER) (test Negative code = 583) URINALYSIS W/ [id number] 01:46:00 Test Item Value Reference Range Interpretation [...] code = 516) SOURCE(BEAKER) (test code = 2655) BASIC METABOLIC [id number] 22:37:00 Test Item Value Reference Range Interpretation [...] ESTIMATED GFR. CREATINE KINASE (CK), TOTAL AND [id number] 22:33:00 Test Item Value Reference Range Interpretation Comments CREATINE KINASE TOTAL (BEAKER) 119 U/L 29-200 (test code = 380) CREATINE KINASE-MB (BEAKER) (test 1.5 ng/mL 0.0-6.6 code = 750) CREATINE KINASE-MB INDEX (AKER) 1.3 % (test code = 395) Effective 03/10/2014: CK-MB Reference Range ChangeNew: 0.0-6.6 Previous: 0.0-4.9CK-MB Reference Range:<6.7 Normal6.7-10.0 Borderline>10.0 Abnormal TROPONIN [id number] 22:33:00 Test Item Value Reference Range Interpretation [...] 33 pg/mL 0-100 (test code = 700) [id number] 22:27:00 Test Item Value Reference Range Interpretation Comments MAGNESIUM (BEAKER) (test code = 1.9 mg/dL 1.6-2.6 627) [id number] 22:10:00 Test Item Value Reference Range Interpretation [...] 2.5-3.5 for patients with mechanical heart valves.POCT-GLUCOSE [id number] 22:02:00 Test Item Value Reference Range Interpretation Comments POC-GLUCOSE METER 86 mg/dL 70-[address] [facility] ([facility]) (test code = MAIDA Estes [facility] [address] 1538) CBC W/PLT COUNT & AUTO [id number] 22:01:00 Test Item Value Reference Range Interpretation [...]
[2022-09-21 19:33] LABS: Absolute Lymphocytes (CBC) 1.1 K/uL (0.7-4.9); Hematocrit 34.3 % (36.0-45.0); Lymphocytes % 18.7 % (15.3-44.8); MCV 91.6 fL (80-100); MPV 7.9 fL (7.6-11.3); RBC Red Blood Cell Count 3.74 M/uL (3.86-4.86)
[2022-09-21] MEDS ORDERED: MORPHINE 4 MG/ML SYR ONE ×2 (19:44→22:48)
[2022-09-21 19:46] LABS: Specific Gravity 1.016 (1.005-1.030)
[2022-09-21 19:53] LABS: Albumin 3.9 g/dL (3.4-5.0); Bilirubin Total 0.2 mg/dL (0.2-1.0); Potassium 3.4 mEq/L (3.5-5.1); Protein, Total 6.9 g/dL (6.4-8.2)
[2022-09-21] MEDS ORDERED: NA CHLORIDE 0.9% 100 ML ONE (20:59)
[2022-09-21] MEDS ORDERED: CIPROFLOXACIN 400mg IV 400 MG/200 ML BAG IV ONE (20:59)
[2022-09-21] MEDS ORDERED: METRONIDAZOLE 500mg IVPB 500 MG/100 ML BAG IV ONE (21:00)
[2022-09-21] MEDS ORDERED: NA CHLORIDE 0.9% 1,000 ML ONE (21:00)
--- NOTE | 2022-09-21 21:08 | RAD REPORT ---
EXAM DESCRIPTION: CT - CT ANGIO ABD/PELVIS W CONTRAST - 09/21/2022 8:28 pm CLINICAL HISTORY: Rectal bleeding COMPARISON: None. TECHNIQUE: Dynamically enhanced 3 mm thick images of the abdomen and pelvis were obtained during adm inistration of approximately 70mL Isovue 370 IV contrast. Sagittal and coronal reconstruction images were generated and reviewed. Exam utilizes a protocol to evaluate the abdominal aorta and its branche s to the level of the upper thighs. All CT scans are performed using dose optimization technique as appropriate and may include automated exposure control or mA/KV adjustment according to patient size. FINDINGS: Aorta is normal in diameter with no dissection or other acute aortic findings. Reconstruct ion images show no significant findings. Major aortic branches are patent. Visualized lung bases are unremarkable. Celiac, SMA and renal arteries show no suspicious findings. Short-segment air-fluid levels within flu id-filled nondistended small bowel. This is nonspecific. A short segment of apparent wall thickening of small bowel in the central abdomen, may relate to nondistention. Segments of nondistention of the colon limit evaluation for mucosal abnormalities, however no suspicious masses are identified. No yordy dence of contrast extravasation throughout the course of the bowel. Urinary bladder is suboptimally d istended limiting evaluation. Solid abdominal viscera and bowel show no significant findings otherwis e. No mass or abnormal lymphadenopathy. IMPRESSION: No evidence of aortic dissection or aneurysmal dilation. No abnormal contrast extravasation. Nonspecific fluid filling with short-segment air-fluid levels within fluid filled nondistended small bowel, could relate to diarrheal state. Other findings as above.
--- NOTE | 2022-09-21 21:12 | ER ---
Nurse's Notes [facility] Name: Italia Allen Age: 37 yrs Sex: Female : 1985 Arrival Date: 09/21/2022 Time: 18:52 Bed DIS5 Private MD: Diagnosis: GI Bleed/ Gastrointestinal hemorrhage, unspecified-lower;Other viral enteritis-non specific Presentation: 09/21 19:06 Chief complaint: Patient states: bloody stools on and off for months now but today im iw passing clots. Coronavirus screen: Client denies travel out of the [place] in the last 14 days. At this time, the client does not indicate any symptoms associated with coronavirus-19. Ebola Screen: No symptoms or risks identified at this time. Initial Sepsis Screen: Does the patient meet any 2 criteria? No. Patient's initial sepsis screen is negative. Does the patient have a suspected source of infection? No. Patient's initial sepsis screen is negative. Risk Assessment: Do you want to hurt yourself or someone else? Patient reports no desire to harm self or others. Onset of symptoms is unknown. 19:06 Method Of Arrival: Ambulatory iw 19:06 Acuity: BUDDY 3 iw Triage Assessment: 19:07 General: Appears in no apparent distress. uncomfortable, Behavior is cooperative, iw crying. Pain: Complains of pain in abdomen. EENT: No deficits noted. No signs and/or symptoms were reported regarding the EENT system. Neuro: No deficits noted. Zavala Agitation-Sedation Scale (RASS): 0 - Alert and Calm Level of Consciousness is awake, alert, obeys commands, Oriented to person, place, time, situation. Cardiovascular: No deficits noted. Denies chest pain, shortness of breath, Capillary refill < 3 seconds Clubbing of nail beds is absent JVD is absent Patient's skin is warm and dry. Respiratory: No deficits noted. Airway is patent Respiratory effort is even, unlabored, Respiratory pattern is regular, symmetrical. GI: Abdomen is flat, non-distended, Reports lower abdominal pain, rectal bleeding, bloody stool. : No deficits noted. No signs and/or symptoms were reported regarding the genitourinary system. Derm: No deficits noted. No signs and/or symptoms reported regarding the dermatologic system. Skin is intact, is healthy with good turgor, Skin is dry, Skin is normal, Skin temperature is warm. Musculoskeletal: No deficits noted. No signs and/or symptoms reported regarding the musculoskeletal system. Circulation, motion, and sensation intact. Range of motion: intact in all extremities. 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 - Social history:: Smoking status: Reported history of juuling and/or vaping. Patient/guardian denies using alcohol, street drugs. Screenin:45 Abuse screen: Denies threats or abuse. Denies injuries from another. Nutritional ha1 screening: No deficits noted. Tuberculosis screening: No symptoms or risk factors identified. Assessment: 19:15 General: Appears uncomfortable, Behavior is calm, cooperative. General:. Pain: ha1 Complains of pain in abdomen Pain does not radiate. Pain currently is 10 out of 10 on a pain scale. Quality of pain is described as crampy, throbbing, Is continuous. Neuro: Level of Consciousness is awake, alert, obeys commands, Oriented to person, place, time, situation. Cardiovascular: Capillary refill < 3 seconds Patient's skin is warm and dry. Respiratory: Airway is patent Respiratory effort is even, unlabored, Respiratory pattern is regular, symmetrical. GI: Abdomen is flat, non-distended, Bowel sounds present X 4 quads. Reports lower abdominal pain, bloody stool. : No signs and/or symptoms were reported regarding the genitourinary system. Derm: Skin is pink, warm \T\ dry. Musculoskeletal: Circulation, motion, and sensation intact. Range of motion: intact in all extremities. 20:15 Reassessment: Patient and/or family updated on plan of care and expected duration. Pain ha1 level reassessed. Patient is alert, oriented x 3, equal unlabored respirations, skin warm/dry/pink. 21:15 Reassessment: Patient and/or family updated on plan of care and expected duration. Pain ha1 level reassessed. Patient is alert, oriented x 3, equal unlabored respirations, skin warm/dry/pink. 21:35 Reassessment: awaiting on medication to be completed. ha1 Vital Signs: 19:06 BP 135 / 85; Pulse 93; Resp 17 S; Temp 98.4(TE); Pulse Ox 100% on R/A; Weight 48.08 kg iw (R); Height 5 ft. 2 in. (R); 19:15 BP 114 / 72; Pulse 89; Resp 18 S; Pulse Ox 100% on R/A; ha1 20:15 BP 118 / 77; Pulse 82; Resp 18 S; Pulse Ox 98% on R/A; ha1 21:15 BP 114 / 89; Pulse 76; Resp 16; Pulse Ox 100% on R/A; ha1 22:15 BP 114 / 95; Pulse 70; Resp 18 S; Pulse Ox 97% on R/A; ha1 23:00 BP 126 / 98; Pulse 71; Resp 16 S; Pulse Ox 97% on R/A; ha1 19:06 Body Mass Index 19.39 (48.08 kg, 157.48 cm) iw ED Course: 18:53 Patient arrived in ED. ts1 18:56 Florentino Rothman DO is Attending Physician. ms3 19:07 Triage completed. iw 19:07 Arm band placed on right wrist. iw 19:14 Susan Burger, RN is Primary Nurse. ha1 19:30 Inserted saline lock: 20 gauge in right antecubital area, using aseptic technique. ha1 Blood collected. 19:33 CBC with Diff Sent. ha1 19:33 CMP Sent. ha1 19:33 Lipase Sent. ha1 19:40 Test, Urine Sent. ha1 20:00 Patient has correct armband on for positive identification. Placed in gown. Bed in low ha1 position. Call light in reach. Side rails up X 1. 20:03 Attending Physician role handed off by Florentino Rothman DO ms3 20:03 Serjio Hitchcock MD is Attending Physician. ms3 20:31 CT ANGIO ABD/PELVIS W CONTRAST In Process Unspecified. EDMS 21:11 Elle Ojeda MD is Referral Physician. nils 23:02 No provider procedures requiring assistance completed. IV discontinued, intact, vc1 bleeding controlled, No redness/swelling at site. Pressure dressing applied. Administered Medications: 19:39 Drug: morphine IVP or IV 4 mg Route: IVP; Infused Over: 4 mins; Site: right antecubital;ha1 20:50 Drug: metroNIDAZOLE IVPB 500 mg Volume: 100 ml; Route: IVPB; Rate: 200 ml/hr; Infused ha1 Over: 30 mins; Site: right antecubital; 21:15 Follow up: Response: No adverse reaction; IV Status: Completed infusion; IV Intake: ha1 100ml 20:50 Drug: NS 0.9% IV 1000 ml Route: IV; Rate: 1 bolus; Site: left antecubital; ha1 21:35 Drug: Ciprofloxacin IVPB 400 mg Volume: 200 ml; Route: IVPB; Infused Over: 60 mins; ha1 Site: right antecubital; 22:42 Drug: Ondansetron IVP 4 mg Route: IVP; Site: right antecubital; ha1 23:00 Follow up: Response: No adverse reaction ha1 22:45 Drug: morphine IVP or IV 4 mg Route: IVP; Infused Over: 4 mins; Site: right antecubital;ha1 23:00 Follow up: Response: No adverse reaction; Pain is decreased; RASS: Alert and Calm (0) ha1 Medication: 23:03 VIS not applicable for this client. vc1 Intake: 21:15 IV: 100ml; Total: 100ml. ha1 Outcome: 21:12 Discharge ordered by . nils 23:02 Discharged to home ambulatory. vc1 23:02 Condition: good 23:02 Discharge instructions given to patient, Instructed on discharge instructions, follow up and referral plans. Demonstrated understanding of instructions, follow-up care. 23:03 Patient left the ED. vc1 Signatures: Dispatcher [employer] EDMS Serjio Hitchcock MD MD cha Williams, Irene, RN RN iw Sims, Marcus, DO DO ms3 Li Cardoza RN RN vc1 Susan Burger RN RN ha1 Nikki Moss PAS PAS ts1 Corrections: (The following items were deleted from the chart) 21:30 21:29 Ciprofloxacin IVPB 400 mg 200 ml IVPB in right antecubital over 60 mins ha1 ha1
--- NOTE | 2022-09-21 21:13 | EDPHYS ---
Physician Documentation [facility] Name: Italia Allen Age: 37 yrs Sex: Female : 1985 Arrival Date: 09/21/2022 Time: 18:52 Bed DIS5 Private MD: ED Physician Serjio Hitchcock HPI: 09/21 19:42 This 37 yrs old Female presents to ER via Ambulatory with complaints of Bloody ms3 Stools. 19:42 37-year-old female with past medical history anxiety, CVA, ectopic , ms3 hyperlipidemia presents for rectal bleeding for the last year. Patient states the bleeding became worse with passage of clots after work today. Patient states she had blood dripping out of her rectum. Patient is also stating she has lower abdominal pain she rates a 10/10 and described as pressure/sharp.. 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 - Social history:: Smoking status: Reported history of juuling and/or vaping. Patient/guardian denies using alcohol, street drugs. ROS: 19:42 Constitutional: Negative for fever, and chills. Neck: Negative for injury, pain, and ms3 swelling, Cardiovascular: Negative for chest pain, and palpitations. Respiratory: Negative for shortness of breath, cough, wheezing, and pleuritic chest pain. 19:42 MS/Extremity: Negative for injury and deformity, Skin: Negative for injury, rash, and discoloration, Neuro: Negative for headache, weakness, numbness, tingling. 19:42 Abdomen/GI: Positive for abdominal pain, rectal bleeding. 19:42 All other systems are negative. Exam: 19:42 Constitutional: This is a well developed, well nourished patient who is awake, alert, ms3 and in no acute distress. Head/Face: Normocephalic, atraumatic. Neck: Trachea midline, no cervical lymphadenopathy. Supple, full range of motion without nuchal rigidity, or vertebral point tenderness. No Meningismus. Chest/axilla: Normal chest wall appearance and motion. Nontender with no deformity. Cardiovascular: Regular rate and rhythm with a normal S1 and S2. No gallops, murmurs, or rubs. Normal PMI, no JVD. No pulse deficits. Respiratory: Lungs have equal breath sounds bilaterally, clear to auscultation and percussion. No rales, rhonchi or wheezes noted. No increased work of breathing, no retractions or nasal flaring. Skin: Warm, dry with normal turgor. Normal color with no rashes, no lesions, and no evidence of cellulitis. MS/ Extremity: Pulses equal, no cyanosis. Neurovascular intact. Full, normal range of motion. 19:42 Abdomen/GI: Inspection: abdomen appears normal, Bowel sounds: normal, Palpation: moderate abdominal tenderness, in the right lower quadrant and left lower quadrant, Rectal exam: is unremarkable, rectal tone normal, hemorrhoid(s), are not appreciated, the exam is chaperoned by the nurse, No gross bleeding found. Vital Signs: 19:06 BP 135 / 85; Pulse 93; Resp 17 S; Temp 98.4(TE); Pulse Ox 100% on R/A; Weight 48.08 kg iw (R); Height 5 ft. 2 in. (R); 19:15 BP 114 / 72; Pulse 89; Resp 18 S; Pulse Ox 100% on R/A; ha1 20:15 BP 118 / 77; Pulse 82; Resp 18 S; Pulse Ox 98% on R/A; ha1 21:15 BP 114 / 89; Pulse 76; Resp 16; Pulse Ox 100% on R/A; ha1 22:15 BP 114 / 95; Pulse 70; Resp 18 S; Pulse Ox 97% on R/A; ha1 23:00 BP 126 / 98; Pulse 71; Resp 16 S; Pulse Ox 97% on R/A; ha1 19:06 Body Mass Index 19.39 (48.08 kg, 157.48 cm) iw MDM: 19:13 Patient medically screened. ms3 19:45 Differential diagnosis: hemorrhoids, AV malformation vs UC. ms3 20:03 Transition of care: After a detail discussion of the patient's case, care is ms3 transferred to Serjio Hitchcock MD. 21:13 Data reviewed: vital signs, nurses notes, lab test result(s), radiologic studies, CT nils scan. Consideration of Admission/Observation Escalation of care including admission/observation considered. I considered the following discharge prescriptions or medication management in the emergency department Medications were administered in the Emergency Department. See MAR. Test considered but Not performed: Ultrasound no abd usg. Care significantly affected by the following chronic conditions: cva, anxiety. Counseling: I had a detailed discussion with the patient and/or guardian regarding: the historical points, exam findings, and any diagnostic results supporting the discharge/admit diagnosis, lab results, radiology results, the need for outpatient follow up, for definitive care, a family practitioner, a feed and farm management adviser. 09/21 19:14 Order name: CBC with Diff; Complete Time: 20:02 ms3 09/21 19:14 Order name: CMP; Complete Time: 20:02 ms3 09/21 19:14 Order name: Lipase; Complete Time: 20:02 ms3 09/21 19:14 Order name: Test, Urine; Complete Time: 20:26 ms3 09/21 19:50 Order name: CT ANGIO ABD/PELVIS W CONTRAST; Complete Time: 21:10 EDMS 09/21 19:14 Order name: IV Saline Lock; Complete Time: 19:33 ms3 09/21 19:14 Order name: Labs collected and sent; Complete Time: 19:33 ms3 Administered Medications: 19:39 Drug: morphine IVP or IV 4 mg Route: IVP; Infused Over: 4 mins; Site: right antecubital;ha1 20:50 Drug: metroNIDAZOLE IVPB 500 mg Volume: 100 ml; Route: IVPB; Rate: 200 ml/hr; Infused ha1 Over: 30 mins; Site: right antecubital; 21:15 Follow up: Response: No adverse reaction; IV Status: Completed infusion; IV Intake: ha1 100ml 20:50 Drug: NS 0.9% IV 1000 ml Route: IV; Rate: 1 bolus; Site: left antecubital; ha1 21:35 Drug: Ciprofloxacin IVPB 400 mg Volume: 200 ml; Route: IVPB; Infused Over: 60 mins; ha1 Site: right antecubital; 22:42 Drug: Ondansetron IVP 4 mg Route: IVP; Site: right antecubital; ha1 23:00 Follow up: Response: No adverse reaction ha1 22:45 Drug: morphine IVP or IV 4 mg Route: IVP; Infused Over: 4 mins; Site: right antecubital;ha1 23:00 Follow up: Response: No adverse reaction; Pain is decreased; RASS: Alert and Calm (0) ha1 Disposition Summary: 09/21/22 21:12 Discharge Ordered Location: Home nils Problem: new nils Symptoms: have improved nils Condition: Stable nils Diagnosis - GI Bleed/ Gastrointestinal hemorrhage, unspecified - lower nils - Other viral enteritis - non specific nils Followup: nils - With: Private Physician - When: 1 - 2 days - Reason: Recheck today's complaints, Continuance of care, Re-evaluation by your physician Followup: nils - With: - When: 2 - 3 days - Reason: Recheck today's complaints, Continuance of care, Re-evaluation by your physician Discharge Instructions: - Discharge Summary Sheet nils - Gastrointestinal Bleeding nils - Rectal Bleeding nils - Gastrointestinal Bleeding, [id number] nils - Rectal Bleeding, [id number] nils - Lower Gastrointestinal Bleeding nils Forms: - Medication Reconciliation Form nils - Thank You Letter nils - Antibiotic Education nils - Prescription Opioid Use [facility] Prescriptions: - Flagyl 500 mg Oral Tablet - take 1 tablet by ORAL route every 8 hours for 10 days; 30 tablet; Refills: 0, [facility] Product Selection Permitted - Pepcid 20 mg Oral Tablet - take 1 tablet by ORAL route every 12 hours for 21 days; 42 tablet; Refills: 0, [facility] Product Selection Permitted - Cipro 500 mg Oral Tablet - take 1 tablet by ORAL route every 12 hours for 7 days; 14 tablet; Refills: 0, [facility] Product Selection Permitted - dicyclomine 20 mg Oral Tablet - take 1 tablet by ORAL route 4 times per day; 28 tablet; Refills: 0, Product [facility] Selection Permitted Signatures: Dispatcher [employer] EDSerjio Pascal MD MD cha Williams, Irene, RN RN iw Sims, Marcus, DO DO ms3 Susan Burger RN RN ha1 Corrections: (The following items were deleted from the chart) 19:50 19:15 Abdomen Angio+CT.RAD.BRZ ordered. EDMS EDMS
[2022-09-21] MEDS ORDERED: ONDANSETRON 4 MG/2 ML VIAL ONE (22:48)
[2022-09-21 23:43] VITALS: TEMP 98.4
[2022-09-21 23:48] VITALS: BP 114/89; O2SAT 100
== END 2022-09-21 23:03 | disposition home or self-care (01) ==
LOC: ER 18:52
DX: A08.39 Other viral enteritis (principal)
CPT/HCPCS: 96365; 85025; 36415; 81025; 83690; 80053; 74174; 96375; 99284; Q9967; J2405; J0744; J7030

== ENCOUNTER 2022-10-16 07:32 | Day surgery (SDC) | payer OTHER ==
[2022-10-16] MEDS ORDERED: CEFAZOLIN SODIUM 1 GM/VIAL ONE (07:59)
[2022-10-16] MEDS ORDERED: Ringers Lactate 1,000 ML IV ONE (07:59)
[2022-10-16 08:03] LABS: Urine Specific Gravity/Preg >1.030 (1.005-1.030)
[2022-10-16 08:12] VITALS: O2SAT 100
[2022-10-16] MEDS ORDERED: BUPIVACAINE 0.5% PF 10 ML VIAL ONE (08:28)
[2022-10-16] MEDS ORDERED: FENTANYL CITR 100 MCG/2 ML ONE (08:33)
[2022-10-16] MEDS ORDERED: propofoL 200 MG/20 ML VIAL IV ONE (08:33)
[2022-10-16] MEDS ORDERED: ONDANSETRON 4 MG/2 ML VIAL ONE ×2 (08:34→09:38)
[2022-10-16] MEDS ORDERED: LIDOCAINE 2% MPF 5 ML VIAL ONE (08:34)
[2022-10-16] MEDS ORDERED: MIDAZOLAM HCL 2 MG/2 ML INJ ONE (08:38)
[2022-10-16] MEDS ORDERED: dexAMETHasone 4 MG/ML VIAL ONE (09:38)
[2022-10-16] MEDS ORDERED: KETOROLAC 30 MG/ML INJ ONE ×2 (09:39→10:03)
[2022-10-16] MEDS: MEPERIDINE HCL 25 MG/ML SYR ONE ×2 (10:16→10:21)
--- NOTE | 2022-10-16 10:17 | P.BOP ---
Preoperative diagnosis: perianal pain, BRBPR, prolapsed hemorrhoid Postoperative diagnosis: same, internal and external hemorrhoid Primary procedure: EUA, Anoscopy, rigid proctoscopy, external hemorrhoidectomy Estimated blood loss: <10cc Specimen: hemorrhoid Findings: internal and external hemorrhoid, see above Anesthesia: General Complications: None Drain(s): Other (surgicell) Transferred to: Recovery Room Condition: Good
[2022-10-16] MEDS ORDERED: PROMETHAZINE INJ 25 MG/ML AMP ONE (10:23)
[2022-10-16] MEDS: FENTANYL CITR 100 MCG/2 ML ONE ×2 (10:27→10:32)
[2022-10-16 11:38] VITALS: BP 106/59; TEMP 97.9
--- NOTE | 2022-10-16 12:55 | OP ---
Date of Procedure: 10/16/2022 Surgeon: Jun Rivera MD Glue Jointer Feeder: None. Preoperative Diagnoses: Perianal pain, bright red blood per rectum, prolapsed hemorrhoids. Postoperative Diagnoses: Perianal pain, bright red blood per rectum, prolapsed hemorrhoids plus inte rnal and external hemorrhoids. Procedures: EUA, anoscopy, rigid proctoscopy, external hemorrhoidectomy 1 bundle. Estimated Blood Loss: Less than 10 mL. Specimen: Hemorrhoids. Finding: Internal and external hemorrhoids. The patient also has a thrombosed hemorrhoid with activ e bleeding. Anesthesia: General plus local. Complications: None. Packs And Drains: Packing of the area, I used Surgicel, gauze. Indication: This is the case of a 37-year-old patient, who comes to us with on and off bright red bl ood per rectum, sent by the GI doctor for hemorrhoidectomy. The patient has been trying everything s he can try to avoid this and she has bleeding every now and then. She was advised the importance not to the injure the area or traumatize the area. Nothing is working for her, so she wants to be check ed and also check under anesthesia and we find out before she has a prolapsed hemorrhoid, so most lik angely she will need a hemorrhoidectomy with benefits, alternatives, and risks fully explained, which in clude, but not limited to infection, bleeding, damage to adjacent structures, anesthesia complication , anal stricture, incontinence, AL, and even . She also understands this may not relieve any sy mptoms. She might need more than one surgical intervention. She understood, signed a consent. She understands the importance of avoiding constipation, avoiding trauma to that region. Procedure In Detail: The patient was brought to the operating room, placed in supine position. Anes thesia was done without complication. The patient was placed in lithotomy position with proper prote ction. The perianal area was prepped and draped in the usual sterile fashion. After time-out, we pr oceeded to do a rigid proctoscopy all the way to about 15 cm. We saw internal and external hemorrhoi ds, but no proximal area of bleeding. We saw 1 of the external hemorrhoids prolapsed and thrombosed with partial break, looked like it has been bleeding before with small bleeding right now on challeng e. At that moment, then I proceeded to place an anoscope with a window on the side to verify the steven e findings and with that, we proceeded then to isolate this prolapsed hemorrhoid and then proceeded t o open the anoderm, isolated that from the sphincter, transected the hemorrhoidal plexus with the Dameon darryl Scalpel and then closed the anoderm with a 3-0 chromic after making sure there was no bleeding. Surgicel was placed over the area over the anoderm region. The area was inspected once again. No bleeding. No hematoma. Local anesthesia was applied in the area. The patient tolerated the procedu re well. The patient was sent to recovery in stable condition. Sponge count, instrument counts theresa ect. DIANA/MODL Voice ID: [id number] Report ID: [id number]
--- NOTE | 2022-10-16 12:55 | DS ---
Diagnoses: Perianal pain, bright red blood per rectum, prolapsed hemorrhoids, internal and external hemorrhoids. Procedures: EUA, anoscopy, rigid proctoscopy, external hemorrhoidectomy. Disposition: Home. Activity: As tolerated. No heavy lifting. Sitz baths 3 times a day and after every bowel movement. Avoid constipation. Use stool softeners. We will see the patient in a week in my office. DIANA/DORA Voice ID: [id number] Report ID: [id number]
== END 2022-10-16 11:20 | disposition home or self-care (01) ==
LOC: OR 07:32
PROVIDERS: ATTEND Surgery
PROC: 06BY0ZC Excision of Hemorrhoidal Plexus, Open Approach (ICD-10-PCS; 2022-10-16)
PROC: 0DJD8ZZ Inspection of Lower Intestinal Tract, Via Natural or Artificial Opening Endoscopic (ICD-10-PCS; principal; 2022-10-16 09:45)
DX: K64.5 Perianal venous thrombosis (principal); K62.5 Hemorrhage of anus and rectum; K64.8 Other hemorrhoids; K62.89 Other specified diseases of anus and rectum
CPT/HCPCS: 81025; 88304; 45300; 46320; J2550; J2704; J1100; J2001; J2250; J3010 ×2; J2175; J2405 ×2; J7120; J0690

== ENCOUNTER 2023-03-22 12:30 | Day surgery (SDC) | payer OTHER ==
[2023-03-21 11:24] LABS: Specific Gravity 1.025 (1.005-1.030)
[2023-03-22] MEDS ORDERED: CEFAZOLIN SODIUM 2 GM/VIAL ONE (12:51)
[2023-03-22] MEDS ORDERED: SCOPOLAMINE HYDROBROMIDE PATCH TD ONE (12:51)
[2023-03-22] MEDS ORDERED: Ringers Lactate 1,000 ML IV ONE ×2 (12:51→16:38)
[2023-03-22] MEDS ORDERED: LIDOCAINE 2% MPF 5 ML VIAL ONE (13:29)
[2023-03-22] MEDS ORDERED: ONDANSETRON 4 MG/2 ML VIAL ONE (13:29)
[2023-03-22] MEDS ORDERED: MIDAZOLAM HCL 2 MG/2 ML INJ ONE (13:29)
[2023-03-22] MEDS ORDERED: propofoL 200 MG/20 ML VIAL IV ONE (13:29)
[2023-03-22] MEDS ORDERED: FENTANYL CITR 100 MCG/2 ML ONE (13:29)
[2023-03-22] MEDS ORDERED: ROCURONIUM 50 MG/5 ML VIAL IV ONE (13:33)
[2023-03-22] MEDS ORDERED: BUPIVACAINE 0.25% PF 30 ML VIAL ONE ×2 (13:58→16:17)
[2023-03-22] MEDS ORDERED: Mastisol Adhesive Liq ONE ×2 (14:47)
[2023-03-22] MEDS ORDERED: VECURONIUM 10 MG/VIAL IV ONE (15:31)
[2023-03-22] MEDS ORDERED: NS 0.9% VIAL 10 ML ONE (15:31)
[2023-03-22] MEDS ORDERED: KETOROLAC 30 MG/ML INJ ONE (16:39)
[2023-03-22] MEDS ORDERED: NEOSTIGMINE 1 MG/ML -10 ML VIAL ONE (16:52)
[2023-03-22] MEDS ORDERED: GLYCOPYRROLATE 0.2 MG/ML SYR ONE (16:52)
[2023-03-22] MEDS: HYDROMORPHONE HCL 1 MG/ML INJ ONE ×2 (17:05→17:10)
[2023-03-22] MEDS ORDERED: MEPERIDINE HCL 25 MG/ML SYR ONE (17:17)
[2023-03-22] MEDS ORDERED: HYDROMORPHONE HCL 1 MG/ML INJ ONE (17:22)
[2023-03-22 17:37] VITALS: O2SAT 98
[2023-03-22 18:33] VITALS: BP 108/67; TEMP 97.6
--- NOTE | 2023-03-23 03:25 | OP ---
Date of Procedure: 03/22/2023 Surgeon: Liane Guy MD Php Lamp Developer: Ellie Molina Preoperative Diagnoses: Dysmenorrhea, deep dyspareunia, history of ectopic , completed chil dbearing. Postoperative Diagnoses: Dysmenorrhea, deep dyspareunia, history of ectopic , completed chi ldbearing. Left tubal adhesions to the utero-ovarian ligament and to the mesosalpinx and ovary. The n on the right, a partially transected tube; distal hydrosalpinx; and a right adnexal mass, either pa raovarian or paratubal mass. Procedures Performed: 1.Diagnostic hysteroscopy. 2.Diagnostic laparoscopy. 3.Bilateral salpingectomy. 4.Right adnexal mass removal, which could either be a paratubal cyst or paraovarian mass. 5.Lysis of ovarian adhesions from the tubes. 6.Lysis of omental adhesions. Anesthesia: General endotracheal. Specimens: Left tube, intact; right tube, the distal part of the tube; and the adnexal mass were all removed in 1 specimen and handed out for permanent pathology. They were all retrieved using an Endo Catch bag. Complications: No complications. Drains: No drains. Estimated Blood Loss: Minimal. Condition: Stable. Findings: Uterine cavity unremarkable. Whitish residue seen in the endometrial canal fluid. No enoch rine anomalies. On laparoscopy, the right tube was severed. Proximal tube was removed. There was inflammatory tissu e around the distal tube, slightly dilated, severed and attached distally near the fimbriated end to the ovary where a mass was located. This could be either tubal or ovarian, so this adnexal mass as i t was abnormal was removed. Then, there were adhesions of the ovaries to the tubes, which were also removed distally at the fimbriated end. Indications: The patient is a 37-year-old, 3, para 3, who has been experiencing abnormal abad n, dysmenorrhea, dyspareunia. Medical treatment options have been discussed with the patient. All S TI testing was performed and negative. She has used Depo Provera in the past for treatment of her sy mptoms as well as this. The patient has history of cerebrovascular accident in 2016. She had a stro ke due to a patent foramen ovale, which has since been repaired. She also has history of removal of a dermoid when her son was born in 2018, so we discussed given her symptoms that besides the GnRH ant agonist or GnRH analog, we could definitely try to diagnose if she has endometriosis, any hydrosalpin ges. Given her prior history of ectopic that she would be treated for these by bilateral salpingecto my, the distal part of the tube could be removed if it was the source of pain. She has completed chi ldbearing and therefore removing the left tube would also be beneficial. There was a septated cyst 3 .2 cm on the left side on ultrasound scanning, so she was consented and brought to the OR. Procedure In Detail: After informed consent was verified, she was taken back to the OR, placed in pinto pine fashion on the operating table. General anesthesia was given. She was placed in dorsal lithoto my position using Augie stirrups. Positioning was checked. Abdomen was prepped with ChloraPrep; vul va, vagina, and perineum with Betadine and she was draped in a sterile fashion. A speculum was place d to expose the cervix. Anterior lip was grasped with 2 Allis clamps. The tip of the scope was plac ed in the cervical canal and under direct hysteroscopy passing through the cervical canal, uterine ca vity was entered and the cavity was unremarkable with white residue and fluid in there. Once this wa s flushed out, no uterine anomalies were noted. No lesions in the endometrium or in the cavity. The hysteroscopy was completed. Scope removed. Instruments removed. VCare diagnostic was placed. Fol ey was placed and this area was draped. After injecting the skin with 0.25% Marcaine, a similar incision was made in the infraumbilical area. As I was dissecting down to the fascia, there was an incident in the operating room, where there wa s leakage of water from the roof near the anesthesia machine. No direct contamination of the operati ng field was noted. Immediately, plans were made to transfer the patient to a different operating ro om for us to complete the case, so the umbilical incision was closed with 5-0 Monocryl and sterile Ba nd-Aid was placed. All the drapes were removed. With the patient still intubated in the operating r oom in the lithotomy position, she was moved over to another operating room across the hallway. Once the anesthesia made her stable and comfortable, I was able to re-prep the abdomen with ChloraPrep; v ulva, vagina, and perineum with Betadine, draped in a sterile fashion. Speculum was placed to expose the cervix and another new manipulator was introduced as the old one and Reese both were removed bef ore the patient was transferred. Once this was placed, the Reese was replaced. Then, this area was draped. An infraumbilical incision was opened up with the scalpel tip. The sutures were removed. Fascia was incised with the 11 blade. The fascial edges were tagged with 0 Vicryl sutures after holding the ed ges with the Coco's. The peritoneum was entered sharply. Katia introduced after adequate insuffl ation. Site of entry was checked and was unremarkable. There was some preperitoneal CO2; this was v milton minimal. Five suprapubic and left lower quadrant ports were placed under direct vision after injecting the fas josé and skin with Marcaine. The findings are as dictated above. Right salpingectomy was performed taking down the tube from the site of the uterus, from the mesosalp inx towards the fimbriated end with the help of the LigaSure at the base. Then coming to the distal portion, where the adnexal mass was present, the distal part of the tube carefully avoiding the infun dibulopelvic ligament, it was dissected all around, and cut, then removed attached to the f imbriated end of the tube. This was placed in the anterior cul-de-sac. Left salpingectomy: Adhesions of the tube were taken down from the ovary and the utero-ovarian ligam ent on the sides. Once all the adhesions were released, which were dense, took down the tube from th e fimbriated end to the proximal end and placed in the anterior cul-de-sac. The proximal part of the right tube was cauterized and inflammatory tissue removed. After thorough irrigation and suction, t he tube specimens were placed in Endo Catch bag and removed through the umbilical incision while I wa s using the 5 port for my camera. After both specimens were removed, gas was desufflated. Sites of entry were checked before removal. They were hemostatic. The fascia at the umbilicus was closed. After removing the specimens using t he Endo Catch bag, the fascial edges were stitched back together with the help of 0 Vicryl sutures ti ed to each other. Simple interrupted 5-0 Monocryl for all skin incisions. Reese and VCare were esteban erin. Instrument, needle, and sponge counts were correct at the end of the case. The patient tolerat ed the procedure well. She was recovered from anesthesia and taken to the PACU in stable condition. I will be discussing her findings and the incident with her , and she will be informed about this as well. There were no untoward consequences of this incident. The surgery went very safely an d it was completed. GLORIA/DORA Voice ID: [id number] Report ID: [id number]
== END 2023-03-22 18:40 | disposition home or self-care (01) ==
LOC: OR 12:30
PROVIDERS: ATTEND Obstetrics & Gynecology
PROC: 0UJD8ZZ Inspection of Uterus and Cervix, Via Natural or Artificial Opening Endoscopic (ICD-10-PCS; 2023-03-22)
PROC: 0UB04ZX Excision of Right Ovary, Percutaneous Endoscopic Approach, Diagnostic (ICD-10-PCS; 2023-03-22)
PROC: 0UT74ZZ Resection of Bilateral Fallopian Tubes, Percutaneous Endoscopic Approach (ICD-10-PCS; principal; 2023-03-22 14:00)
DX: N94.12 Deep dyspareunia (principal); N94.6 Dysmenorrhea, unspecified; N83.8 Other noninflammatory disorders of ovary, fallopian tube and broad ligament; N83.201 Unspecified ovarian cyst, right side; N73.6 Female pelvic peritoneal adhesions (postinfective)
CPT/HCPCS: 58700; 58555; 58661; 81025; 88302; 88305; A4216; J2704; J2710; J2001; J2250; J3010; J2175; J1170 ×2; J2405; J7120 ×2

== ENCOUNTER 2024-06-12 17:18 | Emergency (ER) | payer OTHER ==
[2024-06-12 18:02] LABS: Absolute Lymphocytes (CBC) 0.9 K/uL (0.7-4.9); Absolute Monocytes 0.6 K/uL (0.1-1.3); Absolute Neutrophil 3.3 K/uL (1.8-8.0); Basophils % 0.4 % (0-1.3); Hematocrit 34.7 % (36.0-45.0); Hemoglobin 11.6 g/dL (12.0-15.0); Lymphocytes % 18.3 % (15.3-44.8); MCH 30.7 pg (27.0-35.0); MCHC 33.6 g/dL (32.0-36.0); MCV 91.4 fL (80-100); MPV 8.1 fL (7.6-11.3); Monocytes % 11.9 % (3.3-12.3); Neutrophils % 69.4 % (41.7-73.7); Nucleated Red Blood Cells % 0.1 % (0-0); Platelets 174 thou/uL (152-406); Red Cell Distribution Width 12.7 % (12.1-15.2)
[2024-06-12] MEDS ORDERED: KETOROLAC 30 MG/ML INJ ONE (18:09)
[2024-06-12] MEDS ORDERED: ONDANSETRON 4 MG/2 ML VIAL ONE ×2 (18:09→22:05)
[2024-06-12] MEDS ORDERED: HYDROCODONE/CHLORPHEN 5 ML/OSYR ONE (18:09)
[2024-06-12] MEDS ORDERED: ALBUTEROL 2.5 MG/3 ML NEB SOL ONE ×2 (18:09→19:37)
[2024-06-12] MEDS ORDERED: FAMOTIDINE 20 MG/2 ML VIAL IV ONE (18:10)
[2024-06-12] MEDS ORDERED: NA CHLORIDE 0.9% 1,000 ML ONE (18:10)
[2024-06-12 18:13] LABS: Monoscreen NEG (NEG)
[2024-06-12 18:14] LABS: Specific Gravity 1.018 (1.005-1.030)
[2024-06-12 18:15] LABS: Specific Gravity 1.018 (1.005-1.030); Sqamous Epithelial <5 /HPF (None Seen); Urine Bacteria <20 /HPF (<20); Urine Bilirubin NEGATIVE (Negative); Urine Blood 1+ (Negative); Urine Clarity Extremely Turbid (Clear); Urine Color Light-Yellow (Yellow); Urine Culture Reflex Order NOT NEEDED; Urine Glucose NEGATIVE (Negative); Urine Ketones NEGATIVE (Negative); Urine Microscopic Reflex YN ORDER UMIC; Urine Mucus 4+ /HPF (None Seen); Urine Nitrite NEGATIVE (Negative); Urine Protein TRACE (Negative); Urine Urobilinogen Normal (Normal); Urine WBC <5 /HPF (<5); Urine WBC Clump Rare /HPF (None Seen); Urine Yeast (Budding) Trace /HPF (None Seen)
[2024-06-12 18:23] LABS: Albumin 3.2 g/dL (3.4-5.0); Anion Gap 6.3 mEq/L (5.0-15.0); Bilirubin Total 0.2 mg/dL (0.2-1.0); Globulin 3.2 g/dL (2.3-3.5); Magnesium 1.9 mg/dL (1.6-2.4); Potassium 3.3 mEq/L (3.5-5.1); Protein, Total 6.4 g/dL (6.4-8.2)
[2024-06-12 18:28] LABS: Influenza A Ag Negative; Influenza B Ag Negative; SARS-CoV-2 Antigen Rapid Res Negative (Negative)
[2024-06-12] MEDS ORDERED: BENZONATATE 100 MG CAP PO ONE (21:02)
--- NOTE | 2024-06-12 21:12 | RAD REPORT ---
EXAMINATION: ONE VIEW CHEST XR CLINICAL INDICATION: COUGH TECHNIQUE: Frontal chest projection is submitted. Examination is limited by patient positioning and t echnique. COMPARISON: 08/18/2022 FINDINGS: Nonspecific peribronchial thickening without focal consolidation could represent a viral or inflammat ory process. The heart is normal in size. No displaced fractures identified. IMPRESSION: Interstitial pattern bilaterally could be related to viral infection or reactive airway disease.
[2024-06-12] MEDS ORDERED: NA CHLORIDE 0.9% 100 ML ONE (21:21)
[2024-06-12] MEDS ORDERED: CEFTRIAXONE 2000 MG/VIAL ONE (21:21)
[2024-06-12] MEDS ORDERED: AZITHROMYCIN 250 MG TAB ONE (21:21)
--- NOTE | 2024-06-12 21:53 | EDPHYS ---
Physician Documentation [facility] Name: Italia Allen Age: 38 yrs Sex: Female : 1985 Arrival Date: 06/12/2024 Time: 17:18 Bed 20 Private MD: ED Physician Gracy Lorenzo HPI: 06/12 17:45 This 38 yrs old Female presents to ER via EMS with complaints of Flu Symptoms. cp 17:45 The patient or guardian reports cough, that is constant. cp 17:45 Onset: The symptoms/episode began/occurred 3 day(s) ago. Associated signs and symptoms: cp Pertinent positives: fever, nausea, sore throat, body aches, Pertinent negatives: diarrhea, active vomiting. Severity of symptoms: in the emergency department the symptoms are unchanged despite home interventions. 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 - Infectious Disease History:: Denies. - Social history:: Smoking status: Reported history of juuling and/or vaping. ROS: 17:50 Constitutional: Positive for body aches, chills, Negative for fever, cp 17:50 Eyes: Negative for injury, pain, redness, and discharge, cp 17:50 ENT: Positive for sore throat, Negative for drainage from ear(s), ear pain, difficulty swallowing, difficulty handling secretions, 17:50 Cardiovascular: Positive for chest pain, with cough, 17:50 Respiratory: Positive for cough, "sounds productive", 17:50 Abdomen/GI: Negative for diarrhea, constipation, active vomiting, 17:50 Neuro: Negative for altered mental status, headache, weakness, 17:50 All other systems are negative, Exam: 17:55 Constitutional: The patient appears in no acute distress, alert, awake, cp non-diaphoretic, non-toxic, well developed, well nourished, uncomfortable, 17:55 Head/Face: Normocephalic, atraumatic. cp 17:55 Eyes: Periorbital structures: appear normal, Conjunctiva: normal, no exudate, no injection, Sclera: no appreciated abnormality, Lids and lashes: appear normal, bilaterally, 17:55 ENT: External ear(s): are unremarkable, Ear canal(s): are normal, clear, TM's: dullness, bilaterally, Nose: is normal, Mouth: Lips: moist, Oral mucosa: moist, Posterior pharynx: Airway: no evidence of obstruction, patent, 17:55 Neck: ROM/movement: Meningeal signs: are not present, nuchal rigidity, is not appreciated, 17:55 Chest/axilla: Inspection: normal, 17:55 Cardiovascular: Rate: tachycardic, Rhythm: regular, Edema: is not appreciated, JVD: is not appreciated, 17:55 Respiratory: the patient does not display signs of respiratory distress, Respirations: labored breathing, that is mild, Breath sounds: bronchial sounds, that are mild, are heard diffusely, decreased breath sounds, are not appreciated, stridor, is not appreciated, wheezing: is not appreciated, 17:55 Abdomen/GI: Inspection: abdomen appears normal, Palpation: abdomen is soft and non-tender, in all quadrants, 17:55 Neuro: Orientation: to person, place \\T\\ time. Mentation: is normal, Vital Signs: 17:23 BP 122 / 79; Pulse 109; Resp 20; Temp 98.6; Pulse Ox 100% ; Weight 63.5 kg; Height 5 me1 ft. 1 in. ; Pain 8/10; 18:00 BP 113 / 89; Pulse 113; Resp 20; Pulse Ox 100% ; me1 19:00 BP 125 / 73; Pulse 83; Resp 19; Pulse Ox 100% on R/A; me1 20:00 BP 118 / 67; Pulse 92; Resp 16; Pulse Ox 100% ; me1 21:00 BP 105 / 91; Pulse 111; Resp 18; Pulse Ox 100% ; me1 21:57 BP 112 / 65; Pulse 88; Resp 18; Temp 98.4; Pulse Ox 100% ; me1 17:23 Body Mass Index 26.45 (63.50 kg, 154.94 cm) me1 17:23 Pain Scale: Adult [facility] [place] MDM: 21:51 Data reviewed: vital signs, nurses notes, lab test result(s), EKG, radiologic studies, cp plain films, and as a result, I will discharge patient. 21:51 Differential diagnosis: bronchitis, flu, URI, pneumonia, sepsis. Antibiotic cp administration: The patient is discharged and will get outpatient antibiotics, Zithromax, Augmentin. Consideration of Admission/Observation Escalation of care including admission/observation considered. I considered the following discharge prescriptions or medication management in the emergency department Medications were administered in the Emergency Department. See MAR. Counseling: I had a detailed discussion with the patient and/or guardian regarding the historical points, exam findings, and any diagnostic results supporting the discharge/admit diagnosis, lab results, radiology results, to return to the emergency department if symptoms worsen or persist or if there are any questions or concerns that arise at home. Response to treatment: the patient's symptoms have mildly improved after treatment, and as a result, I will discharge patient. 21:52 Medical Screening Exam initiated cp 06/12 17:39 Order name: CBC with Diff; Complete Time: 20:09 cp 06/12 20:09 Interpretation: Normal except: RBC 3.80; HGB 11.6; HCT 34.7. cp 06/12 17:39 Order name: CMP; Complete Time: 20:09 cp 06/12 20:10 Interpretation: Normal except: K 3.3; CL 112; BUN 6; CA 7.8; ALB 3.2; A/G 1.0. cp 06/12 17:39 Order name: Lipase; Complete Time: 20:09 cp 06/12 17:39 Order name: Test, Urine; Complete Time: 20:09 cp 06/12 17:39 Order name: Urinalysis w/ reflexes; Complete Time: 20:09 cp 06/12 20:10 Interpretation: Normal except: [facility] Extremely Turbid; UBLD 1+; UPROT TRACE; URBC 5-10; cp MUCUS 4+; BYST Trace. 06/12 17:39 Order name: Magnesium; Complete Time: 20:09 cp 06/12 17:39 Order name: [place] Screen Profile; Complete Time: 20:09 cp 06/12 20:12 Interpretation: Reviewed. cp 06/12 18:01 Order name: COVID-19 Ag + Flu A+B Ag; Complete Time: 20:09 EDMS 06/12 20:10 Interpretation: Reviewed. cp 06/12 18:01 Order name: Group A Streptococcus Rapid Sc; Complete Time: 20:09 EDMS 06/12 18:30 Order name: Throat Culture EDMS 06/12 20:14 Order name: XRAY Chest (1 view); Complete Time: 21:18 cp 06/12 17:39 Order name: IV Saline Lock; Complete Time: 17:54 cp 06/12 17:39 Order name: Labs collected and sent; Complete Time: 17:54 cp Administered Medications: 18:20 Drug: Famotidine IVP 20 mg IVP once; dilute with 10 mL 0.9% NaCl; give over 2 minutes me1 Route: IVP; Site: right antecubital; 19:12 Follow up: Response: No adverse reaction kc6 18:20 Drug: TORadol - Ketorolac IVP 15 mg IVP once Route: IVP; Site: right antecubital; me1 19:13 Follow up: Response: No adverse reaction kc6 18:20 Drug: Ondansetron IVP 4 mg IVP once; over 2 minutes Route: IVP; Site: right antecubital;me1 19:12 Follow up: Response: No adverse reaction kc6 18:20 Drug: NS 0.9% IV 1000 ml IV at 1 bolus Per protocol; to be given as a bolus over 60 me1 minutes Route: IV; Rate: 1 bolus; Site: right antecubital; 19:41 Follow up: Response: No adverse reaction; IV Status: Completed infusion; IV Intake: me1 1000ml 18:20 Drug: Tussionex Pennkinetic ER PO Suspension 5 ml PO once Route: PO; me1 19:12 Follow up: Response: No adverse reaction kc6 19:40 Follow up: Response: No adverse reaction; Marked relief of symptoms me1 18:20 Drug: Albuterol Inhalation 2.5 mg Inhalation continuous x3 Route: Inhalation; me1 19:43 Drug: Albuterol Inhalation 2.5 mg Inhalation continuous x3 Route: Inhalation; me1 21:04 Drug: Tessalon Perle PO 200 mg PO once Route: PO; me1 21:57 Follow up: Response: No adverse reaction me1 21:33 Drug: Rocephin - Rocephin (cefTRIAXone) IVPB 2 grams IVPB once over 30 mins; (mix in me1 100 mL NS) Route: IVPB; Infused Over: 30 mins; Site: right antecubital; 22:00 Follow up: Response: No adverse reaction; IV Status: Completed infusion; IV Intake: me1 100ml 21:33 Drug: AZITHromycin PO 500 mg PO once Route: PO; me1 21:57 Follow up: Response: No adverse reaction me1 22:01 Drug: Ibuprofen PO 800 mg PO once Route: PO; me1 22:15 Follow up: Response: No adverse reaction me1 Disposition Summary: 06/12/24 21:52 Discharge Ordered Notes: Location: Home cp Problem: new cp Symptoms: have improved cp Condition: Stable cp Diagnosis - Pneumonia in diseases classified elsewhere cp Followup: cp - With: Private Physician - When: 2 - 3 days - Reason: Worsening of condition Discharge Instructions: - Discharge Summary Sheet cp - Community-Acquired Pneumonia, Adult cp Forms: - Medication Reconciliation Form cp - Antibiotic Education cp - Prescription Opioid Use cp - Patient Portal Instructions cp - Leadership Thank You Letter cp Prescriptions: - Bromfed DM 2-30-10 mg/5 mL Oral syrup - administer 10 milliliter ORAL route every 6-8 hours as needed for cold cp symptoms; 240 milliliter; Refills: 0, Product Selection Permitted - albuterol sulfate 90 mcg/actuation Inhalation HFA Aerosol Inhaler - inhale 1 puff INHALATION route once; 1 unit; Refills: 0, Product Selection cp Permitted - Augmentin 875-125 mg Oral Tablet - take 1 tablet ORAL route every 12 hours for 10 days; 20 tablet; Refills: 0, cp Product Selection Permitted - Zofran 4 mg Oral Tablet - take 1 tablet ORAL route every 12 hours As needed; 20 tablet; Refills: 0, cp Product Selection Permitted - Zithromax Z-Wolfgang 250 mg Oral Tablet - take 1 tablet ORAL route as directed for 5 days Day 1 - take two (2) tablets cp one time. Day 2, 3, 4 , 5 take one (1) tablet once daily.; 6 tablet; Refills: 0, Product Selection Permitted Signatures: Dispatcher [employer] EDMS Serjio Heck PA PA cp Annika Rodriguez RN RN me1 Ana Scott RN [email or web address] Corrections: (The following items were deleted from the chart) 17:40 17:40 CBC+H.LAB.BRZ ordered. EDMS EDMS 17:40 17:40 COMPREHENSIVE METABOLIC PANEL+C.LAB.BRZ ordered. EDMS EDMS 17:40 17:40 LIPASE+C.LAB.BRZ ordered. EDMS EDMS 17:40 17:40 Test, Urine+UC.LAB.BRZ ordered. EDMS EDMS 17:40 17:40 Urinalysis+U.LAB.BRZ ordered. EDMS EDMS 17:40 17:40 MAGNESIUM+C.LAB.BRZ ordered. EDMS EDMS 17:40 17:40 MONO SCREEN PROFILE+I.LAB.BRZ ordered. EDMS EDMS 18:02 17:40 SARS-COV-2 Antigen Rapid+I.LAB.BRZ ordered. EDMS EDMS 18:02 17:40 Influenza Screen (A \\T\\ B)+BA.LAB.BRZ ordered. EDMS EDMS 18:02 17:40 Group A Streptococcus Rapid Sc+BA.LAB.BRZ ordered. EDMS EDMS
--- NOTE | 2024-06-12 21:53 | ER ---
Nurse's Notes [facility] Name: Italia Allen Age: 38 yrs Sex: Female : 1985 Arrival Date: 06/12/2024 Time: 17:18 Bed 20 Private MD: Diagnosis: Pneumonia in diseases classified elsewhere Presentation: 06/12 17:23 Chief complaint: EMS states: toned out for flu symptoms x 3 days. Cough, congestion, me1 fever, n/v/d x 3 days. temp was 102.4- EMS gave tylenol 1000 mg PO and started a 18g LAC, gave zofran 4 mg IV and NS 600 ml IV. Coronavirus screen: Vaccine status: Patient reports being unvaccinated. Ebola Screen: No symptoms or risks identified at this time. Initial Sepsis Screen: Does the patient meet any 2 criteria? HR > 90 bpm. No. Patient's initial sepsis screen is negative. Risk Assessment: Do you want to hurt yourself or someone else? Patient reports no desire to harm self or others. Onset of symptoms was June 09, 2024. 17:23 Method Of Arrival: EMS: [facility] 17:23 Acuity: BUDDY 3 me1 Triage Assessment: 17:27 General: Appears ill, Behavior is cooperative, appropriate for age, anxious. Pain: me1 Complains of pain in generalized Pain does not radiate. Pain currently is 8 out of 10 on a pain scale. Quality of pain is described as aching, Pain began 2-3 days ago. Is continuous. EENT: No signs and/or symptoms were reported regarding the EENT system. EENT: Reports nasal congestion. Neuro: Level of Consciousness is awake, alert, obeys commands, Oriented to person, place, time, situation, Appropriate for age. Cardiovascular: Patient's skin is warm and dry. Respiratory: Reports shortness of breath cough that is persistent Airway is patent Respiratory effort is even, unlabored, Respiratory pattern is regular, symmetrical. GI: Reports diarrhea, nausea, vomiting. : No signs and/or symptoms were reported regarding the genitourinary system. Derm: Skin is intact, is healthy with good turgor, Skin is pale. Musculoskeletal: No signs and/or symptoms reported regarding the musculoskeletal system. 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 - Infectious Disease History:: Denies. - Social history:: Smoking status: Reported history of juuling and/or vaping. Screenin:31 [facility] ED Fall Risk Assessment (Adult) History of falling in the last 3 months, wi1 including since admission No falls in past 3 months (0 pts) Confusion or Disorientation No (0 pts) Intoxicated or Sedated No (0 pts) Impaired Gait No (0 pts) Mobility Assist Device Used No (0 pt) Altered Elimination No (0 pt) Score/Fall Risk Level 0 - 2 = Low Risk Maintained a safe environment, Provided non-skid footwear, Hourly rounding (assess needs \T\ fall precautionary measures) done. Abuse screen: Denies threats or abuse. Nutritional screening: No deficits noted. Tuberculosis screening: No symptoms or risk factors identified. Assessment: 17:31 General: See triage assessment. wi1 18:31 Reassessment: Patient appears in no apparent distress at this time. No changes from kc6 previously documented assessment. Patient and/or family updated on plan of care and expected duration. Pain level reassessed. Patient is alert, oriented x 3, equal unlabored respirations, skin warm/dry/pink. Vital Signs: 17:23 BP 122 / 79; Pulse 109; Resp 20; Temp 98.6; Pulse Ox 100% ; Weight 63.5 kg; Height 5 me1 ft. 1 in. ; Pain 8/10; 18:00 BP 113 / 89; Pulse 113; Resp 20; Pulse Ox 100% ; me1 19:00 BP 125 / 73; Pulse 83; Resp 19; Pulse Ox 100% on R/A; me1 20:00 BP 118 / 67; Pulse 92; Resp 16; Pulse Ox 100% ; me1 21:00 BP 105 / 91; Pulse 111; Resp 18; Pulse Ox 100% ; me1 21:57 BP 112 / 65; Pulse 88; Resp 18; Temp 98.4; Pulse Ox 100% ; wi1 17:23 Body Mass Index 26.45 (63.50 kg, 154.94 cm) me1 17:23 Pain Scale: Adult wi1 ED Course: 17:23 Patient arrived in ED. me1 17:26 Serjio Heck PA is PHCP. cp 17:26 Gracy Lorenzo MD is Attending Physician. cp 17:27 Triage completed. me1 17:27 Arm band placed on Patient placed in an exam room. me1 17:31 Annika Rodriguez, RN is Primary Nurse. me1 17:31 Patient has correct armband on for positive identification. Bed in low position. Call wi1 light in reach. Side rails up X 1. Provided Education on: POC. Verbalized understanding.. Client placed on continuous cardiac and pulse oximetry monitoring. NIBP monitoring applied. Pulse ox on. NIBP on. 17:31 No provider procedures requiring assistance completed. me1 17:44 Maintain EMS IV. Dressing intact. Good blood return noted. Site clean \T\ dry. Gauge \T\ me 1 site: 18g LAC. Flushed with 10 mL NS. 17:54 [place] Screen Profile Sent. me1 17:54 CBC with Diff Sent. me1 17:54 CMP Sent. me1 17:54 Lipase Sent. me1 18:07 Initial lab(s) drawn, by wi, sent to lab. Urine collected: clean catch specimen, wi1 cloudy, COVID swab sent to lab. Flu and/or RSV swab sent to lab. Strep swab sent to lab. 21:00 XRAY Chest (1 view) In Process Unspecified. EDMS 22:16 IV discontinued, intact, bleeding controlled, No redness/swelling at site. Pressure wi1 dressing applied. Administered Medications: 18:20 Drug: Famotidine IVP 20 mg IVP once; dilute with 10 mL 0.9% NaCl; give over 2 minutes me1 Route: IVP; Site: right antecubital; 19:12 Follow up: Response: No adverse reaction kc6 18:20 Drug: TORadol - Ketorolac IVP 15 mg IVP once Route: IVP; Site: right antecubital; me1 19:13 Follow up: Response: No adverse reaction kc6 18:20 Drug: Ondansetron IVP 4 mg IVP once; over 2 minutes Route: IVP; Site: right antecubital;me1 19:12 Follow up: Response: No adverse reaction kc6 18:20 Drug: NS 0.9% IV 1000 ml IV at 1 bolus Per protocol; to be given as a bolus over 60 me1 minutes Route: IV; Rate: 1 bolus; Site: right antecubital; 19:41 Follow up: Response: No adverse reaction; IV Status: Completed infusion; IV Intake: me1 1000ml 18:20 Drug: Tussionex Pennkinetic ER PO Suspension 5 ml PO once Route: PO; me1 19:12 Follow up: Response: No adverse reaction kc6 19:40 Follow up: Response: No adverse reaction; Marked relief of symptoms me1 18:20 Drug: Albuterol Inhalation 2.5 mg Inhalation continuous x3 Route: Inhalation; me1 19:43 Drug: Albuterol Inhalation 2.5 mg Inhalation continuous x3 Route: Inhalation; me1 21:04 Drug: Tessalon Perle PO 200 mg PO once Route: PO; me1 21:57 Follow up: Response: No adverse reaction me1 21:33 Drug: Rocephin - Rocephin (cefTRIAXone) IVPB 2 grams IVPB once over 30 mins; (mix in me1 100 mL NS) Route: IVPB; Infused Over: 30 mins; Site: right antecubital; 22:00 Follow up: Response: No adverse reaction; IV Status: Completed infusion; IV Intake: me1 100ml 21:33 Drug: AZITHromycin PO 500 mg PO once Route: PO; me1 21:57 Follow up: Response: No adverse reaction me1 22:01 Drug: Ibuprofen PO 800 mg PO once Route: PO; me1 22:15 Follow up: Response: No adverse reaction me1 Medication: 17:31 VIS not applicable for this client. me1 Intake: 19:41 IV: 1000ml; Total: 1000ml. me1 22:00 IV: 100ml; Total: 1100ml. me1 Outcome: 21:52 Discharge ordered by . cp 22:16 Discharged to home via wheelchair, with significant other, me1 22:16 Condition: stable 22:16 Discharge instructions given to patient, significant other, Instructed on discharge instructions, follow up and referral plans. medication usage, Demonstrated understanding of instructions, follow-up care, medications, Prescriptions given X x5 22:17 Patient left the ED. me1 Signatures: Dispatcher [employer] EDMS Serjio Heck PA PA cp Campbell, Kaitlyn, RN RN kc6 Annika Rodriguez, RN RN me1 Corrections: (The following items were deleted from the chart) 18:02 17:54 Group A Streptococcus Rapid Sc+BA.LAB.BRZ drawn and sent. me1 EDMS 18:02 17:54 Influenza Screen (A \T\ B)+BA.LAB.BRZ drawn and sent. me1 EDMS 18:02 17:54 SARS-COV-2 Antigen Rapid+I.LAB.BRZ drawn and sent. wi1 EDMS
[2024-06-12] MEDS ORDERED: IBUPROFEN 400 MG TAB ONE (21:54)
[2024-06-13 20:03] VITALS: O2SAT 100
[2024-06-13 20:09] VITALS: BP 112/65; TEMP 98.4
== END 2024-06-12 22:17 | disposition home or self-care (01) ==
LOC: ER 17:18
DX: J18.9 Pneumonia, unspecified organism (principal); Z11.52 Encounter for screening for COVID-19
CPT/HCPCS: 96365; 96361; 87070; 85025; 81001; 36415; 83735; 86308; 81025; 83690; 80053; 71045; 96375; 99285; 87428; J7613 ×2; J2405 ×2; J0696; J7030